=== PATIENT | male | born 1935 | race Caucasian/White ===

== ENCOUNTER 2018-04-02 11:00 | Outpatient (CLI) | payer MEDICARE, OTHER ==
--- NOTE | 2018-04-03 10:33 | CONSULTATION NOTE ---
Palliative Care Consultation - Referral Referring Provider: Dr Tanna Hoyt Time of Visit: 04/02/2018. 11:10 - 13:10 Referral setting: Assisted living (Seen in home setting due to taxing and considerable effort required to leave the home due to immobility secondary to breathlessness from COPD, CHF.) Referral Reason: Declining functionality, edema, advance care planning - Information Sources Records reviewed: Previous records reviewed History/Review of Systems obtained from: Patient, Family, Nursing (Luca CAMPOS RN ) Exam limitations: Clinical condition (Short term memory deficits) - History of Present Illness Brief History of Present Illness: Thank you, Dr. Tanna Hoyt, for asking the palliative care consult service to be involved in the care of your patient. I am asked to provide support regarding a decline in functional status, symptom management, and advanced care management. He is with Home Health for medication and disease management, teaching, and wound care for stage 1 pressure wound on coccyx. FACE TO FACE FOR GROUP I ARIEL / MATTRESS: Due to Stage 2 pressure ulcer on patients trunk as a result of immobility secondary to CHF, COPD and dementia, patient requires a Group 1 support surface to promote wound healing. As a result of peripheral vascular disease, patient also suffers from compromised circulatory status which can decrease skin integrity if not managed. Group 1 support will promote healthy skin integrity. -82 male with advancing dementia and complex medical problems, was living with his daughter who has been his primary caregiver. With the rapid advance of his dementia she could not continue to care for the patient herself, and he is now living at [facility], and has been since 25 February 2018. 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 -In 2014 He fell and fractured R hip, had influenza with suspected pneumonia, a short while later a UTI and sepsis, and another fall later that same year, laying on floor for 8 hours with broken elbow. And also had rhabdomyolysis. - In 2015 he had LE edema and pain in knees severe enough that he could not stand or walk. He also had UTI, and went to inpatient rehab at [facility] -In Oct 2017 he went to ER for severe chest pain, and atrial flutter. -He also had a fall 2017, and that is when 3 healing fractured ribs were found from an earlier fall. He was hospitalized for UTI, but daughter reports he did not actually have a UTI. He was discharged to [facility] for 3 weeks of physical therapy, which really helped him. Now he sits in his apartment and only ambulates with the walker (and standby assistance) within the apartment -Daughter has requested palliative care to help define goals of care. She used to volunteer at Hospice, so she is familiar with palliative care services. -Patient is alert, articulate and interactive, but has confusion and trouble when asked questions, generally looking to his daughter when I ask him questions. -Functionally he is also declining, with increased difficulty transferring, unsteady standing and has unstable, careful gait. He ambulates with the walker only in his room; outside of his room he uses the wheelchair. -His lower extremities are edamatous, with a darkened, mildly tender and erythematic 7x7cm area on L viera, but no heat or deep redness. Both feet are 3+ pitting edema, with edema also up to the knees. He refuses compression stockings , but is agreeable to try tubigrip. He has his feet elevated during this visit but it is unclear if he elevates them when alone in his apartment. -He sleeps in his recliner. He denies pain. Medical/Surgical History - Past Medical History Cardiovascular: reports: Congestive heart failure, Hypertension, Coronary artery disease, Peripheral Vascular Disease, Atrial flutter, Atrial fibrillation Respiratory: reports: Asthma, COPD Neuro: Dementia : reports: Other (CKD III) HEENT: reports: Chronic hearing loss - Past Surgical History General: reports: Other (R upper lung lobectomy, suspected malignancy, but negative for cancer) Ortho: reports: Hip replacement (R hemiarthroplasty 2014) Cardiovascular: reports: AAA (endovascular repair 2013) Social History - Living Situation Living arrangement: Assisted living ([facility] in [place]) Living Situation: Alone, With caregiver(s) Support System: Patient has been 3 times, he is . He lived with his daughter, Inessa, for 4 years until she could no longer provide adequate care and he moved in to [facility] in February 2018. He had 5 children, two are from cancer. One daughter lives in [place] and is not closely involved. One son used to live with the patient x 5 years, but moved to [place] when the patient declined and required more care. At that time the patient moved in with daughter Inessa and her . Family History - Family History Family History Comment/Other: Both parents in their 70s. Father of stroke or diabetic complications. Mother had breast cancer. Two siblings : one in a childhood accident and a brother in his 80s from pneumonia. Medications/Allergies - Medications Home Medications: Ambulatory Orders Medication Instructions Recorded Confirmed Acetaminophen 325 mg PO Q6H PRN 04/03/18 04/03/18 Acetaminophen 650 mg PO TID 04/03/18 04/03/18 Albuterol Sulf [Ventolin Hfa 2 puffs INH BID 04/03/18 04/03/18 Inhaler] Amiodarone [Pacerone] 200 mg PO .QHS 04/03/18 04/03/18 Amlodipine Besylate 10 mg PO DAILY 04/03/18 04/03/18 Bimatoprost 0.01% Ophth Dops 1 drops EACHEYE .QHS 04/03/18 04/03/18 [Lumigan 0.01% Ophth Drops] Budesonide/Formoterol Fumarate 2 puffs INH BID 04/03/18 04/03/18 [Symbicort 80-4.5 Mcg Inhaler] Cetirizine HCl 10 mg PO .QHS 04/03/18 04/03/18 Cholecalciferol (Vitamin D3) 1,000 unit PO DAILY 04/03/18 04/03/18 [Vitamin D3] Diltiazem HCl [Diltiazem 12Hr ER] 120 mg PO DAILY 04/03/18 04/03/18 Diltiazem HCl [Diltiazem ER] 60 mg PO .QHS 04/03/18 04/03/18 Diphenoxylate/Atropine [Lomotil] 2 tab PO QID PRN 04/03/18 04/03/18 Docusate Calcium 240 mg PO DAILY PRN 04/03/18 04/03/18 Ferrous Sulfate 325 mg PO DAILY 04/03/18 04/03/18 Finasteride 5 mg PO .QHS 04/03/18 04/03/18 Hydralazine HCl 40 mg PO BID 04/03/18 04/03/18 Multivitamin [Multiple Vitamins] 1 tab PO DAILY 04/03/18 04/03/18 Nitroglycerin [Nitrostat] 0.4 mg PO Q5MIN PRN MDD 3 TABLETS 04/03/18 04/03/18 Prednisone 5 mg PO DAILY 04/03/18 04/03/18 Tamsulosin HCl [Flomax] 0.4 mg PO DAILY 04/03/18 04/03/18 Tiotropium [place] [Spiriva] 1 cap INH DAILY 04/03/18 04/03/18 Warfarin [Coumadin] 1.25 mg PO MDD M,T,W,F,Sat 04/03/18 Warfarin [Coumadin] 2.5 mg PO MDD Sun and Thur 04/03/18 Review of Systems - Constitutional Constitutional: reports: Weight loss (147 lbs 03/13/18. 138 lbs 03/01/18. 146 lbs 11/11/17. 157 lbs 05/14/18. 153 lbs from January-April 2017.) - Eyes Eyes: reports: Corrective lenses - Ears, Nose & Throat Ears, Nose & Throat: reports: Hearing loss, Postnasal drainage (chronic) - Cardiovascular Cardiovascular: reports: Exertional dyspnea, Decr. exercise tolerance - Respiratory Respiratory: reports: Cough (nervous habit), SOB at rest, SOB with exertion - Genitourinary Genitourinary: denies: Dysuria - Integumentary Integumentary: reports: Lesions (L viera) - Neurological Neurological: reports: General weakness, Memory problems, Abnormal gait Physical Exam - Vital Signs Temperature: 97.0 F Pulse Rate: 66 O2 Saturation: 93 (room air) Blood Pressure: 154/70 - Physical Exam General Appearance: positive: No acute distress, Alert Eyes Bilateral: positive: No lid inflammation, Conjunctivae nml, No scleral icterus ENT: positive: No signs of dehydration Neck: positive: Trachea midline Cardiovascular: positive: Regular rate & rhythm, No murmur, No gallop Respiratory: positive: Chest non-tender, No respiratory distress, Diminished throughout, Diminished in bases, Rales (mild crackles RLL), Other (RUL removed) Abdomen: positive: Non-tender, Soft, Nml bowel sounds Skin: positive: Wound (small, scattered, scabbed lesions on L viera.), Other ( lateral R viera, small patch of localized edema) Extremities: positive: Pedal edema (3+ bilateral), Other (edema lower extremitites up to knees. According to daughter his calves are usually much smaller) Neurologic/Psychiatric: positive: Oriented x3, Mood/affect nml Palliative Care - POLST Patient has POLST: Yes POLST Status: DNR, Selective Treatment Pain: Comment (01/18. Controlled with Tylenol 650mg TID routine.) Tiredness/Fatigue: Moderate (4-6) Drowsiness/Sedation: None Nausea: None Depression: None Anxiety: None Dyspnea: Moderate (4-6) Anorexia: None Constipation: No Feelings of wellbeing/Perceived Quality of Life: Good Performance Status: Unsteady gait, unstable standing. Transfers out of recliner with difficulty; requires stand-by assist. Ambulated with walker only in his apartment. Outside of it, he is pushed in the wheelchair. Cognitive decline is increasing since beginning of the year. -Per the daughter, after his 3 weeks of Physical Therapy at [facility] "he was good." But since living at [facility] he is mostly sitting, only using the walker in the apartment with standby assistance. - Palliative Care Discussion: The patient had stayed at [facility] previously for respite breaks, prior to moving here permanently in February 2018. He is not aware at this point that the plan is that this is his permanent residence. Inessa has chosen this facility because the care is good and he is comfortable here. She is in the process of applying to [facility] for Medicaid. Currently they are privately paying for him to stay at [facility];her private financial deadline to get him signed up for [facility] is May. If [facility] does not approve, she does not at this time have a backup plan. She declined Palliative Care [employer] support at this time. Nelli is aware that assisted living environment may not provide the ideal caregiving coverage her father requires, and the dementia unit at [facility] might serve him better, but she is weighing that against his quality of life and where he would be more comfortable and happy. She feels he would be very unhappy and dissatisfied in a dementia unit, due to his cognitive awareness and he is still fairly articulate. Nelli has an appropriate awareness and insight into the patient's declining health status and medical conditions. However, the patient himself is lacking insight and awareness of his serious medical issues. He does not recognize himself as having any serious disease. He also is currently unaware that his stay at [facility] is slated to be permanent; he has had two previous stays there for respite. POLST was signed in September 2017, DNR and selective treatment, and specifying no emergency dialysis. No changes were made. His PCP, Dr Hoyt, is moving to [place]. He will be transferring to a PCP on [facility], perhaps Dr Zuleta. Impression and Recommendations - Palliative Care Impression: 82 male with advancing dementia and complex medical problems, was living with his daughter who has been his primary caregiver. With the rapid advance of his dementia she could not continue to care for the patient herself, and he is now living at [facility] assisted living since 25 February 2018. He has lower bilateral edema and a stage 1 pressure wound in sacral area. HH Nursing will oversee wound management, palliative care will provide monitoring and support and transition to Hospice when appropriate. Recommendations/Counseling Done: Stage 1 pressure wound, sacral area: Home Health RN to provide wound care. Patient sleeps in recliner. Ordered Group 1/ARIEL Mattress. Patient has hospital bed already (purchased used). Bilateral lower extremity edema: Ordered HH to take Ankle Brachial Index. Ordered Tubigrip; if effective, patient's family can purchase. If ineffective, try 2-layer light compression wraps. Educate patient on compression and elevation. Amlodipine contributes; try not to nusrat it with diuretics. CKD III: Family specifies no emergency dialysis. Avoid nephrotoxic medications ( NSAIDs, etc) Dementia: Steady decline. No behavior issues. No symptoms of depression. h/o R hip fracture: Tylenol 650mg TID routine, and also PRN, NTE 3000mg daily. COPD and chronic SOB: Stable. Continue Spiriva, Symbicort, Ventolin, prednisone Atrial fibrillation: Anticoagulated on warfarin; rate control with diltiazem, amiodarone. Chronic post-nasal drip: Continue cetirizine. BPH: Continue tamsulosin and finasteride. Advanced care planning: POLST signed September 2017, DNR and selective treatment. [facility]PO[facility] dementia unit. She is willing to sacrifice some safety and tighter oversight for quality of life and his enjoyment of his environs. Follow up 1-2 weeks. Time Spent: 120 minutes were spent with more than 50% of the time spent on counseling, education, providing anticipatory guidance and coordination of care.
== END 2018-04-02 11:01 | disposition home or self-care (01) ==
LOC: PC 11:00
PROVIDERS: ATTEND Nurse Practitioner
DX: Z51.5 Encounter for palliative care (principal); L89.151 Pressure ulcer of sacral region, stage 1; I13.0 Hypertensive heart and chronic kidney disease with heart failure and stage 1 through stage 4 chronic kidney disease, or unspecified chronic kidney disease; N18.3 Chronic kidney disease, stage 3 (moderate); I50.9 Heart failure, unspecified; F03.90 Unspecified dementia, unspecified severity, without behavioral disturbance, psychotic disturbance, mood disturbance, and anxiety; J44.9 Chronic obstructive pulmonary disease, unspecified; I48.91 Unspecified atrial fibrillation; R09.82 Postnasal drip; N40.0 Benign prostatic hyperplasia without lower urinary tract symptoms; I73.9 Peripheral vascular disease, unspecified; H91.90 Unspecified hearing loss, unspecified ear; R26.81 Unsteadiness on feet; L98.9 Disorder of the skin and subcutaneous tissue, unspecified; Z79.01 Long term (current) use of anticoagulants; Z95.5 Presence of coronary angioplasty implant and graft; Z90.2 Acquired absence of lung [part of]; Z79.899 Other long term (current) drug therapy; Z87.440 Personal history of urinary (tract) infections; Z91.81 History of falling; Z66 Do not resuscitate; Z79.52 Long term (current) use of systemic steroids; Z79.51 Long term (current) use of inhaled steroids

== ENCOUNTER 2018-04-02 11:02 | Outpatient (CLI) | payer MEDICARE, OTHER ==
[2018-04-02 18:43] LABS: BILIRUBIN,URINE NEGATIVE (NEGATIVE); GLUCOSE, URINE (UA) NEGATIVE (NEGATIVE); KETONES,URINE (UA) NEGATIVE (NEGATIVE); LEUKOCYTE ESTERASE, URINE NEGATIVE (NEGATIVE); NITRITE,URINE NEGATIVE (NEGATIVE); OCCULT BLOOD,URINE NEGATIVE (NEGATIVE); PROTEIN,URINE NEGATIVE (NEGATIVE); UROBILINOGEN,URINE 1 (NORMAL) E.U./dL (NORMAL)
[2018-04-02 18:48] LABS: CLARITY,URINE CLEAR (CLEAR)
== END 2018-04-02 11:03 | disposition home or self-care (01) ==
LOC: LAB.R 11:02
PROVIDERS: ATTEND Nurse Practitioner
DX: N39.0 Urinary tract infection, site not specified (principal)
CPT/HCPCS: 81001; 81003; 87086

== ENCOUNTER 2018-04-24 14:50 | Outpatient (CLI) | payer MEDICARE, OTHER ==
--- NOTE | 2018-04-24 22:11 | CONSULTATION NOTE ---
Palliative Care Follow Up - Referral Referring Provider: Dr Tanna Hoyt Time of Visit: 04/24/2018. [phone] Referral setting: Assisted living (Seen in home setting due to taxing and considerable effort required to leave the home due to debility secondary to breathlessness from COPD and CHF.) Referral Reason: Lower extremity edema - Information Sources Records reviewed: Previous records reviewed History/Review of Systems obtained from: Patient, Family, Nursing Exam limitations: Clinical condition (Short-term memory deficits) - History of Present Illness Update Brief HPI Update: -82 male with advancing dementia and complex medical problems, was living with his daughter who has been his primary caregiver. With the rapid advance of his dementia she could not continue to care for the patient herself, so he has been living at [facility] since 25 February 2018. 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 -He fell 2017, and that is when 3 healing fractured ribs were found from an earlier fall. He was hospitalized for UTI (daughter Inessa believes he did not actually have a UTI), followed by 3 weeks of physical therapy. -His daughter Inessa is concerned that he is sedentary in his apartment and not ambulating enough to keep up the progress he made with PT during his rehabilitation. -He continues to be seen by HH RN for wound care of R buttocks wound which is not healing. RN reports it is clean, not appropriate for culture. -She also reports worsening redness on R viera. I assessed today: no redness, no heat, no tenderness. Bilateral lower extremities are edematous, with fluid palpable subcutaneously on R lateral lower extremity. -Weight gain: 158 lbs 04/13/18. 147 lbs 03/13/18. HH RN will use facility scale from now on for consistency. -Patient has tubigrip stockings on; feet aren't elevated. Daughter is concerned that since he lives alone, he is not elevating legs consistently and also that he is sleeping in his recliner, not in bed. He does not like the bed because he says he hears "children" through the plywood door next to the bed. -Patient has been running a temperature with ANDRES RN, most recently 100.1 but otherwise vital signs are stable. He is not running a temperature according to my thermometer. -Patient is on warfarin and his INR is checked regularly, every two weeks. ANDRES RN is performing the INR check. -Patient is ambulatory inside his apartment, he calls staff to assist him to the toilet. -He goes down to the dining room for all three meals and reports he has people he sits with. His uses his wheelchair outside of his unit. Social History - Living Situation Living arrangement: Assisted living ([facility]) Living Situation: Alone Support System: He lived with daughter, Inessa, for 4 years until his care needs increased to the point she was no longer able to care for him at home, so he has been living at [facility] since February. They are processing the paperwork to get him there under Medicaid. Inessa is closely involved in his care. Her was just laid off his job, so her living situation is currently complex and stressful. Medications/Allergies - Medications Home Medications: Ambulatory Orders Medication Instructions Recorded Confirmed Acetaminophen 325 mg PO Q6H PRN 04/03/18 04/24/18 Acetaminophen 650 mg PO TID 04/03/18 04/24/18 Albuterol Sulf [Ventolin Hfa 2 puffs INH BID 04/03/18 04/24/18 Inhaler] Amiodarone [Pacerone] 200 mg PO .QHS 04/03/18 04/24/18 Amlodipine Besylate 10 mg PO DAILY 04/03/18 04/24/18 Bimatoprost 0.01% Ophth Dops 1 drops EACHEYE .QHS 04/03/18 04/24/18 [Lumigan 0.01% Ophth Drops] Budesonide/Formoterol Fumarate 2 puffs INH BID 04/03/18 04/24/18 [Symbicort 80-4.5 Mcg Inhaler] Cetirizine HCl 10 mg PO .QHS 04/03/18 04/24/18 Cholecalciferol (Vitamin D3) 1,000 unit PO DAILY 04/03/18 04/24/18 [Vitamin D3] Diltiazem HCl [Diltiazem 12Hr ER] 120 mg PO DAILY 04/03/18 04/24/18 Diphenoxylate/Atropine [Lomotil] 2 tab PO QID PRN 04/03/18 04/24/18 Docusate Calcium 240 mg PO DAILY PRN 04/03/18 04/24/18 Ferrous Sulfate 325 mg PO DAILY 04/03/18 04/24/18 Finasteride 5 mg PO .QHS 04/03/18 04/24/18 Hydralazine HCl 40 mg PO BID 04/03/18 04/24/18 Multivitamin [Multiple Vitamins] 1 tab PO DAILY 04/03/18 04/24/18 Nitroglycerin [Nitrostat] 0.4 mg PO Q5MIN PRN MDD 3 TABLETS 04/03/18 04/24/18 Prednisone 5 mg PO DAILY 04/03/18 04/24/18 Tamsulosin HCl [Flomax] 0.4 mg PO DAILY 04/03/18 04/24/18 Tiotropium [place] [Spiriva] 1 cap INH DAILY 04/03/18 04/24/18 Warfarin [Coumadin] 1.25 mg PO MDD M,T,W,F,Sat 04/03/18 Warfarin [Coumadin] 2.5 mg PO MDD Sun and Thur 04/03/18 Furosemide 20 mg PO .EVERY OTHER DAY MDD for 04/24/18 04/24/18 5 doses only - Allergies Allergies/Adverse Reactions: Allergies Allergy/AdvReac Type Severity Reaction Status Date / Time azithromycin Allergy Respiratory Verified 04/04/18 15:16 bee venom protein (honey bee) Allergy Anaphylaxis Verified 04/04/18 15:16 hornet venom Allergy Anaphylaxis Verified 04/04/18 15:16 lisinopril Allergy Respiratory Verified 04/04/18 15:16 losartan Allergy Respiratory Verified 04/04/18 15:16 naproxen [From Naprosyn] Allergy Respiratory Verified 04/04/18 15:16 NSAIDS (Non-Steroidal Allergy Respiratory Verified 04/04/18 15:16 Anti-Inflamma Penicillins Allergy Respiratory Verified 04/04/18 15:16 Sulfa (Sulfonamide Allergy Respiratory Verified 04/04/18 15:16 Antibiotics) aspirin AdvReac Cramps Verified 04/04/18 15:16 hydromorphone AdvReac Hallucinati Verified 04/04/18 15:16 ons Iodinated Contrast- Oral and AdvReac Unknown Verified 04/04/18 15:16 IV Dye omeprazole AdvReac Cramps Verified 04/04/18 15:16 oxycodone AdvReac Hallucinati Verified 04/04/18 15:16 ons wasp Allergy Anaphylaxis Uncoded 04/04/18 15:16 yellow jacket venom Allergy Anaphylaxis Uncoded 04/04/18 15:16 Review of Systems - Constitutional Constitutional: reports: Weight gain. denies: Poor appetite - Ears, Nose & Throat Ears, Nose & Throat: reports: Hearing loss, Dental decay (poor dentition) - Respiratory Respiratory: reports: Cough (nervous habit, per patient and daughter), SOB at rest (occasionally) - Gastrointestinal Gastrointestinal: denies: Constipation, Poor appetite - Genitourinary Genitourinary: denies: Dysuria, Frequency, Incontinence - Musculoskeletal Musculoskeletal: reports: Assistive devices (walker; wheelchair) - Neurological Neurological: reports: Memory problems, Abnormal gait Physical Exam - Vital Signs Temperature: 97.5 F Pulse Rate: 49 O2 Saturation: 99 Blood Pressure: 140/70 - Physical Exam General Appearance: positive: No acute distress, Alert Eyes Bilateral: positive: No lid inflammation, Conjunctivae nml, No scleral icterus ENT: positive: Dry mucous membranes Neck: positive: No JVD, Trachea midline Cardiovascular: positive: Regular rate & rhythm, No murmur, No gallop Respiratory: positive: Chest non-tender, No respiratory distress, Diminished in bases Abdomen: positive: Non-tender, Soft, Abnml bowel sounds (hypoactive) Skin: positive: Other Extremities: positive: Pedal edema (+3 on both feet; edema on lower extremities ; yellow/brown discoloration on R viera, without heat, tenderness or swelling. Fluid palpable subcutaneously on R lateral lower extremity.), Other Neurologic/Psychiatric: positive: Mood/affect nml, Disoriented to time Palliative Care - POLST Patient has POLST: Yes POLST Status: DNR, Selective Treatment Feelings of wellbeing/Perceived Quality of Life: Good - Palliative Care Discussion: Patient's daughter, Inessa is closely involved in his care; they are currently trying to get him signed up for Medicaid. I spoke with Inessa about starting a short course of furosemide to relieve the pedal edema, and the PCP was agreeable to this plan. Inessa's concern is that it will be a temporary fix, and that he is not elevating or using compression stockings. This is something that can't be monitored in the assisted living environment. She monitored it very closely when he lived with her. But she is agreeable to going ahead with the diuretic. She asked that staff at facility monitor for reactions such as hives, rash, etc, since the patient often has reactions to medications. Her other concern is how the patient's INR will be monitored once HH RN is completed (they are doing it currently). We discussed having the [facility] staff do the testing, the issue is getting them the kit. She will need to speak with Medicaid about supplying that. Otherwise, it would be the responsibility of the family to obtain the ketty. But facility can do the INR testing. The patient's PCP will be leaving and Inessa is looking for a local PCP that accepts Medicaid and Medicare. I suggested [facility]. She prefers someone in [place]: so choices are [facility], or Dr Reece. Her was just laid off work, so she admits their lives are stressful currently. Impression and Recommendations - Palliative Care Impression: 82-year-old male with advancing dementia and complex medical problems, recently moved to [facility] assisted living. His edema has not been improving and he could benefit from a short course of diuretics. Home health nursing continues to provide wound care for his buttock pressure wound and also oversees regular INR testing. Palliative care will continue to provide oversight and support with symptom management. Recommendations/Counseling Done: Bilateral lower extremity edema: Start furosemide 20mg, 1 tablet every other day x 5 doses (for 10 days). HH RN to do blood draw for BMP for kidney function tests. Discussed this plan with PCP, Dr Tanna Hoyt, who agreed and suggested [id number] dosing due to his CKD III. She stated his creativine was decent 3 months ago, 1.4. Previously it was 2.3. Atrial fibrillation: Anticoagulated on warfarin; HH RN tests INR regularly. Rate controlled with diltiazem and amiodarone. Buttocks pressure wound: Improved, not healing. Will recommend continued 2x/ week visits from HH RN to monitor and continue to provide wound care. She reports wound is clean, not appropriate for culturing. He sleeps in recliner, thus remains at risk for pressure wounds. Nursing has reported a temperature this week, up to 100.1. All other VS stable. No signs of respiratory infection or UTI. Group I ARIEL/mattress has been requested; [id number] was done at last visit. Advanced care planning: POLST in place: DNR, selective treatment. Family is seeking a new PCP since patient's long-time PCP is leaving; they want to find someone local. Follow up later in week regarding furosemide, temperature. Time Spent: 30 minutes with more than 50% of the time spent on counseling, education, and coordination of care.
== END 2018-04-24 14:51 | disposition home or self-care (01) ==
LOC: PC 14:50
PROVIDERS: ATTEND Nurse Practitioner
DX: Z51.5 Encounter for palliative care (principal); R60.0 Localized edema; J44.9 Chronic obstructive pulmonary disease, unspecified; I50.9 Heart failure, unspecified; F03.90 Unspecified dementia, unspecified severity, without behavioral disturbance, psychotic disturbance, mood disturbance, and anxiety; N18.3 Chronic kidney disease, stage 3 (moderate); Z79.01 Long term (current) use of anticoagulants; Z66 Do not resuscitate

== ENCOUNTER 2018-04-26 11:20 | Outpatient (CLI) | payer MEDICARE, OTHER ==
[2018-04-26 19:13] LABS: CALCIUM 8.2 mg/dL (8.5-10.3); CREATININE 1.8 mg/dL (0.6-1.2)
== END 2018-04-26 11:21 | disposition home or self-care (01) ==
LOC: LAB.R 11:20
PROVIDERS: ATTEND Nurse Practitioner
DX: I50.9 Heart failure, unspecified (principal)
CPT/HCPCS: 80048

== ENCOUNTER 2018-05-14 09:05 | Outpatient (CLI) | payer MEDICARE, OTHER | END 2018-05-14 09:06 | disposition critical access hospital (66) | LOC: EMS 09:05 | PROVIDERS: ATTEND Surgery | DX: R07.9 Chest pain, unspecified (principal) ==

== ENCOUNTER 2018-05-14 09:21 | Emergency (ER) | payer MEDICARE, OTHER ==
--- NOTE | 2018-05-14 09:34 | ED Physician Documentation ---
PD HPI CHEST PAIN - Stated complaint Stated Complaint: CP - Chief complaint Chief Complaint: Cardiac - History obtained from History obtained from: Patient, EMS - History of Present Illness Timing - onset: Last night Timing - onset during: Rest Timing - duration: Hours Timing - details: Gradual onset, Still present, Waxing and waning Pain level max: 8 Pain level now: 7 Quality: Pressure, Tightness, Pain Location: Substernal, Left chest Radiation: No: Jaw, Neck, Back, Abdominal, Left upper extremity, Right upper extremity Improved by: Rest, Nitro Worsened by: Inspiration, Palpation Associated symptoms: Shortness of air, Cough. No: Diaphoresis, Nausea, Vomiting , Feeling faint / dizzy, General Weakness, Palpitations Similar symptoms before: Has not had sx before Recently seen: Not recently seen - Additional information Additional information: 82-year-old male states that he began to have some chest pain last night he was able to get back to sleep and he continued to have pain this morning he eventually mentioned this to someone and they called 911. The patient has short -term memory loss and he does not recall exactly how long he had this pain. He describes the pain is in the left chest and points to his heart. He denies any radiation he denies any diaphoresis or lightheadedness. He did get nitroglycerin with some improvement in his pain but not resolution. He arrives to the emergency department with continued chest pain and no electrocardiographic abnormalities in route. The patient does have a complicated past medical history including COPD congestive heart failure and abdominal aortic aneurysm which has been stented. He is receiving care at [facility] and is in assisted living. He has had palliative care consult done and is working on issues of an ulceration on his buttocks and his congestive failure. Review of Systems Constitutional: denies: Fever Eyes: denies: Decreased vision Ears: denies: Ear pain Nose: denies: Congestion Throat: denies: Sore throat Cardiac: reports: Chest pain / pressure. denies: Palpitations, Pedal edema, Calf pain Respiratory: reports: Dyspnea. denies: Cough GI: denies: Abdominal Pain, Abdominal Swelling, Nausea, Vomiting : denies: Dysuria, Frequency PD PAST MEDICAL HISTORY - Present Medications Home Medications: Ambulatory Orders Medication Instructions Recorded Confirmed Acetaminophen 325 mg PO Q6H PRN 04/03/18 04/24/18 Acetaminophen 650 mg PO TID 04/03/18 04/24/18 Albuterol Sulf [Ventolin Hfa 2 puffs INH BID 04/03/18 04/24/18 Inhaler] Amiodarone [Pacerone] 200 mg PO .QHS 04/03/18 04/24/18 Amlodipine Besylate 10 mg PO DAILY 04/03/18 04/24/18 Bimatoprost 0.01% Ophth Dops 1 drops EACHEYE .QHS 04/03/18 04/24/18 [Lumigan 0.01% Ophth Drops] Budesonide/Formoterol Fumarate 2 puffs INH BID 04/03/18 04/24/18 [Symbicort 80-4.5 Mcg Inhaler] Cetirizine HCl 10 mg PO .QHS 04/03/18 04/24/18 Cholecalciferol (Vitamin D3) 1,000 unit PO DAILY 04/03/18 04/24/18 [Vitamin D3] Diltiazem HCl [Diltiazem 12Hr ER] 120 mg PO DAILY 04/03/18 04/24/18 Diphenoxylate/Atropine [Lomotil] 2 tab PO QID PRN 04/03/18 04/24/18 Docusate Calcium 240 mg PO DAILY PRN 04/03/18 04/24/18 Ferrous Sulfate 325 mg PO DAILY 04/03/18 04/24/18 Finasteride 5 mg PO .QHS 04/03/18 04/24/18 Hydralazine HCl 40 mg PO BID 04/03/18 04/24/18 Multivitamin [Multiple Vitamins] 1 tab PO DAILY 04/03/18 04/24/18 Nitroglycerin [Nitrostat] 0.4 mg PO Q5MIN PRN MDD 3 TABLETS 04/03/18 04/24/18 Prednisone 5 mg PO DAILY 04/03/18 04/24/18 Tamsulosin HCl [Flomax] 0.4 mg PO DAILY 04/03/18 04/24/18 Tiotropium [place] [Spiriva] 1 cap INH DAILY 04/03/18 04/24/18 Warfarin [Coumadin] 1.25 mg PO MDD M,T,W,F,Sat 04/03/18 Warfarin [Coumadin] 2.5 mg PO MDD Sun and Momo 04/03/18 - Allergies Allergies/Adverse Reactions: Allergies Allergy/AdvReac Type Severity Reaction Status Date / Time azithromycin Allergy Respiratory Verified 04/04/18 15:16 bee venom protein (honey bee) Allergy Anaphylaxis Verified 04/04/18 15:16 hornet venom Allergy Anaphylaxis Verified 04/04/18 15:16 lisinopril Allergy Respiratory Verified 04/04/18 15:16 losartan Allergy Respiratory Verified 04/04/18 15:16 naproxen [From Naprosyn] Allergy Respiratory Verified 04/04/18 15:16 NSAIDS (Non-Steroidal Allergy Respiratory Verified 04/04/18 15:16 Anti-Inflamma Penicillins Allergy Respiratory Verified 04/04/18 15:16 Sulfa (Sulfonamide Allergy Respiratory Verified 04/04/18 15:16 Antibiotics) aspirin AdvReac Cramps Verified 04/04/18 15:16 hydromorphone AdvReac Hallucinati Verified 04/04/18 15:16 ons Iodinated Contrast- Oral and AdvReac Unknown Verified 04/04/18 15:16 IV Dye omeprazole AdvReac Cramps Verified 04/04/18 15:16 oxycodone AdvReac Hallucinati Verified 04/04/18 15:16 ons wasp Allergy Anaphylaxis Uncoded 04/04/18 15:16 yellow jacket venom Allergy Anaphylaxis Uncoded 04/04/18 15:16 - POLST Patient has POLST: Yes PD ED PE NORMAL - Vitals Vital signs reviewed: Yes (hypertensive ) - General General: No acute distress, Well developed/nourished - HEENT HEENT: Atraumatic, PERRL, EOMI, Other (dry mucous membranes ) - Neck Neck: Supple, no meningeal sign, No bony TTP - Cardiac Cardiac: Other (irregularly irregular rate and rhythm with 2/6 holosystolic murmer at lsb. ) - Respiratory Respiratory: No respiratory distress, Other (left base rhonchi is mild There is chest wall tenderness to the left chest reproducing the symptoms the patient is having. ) - Abdomen Abdomen: Soft, Non tender - Back Back: No CVA TTP, No spinal TTP - Derm Derm: Normal color, Warm and dry, No rash - Extremities Extremities: No deformity, No edema - Neuro Neuro: No motor deficit, No sensory deficit, Normal speech Eye Opening: Spontaneous Motor: Obeys Commands Verbal: Oriented GCS Score: 15 - Psych Psych: Normal mood, Normal affect Results - Vitals Vitals: Vital Signs - 24 hr 05/14/18 05/14/18 05/14/18 09:24 10:45 11:15 Heart Rate 70 57 L 58 L Respiratory 16 13 13 Rate Blood Pressure 147/69 H 153/67 H 153/67 H O2 Saturation 95 94 93 Oxygen O2 Source Room air - EKG (time done) 0932 Rate: Rate (enter#) (66) Lyndon: LAD Ischemia: Q waves Compare to prior EKG: Old EKG unavailable Computer interpretation: Agree with computer - Labs Labs: Laboratory Tests 05/14/18 05/14/18 05/14/18 09:40 09:40 09:40 WBC 13.5 H RBC 4.21 L Hgb 10.8 L Hct 32.8 L MCV 77.8 L MCH 25.7 L MCHC 33.0 RDW 19.2 H Plt Count 305 MPV 7.2 L Neut # (Auto) 10.9 H Lymph # (Auto) 1.1 L Vance # (Auto) 1.0 Eos # (Auto) 0.4 Baso # (Auto) 0.2 H Absolute Nucleated RBC 0.00 Nucleated RBC % 0.0 PT INR Sodium 137 Potassium 3.5 Chloride 105 Carbon Dioxide 25 Anion Gap 7.0 BUN 27 H Creatinine 1.7 H Estimated GFR (MDRD) 39 L Glucose 93 Calcium 8.2 L Total Bilirubin 0.8 AST 18 ALT 21 Alkaline Phosphatase 70 Troponin I < 0.04 Total Protein 6.3 L Albumin 3.3 Globulin 3.0 Albumin/Globulin Ratio 1.1 Lipase 32 Urine Color Urine Clarity Urine pH Ur Specific [place] Urine Protein Urine Glucose (UA) Urine Ketones Urine Occult Blood Urine Nitrite Urine Bilirubin Urine Urobilinogen Ur Leukocyte Esterase Ur Microscopic Review Urine Culture Comments 05/14/18 05/14/18 09:40 10:35 WBC RBC Hgb Hct MCV MCH MCHC RDW Plt Count MPV Neut # (Auto) Lymph # (Auto) Vance # (Auto) Eos # (Auto) Baso # (Auto) Absolute Nucleated RBC Nucleated RBC % PT 19.0 H INR 1.7 H Sodium Potassium Chloride Carbon Dioxide Anion Gap BUN Creatinine Estimated GFR (MDRD) Glucose Calcium Total Bilirubin AST ALT Alkaline Phosphatase Troponin I Total Protein Albumin Globulin Albumin/Globulin Ratio Lipase Urine Color YELLOW Urine Clarity CLEAR Urine pH 6.0 Ur Specific [place] 1.015 Urine Protein NEGATIVE Urine Glucose (UA) NEGATIVE Urine Ketones NEGATIVE Urine Occult Blood NEGATIVE Urine Nitrite NEGATIVE Urine Bilirubin NEGATIVE Urine Urobilinogen 0.2 (NORMAL) Ur Leukocyte Esterase NEGATIVE Ur Microscopic Review NOT INDICATED Urine Culture Comments NOT INDICATED - Rads (name of study) 2 view chest Radiology: Prelim report reviewed (Impression: 1. Negative for acute cardiopulmonary process or cardiomegaly. Mild/moderate anterior compression fracture in the L1, of uncertain age or etiology.), EMP read indepedently, See rad report Procedures - IVC sono (time) 1304 Bedside IVC sono: IVC measures (cm) (1.54), Euvolemia PD MEDICAL DECISION MAKING - ED course Complexity details: reviewed results, re-evaluated patient, considered differential, d/w patient, d/w family ED course: 82-year-old male with a vague history of chest pain arrives to the emergency department does not appear to be in any type of distress. His electrocardiogram is without evidence of ST elevation or significant abnormality. He does have a history of congestive heart failure and on interrogation of the inferior vena cava he appears to be euvolemic and does not appear to be in failure. He does have some mild anterior chest wall tenderness over where the patient's pain complaints are centered. Initially in the emergency department no specific therapy is undertaken and the patient has spontaneous resolution of his symptoms. Despite pain since the early hours the morning the patient has a normal troponin. He does have chest wall tenderness that appears mild. - Sepsis Event Vital Signs: Vital Signs - 24 hr 05/14/18 05/14/18 05/14/18 09:24 10:45 11:15 Heart Rate 70 57 L 58 L Respiratory 16 13 13 Rate Blood Pressure 147/69 H 153/67 H 153/67 H O2 Saturation 95 94 93 Oxygen O2 Source Room air Departure - Departure Disposition: 01 Home, Self Care Clinical Impression: Atypical chest pain Condition: Stable Instructions: ED Chest Pain Atypical Unkn Cause Follow-Up: Tanna Hoyt MD [Primary Care Provider] -
[2018-05-14 09:49] LABS: BASOPHILS # (AUTO) 0.2 10^3/uL (0.0-0.1); BASOPHILS % (AUTO) 1.4 %; EOSINOPHILS # (AUTO) 0.4 10^3/uL (0.0-0.7); EOSINOPHILS % (AUTO) 2.7 %; HGB - HEMOGLOBIN 10.8 g/dL (14.0-18.0); LYMPHOCYTES # (AUTO) 1.1 10^3/uL (1.5-3.5); LYMPHOCYTES % (AUTO) 8.1 %; MEAN CORPUSCULAR HEMOGLOBIN 25.7 pg (27.0-31.0); MEAN CORPUSCULAR VOLUME 77.8 fL (80.0-94.0); MEAN PLATELET VOLUME 7.2 fL (7.4-11.4); MONOCYTES % (AUTO) 7.2 %; NEUTROPHILS # (AUTO) 10.9 10^3/uL (1.5-6.6); NEUTROPHILS % (AUTO) 80.6 %; PLT - PLATELET COUNT 305 10^3/uL (130-450); RED BLOOD COUNT 4.21 10^6/uL (4.70-6.10); RED CELL DISTRIBUTION WIDTH 19.2 % (12.0-15.0); WHITE BLOOD COUNT 13.5 x10^3/uL (4.8-10.8)
[2018-05-14 09:55] LABS: INR 1.7 (0.8-1.2)
[2018-05-14 10:03] LABS: ALBUMIN 3.3 g/dL (3.2-5.5); ALBUMIN/GLOBULIN RATIO 1.1 (1.0-2.2); BILIRUBIN,TOTAL 0.8 mg/dL (0.2-1.0); CALCIUM 8.2 mg/dL (8.5-10.3); CREATININE 1.7 mg/dL (0.6-1.2); TOTAL PROTEIN 6.3 g/dL (6.7-8.2)
[2018-05-14 10:53] LABS: BILIRUBIN,URINE NEGATIVE (NEGATIVE); GLUCOSE, URINE (UA) NEGATIVE (NEGATIVE); KETONES,URINE (UA) NEGATIVE (NEGATIVE); LEUKOCYTE ESTERASE, URINE NEGATIVE (NEGATIVE); NITRITE,URINE NEGATIVE (NEGATIVE); OCCULT BLOOD,URINE NEGATIVE (NEGATIVE); PROTEIN,URINE NEGATIVE (NEGATIVE); UROBILINOGEN,URINE 0.2 (NORMAL) E.U./dL (NORMAL)
[2018-05-14 10:55] LABS: CLARITY,URINE CLEAR (CLEAR)
--- NOTE | 2018-05-14 11:04 | XRAY Report ---
Reason: left sided chest pain Procedure Date: 05/14/2018 Accession Number: [id number] / [id number] Procedure: XR - Chest 2 View X-Ray CPT Code: 32284 FULL RESULT: EXAM: CHEST RADIOGRAPHY EXAM DATE: 05/14/2018 10:17 AM. CLINICAL HISTORY: Left sided chest pain. COMPARISON: None. TECHNIQUE: 2 views. FINDINGS: Lungs/Pleura: Small dense and coarse linear opacities in the lateral left lung base visualized, most likely small atelectasis. Otherwise, no focal opacities evident. No pleural effusion. No pneumothorax. Mediastinum: Heart and mediastinal contours are unremarkable. Other: There is mild/moderate anterior compression fracture in the L1. IMPRESSION: 1. Negative for acute cardiopulmonary process or cardiomegaly. 2. Mild/moderate anterior compression fracture in the L1, of uncertain age or etiology. RADIA
[2018-05-14 13:36] VITALS: BP 163/80
== END 2018-05-14 14:28 | disposition home or self-care (01) ==
LOC: EDUNIT# → ED 09:21
DX: R07.89 Other chest pain (principal); I50.9 Heart failure, unspecified; Z79.01 Long term (current) use of anticoagulants; Z79.52 Long term (current) use of systemic steroids
CPT/HCPCS: 36415; 71046; 80053; 81001; 81003; 83690; 84484; 85025; 85610; 87086; 93005; 99283; 99284

== ENCOUNTER 2018-05-20 22:07 | Outpatient (CLI) | payer MEDICARE, MEDICAID | END 2018-05-20 22:08 | disposition critical access hospital (66) | LOC: EMS 22:07 | PROVIDERS: ATTEND Surgery | DX: M25.551 Pain in right hip (principal); M54.5 Low back pain; W18.39XA Other fall on same level, initial encounter; Y92.099 Unspecified place in other non-institutional residence as the place of occurrence of the external cause | CPT/HCPCS: A0425; A0427 ==

== ENCOUNTER 2018-05-20 22:25 | Emergency (ER) | payer MEDICARE, OTHER ==
--- NOTE | 2018-05-20 22:31 | ED Physician Documentation ---
PD HPI Fall - Stated complaint Stated Complaint: FELL FROM CHAIR - RIGHT HIP PAIN - History obtained from History obtained from: Patient - History of Present Illness Mechanism of injury: Slipped (transferring to wheelchair and slipped, falling to rear/right, with pain right posterior hip. Hurt to get up. 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 No: Head, Neck Quality of pain: Pain Associated symptoms: No: LOC, AMS, Weakness Worsens with: Palpation. No: Movement Contributing factors: Anticoagulated. No: Intoxicated Recently seen: Emergency Dept Review of Systems Constitutional: denies: Fever Nose: denies: Rhinorrhea / runny nose, Congestion Throat: denies: Sore throat Respiratory: denies: Cough GI: denies: Nausea, Vomiting, Diarrhea Neurologic: reports: Generalized weakness. denies: Altered mental status, Headache PD PAST MEDICAL HISTORY - Past Medical History Cardiovascular: Atrial fibrillation Respiratory: COPD Neuro: Dementia Endocrine/Autoimmune: HyPOthyroidism : Benign prostate hypertrophy Musculoskeletal: Osteoarthritis - Past Surgical History Past Surgical History: Yes Ortho: Hip replacement - Present Medications Home Medications: Ambulatory Orders Medication Instructions Recorded Confirmed Acetaminophen 325 mg PO Q6H PRN 04/03/18 04/24/18 Acetaminophen 650 mg PO TID 04/03/18 04/24/18 Albuterol Sulf [Ventolin Hfa 2 puffs INH BID 04/03/18 04/24/18 Inhaler] Amiodarone [Pacerone] 200 mg PO .QHS 04/03/18 04/24/18 Amlodipine Besylate 10 mg PO DAILY 04/03/18 04/24/18 Bimatoprost 0.01% Ophth Dops 1 drops EACHEYE .QHS 04/03/18 04/24/18 [Lumigan 0.01% Ophth Drops] Budesonide/Formoterol Fumarate 2 puffs INH BID 04/03/18 04/24/18 [Symbicort 80-4.5 Mcg Inhaler] Cetirizine HCl 10 mg PO .QHS 04/03/18 04/24/18 Cholecalciferol (Vitamin D3) 1,000 unit PO DAILY 04/03/18 04/24/18 [Vitamin D3] Diltiazem HCl [Diltiazem 12Hr ER] 120 mg PO DAILY 04/03/18 04/24/18 Diphenoxylate/Atropine [Lomotil] 2 tab PO QID PRN 04/03/18 04/24/18 Docusate Calcium 240 mg PO DAILY PRN 04/03/18 04/24/18 Ferrous Sulfate 325 mg PO DAILY 04/03/18 04/24/18 Finasteride 5 mg PO .QHS 04/03/18 04/24/18 Hydralazine HCl 40 mg PO BID 04/03/18 04/24/18 Multivitamin [Multiple Vitamins] 1 tab PO DAILY 04/03/18 04/24/18 Nitroglycerin [Nitrostat] 0.4 mg PO Q5MIN PRN MDD 3 TABLETS 04/03/18 04/24/18 Prednisone 5 mg PO DAILY 04/03/18 04/24/18 Tamsulosin HCl [Flomax] 0.4 mg PO DAILY 04/03/18 04/24/18 Tiotropium [place] [Spiriva] 1 cap INH DAILY 04/03/18 04/24/18 Warfarin [Coumadin] 1.25 mg PO MDD M,T,W,F,Sat 04/03/18 Warfarin [Coumadin] 2.5 mg PO MDD Sun and Thur 04/03/18 - Allergies Allergies/Adverse Reactions: Allergies Allergy/AdvReac Type Severity Reaction Status Date / Time azithromycin Allergy Respiratory Verified 05/20/18 22:33 bee venom protein (honey bee) Allergy Anaphylaxis Verified 05/20/18 22:33 hornet venom Allergy Anaphylaxis Verified 05/20/18 22:33 lisinopril Allergy Respiratory Verified 05/20/18 22:33 losartan Allergy Respiratory Verified 05/20/18 22:33 naproxen [From Naprosyn] Allergy Respiratory Verified 05/20/18 22:33 NSAIDS (Non-Steroidal Allergy Respiratory Verified 05/20/18 22:33 Anti-Inflamma Penicillins Allergy Respiratory Verified 05/20/18 22:33 Sulfa (Sulfonamide Allergy Respiratory Verified 05/20/18 22:33 Antibiotics) aspirin AdvReac Cramps Verified 05/20/18 22:33 hydromorphone AdvReac Hallucinati Verified 05/20/18 22:33 ons Iodinated Contrast- Oral and AdvReac Unknown Verified 05/20/18 22:33 IV Dye omeprazole AdvReac Cramps Verified 05/20/18 22:33 oxycodone AdvReac Hallucinati Verified 05/20/18 22:33 ons wasp Allergy Anaphylaxis Uncoded 05/20/18 22:33 yellow jacket venom Allergy Anaphylaxis Uncoded 05/20/18 22:33 - Living Situation Living Situation: reports: Alone Living Arrangement: reports: Assisted living - Social History Does the pt smoke?: No Smoking Status: Former smoker Does the pt drink ETOH?: Yes Does the pt have substance abuse?: No - Family History Family history: reports: Non contributory - Immunizations Immunizations are current?: Yes - POLST Patient has POLST: Yes PD ED PE NORMAL - Vitals Vital signs reviewed: Yes - General General: Alert and oriented X 3, No acute distress, Well developed/nourished - HEENT HEENT: Atraumatic - Neck Neck: Supple, no meningeal sign, No bony TTP, No adenopathy - Cardiac Cardiac: RRR, No murmur - Respiratory Respiratory: Clear bilaterally - Abdomen Abdomen: Soft, Non tender - Back Back: No spinal TTP - Derm Derm: Normal color, Warm and dry - Extremities Extremities: Other (right hip without deformity nor pain on passive ROM. Posterior pelvis in SI area and ramus with tednerness. No noted hematoma. ) - Neuro Neuro: Alert and oriented X 3, No motor deficit, Normal speech, Other ( symmetric moderate weakness of both legs, baseline per patient and is in wheelchair usually. ) Results - Vitals Vitals: Vital Signs - 24 hr 05/20/18 05/20/18 05/21/18 22:29 23:57 00:41 Temperature 36.9 C 36.9 C Heart Rate 77 88 80 Respiratory 17 18 18 Rate Blood Pressure 173/131 H 144/86 H 157/77 H O2 Saturation 90 L 95 90 L Oxygen O2 Source Room air Oxygen Flow Rate 2 - Labs Labs: Laboratory Tests 05/20/18 05/20/18 05/20/18 22:45 22:45 22:45 WBC 16.2 H RBC 4.48 L Hgb 11.4 L Hct 34.7 L MCV 77.4 L MCH 25.4 L MCHC 32.8 RDW 19.6 H Plt Count 316 MPV 7.4 Neut # (Auto) 13.7 H Lymph # (Auto) 1.1 L Elliott # (Auto) 1.0 Eos # (Auto) 0.3 Baso # (Auto) 0.1 Absolute Nucleated RBC 0.00 Nucleated RBC % 0.0 PT 26.3 H INR 2.4 H Sodium 139 Potassium 3.9 Chloride 106 Carbon Dioxide 26 Anion Gap 7.0 BUN 35 H Creatinine 1.7 H Estimated GFR (MDRD) 39 L Glucose 99 Calcium 8.3 L Total Bilirubin 0.5 AST 17 ALT 25 Alkaline Phosphatase 81 Total Protein 6.7 Albumin 3.5 Globulin 3.2 Albumin/Globulin Ratio 1.1 Lipase 50 - Rads (name of study) head CT Radiology: Prelim report reviewed (no ICH; age related changes. ) pelvic CT Radiology: Prelim report reviewed (hip prosthesis, with some artifact. Pelvis without fractures. ) PD MEDICAL DECISION MAKING - ED course Complexity details: reviewed results, considered differential, d/w patient - Sepsis Event Vital Signs: Vital Signs - 24 hr 05/20/18 05/20/18 05/21/18 22:29 23:57 00:41 Temperature 36.9 C 36.9 C Heart Rate 77 88 80 Respiratory 17 18 18 Rate Blood Pressure 173/131 H 144/86 H 157/77 H O2 Saturation 90 L 95 90 L Oxygen O2 Source Room air Oxygen Flow Rate 2 Departure - Departure Disposition: 01 Home, Self Care Clinical Impression: Anticoagulant long-term use Accidental fall from wheelchair Qualifiers: Encounter type: initial encounter Qualified Code(s): W05.0XXA - Fall from non- moving wheelchair, initial encounter Contusion, hip Qualifiers: Encounter type: initial encounter Laterality: right Qualified Code(s): S70.01XA - Contusion of right hip, initial encounter Condition: Stable Record reviewed to determine appropriate education?: Yes Instructions: ED Contusion Hip Comments: Continue usual medications. Add Tylenol if needed for pain. No signs of fractures on your scan. You will be sore in the area from bruising from the fall. Discharge Date/Time: 05/21/18 01:15
[2018-05-20 22:49] LABS: BASOPHILS # (AUTO) 0.1 10^3/uL (0.0-0.1); BASOPHILS % (AUTO) 0.8 %; EOSINOPHILS # (AUTO) 0.3 10^3/uL (0.0-0.7); EOSINOPHILS % (AUTO) 2.1 %; HGB - HEMOGLOBIN 11.4 g/dL (14.0-18.0); LYMPHOCYTES # (AUTO) 1.1 10^3/uL (1.5-3.5); MEAN CORPUSCULAR HEMOGLOBIN 25.4 pg (27.0-31.0); MEAN CORPUSCULAR HGB CONC 32.8 g/dL (32.0-36.0); MEAN CORPUSCULAR VOLUME 77.4 fL (80.0-94.0); MEAN PLATELET VOLUME 7.4 fL (7.4-11.4); NEUTROPHILS # (AUTO) 13.7 10^3/uL (1.5-6.6); NEUTROPHILS % (AUTO) 84.1 %; PLT - PLATELET COUNT 316 10^3/uL (130-450); RED BLOOD COUNT 4.48 10^6/uL (4.70-6.10); RED CELL DISTRIBUTION WIDTH 19.6 % (12.0-15.0); WHITE BLOOD COUNT 16.2 x10^3/uL (4.8-10.8)
[2018-05-20 22:55] LABS: INR 2.4 (0.8-1.2); PT - PROTHROMBIN TIME 26.3 secs (9.9-12.6)
[2018-05-20 23:02] LABS: ALBUMIN 3.5 g/dL (3.2-5.5); ALBUMIN/GLOBULIN RATIO 1.1 (1.0-2.2); BILIRUBIN,TOTAL 0.5 mg/dL (0.2-1.0); CALCIUM 8.3 mg/dL (8.5-10.3); CREATININE 1.7 mg/dL (0.6-1.2); TOTAL PROTEIN 6.7 g/dL (6.7-8.2)
--- NOTE | 2018-05-20 23:23 | CT Report ---
Reason: fall, on Coumadin Procedure Date: 05/20/2018 Accession Number: [id number] / [id number] Procedure: CT - Head W/O CPT Code: FULL RESULT: EXAM: CT HEAD EXAM DATE: 05/20/2018. CLINICAL HISTORY: Fall, on Coumadin. COMPARISON: None. TECHNIQUE: Multiaxial CT images were obtained from the foramen magnum to the vertex. Reformats: Sagittal and coronal. IV contrast: None. In accordance with CT protocol optimization, one or more of the following dose reduction techniques were utilized for this exam: automated exposure control, adjustment of mA and/or KV based on patient size, or use of iterative reconstructive technique. FINDINGS: Parenchyma: No intraparenchymal hemorrhage. No evidence of mass, midline shift, or CT findings of acute infarction. Mcgrath-white differentiation is distinct. Diffuse chronic microangiopathic white matter changes are evident. Extraaxial Spaces: Normal for age. No subdural or epidural collections identified. Ventricles: The ventricles and cortical sulci are enlarged, consistent with age-related tissue loss. Sinuses and orbits: Imaged paranasal sinuses, orbits, and mastoids show no significant abnormality. Bones: No evidence of fracture or calvarial defect. Other: None. IMPRESSION: Generalized age-related cortical atrophic changes without evidence of acute intracranial abnormality. RADIA
[2018-05-21] MEDS ORDERED: ACETAMINOPHEN 325 MG TABLET PO STA (00:03)
--- NOTE | 2018-05-21 00:22 | CT Report ---
Reason: fall, with pain posterior pelvis and hip, right Procedure Date: 05/20/2018 Accession Number: [id number] / [id number] Procedure: CT - Pelvis W/O CPT Code: FULL RESULT: EXAM: CT BONY PELVIS WITHOUT CONTRAST EXAM DATE: 05/20/2018 11:49 PM. CLINICAL HISTORY: Fall, with pain posterior pelvis and hip, right. COMPARISON: None. TECHNIQUE: Thin-section axial images were acquired of the pelvis without contrast. Post-processing: Coronal and sagittal reformats. Other: None. In accordance with CT protocol optimization, one or more of the following dose reduction techniques were utilized for this exam: automated exposure control, adjustment of mA and/or KV based on patient size, or use of iterative reconstructive technique. FINDINGS: Bones: There is generalized osteopenia. No fracture or destructive bone lesion seen. Sacroiliac Joints: Mild bilateral degenerative changes. No sacroiliac joint widening or erosive changes. Symphysis Pubis: Mild degenerative changes. Right Hip: Status post right hip arthroplasty. The visualized components of the prosthesis appear firmly anchored. Normal alignment. Left Hip: Moderate joint space narrowing with marginal osteophytic spurring. Musculature: Normal. No fatty atrophy. Pelvic Cavity: There is a large volume of stool throughout the visualized colon. Diverticulosis without diverticulitis. Atherosclerotic aortic disease present. A 5.6 cm infrarenal abdominal aortic aneurysm is partially visualized noting stent graft repair. Other: No lymphadenopathy. No free air or free fluid. The other visualized soft tissues are unremarkable. IMPRESSION: 1. No evidence of pelvis including hip fracture. 2. Moderate left hip osteoarthritis. 3. Diverticulosis. RADIA
[2018-05-21] MEDS ORDERED: KETOROLAC 15 MG/ML VIAL IVP STA (00:25)
[2018-05-21 00:42] VITALS: BP 157/77
== END 2018-05-21 01:15 | disposition home or self-care (01) ==
LOC: ED 22:25
DX: Z79.01 Long term (current) use of anticoagulants (principal); S70.01XA Contusion of right hip, initial encounter; W18.39XA Other fall on same level, initial encounter; Y93.89 Activity, other specified; Y92.199 Unspecified place in other specified residential institution as the place of occurrence of the external cause; I48.91 Unspecified atrial fibrillation; J44.9 Chronic obstructive pulmonary disease, unspecified; F03.90 Unspecified dementia, unspecified severity, without behavioral disturbance, psychotic disturbance, mood disturbance, and anxiety; Z87.891 Personal history of nicotine dependence
CPT/HCPCS: 36415; 70450; 72192; 80053; 83690; 85025; 85610; 96374; 99283; 99284; A9270

== ENCOUNTER 2018-05-21 01:18 | Outpatient (CLI) | payer MEDICARE, MEDICAID | END 2018-05-21 01:19 | disposition home or self-care (01) | LOC: EMS 01:18 | PROVIDERS: ATTEND Surgery | DX: M25.551 Pain in right hip (principal) | CPT/HCPCS: A0425; A0428 ==

== ENCOUNTER 2018-05-22 13:35 | Outpatient (CLI) | payer MEDICARE, MEDICAID ==
--- NOTE | 2018-05-22 17:33 | CONSULTATION NOTE ---
Palliative Care Follow Up - Referral Referring Provider: Dr Tanna Ferraro Time of Visit: 05/22/2018. 13:35 - 14:05 Referral setting: Assisted living (Seen in home setting due to taxing and considerable effort to leave the home secondary to dementia and mobility limitat ions and syncopal episode.) Referral Reason: Syncopal episode - Information Sources Records reviewed: RN notes reviewed, Previous records reviewed History/Review of Systems obtained from: Patient, Family, Nursing Exam limitations: Clinical condition (short term memory deficits) - History of Present Illness Update Brief HPI Update: -82 male with advancing dementia and complex medical problems living at [facility] since 25 February 2018, being followed by Home Health RN and Palliative Care. 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 -Chronic lower extremity edema improved since Coban lite leg wraps placed weekly. -Patient was sent to the ER on 05/20 after a fall, imaging was negative and he was discharged back to facility. -This morning, 05/22/18, Home Health Nursing reported he was doing poorly, with altered consciousness and mild one-sided weakness, although his smile symmetric. Facility called 911 but EMS technicians refused to transfer him. -A few hours later facility nursing noted uncontrolled R shoulder pain and a syncopal episode (trembling, loss of consciousness for a short period, with head dropping suddenly onto his chest and unresponsiveness during a conversation with the occupational health nursing director. She was concerned it could be a seizure event or a TIA. -EMS was called again and patient was transferred to ED. -After the syncopal episode, but prior to the arrival of EMS, palliative care arrived, patient's vital signs were normal, he was alert with baseline cognitive function, but complained of uncontrolled pain, and appeared ill and weak. -Patient's daughter was in agreement for transfer to ED due to syncopal event. Social History - Living Situation Living arrangement: Assisted living ([facility]) Living Situation: With caregiver(s) Support System: Patient lived with his daughter/DPOA, Inessa, for 4years until his care needs i ncreased to the point that she was no longer able to care for him at home. He has been living at [facility] since February 2018, and Inessa is still closely involved in his care. Medications/Allergies - Medications Home Medications: Ambulatory Orders Medication Instructions Recorded Confirmed Acetaminophen 325 mg PO Q6H PRN 04/03/18 04/24/18 Acetaminophen 650 mg PO TID 04/03/18 04/24/18 Albuterol Sulf [Ventolin Hfa 2 puffs INH BID 04/03/18 04/24/18 Inhaler] Amiodarone [Pacerone] 200 mg PO .QHS 04/03/18 04/24/18 Amlodipine Besylate 10 mg PO DAILY 04/03/18 04/24/18 Bimatoprost 0.01% Ophth Dops 1 drops EACHEYE .QHS 04/03/18 04/24/18 [Lumigan 0.01% Ophth Drops] Budesonide/Formoterol Fumarate 2 puffs INH BID 04/03/18 04/24/18 [Symbicort 80-4.5 Mcg Inhaler] Cetirizine HCl 10 mg PO .QHS 04/03/18 04/24/18 Cholecalciferol (Vitamin D3) 1,000 unit PO DAILY 04/03/18 04/24/18 [Vitamin D3] Diltiazem HCl [Diltiazem 12Hr ER] 120 mg PO DAILY 04/03/18 04/24/18 Diphenoxylate/Atropine [Lomotil] 2 tab PO QID PRN 04/03/18 04/24/18 Docusate Calcium 240 mg PO DAILY PRN 04/03/18 04/24/18 Ferrous Sulfate 325 mg PO DAILY 04/03/18 04/24/18 Finasteride 5 mg PO .QHS 04/03/18 04/24/18 Hydralazine HCl 40 mg PO BID 04/03/18 04/24/18 Multivitamin [Multiple Vitamins] 1 tab PO DAILY 04/03/18 04/24/18 Nitroglycerin [Nitrostat] 0.4 mg PO Q5MIN PRN MDD 3 TABLETS 04/03/18 04/24/18 Prednisone 5 mg PO DAILY 04/03/18 04/24/18 Tamsulosin HCl [Flomax] 0.4 mg PO DAILY 04/03/18 04/24/18 Tiotropium [place] [Spiriva] 1 cap INH DAILY 04/03/18 04/24/18 Warfarin [Coumadin] 1.25 mg PO MDD M,T,W,F,Sat 04/03/18 Warfarin [Coumadin] 2.5 mg PO MDD Sun and Thur 04/03/18 - Allergies Allergies/Adverse Reactions: Allergies Allergy/AdvReac Type Severity Reaction Status Date / Time azithromycin Allergy Respiratory Verified 05/22/18 14:47 bee venom protein (honey bee) Allergy Anaphylaxis Verified 05/22/18 14:47 hornet venom Allergy Anaphylaxis Verified 05/22/18 14:47 lisinopril Allergy Respiratory Verified 05/22/18 14:47 losartan Allergy Respiratory Verified 05/22/18 14:47 naproxen [From Naprosyn] Allergy Respiratory Verified 05/22/18 14:47 NSAIDS (Non-Steroidal Allergy Respiratory Verified 05/22/18 14:47 Anti-Inflamma Penicillins Allergy Respiratory Verified 05/22/18 14:47 Sulfa (Sulfonamide Allergy Respiratory Verified 05/22/18 14:47 Antibiotics) aspirin AdvReac Cramps Verified 05/22/18 14:47 hydromorphone AdvReac Hallucinati Verified 05/22/18 14:47 ons Iodinated Contrast- Oral and AdvReac Unknown Verified 05/22/18 14:47 IV Dye omeprazole AdvReac Cramps Verified 05/22/18 14:47 oxycodone AdvReac Hallucinati Verified 05/22/18 14:47 ons wasp Allergy Anaphylaxis Uncoded 05/22/18 14:47 yellow jacket venom Allergy Anaphylaxis Uncoded 05/22/18 14:47 Review of Systems - Constitutional Constitutional: reports: Fatigue, Weakness - Ears, Nose & Throat Ears, Nose & Throat: reports: Hearing loss, Dental decay (poor dentition) - Cardiovascular Cardiovascular: reports: Decr. exercise tolerance - Respiratory Respiratory: reports: Cough (chronic, nervous habit), SOB at rest (episodic) - Musculoskeletal Musculoskeletal: reports: Joint pain (R shoulder pain "10 of 10") - Integumentary Integumentary: reports: Other (hemosiderin staining, back of hands) - Neurological Neurological: reports: General weakness, Memory problems, Other (syncopal episode, trembling reported by facility nursing staff earlier today) Physical Exam - Vital Signs Temperature: 96.7 F Pulse Rate: 83 O2 Saturation: 91 (room air) Blood Pressure: 147/68 (wrist cuff) - Physical Exam General Appearance: positive: No acute distress, Lethargic (mildly lethargi) Eyes Bilateral: positive: No lid inflammation, Conjunctivae nml ENT: positive: Dry mucous membranes Neck: positive: Trachea midline Cardiovascular: positive: Regular rate & rhythm, No murmur Respiratory: positive: Diminished throughout. negative: Wheezes, Rales (no crackles) Skin: positive: Bruising (discoloration bilateral backs of hands) Neurologic/Psychiatric: positive: Disoriented to time, Weakness. negative: Facial droop Palliative Care - POLST Patient has POLST: Yes POLST Status: DNR, Selective Treatment Pain: Pain worsening, Location (R shoulder), Severity (10) Dyspnea: None - Palliative Care Discussion: Patient's daughter was concerned that ER not do any imaging with contrast due to patient's poor kidney function. I called the ER physician and spoke with him while the patient was en route to ER. I also followed up in person with the other ER doctor after the patient had been admitted to ER, because the daughter called me, concerned that facility paperwork sent with the patient did not specify a syncopal episode or loss of consciousness. Impression and Recommendations - Palliative Care Impression: 82-year-old male with advancing dementia and complex medical problems. He fell on 04/19/18 and was sent to ER, discharged back home with negative imaging. Today Nursing reports some alteration of consciousness or syncopal episode, possibly TIA or seizure, and had patient sent again to the ER. Palliative care will continue to provide support and oversight, with symptom management. Recommendations/Counseling Done: Fall without injury: On 05/20/18. Sent to ER, CTs were negative, patient discharged home. Syncopal episode: Earlier today, with trembling, short loss of consciousness, and also uncontrolled pain, particularly R shoulder joint. Sent to ER by nursing staff Bilateral lower extremity edema: Improved after 5 doses of furosemide 20mg over 10 days and especially after Coban Lite 2 layer compression system was started, with application 1x/week. Advanced care planning: Daughter/POA authorizes sending patient to ER for further testing, without contrast due to CKD. Follow up next 1-3 days. Time Spent: 30 minutes with more than 50% of the time spent on counseling and coordination of care.
== END 2018-05-22 13:36 | disposition home or self-care (01) ==
LOC: PC 13:35
PROVIDERS: ATTEND Nurse Practitioner
DX: Z51.5 Encounter for palliative care (principal); R55 Syncope and collapse; R60.0 Localized edema; F03.90 Unspecified dementia, unspecified severity, without behavioral disturbance, psychotic disturbance, mood disturbance, and anxiety; N18.3 Chronic kidney disease, stage 3 (moderate); I48.91 Unspecified atrial fibrillation; Z79.01 Long term (current) use of anticoagulants; J44.9 Chronic obstructive pulmonary disease, unspecified; Z79.52 Long term (current) use of systemic steroids; M25.511 Pain in right shoulder; M62.81 Muscle weakness (generalized); Z66 Do not resuscitate

== ENCOUNTER 2018-05-22 14:12 | Outpatient (CLI) | payer MEDICARE, MEDICAID | END 2018-05-22 14:13 | disposition critical access hospital (66) | LOC: EMS 14:12 | PROVIDERS: ATTEND Surgery | DX: R56.9 Unspecified convulsions (principal); M54.5 Low back pain | CPT/HCPCS: A0425; A0427 ==

== ENCOUNTER 2018-05-22 14:33 | Inpatient (IN) | payer MEDICARE, MEDICAID ==
--- NOTE | 2018-05-22 15:16 | ED Physician Documentation ---
PD HPI DYSPNEA - Stated complaint Stated Complaint: ALOC - Chief complaint Chief Complaint: Neuro - History obtained from History obtained from: Patient - History of Present Illness Timing - onset: Today (Report from EMS and [facility] caregivers as well as his palliative care nurse are that the patient had a episode of weakness that seem to be right-sided face and arm for a few minutes this morning. He was also shy having general weakness. Then about an hour prior to presentation here he had a apparent syncopal versus seizure type activity that lasted for a few minutes and then he awoke. He had been complaining of lower abdominal and flank and back pain for the last several days. It had general weakness with falls recently and had fallen 2 days ago with hitting his head and back. He is on Coumadin and had a CT of the head and low back at that time without any obvious bleed or fractures. He reportedly had worsening confusion today as well.) Timing - onset during: Rest, Light activity Timing - details: Gradual onset, Waxing and waning Inciting event(s): Other (has had general weakness and falls recently). No: Out of meds Worsened by: No: Coughing Associated symptoms: Wheezing, Anxiety. No: Fever, Cough Recently seen: Emergency Dept (2 days ago) Review of Systems Constitutional: reports: Myalgias, Fatigue. denies: Fever, Chills Nose: denies: Rhinorrhea / runny nose, Congestion Throat: denies: Sore throat Respiratory: denies: Cough GI: reports: Abdominal Pain, Nausea. 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 denies: Focal weakness, Numbness PD PAST MEDICAL HISTORY - Past Medical History Cardiovascular: Atrial fibrillation Respiratory: COPD Neuro: Dementia Endocrine/Autoimmune: HyPOthyroidism : Benign prostate hypertrophy Musculoskeletal: Osteoarthritis - Past Surgical History Past Surgical History: Yes Ortho: Hip replacement - Present Medications Home Medications: Ambulatory Orders Medication Instructions Recorded Confirmed Acetaminophen 325 mg PO Q6H PRN 04/03/18 04/24/18 Acetaminophen 650 mg PO TID 04/03/18 04/24/18 Albuterol Sulf [Ventolin Hfa 2 puffs INH BID 04/03/18 04/24/18 Inhaler] Amiodarone [Pacerone] 200 mg PO .QHS 04/03/18 04/24/18 Amlodipine Besylate 10 mg PO DAILY 04/03/18 04/24/18 Bimatoprost 0.01% Ophth Dops 1 drops EACHEYE .QHS 04/03/18 04/24/18 [Lumigan 0.01% Ophth Drops] Budesonide/Formoterol Fumarate 2 puffs INH BID 04/03/18 04/24/18 [Symbicort 80-4.5 Mcg Inhaler] Cetirizine HCl 10 mg PO .QHS 04/03/18 04/24/18 Cholecalciferol (Vitamin D3) 1,000 unit PO DAILY 04/03/18 04/24/18 [Vitamin D3] Diltiazem HCl [Diltiazem 12Hr ER] 120 mg PO DAILY 04/03/18 04/24/18 Diphenoxylate/Atropine [Lomotil] 2 tab PO QID PRN 04/03/18 04/24/18 Docusate Calcium 240 mg PO DAILY PRN 04/03/18 04/24/18 Ferrous Sulfate 325 mg PO DAILY 04/03/18 04/24/18 Finasteride 5 mg PO .QHS 04/03/18 04/24/18 Hydralazine HCl 40 mg PO BID 04/03/18 04/24/18 Multivitamin [Multiple Vitamins] 1 tab PO DAILY 04/03/18 04/24/18 Nitroglycerin [Nitrostat] 0.4 mg PO Q5MIN PRN MDD 3 TABLETS 04/03/18 04/24/18 Prednisone 5 mg PO DAILY 04/03/18 04/24/18 Tamsulosin HCl [Flomax] 0.4 mg PO DAILY 04/03/18 04/24/18 Tiotropium Kyle [Spiriva] 1 cap INH DAILY 04/03/18 04/24/18 Warfarin [Coumadin] 1.25 mg PO MDD M,T,W,F,Sat 04/03/18 Warfarin [Coumadin] 2.5 mg PO MDD Sun and Thur 04/03/18 - Allergies Allergies/Adverse Reactions: Allergies Allergy/AdvReac Type Severity Reaction Status Date / Time azithromycin Allergy Respiratory Verified 05/22/18 14:47 bee venom protein (honey bee) Allergy Anaphylaxis Verified 05/22/18 14:47 hornet venom Allergy Anaphylaxis Verified 05/22/18 14:47 lisinopril Allergy Respiratory Verified 05/22/18 14:47 losartan Allergy Respiratory Verified 05/22/18 14:47 naproxen [From Naprosyn] Allergy Respiratory Verified 05/22/18 14:47 NSAIDS (Non-Steroidal Allergy Respiratory Verified 05/22/18 14:47 Anti-Inflamma Penicillins Allergy Respiratory Verified 05/22/18 14:47 Sulfa (Sulfonamide Allergy Respiratory Verified 05/22/18 14:47 Antibiotics) aspirin AdvReac Cramps Verified 05/22/18 14:47 hydromorphone AdvReac Hallucinati Verified 05/22/18 14:47 ons Iodinated Contrast- Oral and AdvReac Unknown Verified 05/22/18 14:47 IV Dye omeprazole AdvReac Cramps Verified 05/22/18 14:47 oxycodone AdvReac Hallucinati Verified 05/22/18 14:47 ons wasp Allergy Anaphylaxis Uncoded 05/22/18 14:47 yellow jacket venom Allergy Anaphylaxis Uncoded 05/22/18 14:47 - Social History Does the pt smoke?: No Smoking Status: Never smoker Does the pt drink ETOH?: Yes Does the pt have substance abuse?: No - Immunizations Immunizations are current?: Yes - POLST Patient has POLST: Yes PD ED PE NORMAL - Vitals Vital signs reviewed: Yes - General General: Alert and oriented X 3 - HEENT HEENT: Pharynx benign. No: Atraumatic (some slight tenderness right posterior.) - Neck Neck: Supple, no meningeal sign, No adenopathy - Cardiac Cardiac: RRR, No murmur - Respiratory Respiratory: Clear bilaterally - Abdomen Abdomen: Normal bowel sounds, Soft, Non distended, No organomegaly - Male Male : Deferred - Rectal Rectal: Deferred - Back Back: No spinal TTP, Other (some tenderness both flank areas. Also tender lower abd. ) - Derm Derm: Normal color, Warm and dry - Extremities Extremities: No deformity, No edema, No calf tenderness / cord, Other (right lateral hip pain with ROM but no deformity. ) - Neuro Neuro: No motor deficit, No sensory deficit, Normal speech. No: Alert and oriented X 3 (rousable to voice. Aware of name and month. ) Eye Opening: To Voice Motor: Obeys Commands Verbal: Confused GCS Score: 13 - Psych Psych: Normal mood Results - Vitals Vitals: Vital Signs - 24 hr 05/22/18 05/22/18 05/22/18 14:44 15:00 16:00 Temperature 36.9 C Heart Rate 83 77 77 Respiratory 20 20 19 Rate Blood Pressure 134/61 H 148/65 H 156/67 H O2 Saturation 94 95 05/22/18 05/22/18 17:30 18:55 Temperature Heart Rate 74 85 Respiratory 19 20 Rate Blood Pressure 160/66 H 160/67 H O2 Saturation 93 92 Oxygen O2 Source Room air - Labs Labs: Laboratory Tests 05/22/18 05/22/18 05/22/18 16:23 16:47 16:47 WBC 19.8 H RBC 4.25 L Hgb 10.8 L Hct 33.0 L MCV 77.6 L MCH 25.4 L MCHC 32.7 RDW 19.1 H Plt Count 279 MPV 7.5 Neut # (Auto) 17.9 H Lymph # (Auto) 0.5 L Coke # (Auto) 1.0 Eos # (Auto) 0.1 Baso # (Auto) 0.2 H Absolute Nucleated RBC 0.01 Nucleated RBC % 0.0 PT 27.5 H INR 2.5 H Sodium Potassium Chloride Carbon Dioxide Anion Gap BUN Creatinine Estimated GFR (MDRD) Glucose Lactic Acid Calcium Magnesium Total Bilirubin AST ALT Alkaline Phosphatase Total Protein Albumin Globulin Albumin/Globulin Ratio Lipase Urine Color DARK YELLOW Urine Clarity CLOUDY Urine pH 8.5 H Ur Specific [place] 1.010 Urine Protein 100 H Urine Glucose (UA) NEGATIVE Urine Ketones NEGATIVE Urine Occult Blood NEGATIVE Urine Nitrite POSITIVE H Urine Bilirubin NEGATIVE Urine Urobilinogen 0.2 (NORMAL) Ur Leukocyte Esterase LARGE H Urine RBC None Seen Urine WBC 0-3 Ur Squamous Epith Cells NONE SEEN Urine Bacteria Many H Ur Microscopic Review INDICATED Urine Culture Comments INDICATED 05/22/18 05/22/18 16:47 16:47 WBC RBC Hgb Hct MCV MCH MCHC RDW Plt Count MPV Neut # (Auto) Lymph # (Auto) Coke # (Auto) Eos # (Auto) Baso # (Auto) Absolute Nucleated RBC Nucleated RBC % PT INR Sodium 137 Potassium 3.9 Chloride 105 Carbon Dioxide 24 Anion Gap 8.0 BUN 42 H Creatinine 1.8 H Estimated GFR (MDRD) 36 L Glucose 141 H Lactic Acid 0.6 Calcium 8.3 L Magnesium 1.9 Total Bilirubin 0.6 AST 20 ALT 30 Alkaline Phosphatase 70 Total Protein 6.4 L Albumin 3.1 L Globulin 3.3 Albumin/Globulin Ratio 0.9 L Lipase 30 Urine Color Urine Clarity Urine pH Ur Specific [place] Urine Protein Urine Glucose (UA) Urine Ketones Urine Occult Blood Urine Nitrite Urine Bilirubin Urine Urobilinogen Ur Leukocyte Esterase Urine RBC Urine WBC Ur Squamous Epith Cells Urine Bacteria Ur Microscopic Review Urine Culture Comments PD MEDICAL DECISION MAKING - ED course Complexity details: reviewed results, re-evaluated patient, considered differential (He has general weakness and some confusion. This is low worsened from the visit 2 days ago. He is on anticoagulants so we will CT his head again to be sure no delayed bleeding. Otherwise we can look for metabolic causes and concern for infection as well. His daughter says he has had previous UTIs with similar symptoms. This will be evaluated. She has a says he typically has an elevated white count chronically.), d/w patient, d/w family (daughter is very helpful and informative on his history. She is POA.) - Sepsis Event Vital Signs: Vital Signs - 24 hr 05/22/18 05/22/18 05/22/18 14:44 15:00 16:00 Temperature 36.9 C Heart Rate 83 77 77 Respiratory 20 20 19 Rate Blood Pressure 134/61 H 148/65 H 156/67 H O2 Saturation 94 95 05/22/18 05/22/18 17:30 18:55 Temperature Heart Rate 74 85 Respiratory 19 20 Rate Blood Pressure 160/66 H 160/67 H O2 Saturation 93 92 Oxygen O2 Source Room air Departure - Departure Disposition: 66 [facility] DC/Xfer Clinical Impression: General weakness, Anticoagulant long-term use, History of recent fall, Confusion Episode of syncope Qualifiers: Syncope type: unspecified Qualified Code(s): R55 - Syncope and collapse UTI (urinary tract infection) Qualifiers: Urinary tract infection type: site unspecified Hematuria presence: without hematuria Qualified Code(s): N39.0 - Urinary tract infection, site not specified Back pain Qualifiers: Back pain location: low back pain Chronicity: chronic Back pain laterality: un specified Sciatica presence: without sciatica Qualified Code(s): M54.5 - Low back pain Condition: Stable
[2018-05-22] MEDS ORDERED: SODIUM CHLORIDE 0.9% 500 ML IV ONE (15:48)
[2018-05-22 16:41] LABS: BILIRUBIN,URINE NEGATIVE (NEGATIVE); GLUCOSE, URINE (UA) NEGATIVE (NEGATIVE); KETONES,URINE (UA) NEGATIVE (NEGATIVE); LEUKOCYTE ESTERASE, URINE LARGE (NEGATIVE); NITRITE,URINE POSITIVE (NEGATIVE); OCCULT BLOOD,URINE NEGATIVE (NEGATIVE); PH,URINE 8.5 PH (5.0-7.5); PROTEIN,URINE 100 mg/dL (NEGATIVE); UROBILINOGEN,URINE 0.2 (NORMAL) E.U./dL (NORMAL)
[2018-05-22 16:55] LABS: BASOPHILS # (AUTO) 0.2 10^3/uL (0.0-0.1); EOSINOPHILS # (AUTO) 0.1 10^3/uL (0.0-0.7); EOSINOPHILS % (AUTO) 0.7 %; HGB - HEMOGLOBIN 10.8 g/dL (14.0-18.0); LYMPHOCYTES # (AUTO) 0.5 10^3/uL (1.5-3.5); LYMPHOCYTES % (AUTO) 2.7 %; MEAN CORPUSCULAR HEMOGLOBIN 25.4 pg (27.0-31.0); MEAN CORPUSCULAR HGB CONC 32.7 g/dL (32.0-36.0); MEAN CORPUSCULAR VOLUME 77.6 fL (80.0-94.0); MEAN PLATELET VOLUME 7.5 fL (7.4-11.4); MONOCYTES % (AUTO) 5.2 %; NEUTROPHILS # (AUTO) 17.9 10^3/uL (1.5-6.6); NEUTROPHILS % (AUTO) 90.4 %; PLT - PLATELET COUNT 279 10^3/uL (130-450); RED BLOOD COUNT 4.25 10^6/uL (4.70-6.10); RED CELL DISTRIBUTION WIDTH 19.1 % (12.0-15.0); WHITE BLOOD COUNT 19.8 x10^3/uL (4.8-10.8)
[2018-05-22 16:56] LABS: CLARITY,URINE CLOUDY (CLEAR)
[2018-05-22 17:07] LABS: ALBUMIN 3.1 g/dL (3.2-5.5); ALBUMIN/GLOBULIN RATIO 0.9 (1.0-2.2); BILIRUBIN,TOTAL 0.6 mg/dL (0.2-1.0); CALCIUM 8.3 mg/dL (8.5-10.3); CREATININE 1.8 mg/dL (0.6-1.2); MAGNESIUM 1.9 mg/dL (1.7-2.8); TOTAL PROTEIN 6.4 g/dL (6.7-8.2)
[2018-05-22 17:18] LABS: INR 2.5 (0.8-1.2); PT - PROTHROMBIN TIME 27.5 secs (9.9-12.6)
[2018-05-22 17:26] LABS: BACTERIA,URINE Many /HPF (None Seen); RBC,URINE None Seen /HPF (0-5); SQUAMOUS EPITHELIAL CELL,UR NONE SEEN (<= Few)
--- NOTE | 2018-05-22 17:26 | CT Report ---
Reason: recent fall 2 days ago; struck head; on coumadin Procedure Date: 05/22/2018 Accession Number: [id number] / [id number] Procedure: CT - Head W/O CPT Code: FULL RESULT: EXAM: CT HEAD EXAM DATE: 05/22/2018 04:57 PM. CLINICAL HISTORY: Recent fall 2 days ago; struck head; on coumadin. COMPARISON: HEAD W/O 05/20/2018. TECHNIQUE: Multiaxial CT images were obtained from the foramen magnum to the vertex. Reformats: Coronal. IV contrast: None. In accordance with CT protocol optimization, one or more of the following dose reduction techniques were utilized for this exam: automated exposure control, adjustment of mA and/or KV based on patient size, or use of iterative reconstructive technique. FINDINGS: Parenchyma: No intraparenchymal hemorrhage. No evidence of mass, midline shift, or CT findings of acute infarction. Mcgrath-white differentiation is distinct. Diffuse chronic microangiopathic white matter changes are evident. Extraaxial Spaces: Normal for age. No subdural or epidural collections identified. Ventricles: The ventricles and cortical sulci are enlarged, consistent with age-related tissue loss. Sinuses and orbits: Mild left and moderate right maxillary sinus mucus retention cysts. Orbits appear unremarkable. Visualized mastoid air cells appear clear. Bones: No evidence of fracture or calvarial defect. IMPRESSION: Generalized age-related cortical atrophic changes without evidence of acute intracranial abnormality. Chronic sinus disease as above. RADIA
--- NOTE | 2018-05-22 17:38 | CT Report ---
Reason: fall couple days ago; pain upper and lower back, Procedure Date: 05/22/2018 Accession Number: [id number] / [id number] Procedure: CT - Abdomen/Pelvis W/O CPT Code: FULL RESULT: EXAM: CT CHEST, ABDOMEN AND PELVIS WITHOUT CONTRAST. EXAM DATE: 05/22/2018 04:59 PM. CLINICAL HISTORY: Fall couple days ago; pain upper/lower back today. COMPARISONS: Abdomen/pelvis without 05/22/2018. TECHNIQUE: Routine helical CT imaging was performed through the chest, abdomen, and pelvis. IV contrast: No. Enteric contrast: No. Reconstructions: Coronal and sagittal. In accordance with CT protocol optimization, one or more of the following dose reduction techniques were utilized for this exam: automated exposure control, adjustment of mA and/or KV based on patient size, or use of iterative reconstructive technique. FINDINGS: Mediastinum: No thoracic aorta aneurysm. Prominent AP window lymph node. Prominent left prevascular lymph nodes. Normal heart size. Coronary artery calcification. Minimal pericardial effusion. Lungs: Right upper lobe lobectomy. Moderate emphysema. Bibasilar scarring. Focal scarring with calcification right lower lobe. No pleural effusion or pneumothorax. Liver: Small low density lesion seen in the right hepatic lobe too small to fully characterize. Gallbladder: Increased density in the gallbladder, could represent sludge. No bowel dilatation. Pancreas: Unremarkable. Spleen: Unremarkable. Adrenals: Unremarkable. Kidneys: Mild bilateral renal atrophy left worse than right. No hydronephrosis. Bowel: Mild sigmoid diverticulosis. No acute bowel findings are seen. No free fluid or free air. Pelvis: Right total hip arthroplasty causes metal artifact which limits the exam. Visualized bladder appears unremarkable. Calcification in the prostate. Endoluminal stent grafts in the suprarenal and infrarenal abdominal aorta extending into the common iliac arteries. Bilateral renal artery stents. [place] infrarenal abdominal aortic aneurysm measures 6.8 cm. No evidence for leak. Bones: No acute bone findings are seen. Mild anterolisthesis of L5 and S1 with chronic right pars defect and bilateral facet arthropathy as well as moderate degenerative disk disease. IMPRESSION: 1. No acute bone findings are seen. 2. Moderate emphysema. 3. Endoluminal stent grafts with [place] abdominal aortic aneurysm measuring 6.8 cm. No evidence for leak. Bilateral renal artery stents. 4. Mild sigmoid diverticulosis. 5. Mild bilateral renal atrophy. 6. Increased density in the gallbladder, could represent sludge. 7. No acute findings are seen. See above. RADIA
--- NOTE | 2018-05-22 17:38 | CT Report ---
Reason: fall couple days ago; pain upper/lower back today Procedure Date: 05/22/2018 Accession Number: [id number] / [id number] Procedure: CT - Chest W/O CPT Code: FULL RESULT: EXAM: CT CHEST, ABDOMEN AND PELVIS WITHOUT CONTRAST. EXAM DATE: 05/22/2018 04:59 PM. CLINICAL HISTORY: Fall couple days ago; pain upper/lower back today. COMPARISONS: Abdomen/pelvis without 05/22/2018. TECHNIQUE: Routine helical CT imaging was performed through the chest, abdomen, and pelvis. IV contrast: No. Enteric contrast: No. Reconstructions: Coronal and sagittal. In accordance with CT protocol optimization, one or more of the following dose reduction techniques were utilized for this exam: automated exposure control, adjustment of mA and/or KV based on patient size, or use of iterative reconstructive technique. FINDINGS: Mediastinum: No thoracic aorta aneurysm. Prominent AP window lymph node. Prominent left prevascular lymph nodes. Normal heart size. Coronary artery calcification. Minimal pericardial effusion. Lungs: Right upper lobe lobectomy. Moderate emphysema. Bibasilar scarring. Focal scarring with calcification right lower lobe. No pleural effusion or pneumothorax. Liver: Small low density lesion seen in the right hepatic lobe too small to fully characterize. Gallbladder: Increased density in the gallbladder, could represent sludge. No bowel dilatation. Pancreas: Unremarkable. Spleen: Unremarkable. Adrenals: Unremarkable. Kidneys: Mild bilateral renal atrophy left worse than right. No hydronephrosis. Bowel: Mild sigmoid diverticulosis. No acute bowel findings are seen. No free fluid or free air. Pelvis: Right total hip arthroplasty causes metal artifact which limits the exam. Visualized bladder appears unremarkable. Calcification in the prostate. Endoluminal stent grafts in the suprarenal and infrarenal abdominal aorta extending into the common iliac arteries. Bilateral renal artery stents. [place] infrarenal abdominal aortic aneurysm measures 6.8 cm. No evidence for leak. Bones: No acute bone findings are seen. Mild anterolisthesis of L5 and S1 with chronic right pars defect and bilateral facet arthropathy as well as moderate degenerative disk disease. IMPRESSION: 1. No acute bone findings are seen. 2. Moderate emphysema. 3. Endoluminal stent grafts with [place] abdominal aortic aneurysm measuring 6.8 cm. No evidence for leak. Bilateral renal artery stents. 4. Mild sigmoid diverticulosis. 5. Mild bilateral renal atrophy. 6. Increased density in the gallbladder, could represent sludge. 7. No acute findings are seen. See above. RADIA
[2018-05-22] MEDS ORDERED: cefTRIAXone 1 GM VIAL IVP STA (18:28)
[2018-05-22] MEDS ORDERED: ACETAMINOPHEN 1,000 MG/100 ML 100 ML IV STA (18:43)
[2018-05-22] MEDS ORDERED: SODIUM CHLORIDE FLUSH 0.9% 10 ML SYRINGE IVP PRN (19:43)
[2018-05-22 21:03] LABS: INR 2.5 (0.8-1.2); PT - PROTHROMBIN TIME 27.2 secs (9.9-12.6)
[2018-05-22] MEDS: SODIUM CHLORIDE 0.9% 1,000 ML IV SCH (21:26)
[2018-05-22] MEDS: IPRATROPIUM/ALBUTEROL 3 ML NEB INH SCH (22:34)
[2018-05-22] MEDS ORDERED: DOCUSATE SODIUM 250 MG CAPSULE PO PRN (23:06)
[2018-05-23] MEDS: IPRATROPIUM/ALBUTEROL 3 ML NEB INH SCH ×4 (00:02→21:42)
[2018-05-23] MEDS: SODIUM CHLORIDE FLUSH 0.9% 10 ML SYRINGE IVP SCH ×3 (00:38→16:57)
--- NOTE | 2018-05-23 01:00 | Ultrasound Report ---
Reason: TIA Procedure Date: 05/22/2018 Accession Number: [id number] / [id number] Procedure: US - Carotid Doppler Complete CPT Code: FULL RESULT: EXAM: BILATERAL CAROTID AND VERTEBRAL ARTERY DUPLEX DOPPLER ULTRASOUND: EXAM DATE: 05/22/2018 10:14 PM CLINICAL HISTORY: TIA. COMPARISON: None. TECHNIQUE: Grayscale imaging, color Doppler, and duplex spectral Doppler were used to evaluate the carotid and vertebral arteries bilaterally. Static images were obtained. Exam quality is limited by patient motion. FINDINGS: There is moderate bilateral calcified plaquing present. Normal antegrade flow is present in bilateral vertebral arteries. VELOCITIES (cm/sec): Right: CCA mid: PSV 72.6 cm/sec. CCA dist: PSV 81.8 cm/sec. ICA prox: PSV 130 cm/sec. ICA mid: PSV 125 cm/sec, EDV 10.8 cm/sec. ICA dist: PSV 95 cm/sec, EDV 7.9 cm/sec. ECA: PSV 163 cm/sec. Vert: PSV 51 cm/sec. ICA/CCA: 1.6 Left CCA mid: PSV 111.9 cm/sec. CCA dist: PSV 89.6 cm/sec. ICA prox: PSV 84.4 cm/sec, EDV 8.8 cm/sec. ICA mid: PSV 72.6 cm/sec, EDV 6.6 cm/sec. ICA dist: PSV 68.9 cm/sec, EDV 8.9 cm/sec. ECA: PSV 160 cm/sec. Vert: PSV 48 cm/sec. ICA/CCA: 0.9 ICA diameter stenosis: Right: <50% by velocity and <70% by NASCET criteria. Left: <50% by velocity and <70% by NASCET criteria. IMPRESSION: 1. Moderate calcified bilateral carotid artery plaquing. 2. In the right carotid artery there are no elevated carotid artery velocities to suggest hemodynamically significant stenosis. 3. In the left carotid artery there are no elevated carotid artery velocities to suggest hemodynamically significant stenosis. 4. Normal antegrade flow is present in bilateral vertebral arteries. General Recommendations: Stenosis =50% ICA - Follow-up ultrasound 6-12 months Stenosis <50% ICA - High Risk Patient with plaque - Follow-up ultrasound 1-2 years Normal Study but High Risk Patient - Follow-up ultrasound 3-5 years Management recommendations and diagnostic criteria are based on current IAC endorsed standards in Carotid Artery Stenosis: Grayscale and Doppler Ultrasound Diagnosis. Validated velocity measurements with angiographic measurements and velocity criteria are extrapolated from diameter data as defined by the Society of Radiologists in Ultrasound Consensus Conference Radiology 2003; 229;340-346. RADIA
[2018-05-23] MEDS: hydrALAZINE 10 MG TABLET PO SCH ×3 (01:14→20:22)
[2018-05-23] MEDS: AMIODARONE 200 MG TABLET PO SCH ×2 (01:14→20:23)
[2018-05-23] MEDS: FINASTERIDE 5 MG TABLET PO SCH ×2 (01:14→20:23)
[2018-05-23] MEDS: CETIRIZINE 10 MG TABLET PO SCH ×2 (01:15→20:23)
[2018-05-23] MEDS: BIMATOPROST 0.01% OPHTH DROPS 2.5 ML EACHEYE SCH ×2 (01:15→20:23)
[2018-05-23] MEDS: ACETAMINOPHEN 1,000 MG/100 ML 100 ML IV PRN ×4 (01:33→22:19)
--- NOTE | 2018-05-23 03:31 | HISTORY & PHYSICAL EXAMINATION ---
Chief Complaint - Chief Complaint Chief Complaint: generalized pain, urinary frequency, slurred speech History of Present Illness - History of Present Illness HPI Comment/Other: Patient is a 82 y/o male with chronic pain and a baseline pain scale of 5/10 who is presenting from [facility] with a range of complains. He had fallen 2 days ago and is in more pain as a result. He is on total assist but forgets to call before getting up and falls. The visiting nurse observed right sided weakness and slurred speech. The patient took a drink of milk, didn't swallow, started talk and it was dripping down the side of his mouth. These observation were concerning so EMT was called. By the time they arrived, his symptoms had resolved. It is reported that the patient declined going to the hospital. He did fine after this and went for lunch. However later in the day he lost consciousness and started shaking all over. The specifics of the event are not clear since they are recounted by his daughter who wasn't there. There was no stool or urinary incontinence and no tongue biting. He has been having increased urinary frequency which is the case when he usually has a UTI. He also gets more combative. EMT was called a second time and he was brought to the ED. At bedside he appears to be laying calmly in bed. However the slightest movement of the bed causes tremendous pain. He is unable to contribute significantly to this history due to being somewhat lethargic and baseline dementia History - Past Medical History Cardiovascular: reports: Atrial fibrillation Respiratory: reports: COPD Neuro: reports: Dementia Endocrine/Autoimmune: reports: HyPOthyroidism : reports: Benign prostate hypertrophy Musculoskeletal: reports: Osteoarthritis MRSA Hx?: No - Past Surgical History Ortho: reports: Hip replacement - POLST Patient has POLST: Yes Meds/Allgy - Home Medications Home Medications: Ambulatory Orders Medication Instructions Recorded Confirmed Acetaminophen 325 mg PO Q6H PRN 04/03/18 04/24/18 Acetaminophen 650 mg PO TID 04/03/18 04/24/18 Albuterol Sulf [Ventolin Hfa 2 puffs INH BID 04/03/18 04/24/18 Inhaler] Amiodarone [Pacerone] 200 mg PO .QHS 04/03/18 04/24/18 Amlodipine Besylate 10 mg PO DAILY 04/03/18 04/24/18 Bimatoprost 0.01% Ophth Dops 1 drops EACHEYE .QHS 04/03/18 04/24/18 [Lumigan 0.01% Ophth Drops] Budesonide/Formoterol Fumarate 2 puffs INH BID 04/03/18 04/24/18 [Symbicort 80-4.5 Mcg Inhaler] Cetirizine HCl 10 mg PO .QHS 04/03/18 04/24/18 Cholecalciferol (Vitamin D3) 1,000 unit PO DAILY 04/03/18 04/24/18 [Vitamin D3] Diltiazem HCl [Diltiazem 12Hr ER] 120 mg PO DAILY 04/03/18 04/24/18 Diphenoxylate/Atropine [Lomotil] 2 tab PO QID PRN 04/03/18 04/24/18 Docusate Calcium 240 mg PO DAILY PRN 04/03/18 04/24/18 Ferrous Sulfate 325 mg PO DAILY 04/03/18 04/24/18 Finasteride 5 mg PO .QHS 04/03/18 04/24/18 Hydralazine HCl 40 mg PO BID 04/03/18 04/24/18 Multivitamin [Multiple Vitamins] 1 tab PO DAILY 04/03/18 04/24/18 Nitroglycerin [Nitrostat] 0.4 mg PO Q5MIN PRN MDD 3 TABLETS 04/03/18 04/24/18 Prednisone 5 mg PO DAILY 04/03/18 04/24/18 Tamsulosin HCl [Flomax] 0.4 mg PO DAILY 04/03/18 04/24/18 Tiotropium [place] [Spiriva] 1 cap INH DAILY 04/03/18 04/24/18 Warfarin [Coumadin] 1.25 mg PO MDD M,T,W,F,Sat 04/03/18 Warfarin [Coumadin] 2.5 mg PO MDD Sun and Thur 04/03/18 - Allergies Allergies/Adverse Reactions: Allergies Allergy/AdvReac Type Severity Reaction Status Date / Time azithromycin Allergy Respiratory Verified 05/22/18 14:47 bee venom protein (honey bee) Allergy Anaphylaxis Verified 05/22/18 14:47 hornet venom Allergy Anaphylaxis Verified 05/22/18 14:47 lisinopril Allergy Respiratory Verified 05/22/18 14:47 losartan Allergy Respiratory Verified 05/22/18 14:47 naproxen [From Naprosyn] Allergy Respiratory Verified 05/22/18 14:47 NSAIDS (Non-Steroidal Allergy Respiratory Verified 05/22/18 14:47 Anti-Inflamma Penicillins Allergy Respiratory Verified 05/22/18 14:47 Sulfa (Sulfonamide Allergy Respiratory Verified 05/22/18 14:47 Antibiotics) aspirin AdvReac Cramps Verified 05/22/18 14:47 hydromorphone AdvReac Hallucinati Verified 05/22/18 14:47 ons Iodinated Contrast- Oral and AdvReac Unknown Verified 05/22/18 14:47 IV Dye omeprazole AdvReac Cramps Verified 05/22/18 14:47 oxycodone AdvReac Hallucinati Verified 05/22/18 14:47 ons wasp Allergy Anaphylaxis Uncoded 05/22/18 14:47 yellow jacket venom Allergy Anaphylaxis Uncoded 05/22/18 14:47 Review of Systems - Other Findings Other Findings: Limited ROS due to patient's lethargy and baseline dementia Exam - Vital Signs Vital Signs: Vital Signs x48h Temp Pulse Pulse Resp BP BP Pulse Ox 05/23/18 01:10 84 152/70 H 05/23/18 00:00 36.5 C 84 19 151/69 H 91 L 05/22/18 22:38 70 18 05/22/18 20:41 36.5 C 74 18 144/80 H 95 - Physical Exam General Appearance: positive: Alert, Moderate distress, Lethargic Eyes Bilateral: positive: Normal inspection, PERRL, EOMI, Conjunctivae nml, No scleral icterus ENT: positive: ENT inspection nml, Pharynx nml, No signs of dehydration, Dry mucous membranes Neck: positive: Nml inspection, Thyroid nml, No JVD, Trachea midline Respiratory: positive: Chest non-tender, No respiratory distress, Breath sounds nml. negative: Wheezes, Rales, Rhonchi Cardiovascular: positive: Regular rate & rhythm, No murmur, No gallop, Irregularly irregular Abdomen: positive: No organomegaly, Nml bowel sounds, No distention, Tenderness Skin: positive: Color nml, Warm, Dry Extremities: positive: Pedal edema, Calf tenderness Neurologic/Psychiatric: positive: CN's nml (2-12), Motor nml, Sensation nml. negative: Disoriented to person, Facial droop Conclusion/Plan - Problem List (1) UTI (urinary tract infection) Conclusion/Plan: Rocephin started in the ED. Will continue Will hold prednisone for now. Patient supposedly takes for pain Qualifiers: Urinary tract infection type: site unspecified Hematuria presence: without hematuria Qualified Code(s): N39.0 - Urinary tract infection, site not specified (2) Episode of syncope Conclusion/Plan: Etiology undetermined 2D echo ordered Qualifiers: Syncope type: unspecified Qualified Code(s): R55 - Syncope and collapse (3) TIA (transient ischemic attack) Conclusion/Plan: CT head neg for any acute intracranial process Carotid US and MRI brain ordered (4) Atrial fibrillation Conclusion/Plan: Rate controlled on diltiazem po On amiodarone and coumadin. INR 2.5 Qualifiers: Atrial fibrillation type: chronic Qualified Code(s): I48.2 - Chronic atrial fibrillation (5) Hypertension Conclusion/Plan: On hydralazine and amlodopine Qualifiers: Hypertension type: essential hypertension Qualified Code(s): I10 - Essential (primary) hypertension (6) COPD (chronic obstructive pulmonary disease) Conclusion/Plan: Duoneb ordered q6hr Patient of symbicort and spiriva at home Will resume once verified Currently on 6L N/C (7) BPH (benign prostatic hyperplasia) Conclusion/Plan: On tamsulosin and finasteride (8) Glaucoma Conclusion/Plan: On lumigan - Lab Results Fish Bones: 05/22/18 16:47 05/22/18 16:47 Core Measures - DVT/VTE - Prophylaxis VTE/DVT Device ordered at admit?: Yes VTE/DVT Prophylaxis med ordered at admit?: No Not Ordered - Medical Reason: Not indicated (Patient already on coumadin) - Stroke - Rehab Assessment Rehab services assessment to be ordered?: No
[2018-05-23 06:11] LABS: BASOPHILS # (AUTO) 0.1 10^3/uL (0.0-0.1); BASOPHILS % (AUTO) 0.7 %; EOSINOPHILS # (AUTO) 0.8 10^3/uL (0.0-0.7); EOSINOPHILS % (AUTO) 4.3 %; HGB - HEMOGLOBIN 11.1 g/dL (14.0-18.0); LYMPHOCYTES % (AUTO) 4.9 %; MEAN CORPUSCULAR HEMOGLOBIN 25.6 pg (27.0-31.0); MEAN CORPUSCULAR HGB CONC 32.6 g/dL (32.0-36.0); MEAN CORPUSCULAR VOLUME 78.5 fL (80.0-94.0); MEAN PLATELET VOLUME 7.5 fL (7.4-11.4); MONOCYTES # (AUTO) 1.4 10^3/uL (0.0-1.0); NEUTROPHILS # (AUTO) 16.1 10^3/uL (1.5-6.6); NEUTROPHILS % (AUTO) 83.1 %; PLT - PLATELET COUNT 291 10^3/uL (130-450); RED BLOOD COUNT 4.33 10^6/uL (4.70-6.10); RED CELL DISTRIBUTION WIDTH 18.3 % (12.0-15.0); WHITE BLOOD COUNT 19.5 x10^3/uL (4.8-10.8)
[2018-05-23 06:14] LABS: INR 2.1 (0.8-1.2); PT - PROTHROMBIN TIME 23.3 secs (9.9-12.6)
[2018-05-23] MEDS ORDERED: IPRATROPIUM 0.2 MG/ML NEB INH SCH (07:00)
[2018-05-23] MEDS ORDERED: NITROGLYCERIN SL 0.4 MG TABLET SL PRN (07:22)
[2018-05-23] MEDS ORDERED: TIOTROPIUM INHALER INH SCH ×2 (09:00)
[2018-05-23] MEDS ORDERED: ALBUTEROL NEB 2.5 MG/3 ML INH SCH (09:00)
[2018-05-23] MEDS: POLYETHYLENE GLYCOL 3350 17 GM PACKET PO SCH (09:22)
[2018-05-23] MEDS: TAMSULOSIN 0.4 MG CAPSULE PO SCH (09:22)
[2018-05-23] MEDS: CHOLECALCIFEROL 1,000 UNIT TABLET PO SCH (09:23)
[2018-05-23] MEDS: diltiaZEM CD 120 MG CAPSULE PO SCH (09:23)
[2018-05-23] MEDS: amLODIPine 5 MG TABLET PO SCH (09:23)
[2018-05-23] MEDS: FERROUS SULFATE 325 MG TABLET PO SCH (09:23)
[2018-05-23] MEDS: MULTIVITAMIN TABLET PO SCH (09:23)
[2018-05-23] MEDS ORDERED: SODIUM CHLORIDE FLUSH 0.9% 10 ML SYRINGE ONE (09:43)
[2018-05-23] MEDS: SODIUM CHLORIDE 0.9% 1,000 ML IV SCH (13:03)
[2018-05-23] MEDS ORDERED: WARFARIN 2.5 MG TABLET PO SCH (14:00)
[2018-05-23] MEDS: cefTRIAXone 1 GM in SODIUM CHLORIDE 0.9% MINIBAG 100 ML IV SCH (16:57)
[2018-05-23] MEDS ORDERED: MIN OIL/DIMETHICON/COCONUT OIL 92 GM TUBE TOP PRN (17:28)
--- NOTE | 2018-05-23 19:33 | PROVIDER PROGRESS NOTE ---
Assessment/Plan - Problem List (1) Episode of syncope Qualifiers: Syncope type: unspecified Qualified Code(s): R55 - Syncope and collapse Assessment/Plan: Likely from volume depletion. Continue gentle hydration. (2) TIA (transient ischemic attack) Assessment/Plan: Echo, carotid Doppler and brain MRI ordered. (3) UTI (urinary tract infection) Qualifiers: Urinary tract infection type: site unspecified Hematuria presence: without hematuria Qualified Code(s): N39.0 - Urinary tract infection, site not specifi ed Assessment/Plan: Abnormal U/A. Continue empiric antibiotics. (4) Dementia Assessment/Plan: Supportive care (5) CKD (chronic kidney disease) Assessment/Plan: Monitor BMP daily. (6) Back pain Qualifiers: Back pain location: low back pain Chronicity: chronic Back pain laterality: unspecified Sciatica presence: without sciatica Qualified Code(s): M54.5 - Low back pain; G89.29 - Other chronic pain Assessment/Plan: Continue to find adequate pain meds for control of pain. (7) Atrial fibrillation Qualifiers: Atrial fibrillation type: chronic Qualified Code(s): I48.2 - Chronic atrial fibrillation Assessment/Plan: HR is controlled. Continue Coumadin and monitor INR daily. (8) COPD (chronic obstructive pulmonary disease) Assessment/Plan: Continue home meds (9) Hypokalemia Assessment/Plan: Replaced and monitor BMP daily. - Current Meds Current Meds: Current Medications Generic Name Dose Route Start Last Admin Trade Name Freq PRN Reason Stop Dose Admin Albuterol/Ipratropium 3 ml 05/22/18 21:00 05/23/18 16:30 Duoneb INH 3 ml Q6HR JOSE Administration Amiodarone HCl 200 mg 05/22/18 23:45 05/23/18 01:14 Pacerone PO 200 mg HS JOSE Administration Amlodipine Besylate 10 mg 05/23/18 09:00 05/23/18 09:23 Norvasc PO 10 mg DAILY JOSE Administration Bimatoprost 0 drops 05/22/18 23:45 05/23/18 01:15 Lumigan 0.01% Ophth Drops EACHEYE 1 drops HS JOSE Administration Cetirizine HCl 10 mg 05/22/18 23:45 05/23/18 01:15 Zyrtec PO 10 mg HS JOSE Administration Cholecalciferol 1,000 unit 05/23/18 09:00 05/23/18 09:23 Vitamin D3 PO 1,000 unit DAILY JOSE Administration Diltiazem HCl 120 mg 05/23/18 09:00 05/23/18 09:23 Cardizem Cd PO 120 mg DAILY JOSE Administration Ferrous Sulfate 325 mg 05/23/18 09:00 05/23/18 09:23 Feosol PO 325 mg DAILY JOSE Administration Finasteride 5 mg 05/22/18 23:45 05/23/18 01:14 Proscar PO 5 mg HS JOSE Administration Hydralazine HCl 40 mg 05/22/18 23:45 05/23/18 09:23 Apresoline PO 40 mg BID JOSE Administration Sodium Chloride 1,000 mls @ 100 mls/hr 05/22/18 20:00 05/23/18 17:28 Normal Saline 0.9% IV 100 mls/hr .Q10H JOSE Infusion Acetaminophen 100 mls @ 400 mls/hr 05/22/18 20:14 05/23/18 16:44 Ofirmev IV Infused Q6HR PRN Infusion PAIN Ceftriaxone Sodium 1 gm/ 100 mls @ 200 mls/hr 05/23/18 17:00 05/23/18 17:27 Sodium Chloride IV 05/28/18 17:29 Infused Q24H JOSE Infusion Multivitamins 1 tab 05/23/18 09:00 05/23/18 09:23 Theragran PO 1 tab DAILY JOSE Administration Polyethylene Glycol 17 gm 05/23/18 09:00 05/23/18 09:22 Miralax PO 17 gm DAILY JOSE Administration Sodium Chloride 10 ml 05/23/18 01:00 05/23/18 16:57 Normal Saline Flush 0.9% IVP 10 ml 0100,0900,1700 JOSE Administration Tamsulosin HCl 0.4 mg 05/23/18 09:00 05/23/18 09:22 Flomax PO 0.4 mg DAILY JOSE Administration Warfarin Sodium 1.25 mg 05/23/18 14:00 05/23/18 13:49 Coumadin PO 1.25 mg MOWE@1400 JOSE Administration - Lab Result Fish Bone Diagrams: 05/26/18 06:12 05/26/18 06:12 - Additional Planning My Orders: My Active Orders 05/23/18 07:22 Nitroglycerin [Nitrostat] 0.4 mg SL Q5MIN PRN 05/23/18 14:00 Warfarin [Coumadin] 1.25 mg PO MOWE@1400 05/23/18 17:53 Postural [Vital Signs - Orthostatic] [RC] QSHIFT 05/23/18 Dinner Regular Diet [DIET] 05/24/18 05:00 PT WITH INR [COAG] DAILYLAB 05/24/18 14:00 Warfarin [Coumadin] 2.5 mg PO SUTUTHFRSA@1400 05/25/18 05:00 PT WITH INR [COAG] DAILYLAB 05/26/18 05:00 PT WITH INR [COAG] DAILYLAB 05/27/18 05:00 PT WITH INR [COAG] DAILYLAB Subjective - Subjective Patient Reports: No Complaints Nursing Reports: Other (Pt did not remember fainting, has dementia.) Objective Vital Signs: Vital Signs - 24 hr 05/22/18 05/22/18 05/23/18 20:41 22:38 00:00 Temperature 36.5 C 36.5 C Heart Rate 70 Heart Rate [ 74 84 Brachial] Heart Rate [ Sitting (After 1 Minute)] Heart Rate [ Standing (After 1 Minute)] Heart Rate [ Supine] Respiratory 18 18 19 Rate Blood Pressure 144/80 H [Left Brachial artery] Blood Pressure 151/69 H [Right Brachial artery] Blood Pressure [Sitting (After 1 Minute)] Blood Pressure [Standing ( After 1 Minute) ] Blood Pressure [Supine] O2 Saturation 95 91 L 05/23/18 05/23/18 05/23/18 01:10 04:06 05:10 Temperature 37.1 C Heart Rate Heart Rate [ 84 70 Brachial] Heart Rate [ Sitting (After 1 Minute)] Heart Rate [ Standing (After 1 Minute)] Heart Rate [ Supine] Respiratory 17 Rate Blood Pressure 125/53 L [Left Brachial artery] Blood Pressure 152/70 H [Right Brachial artery] Blood Pressure [Sitting (After 1 Minute)] Blood Pressure [Standing ( After 1 Minute) ] Blood Pressure [Supine] O2 Saturation 98 97 05/23/18 05/23/18 05/23/18 07:59 10:00 12:39 Temperature 37.1 C 36.6 C Heart Rate 69 Heart Rate [ 71 77 Brachial] Heart Rate [ Sitting (After 1 Minute)] Heart Rate [ Standing (After 1 Minute)] Heart Rate [ Supine] Respiratory 16 18 16 Rate Blood Pressure 130/79 [Left Brachial artery] Blood Pressure 151/56 H [Right Brachial artery] Blood Pressure [Sitting (After 1 Minute)] Blood Pressure [Standing ( After 1 Minute) ] Blood Pressure [Supine] O2 Saturation 100 95 05/23/18 05/23/18 05/23/18 15:48 16:30 18:00 Temperature 37 C Heart Rate 69 Heart Rate [ 80 Brachial] Heart Rate [ 89 Sitting (After 1 Minute)] Heart Rate [ 91 Standing (After 1 Minute)] Heart Rate [ 79 Supine] Respiratory 18 16 Rate Blood Pressure 163/65 H [Left Brachial artery] Blood Pressure [Right Brachial artery] Blood Pressure 166/78 H [Sitting (After 1 Minute)] Blood Pressure 185/145 H [Standing ( After 1 Minute) ] Blood Pressure 156/62 H [Supine] O2 Saturation 96 05/23/18 19:30 Temperature 36.9 C Heart Rate Heart Rate [ 75 Brachial] Heart Rate [ Sitting (After 1 Minute)] Heart Rate [ Standing (After 1 Minute)] Heart Rate [ Supine] Respiratory 20 Rate Blood Pressure [Left Brachial artery] Blood Pressure 161/64 H [Right Brachial artery] Blood Pressure [Sitting (After 1 Minute)] Blood Pressure [Standing ( After 1 Minute) ] Blood Pressure [Supine] O2 Saturation 94 Oxygen O2 Source Nasal cannula I&O (Last 24 Hrs): Intake and Output Totals x24h 05/21/18 05/22/18 05/23/18 23:59 23:59 23:59 Intake Total 600 2430.000 Output Total 1145 1600 Balance -545 830.000 General: Other (Awake, communicative.) HEENT: Mucous membr. moist/pink, Other (Temporal wasting.) Neck: Supple, No JVD Neuro: Other (Oriented to self, moving all extremities) Cardiovascular: No murmurs Respiratory: Other (Increased AP diameter. Distant breath sounds but clear anteriorly) Abdomen: Soft, No tenderness Extremities: No edema, Other (Multiple large old ecchymoses.) - Results Results: Laboratory Results WBC 19.5 x10^3/uL (4.8-10.8) H 05/23/18 05:55 RBC 4.33 10^6/uL (4.70-6.10) L 05/23/18 05:55 Hgb 11.1 g/dL (14.0-18.0) L 05/23/18 05:55 Hct 34.0 % (42.0-52.0) L 05/23/18 05:55 MCV 78.5 fL (80.0-94.0) L 05/23/18 05:55 MCH 25.6 pg (27.0-31.0) L 05/23/18 05:55 MCHC 32.6 g/dL (32.0-36.0) 05/23/18 05:55 RDW 18.3 % (12.0-15.0) H 05/23/18 05:55 Plt Count 291 10^3/uL (130-450) 05/23/18 05:55 MPV 7.5 fL (7.4-11.4) 05/23/18 05:55 Neut # (Auto) 16.1 10^3/uL (1.5-6.6) H 05/23/18 05:55 Lymph # (Auto) 1.0 10^3/uL (1.5-3.5) L 05/23/18 05:55 [place] # (Auto) 1.4 10^3/uL (0.0-1.0) H 05/23/18 05:55 Eos # (Auto) 0.8 10^3/uL (0.0-0.7) H 05/23/18 05:55 Baso # (Auto) 0.1 10^3/uL (0.0-0.1) 05/23/18 05:55 Absolute Nucleated RBC 0.00 x10^3/uL 05/23/18 05:55 Nucleated RBC % 0.0 /100WBC 05/23/18 05:55 PT 23.3 secs (9.9-12.6) H 05/23/18 05:55 INR 2.1 (0.8-1.2) H 05/23/18 05:55 APTT 30.7 secs (24.9-33.3) 05/22/18 20:45 Sodium 137 mmol/L (135-145) 05/22/18 16:47 Potassium 3.9 mmol/L (3.5-5.0) 05/22/18 16:47 Chloride 105 mmol/L (101-111) 05/22/18 16:47 Carbon Dioxide 24 mmol/L (21-32) 05/22/18 16:47 Anion Gap 8.0 (6-13) 05/22/18 16:47 BUN 42 mg/dL (6-20) H 05/22/18 16:47 Creatinine 1.8 mg/dL (0.6-1.2) H 05/22/18 16:47 Estimated GFR (MDRD) 36 (>89) L 05/22/18 16:47 Glucose 141 mg/dL (70-100) H 05/22/18 16:47 Lactic Acid 0.7 mmol/L (0.5-2.2) 05/22/18 20:45 Calcium 8.3 mg/dL (8.5-10.3) L 05/22/18 16:47 Magnesium 1.9 mg/dL (1.7-2.8) 05/22/18 16:47 Total Bilirubin 0.6 mg/dL (0.2-1.0) 05/22/18 16:47 AST 20 IU/L (10-42) 05/22/18 16:47 ALT 30 IU/L (10-60) 05/22/18 16:47 Alkaline Phosphatase 70 IU/L (42-121) 05/22/18 16:47 Total Protein 6.4 g/dL (6.7-8.2) L 05/22/18 16:47 Albumin 3.1 g/dL (3.2-5.5) L 05/22/18 16:47 Globulin 3.3 g/dL (2.1-4.2) 05/22/18 16:47 Albumin/Globulin Ratio 0.9 (1.0-2.2) L 05/22/18 16:47 Lipase 30 U/L (22-51) 05/22/18 16:47 Urine Color DARK YELLOW 05/22/18 16:23 Urine Clarity CLOUDY (CLEAR) 05/22/18 16:23 Urine pH 8.5 PH (5.0-7.5) H 05/22/18 16:23 Ur Specific [place] 1.010 (1.002-1.030) 05/22/18 16:23 Urine Protein 100 mg/dL (NEGATIVE) H 05/22/18 16:23 Urine Glucose (UA) NEGATIVE mg/dL (NEGATIVE) 05/22/18 16:23 Urine Ketones NEGATIVE mg/dL (NEGATIVE) 05/22/18 16:23 Urine Occult Blood NEGATIVE (NEGATIVE) 05/22/18 16:23 Urine Nitrite POSITIVE (NEGATIVE) H 05/22/18 16:23 Urine Bilirubin NEGATIVE (NEGATIVE) 05/22/18 16:23 Urine Urobilinogen 0.2 (NORMAL) E.U./dL (NORMAL) 05/22/18 16:23 Ur Leukocyte Esterase LARGE (NEGATIVE) H 05/22/18 16:23 Urine RBC None Seen /HPF (0-5) 05/22/18 16:23 Urine WBC 0-3 /HPF (0-3) 05/22/18 16:23 Ur Squamous Epith Cells NONE SEEN (<= Few) 05/22/18 16:23 Urine Bacteria Many /HPF (None Seen) H 05/22/18 16:23 Ur Microscopic Review INDICATED 05/22/18 16:23 Urine Culture Comments INDICATED 05/22/18 16:23
[2018-05-23] MEDS ORDERED: HALOPERIDOL 5 MG/ML VIAL IVP SCH ×2 (21:23→22:07)
[2018-05-23] MEDS ORDERED: HALOPERIDOL 5 MG/ML VIAL ONE ×2 (21:28→22:18)
[2018-05-24] MEDS: SODIUM CHLORIDE 0.9% 1,000 ML IV SCH ×4 (00:05→20:31)
[2018-05-24] MEDS: IPRATROPIUM/ALBUTEROL 3 ML NEB INH SCH ×4 (00:36→22:14)
[2018-05-24] MEDS: SODIUM CHLORIDE FLUSH 0.9% 10 ML SYRINGE IVP SCH ×3 (02:05→16:32)
[2018-05-24] MEDS: ACETAMINOPHEN 1,000 MG/100 ML 100 ML IV PRN ×3 (04:08→20:33)
[2018-05-24 06:19] LABS: CREATININE 1.4 mg/dL (0.6-1.2)
[2018-05-24] MEDS ORDERED: BUDESONIDE/FORMOTEROL 160/4.5 MCG INHALER INH SCH (07:00)
[2018-05-24 07:18] LABS: PT - PROTHROMBIN TIME 22.2 secs (9.9-12.6)
[2018-05-24] MEDS: POLYETHYLENE GLYCOL 3350 17 GM PACKET PO SCH (08:39)
[2018-05-24] MEDS: diltiaZEM CD 120 MG CAPSULE PO SCH (08:39)
[2018-05-24] MEDS: CHOLECALCIFEROL 1,000 UNIT TABLET PO SCH (08:39)
[2018-05-24] MEDS: hydrALAZINE 10 MG TABLET PO SCH ×2 (08:39→20:32)
[2018-05-24] MEDS: FERROUS SULFATE 325 MG TABLET PO SCH (08:39)
[2018-05-24] MEDS: MULTIVITAMIN TABLET PO SCH (08:39)
[2018-05-24] MEDS: TAMSULOSIN 0.4 MG CAPSULE PO SCH (08:39)
[2018-05-24] MEDS: amLODIPine 5 MG TABLET PO SCH (08:39)
[2018-05-24] MEDS: LIDOCAINE PATCH 5% TOP PRN (09:53)
[2018-05-24] MEDS: WARFARIN 2.5 MG TABLET PO SCH (14:48)
[2018-05-24] MEDS: cefTRIAXone 1 GM in SODIUM CHLORIDE 0.9% MINIBAG 100 ML IV SCH (16:32)
[2018-05-24] MEDS: CYCLOBENZAPRINE 10 MG TABLET PO PRN (16:36)
--- NOTE | 2018-05-24 19:02 | PROVIDER PROGRESS NOTE ---
Assessment/Plan - Problem List (1) Episode of syncope Qualifiers: Syncope type: unspecified Qualified Code(s): R55 - Syncope and collapse Assessment/Plan: Probably from orthostasis given presentation of UTI. Pt cannot stand up, therefore postural vital signs cannot be done adequately. (2) TIA (transient ischemic attack) Assessment/Plan: No repeat sx. Atherosclerosis found on W/U. No MRI done yet, as machine is down, but daughter also spoke to me that the patient would not tolerate MRI machine sounds. (3) UTI (urinary tract infection) Qualifiers: Urinary tract infection type: site unspecified Hematuria presence: without hematuria Qualified Code(s): N39.0 - Urinary tract infection, site not specified Assessment/Plan: Continue iv antibiotics for 14-21 days. (4) Dementia Assessment/Plan: Stable. Watch for Sundowning. (5) CKD (chronic kidney disease) Assessment/Plan: Stable BMP. Follow daily labs. (6) Back pain Qualifiers: Back pain location: low back pain Chronicity: chronic Back pain laterality: unspecified Sciatica presence: without sciatica Qualified Code(s): M54.5 - Low back pain; G89.29 - Other chronic pain Assessment/Plan: The daughter discussed his prior management and recommended Flexeril 5 mng which worked in the past. Also, the plan is to return to [facility] with better pain control. (7) Atrial fibrillation Qualifiers: Atrial fibrillation type: chronic Qualified Code(s): I48.2 - Chronic atrial fibrillation Assessment/Plan: Rate controlled. Pt on Coumadin. Monitor daily INR while here. (8) COPD (chronic obstructive pulmonary disease) Assessment/Plan: No current exacerbation. (9) Hypokalemia Assessment/Plan: Replace. Monitor daily BMP. - Current Meds Current Meds: Current Medications Generic Name Dose Route Start Last Admin Trade Name Freq PRN Reason Stop Dose Admin Albuterol/Ipratropium 3 ml 05/22/18 21:00 05/24/18 14:58 Duoneb INH 3 ml Q6HR JOSE Administration Amiodarone HCl 200 mg 05/22/18 23:45 05/23/18 20:23 Pacerone PO 200 mg HS JOSE Administration Amlodipine Besylate 10 mg 05/23/18 09:00 05/24/18 08:39 Norvasc PO 10 mg DAILY JOSE Administration Bimatoprost 0 drops 05/22/18 23:45 05/23/18 20:23 Lumigan 0.01% Ophth Drops EACHEYE 1 drops HS JOSE Administration Cetirizine HCl 10 mg 05/22/18 23:45 05/23/18 20:23 Zyrtec PO 10 mg HS JOSE Administration Cholecalciferol 1,000 unit 05/23/18 09:00 05/24/18 08:39 Vitamin D3 PO 1,000 unit DAILY JOSE Administration Cyclobenzaprine HCl 5 mg 05/24/18 15:33 05/24/18 16:36 Flexeril PO 5 mg TID PRN Administration Spasms Diltiazem HCl 120 mg 05/23/18 09:00 05/24/18 08:39 Cardizem Cd PO 120 mg DAILY JOSE Administration Ferrous Sulfate 325 mg 05/23/18 09:00 05/24/18 08:39 Feosol PO 325 mg DAILY JOSE Administration Finasteride 5 mg 05/22/18 23:45 05/23/18 20:23 Proscar PO 5 mg HS JOSE Administration Hydralazine HCl 40 mg 05/22/18 23:45 05/24/18 08:39 Apresoline PO 40 mg BID JOSE Administration Sodium Chloride 1,000 mls @ 100 mls/hr 05/22/18 20:00 05/24/18 17:02 Normal Saline 0.9% IV 100 mls/hr .Q10H JOSE Infusion Acetaminophen 100 mls @ 400 mls/hr 05/22/18 20:14 05/24/18 11:09 Ofirmev IV Infused Q6HR PRN Infusion PAIN Ceftriaxone Sodium 1 gm/ 100 mls @ 200 mls/hr 05/23/18 17:00 05/24/18 17:02 Sodium Chloride IV 05/28/18 17:29 Infused Q24H JOSE Infusion Lidocaine 1 patch 05/24/18 08:26 05/24/18 09:53 Lidoderm Patch TOP 1 patch DAILY PRN Administration PAIN Multivitamins 1 tab 05/23/18 09:00 05/24/18 08:39 Theragran PO 1 tab DAILY JOSE Administration Polyethylene Glycol 17 gm 05/23/18 09:00 05/24/18 08:39 Miralax PO 17 gm DAILY JOSE Administration Sodium Chloride 10 ml 05/23/18 01:00 05/24/18 16:32 Normal Saline Flush 0.9% IVP Not Given 0100,0900,1700 [facility] Tamsulosin HCl 0.4 mg 05/23/18 09:00 05/24/18 08:39 Flomax PO 0.4 mg DAILY JOSE Administration Warfarin Sodium 1.25 mg 05/23/18 14:00 05/23/18 13:49 Coumadin PO 1.25 mg MOWE@1400 JOSE Administration Warfarin Sodium 2.5 mg 05/24/18 14:00 05/24/18 14:48 Coumadin PO 2.5 mg SUTUTHFRSA@1400 [facility] Administration - Lab Result Fish Bone Diagrams: 05/23/18 05:55 05/24/18 05:30 - Additional Planning My Orders: My Active Orders 05/24/18 Swallow Evaluation [Clinical Swallow Eval w/Modified ST] [ST] Routine Evaluate and Treat OT [OT] Routine Evaluate and Treat PT [PT] Routine 05/24/18 08:26 Lidocaine Patch 5% [Lidoderm Patch] 1 patch TOP DAILY PRN 05/24/18 13:33 Albuterol 2.5 mg INH RTQ4H PRN 05/24/18 13:34 Nebulizer/MDI Tx. [RC] QID 05/24/18 14:00 Warfarin [Coumadin] 2.5 mg PO SUTUTHFRSA@1400 05/24/18 15:33 Cyclobenzaprine [Flexeril] 5 mg PO TID PRN 05/25/18 05:00 PT WITH INR [COAG] DAILYLAB 05/26/18 05:00 PT WITH INR [COAG] DAILYLAB 05/27/18 05:00 PT WITH INR [COAG] DAILYLAB Subjective - Subjective Patient Reports: Other (Patient cannot remember how he feels or if he can stand) Objective Vital Signs: Vital Signs - 24 hr 05/23/18 05/23/18 05/23/18 19:30 21:44 23:36 Temperature 36.9 C 37.2 C Heart Rate 81 Heart Rate [ 75 98 Brachial] Heart Rate [ Sitting (After 1 Minute)] Heart Rate [ Supine] Respiratory 20 22 22 Rate Blood Pressure [Left Brachial artery] Blood Pressure 161/64 H 176/70 H [Right Brachial artery] Blood Pressure [Sitting (After 1 Minute)] Blood Pressure [Supine] O2 Saturation 94 93 05/24/18 05/24/18 05/24/18 00:37 03:25 08:10 Temperature 37.2 C Heart Rate 70 Heart Rate [ 89 87 Brachial] Heart Rate [ Sitting (After 1 Minute)] Heart Rate [ Supine] Respiratory 18 18 Rate Blood Pressure 168/55 H [Left Brachial artery] Blood Pressure 176/64 H [Right Brachial artery] Blood Pressure [Sitting (After 1 Minute)] Blood Pressure [Supine] O2 Saturation 92 97 05/24/18 05/24/18 05/24/18 08:21 14:35 14:59 Temperature 37.2 C Heart Rate 86 86 84 Heart Rate [ Brachial] Heart Rate [ Sitting (After 1 Minute)] Heart Rate [ Supine] Respiratory 20 20 22 Rate Blood Pressure [Left Brachial artery] Blood Pressure [Right Brachial artery] Blood Pressure [Sitting (After 1 Minute)] Blood Pressure [Supine] O2 Saturation 96 05/24/18 05/24/18 15:36 18:00 Temperature 36.9 C Heart Rate Heart Rate [ 91 Brachial] Heart Rate [ 100 Sitting (After 1 Minute)] Heart Rate [ 95 Supine] Respiratory 20 Rate Blood Pressure 152/86 H [Left Brachial artery] Blood Pressure [Right Brachial artery] Blood Pressure 159/61 H [Sitting (After 1 Minute)] Blood Pressure 152/57 H [Supine] O2 Saturation 96 Oxygen O2 Source Nasal cannula I&O (Last 24 Hrs): Intake and Output Totals x24h 05/22/18 05/23/18 05/24/18 23:59 23:59 23:59 Intake Total 600 3021.667 3016.667 Output Total 1145 1800 1575 Balance -545 0646.853 6561.667 General: Alert, Other (When asked if he can stand, he answered " I can't remember".) HEENT: Mucous membr. moist/pink Neck: Supple Neuro: Non Focal, Other (Confused) Cardiovascular: No murmurs Respiratory: No respiratory distress, Other (Increased AP diameter) Abdomen: Soft Extremities: Other (No leg edema. Multiple large arm ecchymoses, appear old and chronic.) - Results Results: Laboratory Results WBC 19.5 x10^3/uL (4.8-10.8) H 05/23/18 05:55 RBC 4.33 10^6/uL (4.70-6.10) L 05/23/18 05:55 Hgb 11.1 g/dL (14.0-18.0) L 05/23/18 05:55 Hct 34.0 % (42.0-52.0) L 05/23/18 05:55 MCV 78.5 fL (80.0-94.0) L 05/23/18 05:55 MCH 25.6 pg (27.0-31.0) L 05/23/18 05:55 MCHC 32.6 g/dL (32.0-36.0) 05/23/18 05:55 RDW 18.3 % (12.0-15.0) H 05/23/18 05:55 Plt Count 291 10^3/uL (130-450) 05/23/18 05:55 MPV 7.5 fL (7.4-11.4) 05/23/18 05:55 Neut # (Auto) 16.1 10^3/uL (1.5-6.6) H 05/23/18 05:55 Lymph # (Auto) 1.0 10^3/uL (1.5-3.5) L 05/23/18 05:55 [place] # (Auto) 1.4 10^3/uL (0.0-1.0) H 05/23/18 05:55 Eos # (Auto) 0.8 10^3/uL (0.0-0.7) H 05/23/18 05:55 Baso # (Auto) 0.1 10^3/uL (0.0-0.1) 05/23/18 05:55 Absolute Nucleated RBC 0.00 x10^3/uL 05/23/18 05:55 Nucleated RBC % 0.0 /100WBC 05/23/18 05:55 PT 22.2 secs (9.9-12.6) H 05/24/18 06:30 INR 2.0 (0.8-1.2) H 05/24/18 06:30 APTT 30.7 secs (24.9-33.3) 05/22/18 20:45 Sodium 136 mmol/L (135-145) 05/24/18 05:30 Potassium 3.4 mmol/L (3.5-5.0) L 05/24/18 05:30 Chloride 104 mmol/L (101-111) 05/24/18 05:30 Carbon Dioxide 24 mmol/L (21-32) 05/24/18 05:30 Anion Gap 8.0 (6-13) 05/24/18 05:30 BUN 21 mg/dL (6-20) H 05/24/18 05:30 Creatinine 1.4 mg/dL (0.6-1.2) H 05/24/18 05:30 Estimated GFR (MDRD) 48 (>89) L 05/24/18 05:30 Glucose 113 mg/dL (70-100) H 05/24/18 05:30 Lactic Acid 0.7 mmol/L (0.5-2.2) 05/22/18 20:45 Calcium 8.0 mg/dL (8.5-10.3) L 05/24/18 05:30 Magnesium 1.9 mg/dL (1.7-2.8) 05/22/18 16:47 Total Bilirubin 0.6 mg/dL (0.2-1.0) 05/22/18 16:47 AST 20 IU/L (10-42) 05/22/18 16:47 ALT 30 IU/L (10-60) 05/22/18 16:47 Alkaline Phosphatase 70 IU/L (42-121) 05/22/18 16:47 Total Protein 6.4 g/dL (6.7-8.2) L 05/22/18 16:47 Albumin 3.1 g/dL (3.2-5.5) L 05/22/18 16:47 Globulin 3.3 g/dL (2.1-4.2) 05/22/18 16:47 Albumin/Globulin Ratio 0.9 (1.0-2.2) L 05/22/18 16:47 Lipase 30 U/L (22-51) 05/22/18 16:47 Urine Color DARK YELLOW 05/22/18 16:23 Urine Clarity CLOUDY (CLEAR) 05/22/18 16:23 Urine pH 8.5 PH (5.0-7.5) H 05/22/18 16:23 Ur Specific [place] 1.010 (1.002-1.030) 05/22/18 16:23 Urine Protein 100 mg/dL (NEGATIVE) H 05/22/18 16:23 Urine Glucose (UA) NEGATIVE mg/dL (NEGATIVE) 05/22/18 16:23 Urine Ketones NEGATIVE mg/dL (NEGATIVE) 05/22/18 16:23 Urine Occult Blood NEGATIVE (NEGATIVE) 05/22/18 16:23 Urine Nitrite POSITIVE (NEGATIVE) H 05/22/18 16:23 Urine Bilirubin NEGATIVE (NEGATIVE) 05/22/18 16:23 Urine Urobilinogen 0.2 (NORMAL) E.U./dL (NORMAL) 05/22/18 16:23 Ur Leukocyte Esterase LARGE (NEGATIVE) H 05/22/18 16:23 Urine RBC None Seen /HPF (0-5) 05/22/18 16:23 Urine WBC 0-3 /HPF (0-3) 05/22/18 16:23 Ur Squamous Epith Cells NONE SEEN (<= Few) 05/22/18 16:23 Urine Bacteria Many /HPF (None Seen) H 05/22/18 16:23 Ur Microscopic Review INDICATED 05/22/18 16:23 Urine Culture Comments INDICATED 05/22/18 16:23
[2018-05-24] MEDS: CETIRIZINE 10 MG TABLET PO SCH (20:31)
[2018-05-24] MEDS: AMIODARONE 200 MG TABLET PO SCH (20:31)
[2018-05-24] MEDS: FINASTERIDE 5 MG TABLET PO SCH ×2 (20:31→20:32)
[2018-05-24] MEDS: BIMATOPROST 0.01% OPHTH DROPS 2.5 ML EACHEYE SCH (20:32)
[2018-05-24] MEDS ORDERED: HALOPERIDOL 5 MG/ML VIAL IVP ONE (20:34)
[2018-05-24] MEDS: BUDESONIDE 0.5 MG/2 ML NEB INH SCH (22:15)
[2018-05-24] MEDS: FORMOTEROL FUMARATE NEB 20 MCG/2 ML INH SCH (22:15)
[2018-05-24] MEDS ORDERED: MAGNESIUM HYDROXIDE 2,400 MG/30 ML UDC PO ONE (23:45)
[2018-05-25] MEDS: SODIUM CHLORIDE FLUSH 0.9% 10 ML SYRINGE IVP SCH ×4 (01:29→17:32)
[2018-05-25] MEDS: ACETAMINOPHEN 1,000 MG/100 ML 100 ML IV PRN ×2 (02:57→19:16)
[2018-05-25] MEDS: IPRATROPIUM/ALBUTEROL 3 ML NEB INH SCH ×5 (05:12→19:32)
[2018-05-25] MEDS: FORMOTEROL FUMARATE NEB 20 MCG/2 ML INH SCH ×2 (05:59→19:32)
[2018-05-25] MEDS: BUDESONIDE 0.5 MG/2 ML NEB INH SCH ×2 (05:59→19:32)
[2018-05-25 06:29] LABS: INR 2.4 (0.8-1.2); PT - PROTHROMBIN TIME 26.5 secs (9.9-12.6)
[2018-05-25] MEDS: FERROUS SULFATE 325 MG TABLET PO SCH (09:08)
[2018-05-25] MEDS: POLYETHYLENE GLYCOL 3350 17 GM PACKET PO SCH (09:08)
[2018-05-25] MEDS: diltiaZEM CD 120 MG CAPSULE PO SCH (09:08)
[2018-05-25] MEDS: MULTIVITAMIN TABLET PO SCH (09:08)
[2018-05-25] MEDS: hydrALAZINE 10 MG TABLET PO SCH ×2 (09:08→20:47)
[2018-05-25] MEDS: TAMSULOSIN 0.4 MG CAPSULE PO SCH (09:08)
[2018-05-25] MEDS: amLODIPine 5 MG TABLET PO SCH (09:08)
[2018-05-25] MEDS: CHOLECALCIFEROL 1,000 UNIT TABLET PO SCH (09:08)
[2018-05-25] MEDS: CYCLOBENZAPRINE 10 MG TABLET PO PRN (14:04)
[2018-05-25] MEDS: WARFARIN 2.5 MG TABLET PO SCH (14:31)
[2018-05-25] MEDS: SODIUM CHLORIDE 0.9% 1,000 ML IV SCH (16:04)
--- NOTE | 2018-05-25 16:49 | PROVIDER PROGRESS NOTE ---
Assessment/Plan - Problem List (1) Cellulitis of left arm Assessment/Plan: This may be the reason for negligible improvement in WBC since admission. Restart iv. Needs Vanco iv, dosing per pharmacy. (2) TIA (transient ischemic attack) Assessment/Plan: Vascular atherosclerosis, seen on Carotid Dopper Echo showed no clot MRI of brain not done, patient would not tolerate the sound per his daughter dicussion with me. Will continue ASA and statins (3) UTI (urinary tract infection) Qualifiers: Urinary tract infection type: site unspecified Hematuria presence: without hematuria Qualified Code(s): N39.0 - Urinary tract infection, site not specified Assessment/Plan: WBC not declining much. Urine grew Proeus mirabilis, sensitive to. Conttinue iv antibiotic fotr a 14-21 day course, for prostate penetration. (4) Episode of syncope Qualifiers: Syncope type: unspecified Qualified Code(s): R55 - Syncope and collapse Assessment/Plan: Possibly from volume depletion secondary to infection. Continue to treat UTI. Monitor I's and O's regarding adequate hydration. (5) Dementia Assessment/Plan: He appears unchanged to my interactions. I discussed this with daughter. (6) CKD (chronic kidney disease) Assessment/Plan: Stable creat. Monitor BMP daily. (7) Back pain Qualifiers: Back pain location: low back pain Chronicity: chronic Back pain laterality: unspecified Sciatica presence: without sciatica Qualified Code(s): M54.5 - Low back pain; G89.29 - Other chronic pain Assessment/Plan: Flexeril and topical Lidocaine patch have helped the pain. Continue pain meds. (8) Atrial fibrillation Qualifiers: Atrial fibrillation type: chronic Qualified Code(s): I48.2 - Chronic atrial fibrillation Assessment/Plan: HR controlled on current meds. (9) COPD (chronic obstructive pulmonary disease) Assessment/Plan: Continue his chronic pulmonary meds and management. (10) Hypokalemia Assessment/Plan: Replace K. Monitor daily BMP. - Current Meds Current Meds: Current Medications Generic Name Dose Route Start Last Admin Trade Name Freq PRN Reason Stop Dose Admin Albuterol/Ipratropium 3 ml 05/25/18 15:00 05/25/18 15:30 Duoneb INH 3 ml RTQID JOSE Administration Amiodarone HCl 200 mg 05/22/18 23:45 05/24/18 20:31 Pacerone PO 200 mg HS JOSE Administration Amlodipine Besylate 10 mg 05/23/18 09:00 05/25/18 09:08 Norvasc PO 10 mg DAILY JOSE Administration Bimatoprost 0 drops 05/22/18 23:45 05/24/18 20:32 Lumigan 0.01% Ophth Drops EACHEYE 1 drops HS JOSE Administration Budesonide 0.5 mg 05/24/18 19:00 05/25/18 05:59 Pulmicort INH 0.5 mg RTBID JOSE Administration Cetirizine HCl 10 mg 05/22/18 23:45 05/24/18 20:31 Zyrtec PO 10 mg HS JOSE Administration Cholecalciferol 1,000 unit 05/23/18 09:00 05/25/18 09:08 Vitamin D3 PO 1,000 unit DAILY JOSE Administration Cyclobenzaprine HCl 5 mg 05/24/18 15:33 05/25/18 14:04 Flexeril PO 5 mg TID PRN Administration Spasms Diltiazem HCl 120 mg 05/23/18 09:00 05/25/18 09:08 Cardizem Cd PO 120 mg DAILY JOSE Administration Docusate Sodium 250 mg 05/22/18 23:06 05/25/18 09:08 Colace 250mg Capsule PO 250 mg DAILY PRN Administration Constipation Ferrous Sulfate 325 mg 05/23/18 09:00 05/25/18 09:08 Feosol PO 325 mg DAILY JOSE Administration Finasteride 5 mg 05/22/18 23:45 05/24/18 20:32 Proscar PO 5 mg HS JOSE Administration Formoterol Fumarate 20 mcg 05/24/18 19:00 05/25/18 05:59 Perforomist INH 20 mcg RTBID JOSE Administration Hydralazine HCl 40 mg 05/22/18 23:45 05/25/18 09:08 Apresoline PO 40 mg BID JOSE Administration Sodium Chloride 1,000 mls @ 100 mls/hr 05/22/18 20:00 05/25/18 16:04 Normal Saline 0.9% IV Not Given .Q10H JOSE Acetaminophen 100 mls @ 400 mls/hr 05/22/18 20:14 05/25/18 03:15 Ofirmev IV Infused Q6HR PRN Infusion PAIN Ceftriaxone Sodium 1 gm/ 100 mls @ 200 mls/hr 05/23/18 17:00 05/24/18 17:02 Sodium Chloride IV 05/28/18 17:29 Infused Q24H JOSE Infusion Lidocaine 1 patch 05/24/18 08:26 05/24/18 09:53 Lidoderm Patch TOP 1 patch DAILY PRN Administration PAIN Multivitamins 1 tab 05/23/18 09:00 05/25/18 09:08 Theragran PO 1 tab DAILY JOSE Administration Polyethylene Glycol 17 gm 05/23/18 09:00 05/25/18 09:08 Miralax PO 17 gm DAILY JOSE Administration Sodium Chloride 10 ml 05/23/18 01:00 05/25/18 09:15 Normal Saline Flush 0.9% IVP Not Given 0100,0900,1700 [facility] Tamsulosin HCl 0.4 mg 05/23/18 09:00 05/25/18 09:08 Flomax PO 0.4 mg DAILY JOSE Administration Warfarin Sodium 1.25 mg 05/23/18 14:00 05/23/18 13:49 Coumadin PO 1.25 mg MOWE@1400 [facility] Administration Warfarin Sodium 2.5 mg 05/24/18 14:00 05/25/18 14:31 Coumadin PO 2.5 mg SUTUTHFRSA@1400 [facility] Administration - Lab Result Fish Bone Diagrams: 05/23/18 05:55 05/24/18 05:30 - Additional Planning My Orders: My Active Orders 05/25/18 15:00 Ipratropium/Albuterol [Duoneb] 3 ml INH RTQID 05/26/18 05:00 PT WITH INR [COAG] DAILYLAB 05/27/18 05:00 PT WITH INR [COAG] DAILYLAB Subjective - Subjective Patient Reports: Other (Less pain per patient's response to me) Nursing Reports: Other (L arm is more swollen with possible blistering) Objective Vital Signs: Vital Signs - 24 hr 05/24/18 05/24/18 05/25/18 18:00 22:15 00:00 Temperature 37.0 C Heart Rate 90 Heart Rate [ 98 Brachial] Heart Rate [ 100 Sitting (After 1 Minute)] Heart Rate [ 95 Supine] Respiratory 18 22 Rate Blood Pressure 166/65 H [Right Brachial artery] Blood Pressure 159/61 H [Sitting (After 1 Minute)] Blood Pressure 152/57 H [Supine] O2 Saturation 96 05/25/18 05/25/18 05/25/18 06:02 07:34 11:12 Temperature 37.1 C Heart Rate 77 95 Heart Rate [ 85 Brachial] Heart Rate [ Sitting (After 1 Minute)] Heart Rate [ Supine] Respiratory 18 18 20 Rate Blood Pressure 162/66 H [Right Brachial artery] Blood Pressure [Sitting (After 1 Minute)] Blood Pressure [Supine] O2 Saturation 93 05/25/18 05/25/18 15:42 16:13 Temperature 37.0 C Heart Rate 84 Heart Rate [ 95 Brachial] Heart Rate [ Sitting (After 1 Minute)] Heart Rate [ Supine] Respiratory 20 24 Rate Blood Pressure 156/62 H [Right Brachial artery] Blood Pressure [Sitting (After 1 Minute)] Blood Pressure [Supine] O2 Saturation 93 Oxygen O2 Source Nasal cannula I&O (Last 24 Hrs): Intake and Output Totals x24h 05/23/18 05/24/18 05/25/18 23:59 23:59 23:59 Intake Total 3021.667 3710.001 1051.667 Output Total 1800 1775 1220 Balance 5185.220 8749.001 -168.333 General: Other (Somnolent, answers when spoken to) HEENT: Mucous membr. moist/pink Neck: Supple Neuro: Non Focal, Other (Occaisional memory lapses (per his answers)) Cardiovascular: No murmurs Respiratory: No respiratory distress Abdomen: Soft Extremities: Other (L arm ecchymotic but also has warmth and redness from wrist to mid upper arm, 1 small 1 cm2 blister of inner forearm) - Results Results: Laboratory Results WBC 19.5 x10^3/uL (4.8-10.8) H 05/23/18 05:55 RBC 4.33 10^6/uL (4.70-6.10) L 05/23/18 05:55 Hgb 11.1 g/dL (14.0-18.0) L 05/23/18 05:55 Hct 34.0 % (42.0-52.0) L 05/23/18 05:55 MCV 78.5 fL (80.0-94.0) L 05/23/18 05:55 MCH 25.6 pg (27.0-31.0) L 05/23/18 05:55 MCHC 32.6 g/dL (32.0-36.0) 05/23/18 05:55 RDW 18.3 % (12.0-15.0) H 05/23/18 05:55 Plt Count 291 10^3/uL (130-450) 05/23/18 05:55 MPV 7.5 fL (7.4-11.4) 05/23/18 05:55 Neut # (Auto) 16.1 10^3/uL (1.5-6.6) H 05/23/18 05:55 Lymph # (Auto) 1.0 10^3/uL (1.5-3.5) L 05/23/18 05:55 [place] # (Auto) 1.4 10^3/uL (0.0-1.0) H 05/23/18 05:55 Eos # (Auto) 0.8 10^3/uL (0.0-0.7) H 05/23/18 05:55 Baso # (Auto) 0.1 10^3/uL (0.0-0.1) 05/23/18 05:55 Absolute Nucleated RBC 0.00 x10^3/uL 05/23/18 05:55 Nucleated RBC % 0.0 /100WBC 05/23/18 05:55 PT 26.5 secs (9.9-12.6) H 05/25/18 05:50 INR 2.4 (0.8-1.2) H 05/25/18 05:50 APTT 30.7 secs (24.9-33.3) 05/22/18 20:45 Sodium 136 mmol/L (135-145) 05/24/18 05:30 Potassium 3.4 mmol/L (3.5-5.0) L 05/24/18 05:30 Chloride 104 mmol/L (101-111) 05/24/18 05:30 Carbon Dioxide 24 mmol/L (21-32) 05/24/18 05:30 Anion Gap 8.0 (6-13) 05/24/18 05:30 BUN 21 mg/dL (6-20) H 05/24/18 05:30 Creatinine 1.4 mg/dL (0.6-1.2) H 05/24/18 05:30 Estimated GFR (MDRD) 48 (>89) L 05/24/18 05:30 Glucose 113 mg/dL (70-100) H 05/24/18 05:30 Lactic Acid 0.7 mmol/L (0.5-2.2) 05/22/18 20:45 Calcium 8.0 mg/dL (8.5-10.3) L 05/24/18 05:30 Magnesium 1.9 mg/dL (1.7-2.8) 05/22/18 16:47 Total Bilirubin 0.6 mg/dL (0.2-1.0) 05/22/18 16:47 AST 20 IU/L (10-42) 05/22/18 16:47 ALT 30 IU/L (10-60) 05/22/18 16:47 Alkaline Phosphatase 70 IU/L (42-121) 05/22/18 16:47 Total Protein 6.4 g/dL (6.7-8.2) L 05/22/18 16:47 Albumin 3.1 g/dL (3.2-5.5) L 05/22/18 16:47 Globulin 3.3 g/dL (2.1-4.2) 05/22/18 16:47 Albumin/Globulin Ratio 0.9 (1.0-2.2) L 05/22/18 16:47 Lipase 30 U/L (22-51) 05/22/18 16:47 Urine Color DARK YELLOW 05/22/18 16:23 Urine Clarity CLOUDY (CLEAR) 05/22/18 16:23 Urine pH 8.5 PH (5.0-7.5) H 05/22/18 16:23 Ur Specific [place] 1.010 (1.002-1.030) 05/22/18 16:23 Urine Protein 100 mg/dL (NEGATIVE) H 05/22/18 16:23 Urine Glucose (UA) NEGATIVE mg/dL (NEGATIVE) 05/22/18 16:23 Urine Ketones NEGATIVE mg/dL (NEGATIVE) 05/22/18 16:23 Urine Occult Blood NEGATIVE (NEGATIVE) 05/22/18 16:23 Urine Nitrite POSITIVE (NEGATIVE) H 05/22/18 16:23 Urine Bilirubin NEGATIVE (NEGATIVE) 09/11/18 16:23 Urine Urobilinogen 0.2 (NORMAL) E.U./dL (NORMAL) 05/22/18 16:23 Ur Leukocyte Esterase LARGE (NEGATIVE) H 05/22/18 16:23 Urine RBC None Seen /HPF (0-5) 05/22/18 16:23 Urine WBC 0-3 /HPF (0-3) 05/22/18 16:23 Ur Squamous Epith Cells NONE SEEN (<= Few) 05/22/18 16:23 Urine Bacteria Many /HPF (None Seen) H 05/22/18 16:23 Ur Microscopic Review INDICATED 05/22/18 16:23 Urine Culture Comments INDICATED 05/22/18 16:23
[2018-05-25] MEDS: NS W/20 MEQ KCL 1,000 ML IV SCH (17:31)
[2018-05-25] MEDS: cefTRIAXone 1 GM in SODIUM CHLORIDE 0.9% MINIBAG 100 ML IV SCH (17:31)
[2018-05-25] MEDS ORDERED: VANCOMYCIN PER PHARMACY 100 GM in SODIUM CHLORIDE 0.9% 250 ML IV SCH (18:00)
[2018-05-25] MEDS: predniSONE 5 MG TABLET PO SCH (19:22)
[2018-05-25] MEDS: VANCOMYCIN INJ 1 GM in SODIUM CHLORIDE 0.9% 250 ML IV SCH (19:28)
[2018-05-25] MEDS: CETIRIZINE 10 MG TABLET PO SCH (20:47)
[2018-05-25] MEDS: AMIODARONE 200 MG TABLET PO SCH (20:48)
[2018-05-25] MEDS: BIMATOPROST 0.01% OPHTH DROPS 2.5 ML EACHEYE SCH (20:50)
[2018-05-25] MEDS: ALBUTEROL NEB 2.5 MG/3 ML INH PRN (22:00)
[2018-05-26] MEDS: CYCLOBENZAPRINE 10 MG TABLET PO PRN ×2 (00:29→08:24)
[2018-05-26] MEDS: SODIUM CHLORIDE FLUSH 0.9% 10 ML SYRINGE IVP SCH ×4 (02:02→23:24)
[2018-05-26] MEDS: ACETAMINOPHEN 1,000 MG/100 ML 100 ML IV PRN ×2 (02:34→19:56)
[2018-05-26 06:37] LABS: BASOPHILS # (AUTO) 0.1 10^3/uL (0.0-0.1); BASOPHILS % (AUTO) 0.8 %; EOSINOPHILS # (AUTO) 0.2 10^3/uL (0.0-0.7); EOSINOPHILS % (AUTO) 1.6 %; HGB - HEMOGLOBIN 9.8 g/dL (14.0-18.0); LYMPHOCYTES # (AUTO) 0.6 10^3/uL (1.5-3.5); LYMPHOCYTES % (AUTO) 4.3 %; MEAN CORPUSCULAR HEMOGLOBIN 25.7 pg (27.0-31.0); MEAN CORPUSCULAR HGB CONC 32.7 g/dL (32.0-36.0); MEAN CORPUSCULAR VOLUME 78.6 fL (80.0-94.0); MEAN PLATELET VOLUME 7.9 fL (7.4-11.4); MONOCYTES # (AUTO) 1.1 10^3/uL (0.0-1.0); MONOCYTES % (AUTO) 7.3 %; NEUTROPHILS # (AUTO) 12.6 10^3/uL (1.5-6.6); PLT - PLATELET COUNT 293 10^3/uL (130-450); RED BLOOD COUNT 3.83 10^6/uL (4.70-6.10); RED CELL DISTRIBUTION WIDTH 18.3 % (12.0-15.0); WHITE BLOOD COUNT 14.7 x10^3/uL (4.8-10.8)
[2018-05-26 06:53] LABS: CREATININE 1.4 mg/dL (0.6-1.2)
[2018-05-26 06:57] LABS: PT - PROTHROMBIN TIME 32.1 secs (9.9-12.6)
[2018-05-26] MEDS: IPRATROPIUM/ALBUTEROL 3 ML NEB INH SCH ×4 (07:50→19:22)
[2018-05-26] MEDS: FORMOTEROL FUMARATE NEB 20 MCG/2 ML INH SCH ×2 (07:50→19:22)
[2018-05-26] MEDS: BUDESONIDE 0.5 MG/2 ML NEB INH SCH ×2 (07:50→19:22)
[2018-05-26] MEDS: POLYETHYLENE GLYCOL 3350 17 GM PACKET PO SCH (08:24)
[2018-05-26] MEDS: FERROUS SULFATE 325 MG TABLET PO SCH (08:24)
[2018-05-26] MEDS: TAMSULOSIN 0.4 MG CAPSULE PO SCH (08:25)
[2018-05-26] MEDS: MULTIVITAMIN TABLET PO SCH (08:25)
[2018-05-26] MEDS: diltiaZEM CD 120 MG CAPSULE PO SCH (08:25)
[2018-05-26] MEDS: hydrALAZINE 10 MG TABLET PO SCH ×2 (08:25→21:20)
[2018-05-26] MEDS: predniSONE 5 MG TABLET PO SCH ×2 (08:25→09:23)
[2018-05-26] MEDS: amLODIPine 5 MG TABLET PO SCH (08:25)
[2018-05-26] MEDS: CHOLECALCIFEROL 1,000 UNIT TABLET PO SCH (08:25)
[2018-05-26] MEDS ORDERED: DOCUSATE SODIUM 250 MG CAPSULE PO SCH (09:00)
[2018-05-26] MEDS ORDERED: SENNA 8.6 MG TABLET PO SCH (09:00)
[2018-05-26] MEDS: LIDOCAINE PATCH 5% TOP PRN (09:02)
[2018-05-26] MEDS: NS W/20 MEQ KCL 1,000 ML IV SCH ×2 (13:51→23:45)
--- NOTE | 2018-05-26 16:18 | PROVIDER PROGRESS NOTE ---
Assessment/Plan - Problem List (1) TIA (transient ischemic attack) Assessment/Plan: Atherosclerosis seen. No further testing planned. Vontinue Coumadin. (2) UTI (urinary tract infection) Qualifiers: Urinary tract infection type: site unspecified Hematuria presence: without hematuria Qualified Code(s): N39.0 - Urinary tract infection, site not specified Assessment/Plan: Pt on day 6 of antibiotics. Will transition to po antibiotics tomorrow, and plan a 14-21 day course. (3) Dementia Assessment/Plan: He is intermittently aware and answers appropriately, this is what the daughter described to me, when we spoke the past 2 days. (4) CKD (chronic kidney disease) Assessment/Plan: Stable. Monitor BMP daily. (5) Back pain Qualifiers: Back pain location: low back pain Chronicity: chronic Back pain laterality: unspecified Sciatica presence: without sciatica Qualified Code(s): M54.5 - Low back pain; G89.29 - Other chronic pain Assessment/Plan: There was no pain when he stood and transferred today. Continue present meds. (6) Atrial fibrillation Qualifiers: Atrial fibrillation type: chronic Qualified Code(s): I48.2 - Chronic atrial fibrillation Assessment/Plan: HR is controlled. INR is high, probably from antibiotics. Willl hold todays Coumadin. Monitor INR daily while he is here. (7) COPD (chronic obstructive pulmonary disease) Assessment/Plan: Continue COPD meds, which are keeping him stable. (8) Cellulitis of left arm Assessment/Plan: iv VAnco was started yesterday and the site looks better today. Will plan a course of antibiotcs . - Current Meds Current Meds: Current Medications Generic Name Dose Route Start Last Admin Trade Name Freq PRN Reason Stop Dose Admin Albuterol 2.5 mg 05/24/18 13:33 05/25/18 22:00 INH 2.5 mg RTQ4H PRN Administration Wheezing Albuterol/Ipratropium 3 ml 05/25/18 15:00 05/26/18 14:00 Duoneb INH 3 ml RTQID JOSE Administration Amiodarone HCl 200 mg 05/22/18 23:45 05/25/18 20:48 Pacerone PO 200 mg HS JOSE Administration Amlodipine Besylate 10 mg 05/25/18 17:36 05/26/18 08:25 Norvasc PO 10 mg DAILY JOSE Administration Bimatoprost 0 drops 05/22/18 23:45 05/25/18 20:50 Lumigan 0.01% Ophth Drops EACHEYE 1 drops HS JOSE Administration Budesonide 0.5 mg 05/24/18 19:00 05/26/18 07:50 Pulmicort INH 0.5 mg RTBID JOSE Administration Cetirizine HCl 10 mg 05/22/18 23:45 05/25/18 20:47 Zyrtec PO 10 mg HS JOSE Administration Cholecalciferol 1,000 unit 05/23/18 09:00 05/26/18 08:25 Vitamin D3 PO 1,000 unit DAILY JOSE Administration Cyclobenzaprine HCl 5 mg 05/24/18 15:33 05/26/18 08:24 Flexeril PO 5 mg TID PRN Administration Spasms Diltiazem HCl 120 mg 05/23/18 09:00 05/26/18 08:25 Cardizem Cd PO 120 mg DAILY JOSE Administration Docusate Sodium 250 mg 05/22/18 23:06 05/25/18 09:08 Colace 250mg Capsule PO 250 mg DAILY PRN Administration Constipation Ferrous Sulfate 325 mg 05/23/18 09:00 05/26/18 08:24 Feosol PO 325 mg DAILY JOSE Administration Finasteride 5 mg 05/22/18 23:45 05/24/18 20:32 Proscar PO 5 mg HS JOSE Administration Formoterol Fumarate 20 mcg 05/24/18 19:00 05/26/18 07:50 Perforomist INH 20 mcg RTBID JOSE Administration Hydralazine HCl 40 mg 05/22/18 23:45 05/26/18 08:25 Apresoline PO 40 mg BID JOSE Administration Acetaminophen 100 mls @ 400 mls/hr 05/22/18 20:14 05/26/18 02:50 Ofirmev IV Infused Q6HR PRN Infusion PAIN Ceftriaxone Sodium 1 gm/ 100 mls @ 200 mls/hr 05/23/18 17:00 05/25/18 18:35 Sodium Chloride IV 05/28/18 17:29 Infused Q24H JOSE Infusion Potassium Chloride/Sodium Chloride 1,000 mls @ 60 mls/hr 05/25/18 18:00 05/26/18 13:51 Normal Saline 0.9% W/20 Meq Kcl IV 60 mls/hr .[id number] JOSE Administration Vancomycin HCl 1 gm/ Sodium 250 mls @ 167 mls/hr 05/25/18 18:00 05/25/18 21:59 Chloride IV Infused Q24H JOSE Infusion Lidocaine 1 patch 05/24/18 08:26 05/26/18 09:02 Lidoderm Patch TOP 1 patch DAILY PRN Administration PAIN Multivitamins 1 tab 05/23/18 09:00 05/26/18 08:25 Theragran PO 1 tab DAILY JOSE Administration Polyethylene Glycol 17 gm 05/23/18 09:00 05/26/18 08:24 Miralax PO 17 gm DAILY JOSE Administration Prednisone 5 mg 05/26/18 09:00 05/26/18 09:23 Deltasone PO 5 mg DAILY JOSE Administration Sodium Chloride 10 ml 05/23/18 01:00 05/26/18 08:29 Normal Saline Flush 0.9% IVP Not Given 0100,0900,1700 JOSE Tamsulosin HCl 0.4 mg 05/23/18 09:00 05/26/18 08:25 Flomax PO 0.4 mg DAILY JOSE Administration Warfarin Sodium 1.25 mg 05/23/18 14:00 05/23/18 13:49 Coumadin PO 1.25 mg MOWE@1400 JOSE Administration - Lab Result Fish Bone Diagrams: 05/26/18 06:12 05/26/18 06:12 - Additional Planning My Orders: My Active Orders 05/25/18 17:36 amLODIPine [Norvasc] 10 mg PO DAILY 05/25/18 18:00 Ns W/20 Meq KCl [Normal Saline 0.9% W/20 Meq KCl] 1,000 ml IV 60 mls/hr 05/26/18 08:39 Miscellaenous Nursing Order [RC] QSHIFT 05/26/18 09:00 predniSONE [Deltasone] 5 mg PO DAILY 05/26/18 Breakfast DIET [Soft Mechanical Diet] [DIET] 05/27/18 05:00 BMP - BASIC METABOLIC PANEL [CHEM] DAILYLAB CBC - COMP BLD CT W/AUTO DIFF [HEME] DAILYLAB PT WITH INR [COAG] DAILYLAB 05/28/18 05:00 BMP - BASIC METABOLIC PANEL [CHEM] DAILYLAB CBC - COMP BLD CT W/AUTO DIFF [HEME] DAILYLAB 05/28/18 17:30 VANCOMYCIN TROUGH [CHEM] Timed 05/29/18 05:00 BMP - BASIC METABOLIC PANEL [CHEM] DAILYLAB CBC - COMP BLD CT W/AUTO DIFF [HEME] DAILYLAB Subjective - Subjective Patient Reports: Feeling Better Nursing Reports: Other (Patient was able to be helped stand with 1 person assist ans he shuffled to chair at bedside, using his walker.) Objective Vital Signs: Vital Signs - 24 hr 05/25/18 05/25/18 05/25/18 19:32 22:04 23:31 Temperature 37.2 C Heart Rate 86 89 Heart Rate [ Activity] Heart Rate [ 88 Brachial] Heart Rate [ Sitting (After 1 Minute)] Heart Rate [ Supine] Respiratory 18 18 16 Rate Respiratory Rate [With Activity] Blood Pressure [Activity] Blood Pressure 136/58 H [Left Brachial artery] Blood Pressure [Right Brachial artery] Blood Pressure [Sitting (After 1 Minute)] Blood Pressure [Supine] O2 Saturation 97 O2 Saturation [ With Activity] 05/26/18 05/26/18 05/26/18 04:43 06:17 07:50 Temperature 36.8 C Heart Rate 81 Heart Rate [ Activity] Heart Rate [ Brachial] Heart Rate [ 88 Sitting (After 1 Minute)] Heart Rate [ 85 Supine] Respiratory 20 Rate Respiratory Rate [With Activity] Blood Pressure [Activity] Blood Pressure [Left Brachial artery] Blood Pressure [Right Brachial artery] Blood Pressure 159/60 H [Sitting (After 1 Minute)] Blood Pressure 148/77 H [Supine] O2 Saturation O2 Saturation [ With Activity] 05/26/18 05/26/18 05/26/18 08:00 12:23 14:00 Temperature 36.9 C Heart Rate 80 Heart Rate [ 89 Activity] Heart Rate [ 76 Brachial] Heart Rate [ Sitting (After 1 Minute)] Heart Rate [ Supine] Respiratory 16 20 Rate Respiratory 18 Rate [With Activity] Blood Pressure 166/66 H [Activity] Blood Pressure [Left Brachial artery] Blood Pressure 150/69 H [Right Brachial artery] Blood Pressure [Sitting (After 1 Minute)] Blood Pressure [Supine] O2 Saturation 97 O2 Saturation [ 92 With Activity] Oxygen O2 Source [With Activity] Nasal cannula O2 Source Nasal cannula I&O (Last 24 Hrs): Intake and Output Totals x24h 05/24/18 05/25/18 05/26/18 23:59 23:59 23:59 Intake Total 3710.001 2905.438 8550.666 Output Total 1775 1420 500 Balance 1935.001 096.136 1888.666 General: Alert, Other Neuro: Other (Confused.) Cardiovascular: No murmurs Respiratory: No respiratory distress, Breath sounds nml Abdomen: Soft Extremities: Other (L arm less red and less swollen, still has a small blister. No leg edema) - Results Results: Laboratory Results WBC 14.7 x10^3/uL (4.8-10.8) H 05/26/18 06:12 RBC 3.83 10^6/uL (4.70-6.10) L 05/26/18 06:12 Hgb 9.8 g/dL (14.0-18.0) L 05/26/18 06:12 Hct 30.1 % (42.0-52.0) L 05/26/18 06:12 MCV 78.6 fL (80.0-94.0) L 05/26/18 06:12 MCH 25.7 pg (27.0-31.0) L 05/26/18 06:12 MCHC 32.7 g/dL (32.0-36.0) 05/26/18 06:12 RDW 18.3 % (12.0-15.0) H 05/26/18 06:12 Plt Count 293 10^3/uL (130-450) 05/26/18 06:12 MPV 7.9 fL (7.4-11.4) 05/26/18 06:12 Neut # (Auto) 12.6 10^3/uL (1.5-6.6) H 05/26/18 06:12 Lymph # (Auto) 0.6 10^3/uL (1.5-3.5) L 05/26/18 06:12 [place] # (Auto) 1.1 10^3/uL (0.0-1.0) H 05/26/18 06:12 Eos # (Auto) 0.2 10^3/uL (0.0-0.7) 05/26/18 06:12 Baso # (Auto) 0.1 10^3/uL (0.0-0.1) 05/26/18 06:12 Absolute Nucleated RBC 0.01 x10^3/uL 05/26/18 06:12 Nucleated RBC % 0.1 /100WBC 05/26/18 06:12 PT 32.1 secs (9.9-12.6) H 05/26/18 06:12 INR 3.0 (0.8-1.2) H 05/26/18 06:12 APTT 30.7 secs (24.9-33.3) 05/22/18 20:45 Sodium 136 mmol/L (135-145) 05/26/18 06:12 Potassium 4.3 mmol/L (3.5-5.0) 05/26/18 06:12 Chloride 105 mmol/L (101-111) 05/26/18 06:12 Carbon Dioxide 22 mmol/L (21-32) 05/26/18 06:12 Anion Gap 9.0 (6-13) 05/26/18 06:12 BUN 20 mg/dL (6-20) 05/26/18 06:12 Creatinine 1.4 mg/dL (0.6-1.2) H 05/26/18 06:12 Estimated GFR (MDRD) 48 (>89) L 05/26/18 06:12 Glucose 102 mg/dL (70-100) H 05/26/18 06:12 Lactic Acid 0.7 mmol/L (0.5-2.2) 05/22/18 20:45 Calcium 8.0 mg/dL (8.5-10.3) L 05/26/18 06:12 Magnesium 1.9 mg/dL (1.7-2.8) 05/22/18 16:47 Total Bilirubin 0.6 mg/dL (0.2-1.0) 05/22/18 16:47 AST 20 IU/L (10-42) 05/22/18 16:47 ALT 30 IU/L (10-60) 05/22/18 16:47 Alkaline Phosphatase 70 IU/L (42-121) 05/22/18 16:47 Total Protein 6.4 g/dL (6.7-8.2) L 05/22/18 16:47 Albumin 3.1 g/dL (3.2-5.5) L 05/22/18 16:47 Globulin 3.3 g/dL (2.1-4.2) 05/22/18 16:47 Albumin/Globulin Ratio 0.9 (1.0-2.2) L 05/22/18 16:47 Lipase 30 U/L (22-51) 05/22/18 16:47 Urine Color DARK YELLOW 05/22/18 16:23 Urine Clarity CLOUDY (CLEAR) 05/22/18 16:23 Urine pH 8.5 PH (5.0-7.5) H 05/22/18 16:23 Ur Specific [place] 1.010 (1.002-1.030) 05/22/18 16:23 Urine Protein 100 mg/dL (NEGATIVE) H 05/22/18 16:23 Urine Glucose (UA) NEGATIVE mg/dL (NEGATIVE) 05/22/18 16:23 Urine Ketones NEGATIVE mg/dL (NEGATIVE) 05/22/18 16:23 Urine Occult Blood NEGATIVE (NEGATIVE) 05/22/18 16:23 Urine Nitrite POSITIVE (NEGATIVE) H 05/22/18 16:23 Urine Bilirubin NEGATIVE (NEGATIVE) 05/22/18 16:23 Urine Urobilinogen 0.2 (NORMAL) E.U./dL (NORMAL) 05/22/18 16:23 Ur Leukocyte Esterase LARGE (NEGATIVE) H 05/22/18 16:23 Urine RBC None Seen /HPF (0-5) 05/22/18 16:23 Urine WBC 0-3 /HPF (0-3) 05/22/18 16:23 Ur Squamous Epith Cells NONE SEEN (<= Few) 05/22/18 16:23 Urine Bacteria Many /HPF (None Seen) H 05/22/18 16:23 Ur Microscopic Review INDICATED 05/22/18 16:23 Urine Culture Comments INDICATED 05/22/18 16:23 ABX Reporting Has patient been on IV antibiotics over the past 48 hours?: Yes
[2018-05-26] MEDS: cefTRIAXone 1 GM in SODIUM CHLORIDE 0.9% MINIBAG 100 ML IV SCH (18:17)
[2018-05-26] MEDS: VANCOMYCIN INJ 1 GM in SODIUM CHLORIDE 0.9% 250 ML IV SCH (18:58)
[2018-05-26] MEDS: AMIODARONE 200 MG TABLET PO SCH (21:21)
[2018-05-26] MEDS: CETIRIZINE 10 MG TABLET PO SCH (21:21)
[2018-05-26] MEDS: FINASTERIDE 5 MG TABLET PO SCH (21:21)
[2018-05-26] MEDS: BIMATOPROST 0.01% OPHTH DROPS 2.5 ML EACHEYE SCH (21:21)
[2018-05-27] MEDS: ALBUTEROL NEB 2.5 MG/3 ML INH PRN ×2 (01:39→04:56)
[2018-05-27] MEDS: CYCLOBENZAPRINE 10 MG TABLET PO PRN (02:12)
[2018-05-27 07:05] LABS: BASOPHILS # (AUTO) 0.2 10^3/uL (0.0-0.1); BASOPHILS % (AUTO) 1.2 %; EOSINOPHILS # (AUTO) 0.7 10^3/uL (0.0-0.7); EOSINOPHILS % (AUTO) 3.9 %; HGB - HEMOGLOBIN 9.7 g/dL (14.0-18.0); LYMPHOCYTES # (AUTO) 0.8 10^3/uL (1.5-3.5); LYMPHOCYTES % (AUTO) 4.3 %; MEAN CORPUSCULAR HEMOGLOBIN 25.3 pg (27.0-31.0); MEAN CORPUSCULAR HGB CONC 31.9 g/dL (32.0-36.0); MEAN CORPUSCULAR VOLUME 79.3 fL (80.0-94.0); MEAN PLATELET VOLUME 7.8 fL (7.4-11.4); MONOCYTES # (AUTO) 1.3 10^3/uL (0.0-1.0); MONOCYTES % (AUTO) 7.1 %; NEUTROPHILS # (AUTO) 15.3 10^3/uL (1.5-6.6); NEUTROPHILS % (AUTO) 83.5 %; PLT - PLATELET COUNT 340 10^3/uL (130-450); RED BLOOD COUNT 3.85 10^6/uL (4.70-6.10); RED CELL DISTRIBUTION WIDTH 18.3 % (12.0-15.0); WHITE BLOOD COUNT 18.3 x10^3/uL (4.8-10.8)
[2018-05-27 07:09] LABS: INR 3.5 (0.8-1.2)
[2018-05-27 07:17] LABS: CREATININE 1.3 mg/dL (0.6-1.2)
[2018-05-27] MEDS: FORMOTEROL FUMARATE NEB 20 MCG/2 ML INH SCH ×2 (07:30→19:54)
[2018-05-27] MEDS: BUDESONIDE 0.5 MG/2 ML NEB INH SCH ×2 (07:30→19:54)
[2018-05-27] MEDS: IPRATROPIUM/ALBUTEROL 3 ML NEB INH SCH ×4 (07:30→19:54)
[2018-05-27] MEDS: POLYETHYLENE GLYCOL 3350 17 GM PACKET PO SCH (08:22)
[2018-05-27] MEDS: amLODIPine 5 MG TABLET PO SCH (08:29)
[2018-05-27] MEDS: hydrALAZINE 10 MG TABLET PO SCH ×2 (08:29→21:17)
[2018-05-27] MEDS: FERROUS SULFATE 325 MG TABLET PO SCH (08:30)
[2018-05-27] MEDS: diltiaZEM CD 120 MG CAPSULE PO SCH (08:30)
[2018-05-27] MEDS: CHOLECALCIFEROL 1,000 UNIT TABLET PO SCH (08:33)
[2018-05-27] MEDS: TAMSULOSIN 0.4 MG CAPSULE PO SCH (08:40)
[2018-05-27] MEDS: predniSONE 5 MG TABLET PO SCH (08:40)
[2018-05-27] MEDS: MULTIVITAMIN TABLET PO SCH (08:41)
[2018-05-27] MEDS: SODIUM CHLORIDE FLUSH 0.9% 10 ML SYRINGE IVP SCH ×2 (09:50→16:51)
--- NOTE | 2018-05-27 14:13 | PROVIDER PROGRESS NOTE ---
Assessment/Plan - Problem List (1) UTI (urinary tract infection) Qualifiers: Urinary tract infection type: site unspecified Hematuria presence: without hematuria Qualified Code(s): N39.0 - Urinary tract infection, site not specified Assessment/Plan: Will change iv Ceftriaxone to oral cephalexin today, before [facility], to assess for any problems. He will need another 7-12 days of antibiotics. Will continue Florastor during this time as genny, after [facility]. Hopefully [facility] tomorrow. (2) Dementia Assessment/Plan: He is back to his baseline, as described to me by his daughter. He is not in pain and cooperates. Social work is reaching out to [facility] to accept him back, hopefully tomorrow, with Home Health help to resume. (3) CKD (chronic kidney disease) Assessment/Plan: Stable. iv fluids stopped today. (4) Back pain Qualifiers: Back pain location: low back pain Chronicity: chronic Back pain laterality: unspecified Sciatica presence: without sciatica Qualified Code(s): M54.5 - Low back pain; G89.29 - Other chronic pain Assessment/Plan: No c/o pain on Prednisone 5 mg daily, Flexeril 5 mg doses and topical Lidocaine patch daily. Continue these at [facility]. (5) Atrial fibrillation Qualifiers: Atrial fibrillation type: chronic Qualified Code(s): I48.2 - Chronic atrial fibrillation Assessment/Plan: HR is controllled. INR was excessive at 3 today, likely from being on Vanco, so no Coumadin given. This will be restarted at [facility]. (6) COPD (chronic obstructive pulmonary disease) Assessment/Plan: Stable. Continue home meds. (7) Cellulitis of left arm Assessment/Plan: Vancomycin iv will be changed to Cephalexin po today, so as to use one antibiotic for UTI and cellulitis. (8) TIA (transient ischemic attack) Assessment/Plan: No recurrence of sx. - Current Meds Current Meds: Current Medications Generic Name Dose Route Start Last Admin Trade Name Freq PRN Reason Stop Dose Admin Albuterol 2.5 mg 05/24/18 13:33 05/27/18 04:56 INH 2.5 mg RTQ4H PRN Administration Wheezing Albuterol/Ipratropium 3 ml 05/25/18 15:00 05/27/18 11:30 Duoneb INH 3 ml RTQID JOSE Administration Amiodarone HCl 200 mg 05/22/18 23:45 05/26/18 21:21 Pacerone PO 200 mg HS JOSE Administration Amlodipine Besylate 10 mg 05/25/18 17:36 05/27/18 08:29 Norvasc PO 10 mg DAILY JOSE Administration Bimatoprost 0 drops 05/22/18 23:45 05/26/18 21:21 Lumigan 0.01% Ophth Drops EACHEYE 1 drops HS JOSE Administration Budesonide 0.5 mg 05/24/18 19:00 05/27/18 07:30 Pulmicort INH 0.5 mg RTBID JOSE Administration Cetirizine HCl 10 mg 05/22/18 23:45 05/26/18 21:21 Zyrtec PO 10 mg HS JOSE Administration Cholecalciferol 1,000 unit 05/23/18 09:00 05/27/18 08:33 Vitamin D3 PO 1,000 unit DAILY JOSE Administration Cyclobenzaprine HCl 5 mg 05/24/18 15:33 05/27/18 02:12 Flexeril PO 5 mg TID PRN Administration Spasms Diltiazem HCl 120 mg 05/23/18 09:00 05/27/18 08:30 Cardizem Cd PO 120 mg DAILY JOSE Administration Docusate Sodium 250 mg 05/22/18 23:06 05/25/18 09:08 Colace 250mg Capsule PO 250 mg DAILY PRN Administration Constipation Ferrous Sulfate 325 mg 05/23/18 09:00 05/27/18 08:30 Feosol PO 325 mg DAILY JOSE Administration Finasteride 5 mg 05/22/18 23:45 05/26/18 21:21 Proscar PO 5 mg HS [facility] Administration Formoterol Fumarate 20 mcg 05/24/18 19:00 05/27/18 07:30 Perforomist INH 20 mcg RTBID JOSE Administration Hydralazine HCl 40 mg 05/22/18 23:45 05/27/18 08:29 Apresoline PO 40 mg BID JOSE Administration Acetaminophen 100 mls @ 400 mls/hr 05/22/18 20:14 05/26/18 20:24 Ofirmev IV Infused Q6HR PRN Infusion PAIN Lidocaine 1 patch 05/24/18 08:26 05/26/18 09:02 Lidoderm Patch TOP 1 patch DAILY PRN Administration PAIN Multivitamins 1 tab 05/23/18 09:00 05/27/18 08:41 Theragran PO 1 tab DAILY JOSE Administration Polyethylene Glycol 17 gm 05/23/18 09:00 05/27/18 08:22 Miralax PO Not Given DAILY JOSE Prednisone 5 mg 05/26/18 09:00 05/27/18 08:40 Deltasone PO 5 mg DAILY JOSE Administration Sodium Chloride 10 ml 05/23/18 01:00 05/27/18 09:50 Normal Saline Flush 0.9% IVP Not Given 0100,0900,1700 JOSE Tamsulosin HCl 0.4 mg 05/23/18 09:00 05/27/18 08:40 Flomax PO 0.4 mg DAILY JOSE Administration - Lab Result Fish Bone Diagrams: 05/27/18 06:37 05/27/18 06:37 - Additional Planning My Orders: My Active Orders 05/27/18 21:00 cephALEXin [Keflex] 500 mg PO BID 05/28/18 05:00 BMP - BASIC METABOLIC PANEL [CHEM] DAILYLAB CBC - COMP BLD CT W/AUTO DIFF [HEME] DAILYLAB PT WITH INR [COAG] DAILYLAB 05/29/18 05:00 BMP - BASIC METABOLIC PANEL [CHEM] DAILYLAB CBC - COMP BLD CT W/AUTO DIFF [HEME] DAILYLAB PT WITH INR [COAG] DAILYLAB 05/30/18 05:00 PT WITH INR [COAG] DAILYLAB Subjective - Subjective Patient Reports: No Complaints Nursing Reports: Other (More alert and cooperated with PT) Objective Vital Signs: Vital Signs - 24 hr 05/26/18 05/26/18 05/26/18 16:22 16:41 19:22 Temperature 37.2 C Heart Rate 81 Heart Rate [ 86 Brachial] Respiratory 24 22 18 Rate Blood Pressure 150/61 H [Left Brachial artery] Blood Pressure [Right Brachial artery] O2 Saturation 95 97 05/26/18 05/27/18 05/27/18 23:40 01:39 04:57 Temperature 36.9 C Heart Rate 80 93 Heart Rate [ 90 Brachial] Respiratory 18 20 20 Rate Blood Pressure 150/55 H [Left Brachial artery] Blood Pressure [Right Brachial artery] O2 Saturation 93 05/27/18 05/27/18 05/27/18 07:30 08:00 08:44 Temperature 36.5 C Heart Rate 89 Heart Rate [ 100 92 Brachial] Respiratory 22 18 Rate Blood Pressure 163/70 H [Left Brachial artery] Blood Pressure 187/70 H [Right Brachial artery] O2 Saturation 92 94 05/27/18 11:30 Temperature Heart Rate 88 Heart Rate [ Brachial] Respiratory 20 Rate Blood Pressure [Left Brachial artery] Blood Pressure [Right Brachial artery] O2 Saturation Oxygen O2 Source [With Activity] Nasal cannula O2 Source Room air I&O (Last 24 Hrs): Intake and Output Totals x24h 05/25/18 05/26/18 05/27/18 23:59 23:59 23:59 Intake Total 7412.756 4391.666 996 Output Total 1420 500 550 Balance 907.651 0924.666 446 General: Alert, Other (Disoriented and confused) HEENT: Mucous membr. moist/pink Neck: Supple, No JVD Neuro: Non Focal Cardiovascular: Other (2/6 systolic murmur) Respiratory: No respiratory distress Abdomen: Soft Extremities: Other (trace pedal edema) - Results Results: Laboratory Results WBC 18.3 x10^3/uL (4.8-10.8) H 05/27/18 06:37 RBC 3.85 10^6/uL (4.70-6.10) L 05/27/18 06:37 Hgb 9.7 g/dL (14.0-18.0) L 05/27/18 06:37 Hct 30.5 % (42.0-52.0) L 05/27/18 06:37 MCV 79.3 fL (80.0-94.0) L 05/27/18 06:37 MCH 25.3 pg (27.0-31.0) L 05/27/18 06:37 MCHC 31.9 g/dL (32.0-36.0) L 05/27/18 06:37 RDW 18.3 % (12.0-15.0) H 05/27/18 06:37 Plt Count 340 10^3/uL (130-450) 05/27/18 06:37 MPV 7.8 fL (7.4-11.4) 05/27/18 06:37 Neut # (Auto) 15.3 10^3/uL (1.5-6.6) H 05/27/18 06:37 Lymph # (Auto) 0.8 10^3/uL (1.5-3.5) L 05/27/18 06:37 Power # (Auto) 1.3 10^3/uL (0.0-1.0) H 05/27/18 06:37 Eos # (Auto) 0.7 10^3/uL (0.0-0.7) 05/27/18 06:37 Baso # (Auto) 0.2 10^3/uL (0.0-0.1) H 05/27/18 06:37 Absolute Nucleated RBC 0.01 x10^3/uL 05/27/18 06:37 Nucleated RBC % 0.0 /100WBC 05/27/18 06:37 PT 38.0 secs (9.9-12.6) H 05/27/18 06:37 INR 3.5 (0.8-1.2) H 05/27/18 06:37 APTT 30.7 secs (24.9-33.3) 05/22/18 20:45 Sodium 137 mmol/L (135-145) 05/27/18 06:37 Potassium 3.9 mmol/L (3.5-5.0) 05/27/18 06:37 Chloride 105 mmol/L (101-111) 05/27/18 06:37 Carbon Dioxide 23 mmol/L (21-32) 05/27/18 06:37 Anion Gap 9.0 (6-13) 05/27/18 06:37 BUN 17 mg/dL (6-20) 05/27/18 06:37 Creatinine 1.3 mg/dL (0.6-1.2) H 05/27/18 06:37 Estimated GFR (MDRD) 53 (>89) L 05/27/18 06:37 Glucose 110 mg/dL (70-100) H 05/27/18 06:37 Lactic Acid 0.7 mmol/L (0.5-2.2) 05/22/18 20:45 Calcium 8.0 mg/dL (8.5-10.3) L 05/27/18 06:37 Magnesium 1.9 mg/dL (1.7-2.8) 05/22/18 16:47 Total Bilirubin 0.6 mg/dL (0.2-1.0) 05/22/18 16:47 AST 20 IU/L (10-42) 05/22/18 16:47 ALT 30 IU/L (10-60) 05/22/18 16:47 Alkaline Phosphatase 70 IU/L (42-121) 05/22/18 16:47 Total Protein 6.4 g/dL (6.7-8.2) L 05/22/18 16:47 Albumin 3.1 g/dL (3.2-5.5) L 05/22/18 16:47 Globulin 3.3 g/dL (2.1-4.2) 05/22/18 16:47 Albumin/Globulin Ratio 0.9 (1.0-2.2) L 05/22/18 16:47 Lipase 30 U/L (22-51) 05/22/18 16:47 Urine Color DARK YELLOW 05/22/18 16:23 Urine Clarity CLOUDY (CLEAR) 05/22/18 16:23 Urine pH 8.5 PH (5.0-7.5) H 05/22/18 16:23 Ur Specific [place] 1.010 (1.002-1.030) 05/22/18 16:23 Urine Protein 100 mg/dL (NEGATIVE) H 05/22/18 16:23 Urine Glucose (UA) NEGATIVE mg/dL (NEGATIVE) 05/22/18 16:23 Urine Ketones NEGATIVE mg/dL (NEGATIVE) 05/22/18 16:23 Urine Occult Blood NEGATIVE (NEGATIVE) 05/22/18 16:23 Urine Nitrite POSITIVE (NEGATIVE) H 05/22/18 16:23 Urine Bilirubin NEGATIVE (NEGATIVE) 05/22/18 16:23 Urine Urobilinogen 0.2 (NORMAL) E.U./dL (NORMAL) 05/22/18 16:23 Ur Leukocyte Esterase LARGE (NEGATIVE) H 05/22/18 16:23 Urine RBC None Seen /HPF (0-5) 05/22/18 16:23 Urine WBC 0-3 /HPF (0-3) 05/22/18 16:23 Ur Squamous Epith Cells NONE SEEN (<= Few) 05/22/18 16:23 Urine Bacteria Many /HPF (None Seen) H 05/22/18 16:23 Ur Microscopic Review INDICATED 05/22/18 16:23 Urine Culture Comments INDICATED 05/22/18 16:23
[2018-05-27] MEDS: cephALEXin 250 MG CAPSULE PO SCH (21:17)
[2018-05-27] MEDS: CETIRIZINE 10 MG TABLET PO SCH (21:18)
[2018-05-27] MEDS: FINASTERIDE 5 MG TABLET PO SCH (21:18)
[2018-05-27] MEDS: BIMATOPROST 0.01% OPHTH DROPS 2.5 ML EACHEYE SCH (21:18)
[2018-05-27] MEDS: AMIODARONE 200 MG TABLET PO SCH (21:18)
[2018-05-28] MEDS: CYCLOBENZAPRINE 10 MG TABLET PO PRN ×3 (00:15→23:56)
[2018-05-28 06:09] LABS: CALCIUM 7.9 mg/dL (8.5-10.3); CREATININE 1.4 mg/dL (0.6-1.2); INR 2.9 (0.8-1.2); PT - PROTHROMBIN TIME 31.5 secs (9.9-12.6)
[2018-05-28 06:26] LABS: BASOPHILS # (AUTO) 0.2 10^3/uL (0.0-0.1); BASOPHILS % (AUTO) 1.4 %; EOSINOPHILS # (AUTO) 0.9 10^3/uL (0.0-0.7); EOSINOPHILS % (AUTO) 6.2 %; HGB - HEMOGLOBIN 9.1 g/dL (14.0-18.0); LYMPHOCYTES # (AUTO) 1.1 10^3/uL (1.5-3.5); LYMPHOCYTES % (AUTO) 7.6 %; MEAN CORPUSCULAR HEMOGLOBIN 25.3 pg (27.0-31.0); MEAN CORPUSCULAR HGB CONC 32.3 g/dL (32.0-36.0); MEAN CORPUSCULAR VOLUME 78.5 fL (80.0-94.0); MEAN PLATELET VOLUME 7.6 fL (7.4-11.4); MONOCYTES # (AUTO) 1.1 10^3/uL (0.0-1.0); MONOCYTES % (AUTO) 7.6 %; NEUTROPHILS # (AUTO) 11.1 10^3/uL (1.5-6.6); NEUTROPHILS % (AUTO) 77.2 %; PLT - PLATELET COUNT 353 10^3/uL (130-450); RED BLOOD COUNT 3.59 10^6/uL (4.70-6.10); RED CELL DISTRIBUTION WIDTH 18.1 % (12.0-15.0); WHITE BLOOD COUNT 14.4 x10^3/uL (4.8-10.8)
[2018-05-28] MEDS: SODIUM CHLORIDE FLUSH 0.9% 10 ML SYRINGE IVP SCH ×3 (07:05→21:18)
[2018-05-28] MEDS: diltiaZEM CD 120 MG CAPSULE PO SCH (08:39)
[2018-05-28] MEDS: FERROUS SULFATE 325 MG TABLET PO SCH (08:39)
[2018-05-28] MEDS: MULTIVITAMIN TABLET PO SCH (08:39)
[2018-05-28] MEDS: cephALEXin 250 MG CAPSULE PO SCH ×2 (08:39→21:16)
[2018-05-28] MEDS: hydrALAZINE 10 MG TABLET PO SCH ×2 (08:39→21:15)
[2018-05-28] MEDS: CHOLECALCIFEROL 1,000 UNIT TABLET PO SCH (08:40)
[2018-05-28] MEDS: predniSONE 5 MG TABLET PO SCH (08:40)
[2018-05-28] MEDS: TAMSULOSIN 0.4 MG CAPSULE PO SCH (08:40)
[2018-05-28] MEDS: POLYETHYLENE GLYCOL 3350 17 GM PACKET PO SCH (08:40)
[2018-05-28] MEDS: LIDOCAINE PATCH 5% TOP PRN (10:18)
[2018-05-28] MEDS: ACETAMINOPHEN 1,000 MG/100 ML 100 ML IV PRN (10:18)
[2018-05-28] MEDS: FORMOTEROL FUMARATE NEB 20 MCG/2 ML INH SCH ×2 (10:25→17:31)
[2018-05-28] MEDS: BUDESONIDE 0.5 MG/2 ML NEB INH SCH ×2 (10:25→17:31)
[2018-05-28] MEDS: IPRATROPIUM/ALBUTEROL 3 ML NEB INH SCH (10:57)
[2018-05-28] MEDS: amLODIPine 5 MG TABLET PO SCH (13:02)
[2018-05-28] MEDS ORDERED: IPRATROPIUM/ALBUTEROL 3 ML NEB INH PRN (14:16)
--- NOTE | 2018-05-28 17:03 | PROVIDER PROGRESS NOTE ---
Assessment/Plan - Problem List (1) UTI (urinary tract infection) Qualifiers: Urinary tract infection type: site unspecified Hematuria presence: without hematuria Qualified Code(s): N39.0 - Urinary tract infection, site not specified Assessment/Plan: Pt transitioned to po Keflex. Continue for about 7-10 days more (2) Cellulitis of left arm Assessment/Plan: Pt on Keflex. Arm looks better. (3) Dementia Assessment/Plan: Daughter in the room today. We spoke. He is back to his baseline. He intermittently is able to cooperate with Physical Therapist. There may be a need for SNF for further PT and strengthening, and daughter was wondering about having him go to [place]. I will have our Manager Of Organizational Development speak to daughter. He is medically ready for [facility] later today of tomorrow. (4) CKD (chronic kidney disease) Assessment/Plan: Stable. (5) Back pain Qualifiers: Back pain location: low back pain Chronicity: chronic Back pain laterality: unspecified Sciatica presence: without sciatica Qualified Code(s): M54.5 - Low back pain; G89.29 - Other chronic pain Assessment/Plan: Back pain responds to Lidocaine patch. Other body aches respond to Prednisone and Flexeril. Daughter also told me that he may state he has pain but is remembering the last episode of pain, and may not be having current discomfort. This is part of his dementia. (6) Atrial fibrillation Qualifiers: Atrial fibrillation type: chronic Qualified Code(s): I48.2 - Chronic atrial fibrillation Assessment/Plan: Stable HR. INR is 2.9 today. Will resume Coumadin when INR < 2.5. (7) COPD (chronic obstructive pulmonary disease) Assessment/Plan: Stable. (8) TIA (transient ischemic attack) Assessment/Plan: Daughter noticed speech a bit different earlier today, then "got better". I reviewed the results of the tests he had for TIAs, earlier this admission and will continue present management. - Current Meds Current Meds: Current Medications Generic Name Dose Route Start Last Admin Trade Name Freq PRN Reason Stop Dose Admin Albuterol 2.5 mg 05/24/18 13:33 05/27/18 04:56 INH 2.5 mg RTQ4H PRN Administration Wheezing Amiodarone HCl 200 mg 05/22/18 23:45 05/27/18 21:18 Pacerone PO 200 mg HS [facility] Administration Amlodipine Besylate 10 mg 05/25/18 17:36 05/28/18 13:02 Norvasc PO Not Given DAILY [facility] Bimatoprost 0 drops 05/22/18 23:45 05/27/18 21:18 Lumigan 0.01% Ophth Drops EACHEYE 1 drops HS [facility] Administration Budesonide 0.5 mg 05/24/18 19:00 05/28/18 10:25 Pulmicort INH 0.5 mg RTBID JOSE Administration Cephalexin 500 mg 05/27/18 21:00 05/28/18 08:39 Keflex PO 500 mg BID [facility] Administration Cetirizine HCl 10 mg 05/22/18 23:45 05/27/18 21:18 Zyrtec PO 10 mg HS [facility] Administration Cholecalciferol 1,000 unit 05/23/18 09:00 05/28/18 08:40 Vitamin D3 PO 1,000 unit DAILY [facility] Administration Cyclobenzaprine HCl 5 mg 05/24/18 15:33 05/28/18 09:01 Flexeril PO 5 mg TID PRN Administration Spasms Diltiazem HCl 120 mg 05/23/18 09:00 05/28/18 08:39 Cardizem Cd PO 120 mg DAILY [facility] Administration Docusate Sodium 250 mg 05/22/18 23:06 05/25/18 09:08 Colace 250mg Capsule PO 250 mg DAILY PRN Administration Constipation Ferrous Sulfate 325 mg 05/23/18 09:00 05/28/18 08:39 Feosol PO 325 mg DAILY [facility] Administration Finasteride 5 mg 05/22/18 23:45 05/27/18 21:18 Proscar PO 5 mg HS [facility] Administration Formoterol Fumarate 20 mcg 05/24/18 19:00 05/28/18 10:25 Perforomist INH 20 mcg RTBID [facility] Administration Hydralazine HCl 40 mg 05/22/18 23:45 05/28/18 08:39 Apresoline PO 40 mg BID [facility] Administration Acetaminophen 100 mls @ 400 mls/hr 05/22/18 20:14 05/28/18 15:07 Ofirmev IV Infused Q6HR PRN Infusion PAIN Lidocaine 1 patch 05/24/18 08:26 09/17/18 10:18 Lidoderm Patch TOP 1 patch DAILY PRN Administration PAIN Multivitamins 1 tab 05/23/18 09:00 05/28/18 08:39 Theragran PO 1 tab DAILY JOSE Administration Polyethylene Glycol 17 gm 05/23/18 09:00 05/28/18 08:40 Miralax PO 17 gm DAILY JOSE Administration Prednisone 5 mg 05/26/18 09:00 05/28/18 08:40 Deltasone PO 5 mg DAILY JOSE Administration Sodium Chloride 10 ml 05/23/18 01:00 05/28/18 08:40 Normal Saline Flush 0.9% IVP 10 ml 0100,0900,1700 JOSE Administration Tamsulosin HCl 0.4 mg 05/23/18 09:00 05/28/18 08:40 Flomax PO 0.4 mg DAILY JOSE Administration - Lab Result Fish Bone Diagrams: 05/28/18 06:05 05/28/18 05:30 - Additional Planning My Orders: My Active Orders 05/27/18 21:00 cephALEXin [Keflex] 500 mg PO BID 05/28/18 14:10 Pain Consult [MAC] .ONCE 05/28/18 14:16 Ipratropium/Albuterol [Duoneb] 3 ml INH RTQID PRN 05/29/18 05:00 BMP - BASIC METABOLIC PANEL [CHEM] DAILYLAB CBC - COMP BLD CT W/AUTO DIFF [HEME] DAILYLAB PT WITH INR [COAG] DAILYLAB 05/30/18 05:00 PT WITH INR [COAG] DAILYLAB Subjective - Subjective Nursing Reports: Other (Pt had up and down pain this am, til got all meds.) Objective Vital Signs: Vital Signs - 24 hr 05/27/18 05/27/18 05/28/18 19:54 23:40 08:00 Temperature 36.7 C 36.4 C L Heart Rate 70 Heart Rate [ 74 71 Brachial] Respiratory 16 18 18 Rate Blood Pressure 112/90 H [Left Brachial artery] Blood Pressure 154/64 H [Right Brachial artery] O2 Saturation 96 100 05/28/18 05/28/18 10:25 11:03 Temperature 36.4 C L Heart Rate 76 71 Heart Rate [ Brachial] Respiratory 18 18 Rate Blood Pressure [Left Brachial artery] Blood Pressure [Right Brachial artery] O2 Saturation 100 Oxygen O2 Source [With Activity] Nasal cannula O2 Source Nasal cannula I&O (Last 24 Hrs): Intake and Output Totals x24h 05/26/18 05/27/18 05/28/18 23:59 23:59 23:59 Intake Total 3460.666 1800 150 Output Total 500 1090 790 Balance 2960.666 710 -640 General: Alert, Other (Confused) HEENT: Mucous membr. moist/pink Neck: Supple Neuro: Other (Confused but told a joke, daughter heard it) Cardiovascular: Other (Distant heart sounds) Respiratory: No respiratory distress Extremities: No edema - Results Results: Laboratory Results WBC 14.4 x10^3/uL (4.8-10.8) H 05/28/18 06:05 RBC 3.59 10^6/uL (4.70-6.10) L 05/28/18 06:05 Hgb 9.1 g/dL (14.0-18.0) L 05/28/18 06:05 Hct 28.2 % (42.0-52.0) L 05/28/18 06:05 MCV 78.5 fL (80.0-94.0) L 05/28/18 06:05 MCH 25.3 pg (27.0-31.0) L 05/28/18 06:05 MCHC 32.3 g/dL (32.0-36.0) 05/28/18 06:05 RDW 18.1 % (12.0-15.0) H 05/28/18 06:05 Plt Count 353 10^3/uL (130-450) 05/28/18 06:05 MPV 7.6 fL (7.4-11.4) 05/28/18 06:05 Neut # (Auto) 11.1 10^3/uL (1.5-6.6) H 05/28/18 06:05 Lymph # (Auto) 1.1 10^3/uL (1.5-3.5) L 05/28/18 06:05 [place] # (Auto) 1.1 10^3/uL (0.0-1.0) H 05/28/18 06:05 Eos # (Auto) 0.9 10^3/uL (0.0-0.7) H 05/28/18 06:05 Baso # (Auto) 0.2 10^3/uL (0.0-0.1) H 05/28/18 06:05 Absolute Nucleated RBC 0.01 x10^3/uL 05/28/18 06:05 Nucleated RBC % 0.1 /100WBC 05/28/18 06:05 PT 31.5 secs (9.9-12.6) H 05/28/18 05:30 INR 2.9 (0.8-1.2) H 05/28/18 05:30 APTT 30.7 secs (24.9-33.3) 05/22/18 20:45 Sodium 138 mmol/L (135-145) 05/28/18 05:30 Potassium 3.7 mmol/L (3.5-5.0) 05/28/18 05:30 Chloride 105 mmol/L (101-111) 05/28/18 05:30 Carbon Dioxide 25 mmol/L (21-32) 05/28/18 05:30 Anion Gap 8.0 (6-13) 05/28/18 05:30 BUN 17 mg/dL (6-20) 05/28/18 05:30 Creatinine 1.4 mg/dL (0.6-1.2) H 05/28/18 05:30 Estimated GFR (MDRD) 48 (>89) L 05/28/18 05:30 Glucose 93 mg/dL (70-100) 05/28/18 05:30 Lactic Acid 0.7 mmol/L (0.5-2.2) 05/22/18 20:45 Calcium 7.9 mg/dL (8.5-10.3) L 05/28/18 05:30 Magnesium 1.9 mg/dL (1.7-2.8) 05/22/18 16:47 Total Bilirubin 0.6 mg/dL (0.2-1.0) 05/22/18 16:47 AST 20 IU/L (10-42) 05/22/18 16:47 ALT 30 IU/L (10-60) 05/22/18 16:47 Alkaline Phosphatase 70 IU/L (42-121) 05/22/18 16:47 Total Protein 6.4 g/dL (6.7-8.2) L 05/22/18 16:47 Albumin 3.1 g/dL (3.2-5.5) L 05/22/18 16:47 Globulin 3.3 g/dL (2.1-4.2) 05/22/18 16:47 Albumin/Globulin Ratio 0.9 (1.0-2.2) L 05/22/18 16:47 Lipase 30 U/L (22-51) 05/22/18 16:47 Urine Color DARK YELLOW 05/22/18 16:23 Urine Clarity CLOUDY (CLEAR) 05/22/18 16:23 Urine pH 8.5 PH (5.0-7.5) H 05/22/18 16:23 Ur Specific [place] 1.010 (1.002-1.030) 05/22/18 16:23 Urine Protein 100 mg/dL (NEGATIVE) H 05/22/18 16:23 Urine Glucose (UA) NEGATIVE mg/dL (NEGATIVE) 05/22/18 16:23 Urine Ketones NEGATIVE mg/dL (NEGATIVE) 05/22/18 16:23 Urine Occult Blood NEGATIVE (NEGATIVE) 05/22/18 16:23 Urine Nitrite POSITIVE (NEGATIVE) H 05/22/18 16:23 Urine Bilirubin NEGATIVE (NEGATIVE) 05/22/18 16:23 Urine Urobilinogen 0.2 (NORMAL) E.U./dL (NORMAL) 05/22/18 16:23 Ur Leukocyte Esterase LARGE (NEGATIVE) H 05/22/18 16:23 Urine RBC None Seen /HPF (0-5) 05/22/18 16:23 Urine WBC 0-3 /HPF (0-3) 05/22/18 16:23 Ur Squamous Epith Cells NONE SEEN (<= Few) 05/22/18 16:23 Urine Bacteria Many /HPF (None Seen) H 05/22/18 16:23 Ur Microscopic Review INDICATED 05/22/18 16:23 Urine Culture Comments INDICATED 05/22/18 16:23
[2018-05-28] MEDS: AMIODARONE 200 MG TABLET PO SCH (21:16)
[2018-05-28] MEDS: FINASTERIDE 5 MG TABLET PO SCH (21:16)
[2018-05-28] MEDS: CETIRIZINE 10 MG TABLET PO SCH (21:16)
[2018-05-28] MEDS: BIMATOPROST 0.01% OPHTH DROPS 2.5 ML EACHEYE SCH (21:17)
[2018-05-29] MEDS: SODIUM CHLORIDE FLUSH 0.9% 10 ML SYRINGE IVP SCH ×3 (00:01→19:01)
[2018-05-29 06:04] LABS: BASOPHILS # (AUTO) 0.1 10^3/uL (0.0-0.1); BASOPHILS % (AUTO) 0.6 %; EOSINOPHILS # (AUTO) 0.7 10^3/uL (0.0-0.7); EOSINOPHILS % (AUTO) 4.6 %; HGB - HEMOGLOBIN 10.1 g/dL (14.0-18.0); LYMPHOCYTES # (AUTO) 1.3 10^3/uL (1.5-3.5); LYMPHOCYTES % (AUTO) 8.3 %; MEAN CORPUSCULAR HEMOGLOBIN 25.5 pg (27.0-31.0); MEAN CORPUSCULAR HGB CONC 32.4 g/dL (32.0-36.0); MEAN CORPUSCULAR VOLUME 78.6 fL (80.0-94.0); MEAN PLATELET VOLUME 7.6 fL (7.4-11.4); MONOCYTES # (AUTO) 1.1 10^3/uL (0.0-1.0); MONOCYTES % (AUTO) 7.5 %; PLT - PLATELET COUNT 405 10^3/uL (130-450); RED BLOOD COUNT 3.96 10^6/uL (4.70-6.10); RED CELL DISTRIBUTION WIDTH 17.4 % (12.0-15.0); WHITE BLOOD COUNT 15.2 x10^3/uL (4.8-10.8)
[2018-05-29 06:09] LABS: INR 2.8 (0.8-1.2); PT - PROTHROMBIN TIME 30.3 secs (9.9-12.6)
[2018-05-29 06:16] LABS: CALCIUM 8.3 mg/dL (8.5-10.3); CREATININE 1.4 mg/dL (0.6-1.2)
[2018-05-29] MEDS: BUDESONIDE 0.5 MG/2 ML NEB INH SCH ×2 (07:35→19:48)
[2018-05-29] MEDS: FORMOTEROL FUMARATE NEB 20 MCG/2 ML INH SCH ×2 (07:35→19:48)
[2018-05-29] MEDS: CHOLECALCIFEROL 1,000 UNIT TABLET PO SCH (09:10)
[2018-05-29] MEDS: predniSONE 5 MG TABLET PO SCH (09:10)
[2018-05-29] MEDS: TAMSULOSIN 0.4 MG CAPSULE PO SCH (09:10)
[2018-05-29] MEDS: FERROUS SULFATE 325 MG TABLET PO SCH (09:10)
[2018-05-29] MEDS: hydrALAZINE 10 MG TABLET PO SCH ×2 (09:11→22:38)
[2018-05-29] MEDS: LIDOCAINE PATCH 5% TOP PRN (09:11)
[2018-05-29] MEDS: cephALEXin 250 MG CAPSULE PO SCH ×2 (09:11→22:38)
[2018-05-29] MEDS: diltiaZEM CD 120 MG CAPSULE PO SCH (09:11)
[2018-05-29] MEDS: ACETAMINOPHEN 1,000 MG/100 ML 100 ML IV PRN (09:11)
[2018-05-29] MEDS: MULTIVITAMIN TABLET PO SCH (09:11)
[2018-05-29] MEDS: amLODIPine 5 MG TABLET PO SCH (09:11)
[2018-05-29] MEDS: POLYETHYLENE GLYCOL 3350 17 GM PACKET PO SCH (09:12)
[2018-05-29] MEDS ORDERED: CYCLOBENZAPRINE 10 MG TABLET PO PRN (10:32)
--- NOTE | 2018-05-29 16:04 | PROVIDER PROGRESS NOTE ---
Assessment/Plan - Problem List (1) UTI (urinary tract infection) Qualifiers: Urinary tract infection type: site unspecified Hematuria presence: without hematuria Qualified Code(s): N39.0 - Urinary tract infection, site not specified Assessment/Plan: Pt on po antibiotics and will plan a total 14 day course. Clinically ready for DCh from a medical standpoint. (2) Cellulitis of left arm Assessment/Plan: Pt on po antibiotics and will plan a total 7 day course. Clinically ready for DCh from a medical standpoint. (3) Dementia Assessment/Plan: He is at his baseline: complains of pain then 5 min later denies pain and does not appear to be in pain. He intermittently cooperates with PT. PT recommends a SNF, and so does Claudia CASTELLANOS (Lisa), who I spoke to in person when she came to assess the patient today. (4) CKD (chronic kidney disease) Assessment/Plan: Stable (5) Back pain Qualifiers: Back pain location: low back pain Chronicity: chronic Back pain laterality: unspecified Sciatica presence: without sciatica Qualified Code(s): M54.5 - Low back pain; G89.29 - Other chronic pain Assessment/Plan: Pain control was achieved with Prednisone (for inflammatory arthritis), Lidocaine patch daily and Flexeril 5 mg doses. The daughter asked the nurse to stop the Flexeril last night as it may be adding to his confusion. It was stopped at midnite. I will re-order it at a dose of 2.5 mg tid. (6) Atrial fibrillation Qualifiers: Atrial fibrillation type: chronic Qualified Code(s): I48.2 - Chronic atrial fibrillation Assessment/Plan: HR stable. INR is > 2.5 today. Will resume daily Coumadin when INR is < 2.5. (7) COPD (chronic obstructive pulmonary disease) Assessment/Plan: Stable on home meds (8) TIA (transient ischemic attack) Assessment/Plan: No further sx. - Current Meds Current Meds: Current Medications Generic Name Dose Route Start Last Admin Trade Name Freq PRN Reason Stop Dose Admin Albuterol 2.5 mg 05/24/18 13:33 05/27/18 04:56 INH 2.5 mg RTQ4H PRN Administration Wheezing Amiodarone HCl 200 mg 05/22/18 23:45 05/28/18 21:16 Pacerone PO 200 mg HS JOSE Administration Amlodipine Besylate 10 mg 05/25/18 17:36 05/29/18 09:11 Norvasc PO 10 mg DAILY JOSE Administration Bimatoprost 0 drops 05/22/18 23:45 05/28/18 21:17 Lumigan 0.01% Ophth Drops EACHEYE 1 drops HS JOSE Administration Budesonide 0.5 mg 05/24/18 19:00 05/29/18 07:35 Pulmicort INH 0.5 mg RTBID JOSE Administration Cephalexin 500 mg 05/27/18 21:00 05/29/18 09:11 Keflex PO 500 mg BID JOSE Administration Cetirizine HCl 10 mg 05/22/18 23:45 05/28/18 21:16 Zyrtec PO 10 mg HS JOSE Administration Cholecalciferol 1,000 unit 05/23/18 09:00 05/29/18 09:10 Vitamin D3 PO 1,000 unit DAILY JOSE Administration Cyclobenzaprine HCl 2.5 mg 05/29/18 10:32 05/29/18 10:44 Flexeril PO 2.5 mg TID PRN Administration Spasms Diltiazem HCl 120 mg 05/23/18 09:00 05/29/18 09:11 Cardizem Cd PO 120 mg DAILY JOSE Administration Docusate Sodium 250 mg 05/22/18 23:06 05/25/18 09:08 Colace 250mg Capsule PO 250 mg DAILY PRN Administration Constipation Ferrous Sulfate 325 mg 05/23/18 09:00 05/29/18 09:10 Feosol PO 325 mg DAILY JOSE Administration Finasteride 5 mg 05/22/18 23:45 05/28/18 21:16 Proscar PO 5 mg HS JOES Administration Formoterol Fumarate 20 mcg 05/24/18 19:00 05/29/18 07:35 Perforomist INH 20 mcg RTBID JOSE Administration Hydralazine HCl 40 mg 05/22/18 23:45 05/29/18 09:11 Apresoline PO 40 mg BID JOSE Administration Acetaminophen 100 mls @ 400 mls/hr 05/22/18 20:14 05/29/18 11:08 Ofirmev IV Infused Q6HR PRN Infusion PAIN Lidocaine 1 patch 05/24/18 08:26 05/29/18 09:11 Lidoderm Patch TOP 1 patch DAILY PRN Administration PAIN Multivitamins 1 tab 05/23/18 09:00 05/29/18 09:11 Theragran PO 1 tab DAILY JOSE Administration Polyethylene Glycol 17 gm 05/23/18 09:00 05/29/18 09:12 Miralax PO Not Given DAILY JOSE Prednisone 5 mg 05/26/18 09:00 05/29/18 09:10 Deltasone PO 5 mg DAILY JOSE Administration Sodium Chloride 10 ml 05/23/18 01:00 05/29/18 13:04 Normal Saline Flush 0.9% IVP Not Given 0100,0900,1700 JOSE Tamsulosin HCl 0.4 mg 05/23/18 09:00 05/29/18 09:10 Flomax PO 0.4 mg DAILY JOSE Administration - Lab Result Fish Bone Diagrams: 05/29/18 05:32 05/29/18 05:32 - Additional Planning My Orders: My Active Orders 05/29/18 10:32 Cyclobenzaprine [Flexeril] 2.5 mg PO TID PRN 05/30/18 05:00 PT WITH INR [COAG] DAILYLAB Subjective - Subjective Patient Reports: Resting Comfortably Objective Vital Signs: Vital Signs - 24 hr 05/28/18 05/28/18 05/29/18 17:31 23:37 07:36 Temperature 37.0 C Heart Rate 62 68 Heart Rate [ 84 Brachial] Respiratory 18 17 16 Rate Blood Pressure 158/62 H [Left Brachial artery] Blood Pressure [Right Brachial artery] O2 Saturation 97 05/29/18 05/29/18 08:00 15:52 Temperature 36.5 C 36.9 C Heart Rate Heart Rate [ 76 75 Brachial] Respiratory 16 20 Rate Blood Pressure 114/60 [Left Brachial artery] Blood Pressure 155/62 H [Right Brachial artery] O2 Saturation 94 98 Oxygen O2 Source [With Activity] Nasal cannula O2 Source Nasal cannula I&O (Last 24 Hrs): Intake and Output Totals x24h 05/27/18 05/28/18 05/29/18 23:59 23:59 23:59 Intake Total 1800 500 570 Output Total 1090 1140 1475 Balance 081 -921 -463 General: Alert Neck: Supple Neuro: Disoriented Cardiovascular: Other (Distant heart sounds) Respiratory: No respiratory distress, Breath sounds nml Abdomen: Soft Extremities: Other (No leg edema, L arm no longer warm or swollen.) - Results Results: Laboratory Results WBC 15.2 x10^3/uL (4.8-10.8) H 05/29/18 05:32 RBC 3.96 10^6/uL (4.70-6.10) L 05/29/18 05:32 Hgb 10.1 g/dL (14.0-18.0) L 05/29/18 05:32 Hct 31.2 % (42.0-52.0) L 05/29/18 05:32 MCV 78.6 fL (80.0-94.0) L 05/29/18 05:32 MCH 25.5 pg (27.0-31.0) L 05/29/18 05:32 MCHC 32.4 g/dL (32.0-36.0) 05/29/18 05:32 RDW 17.4 % (12.0-15.0) H 05/29/18 05:32 Plt Count 405 10^3/uL (130-450) 05/29/18 05:32 MPV 7.6 fL (7.4-11.4) 05/29/18 05:32 Neut # (Auto) 12.0 10^3/uL (1.5-6.6) H 05/29/18 05:32 Lymph # (Auto) 1.3 10^3/uL (1.5-3.5) L 05/29/18 05:32 [place] # (Auto) 1.1 10^3/uL (0.0-1.0) H 05/29/18 05:32 Eos # (Auto) 0.7 10^3/uL (0.0-0.7) 05/29/18 05:32 Baso # (Auto) 0.1 10^3/uL (0.0-0.1) 05/29/18 05:32 Absolute Nucleated RBC 0.00 x10^3/uL 05/29/18 05:32 Nucleated RBC % 0.0 /100WBC 05/29/18 05:32 PT 30.3 secs (9.9-12.6) H 05/29/18 05:32 INR 2.8 (0.8-1.2) H 05/29/18 05:32 APTT 30.7 secs (24.9-33.3) 05/22/18 20:45 Sodium 138 mmol/L (135-145) 05/29/18 05:32 Potassium 3.7 mmol/L (3.5-5.0) 05/29/18 05:32 Chloride 103 mmol/L (101-111) 05/29/18 05:32 Carbon Dioxide 29 mmol/L (21-32) 05/29/18 05:32 Anion Gap 6.0 (6-13) 05/29/18 05:32 BUN 22 mg/dL (6-20) H 05/29/18 05:32 Creatinine 1.4 mg/dL (0.6-1.2) H 05/29/18 05:32 Estimated GFR (MDRD) 48 (>89) L 05/29/18 05:32 Glucose 85 mg/dL (70-100) 05/29/18 05:32 Lactic Acid 0.7 mmol/L (0.5-2.2) 05/22/18 20:45 Calcium 8.3 mg/dL (8.5-10.3) L 05/29/18 05:32 Magnesium 1.9 mg/dL (1.7-2.8) 05/22/18 16:47 Total Bilirubin 0.6 mg/dL (0.2-1.0) 05/22/18 16:47 AST 20 IU/L (10-42) 05/22/18 16:47 ALT 30 IU/L (10-60) 05/22/18 16:47 Alkaline Phosphatase 70 IU/L (42-121) 05/22/18 16:47 Total Protein 6.4 g/dL (6.7-8.2) L 05/22/18 16:47 Albumin 3.1 g/dL (3.2-5.5) L 05/22/18 16:47 Globulin 3.3 g/dL (2.1-4.2) 05/22/18 16:47 Albumin/Globulin Ratio 0.9 (1.0-2.2) L 05/22/18 16:47 Lipase 30 U/L (22-51) 05/22/18 16:47 Urine Color DARK YELLOW 05/22/18 16:23 Urine Clarity CLOUDY (CLEAR) 05/22/18 16:23 Urine pH 8.5 PH (5.0-7.5) H 05/22/18 16:23 Ur Specific [place] 1.010 (1.002-1.030) 05/22/18 16:23 Urine Protein 100 mg/dL (NEGATIVE) H 05/22/18 16:23 Urine Glucose (UA) NEGATIVE mg/dL (NEGATIVE) 05/22/18 16:23 Urine Ketones NEGATIVE mg/dL (NEGATIVE) 05/22/18 16:23 Urine Occult Blood NEGATIVE (NEGATIVE) 05/22/18 16:23 Urine Nitrite POSITIVE (NEGATIVE) H 05/22/18 16:23 Urine Bilirubin NEGATIVE (NEGATIVE) 05/22/18 16:23 Urine Urobilinogen 0.2 (NORMAL) E.U./dL (NORMAL) 05/22/18 16:23 Ur Leukocyte Esterase LARGE (NEGATIVE) H 05/22/18 16:23 Urine RBC None Seen /HPF (0-5) 05/22/18 16:23 Urine WBC 0-3 /HPF (0-3) 05/22/18 16:23 Ur Squamous Epith Cells NONE SEEN (<= Few) 05/22/18 16:23 Urine Bacteria Many /HPF (None Seen) H 05/22/18 16:23 Ur Microscopic Review INDICATED 05/22/18 16:23 Urine Culture Comments INDICATED 05/22/18 16:23 ABX Reporting Has patient been on IV antibiotics over the past 48 hours?: Yes
[2018-05-29] MEDS ORDERED: LIDOCAINE 2% URO-JET 5 ML SYRINGE UR ONE (21:24)
[2018-05-29] MEDS: BIMATOPROST 0.01% OPHTH DROPS 2.5 ML EACHEYE SCH (22:37)
[2018-05-29] MEDS: AMIODARONE 200 MG TABLET PO SCH (22:39)
[2018-05-29] MEDS: FINASTERIDE 5 MG TABLET PO SCH (22:39)
[2018-05-29] MEDS: CETIRIZINE 10 MG TABLET PO SCH (22:39)
[2018-05-30] MEDS: SODIUM CHLORIDE FLUSH 0.9% 10 ML SYRINGE IVP SCH ×2 (01:47→08:30)
[2018-05-30] MEDS: ACETAMINOPHEN 1,000 MG/100 ML 100 ML IV PRN (05:18)
[2018-05-30 05:43] LABS: INR 1.6 (0.8-1.2); PT - PROTHROMBIN TIME 17.9 secs (9.9-12.6)
[2018-05-30] MEDS: FORMOTEROL FUMARATE NEB 20 MCG/2 ML INH SCH (07:36)
[2018-05-30] MEDS: BUDESONIDE 0.5 MG/2 ML NEB INH SCH (07:36)
[2018-05-30] MEDS: LIDOCAINE PATCH 5% TOP PRN (08:30)
[2018-05-30] MEDS: amLODIPine 5 MG TABLET PO SCH (08:31)
[2018-05-30] MEDS: diltiaZEM CD 120 MG CAPSULE PO SCH (08:31)
[2018-05-30] MEDS: FERROUS SULFATE 325 MG TABLET PO SCH (08:31)
[2018-05-30] MEDS: MULTIVITAMIN TABLET PO SCH (08:31)
[2018-05-30] MEDS: cephALEXin 250 MG CAPSULE PO SCH (08:31)
[2018-05-30] MEDS: POLYETHYLENE GLYCOL 3350 17 GM PACKET PO SCH (08:31)
[2018-05-30] MEDS: predniSONE 5 MG TABLET PO SCH (08:31)
[2018-05-30] MEDS: hydrALAZINE 10 MG TABLET PO SCH (08:31)
[2018-05-30] MEDS: TAMSULOSIN 0.4 MG CAPSULE PO SCH (08:31)
[2018-05-30] MEDS: CHOLECALCIFEROL 1,000 UNIT TABLET PO SCH (08:31)
--- NOTE | 2018-05-30 11:42 | Discharge Plan ---
"Discharge Plan [facility] SN[facility] / [facility] - Discharge Plan And Transition Orders Disposition: 03 SNF DC/Xfer Condition: Stable Allergies and Adverse Reactions: Allergies Allergy/AdvReac Type Severity Reaction Status Date / Time azithromycin Allergy Respiratory Verified 05/22/18 14:47 bee venom protein (honey bee) Allergy Anaphylaxis Verified 05/22/18 14:47 hornet venom Allergy Anaphylaxis Verified 05/22/18 14:47 lisinopril Allergy Respiratory Verified 05/22/18 14:47 losartan Allergy Respiratory Verified 05/22/18 14:47 naproxen [From Naprosyn] Allergy Respiratory Verified 05/22/18 14:47 NSAIDS (Non-Steroidal Allergy Respiratory Verified 05/22/18 14:47 Anti-Inflamma Penicillins Allergy Respiratory Verified 05/22/18 14:47 Sulfa (Sulfonamide Allergy Respiratory Verified 05/22/18 14:47 Antibiotics) aspirin AdvReac Cramps Verified 05/22/18 14:47 hydromorphone AdvReac Hallucinati Verified 05/22/18 14:47 ons Iodinated Contrast- Oral and AdvReac Unknown Verified 05/22/18 14:47 IV Dye omeprazole AdvReac Cramps Verified 05/22/18 14:47 oxycodone AdvReac Hallucinati Verified 05/22/18 14:47 ons wasp Allergy Anaphylaxis Uncoded 05/22/18 14:47 yellow jacket venom Allergy Anaphylaxis Uncoded 05/22/18 14:47 - SNF / [facility] Transition Orders Admit to (Facility): [facility] Under the care of (Name): Dr. Sedrick Thorpe Discharge Diagnosis: 1) TIA 2) Syncope 3) UTI 4) Cellulitis of left arm 5) Chronic pain 6) Chronic Afib, on Coumadin 7) Dementia 8) HTN 9) COPD 10) BPH 11) CKD 12) Glaucoma 13) Code Status: DNR Medicare Certification Statement: I certify that [facility] correction care is medically necessary on a continuing basis for any of the conditions for which she/he is receiving care during hospitalization. Notify PCP of admission and forward orders to primary provider for signature. Weight on admission and: Weekly Call PCP immediately if weight increases by: 5 kg (if rises >5 kg over 1 week) Other Notification Orders: Call PCP immediately if patient develops dyspnea, chest pain/tightness or edema. House Bowel Program: Yes Additional Bowel Program Orders: If no BM after 2 days, nurse may give M.O.M. 30ml PO PRN and/or ducolax Supp 1 AL and/or SAMUEL 250mg P.O., and/or senna 1-2 tabs PO. On day 3 nurse may give repeat above order until residents constipation is resolved. Annual Influenza Vaccine (between May 12 and December 09): Yes Two-step PPD per [facility] [phone] or approved exception documents: Yes Treatments & Other Orders: Daily PT and OT. INR blood test every Mon, Wed, Fri and keep INR 1.9 - 2.5 Medication Orders: PLEASE REFER TO THE DISCHARGE MEDICATION LIST. Insulin Orders?: No - Medications New Prescriptions: Albuterol 2.5 mg INH Q4H PRN #2 neb PRN Reason: Wheezing cephALEXin [Keflex] 500 mg PO BID #14 capsule Cyclobenzaprine [Flexeril] 2.5 - 5 mg PO TID PRN #45 tablet PRN Reason: Pain diltiaZEM CD [Cardizem Cd] 120 mg PO DAILY #30 capsule Lidocaine Patch 5% [Lidoderm Patch] 1 patch TOP DAILY #30 patch - Diet Type: Geriatric Texture: Mech soft Liquids: Thin Supplements: 4 oz high protein supplement with meals May have monthly special meal: Yes - Therapies | Activity Therapy: Evaluation | Treat if indicated: PT, OT Rehabilitation Potential: Maximize functional status Activity: Activity as Tolerated Assistance Devices: Walker"
[2018-05-30] MEDS ORDERED: WARFARIN 2.5 MG TABLET PO ONE (12:51)
[2018-05-30 15:48] VITALS: BP 140/54
--- NOTE | 2018-06-06 07:26 | DISCHARGE SUMMARY ---
Physician: Shania Up MD DATE OF ADMISSION: 05/22/2018 DATE OF DISCHARGE: 05/31/2018 HISTORY OF PRESENT ILLNESS: This is an 82-year-old, white male with a history of COPD, dementia, chronic pain, especially low back pain, chronic atrial fibrillation on Coumadin, hypothyroidism, BPH, lives at an assisted living facility. He is being followed as an outpatient by Palliative Care for outpatient management. He was noted to have slurred speech and drooling of some milk that he was drinking, which then resolved, and then also, later in the day, he had possible syncope. That event was poorly described, as it was not witnessed by the daughter who gave his history. The boiler coverer brought him to the emergency room. He was minimally communicative, and with any slightest movement of the bed, he described being in tremendous pain. The patient was admitted for evaluation of TIA and syncope and was found to have a UTI from emergency room workup. HOSPITAL COURSE AND DISCHARGE DIAGNOSES 1. Transient ischemic attack (TIA). The patient underwent an Echo, which showed LVEF of 60%-65%, grade 2 diastolic dysfunction, no regional wall motion abnormalities, no intracardiac clot or intracardiac shunt. Of note was that his PA pressure was measured at 60 mmHg (probably secondary to COPD). He had carotid Dopplers done that showed moderate atherosclerosis. There was no need for intervention. His head CT showed no acute stroke, generalized age-related cortical atrophy was seen and chronic sinus disease. Continued medical management for atherosclerosis was planned. 2. Syncope. This was not well described, unclear if it was witnessed. The patient was probably mildly dehydrated, given his UTI. When we attempted to check orthostatic vital signs, he would not cooperate, stating that he was in too much pain because of motion of his body or his bed. After clinical improvement after several days, he was able to stand without descriptions of dizziness. 3. Urinary tract infection (UT). The patient's presenting urinalysis showed a pH of 8.5, high protein, positive nitrites, large leukocyte esterase, and many bacteria. He was put on IV antibiotics with third-generation cephalosporin. Toward the end of the admission, this was transitioned to oral Keflex, to complete a course for several more days. The urine culture did grow Proteus mirabilis, which was sensitive to first-generation cephalosporin. Blood cultures had no growth. 4. Cellulitis. In the middle of his hospital course, he was being evaluated by the nurse from assisted living who noticed that his left arm was red, warm, and swollen. This was brought to the attention of our staff, and he was felt to have cellulitis of the left arm at a prior IV site. His antibiotics were broadened to cover skin organisms. Vancomycin was used. At discharge, this also required several more days of oral antibiotic. Keflex was also used for this. 5. Chronic pain. The daughter gave a detailed history that many pain medications have been used in the past and that he was allergic to many things, but had relief from Flexeril, prednisone for arthritis treatment, and also we started a lidocaine patch here, which he was discharged with. Of note is that the patient's dementia creates a situation where he will state that he is in pain, but he is probably talking about pain that he has experienced earlier in the day; this is by description from his daughter. 6. Chronic atrial fibrillation, on Coumadin. The patient had good heart rate control while here on his home regimen. His Coumadin needed to be held while he was on antibiotics. The INR was followed daily. At discharge, his Coumadin was resumed at its prior doses with plan for Monday, Monday, Monday INR checks at the long term facility. 7. Dementia. The patient has significant memory problems and confusion in the early hospital course. Later, he was intermittently more lucid and even able to tell jokes. The daughter stated that this was his baseline. 8. Hypertension. The patient remained on his lisinopril and had good blood pressure control while here. 9. Chronic obstructive pulmonary disease (COPD). The patient was continued on his nebulizers. There was no COPD exacerbation while here. 10. Benign prostatic hypertrophy (BPH). The patient was kept on his home medications for this. 11. Chronic kidney disease (CKD). The patient has grade 3 CKD, and his creatinine level was 1.8 on admission. This improved with hydration, and he fluctuated between 1.4 and 1.3. 12. Glaucoma. He was continued on eyedrops while here. ALLERGIES 1. ZITHROMAX 2. HONEY BEES. 3. HORNET VENOM. 4. LISINOPRIL. 5. LOSARTAN. 6. NAPROSYN. 7. OTHER NON-STEROIDALS. 8. PENICILLIN. 9. SULFA ANTIBIOTICS. 10. ASPIRIN. 11. HYDROMORPHONE. 12. CONTRAST DYE. 13. OMEPRAZOLE. 14. OXYCODONE. 15. WASPS. 16. YELLOW JACKETS. MEDICATIONS At the time of transfer to long term facility: 1. Sublingual nitroglycerin p.r.n. 3. Tylenol p.r.n. 4. Ventolin inhaler b.i.d. 5. Amiodarone 200 mg daily. 6. Amlodipine 10 mg daily. 7. Symbicort p.r.n. 8. Keflex 500 mg b.i.d. for 7 more days. 9. Vitamin D3 at 1000 units daily. 10. Diltiazem 120 mg daily. 11. Lomotil p.r.n. 12. Colace 250 mg p.r.n. 13. Iron 325 mg daily. 14. Finasteride 5 mg every evening. 15. Hydralazine 40 mg b.i.d. 16. Multivitamin daily. 17. Prednisone 5 mg daily. 18. Flomax 0.4 mg daily. 19. Spiriva 1 capsule daily of 18 mcg. 20. Coumadin usual doses are 1.25 mg every day as awake, except 2.5 mg on and Saturdays. 21. Albuterol inhaler p.r.n. 22. Flexeril 5 mg topically t.i.d. p.r.n. 23. Lidocaine patch 5% topically daily schedule. LABORATORY AND IMAGING: Reviewed and summarized above. PHYSICAL EXAMINATION AT DISCHARGE VITAL SIGNS: Blood pressure 140/50, heart rate 73, in atrial fibrillation, respiratory rate 18, room air saturation 94%. HEENT: Showed poor dentition. Moist oral mucosa. NECK: With positive JVD. No carotid bruits. CHEST: Had poor air movement. Increased AP diameter, but no wheezes or rales. HEART: Sounds distant. PMI vertically displaced. No gallop. No RV heave. ABDOMEN: Soft. Scaphoid. Nontender. Normal bowel sounds. EXTREMITIES: No edema. Multiple ecchymoses over large areas of his upper extremities. The left arm, where he had the cellulitis, was no longer warm and red, appeared normal. NEUROLOGIC: Dementia. FOLLOWUP: This will be determined after his stay at SNF for PT and rehab. The plan will be to send him to either Memory Care or other placement after SNF. CODE STATUS: DNR. Time required to complete this entire discharge, prescription orders, and dictation: 60 minutes. cc: Tanna Hoyt MD TD: 06/05/2018 18:36 MTDD
== END 2018-05-30 16:12 | DRG 690 ==
LOC: ED 14:33 → MS2 19:43
PROVIDERS: ADMIT Internal Medicine; ATTEND Internal Medicine
DX: R53.1 Weakness (principal); N39.0 Urinary tract infection, site not specified; R41.0 Disorientation, unspecified; G45.9 Transient cerebral ischemic attack, unspecified; M54.5 Low back pain; T80.29XA Infection following other infusion, transfusion and therapeutic injection, initial encounter; R51 Headache; L03.114 Cellulitis of left upper limb; E87.6 Hypokalemia; M25.551 Pain in right hip; I48.91 Unspecified atrial fibrillation; J44.9 Chronic obstructive pulmonary disease, unspecified; F03.90 Unspecified dementia, unspecified severity, without behavioral disturbance, psychotic disturbance, mood disturbance, and anxiety; G89.29 Other chronic pain; M47.9 Spondylosis, unspecified; I48.2 Chronic atrial fibrillation; I12.9 Hypertensive chronic kidney disease with stage 1 through stage 4 chronic kidney disease, or unspecified chronic kidney disease; N18.3 Chronic kidney disease, stage 3 (moderate); E86.0 Dehydration; B96.4 Proteus (mirabilis) (morganii) as the cause of diseases classified elsewhere; E03.9 Hypothyroidism, unspecified; N40.0 Benign prostatic hyperplasia without lower urinary tract symptoms; R58 Hemorrhage, not elsewhere classified; R55 Syncope and collapse; H40.9 Unspecified glaucoma; Z51.5 Encounter for palliative care; Z66 Do not resuscitate; Z79.01 Long term (current) use of anticoagulants; Z79.899 Other long term (current) drug therapy; Z88.6 Allergy status to analgesic agent; Z88.5 Allergy status to narcotic agent; Z88.0 Allergy status to penicillin; Z88.2 Allergy status to sulfonamides; Z88.8 Allergy status to other drugs, medicaments and biological substances; Z91.81 History of falling; Z96.649 Presence of unspecified artificial hip joint; Z79.51 Long term (current) use of inhaled steroids
CPT/HCPCS: 36415; 70450; 71250; 74176; 80048; 80053; 81001; 81003; 83605; 83690; 83735; 85025; 85610; 85730; 87040; 87077; 87086; 87181; 93005; 93306; 93880; 94640; 96361; 96365; 96375; 99284; 99285

== ENCOUNTER 2018-05-31 14:30 | Outpatient (CLI) | payer MEDICARE, MEDICAID ==
--- NOTE | 2018-05-31 16:57 | CONSULTATION NOTE ---
Palliative Care Follow Up - Referral Referring Provider: Dr Tanna Celis Time of Visit: 05/31/2018. 14:30 - 14:55 Referral setting: Intermediate Facility ([facility]) - Information Sources Records reviewed: RN notes reviewed, Previous records reviewed History/Review of Systems obtained from: Patient, Family, Nursing, Other (PT and OT) Exam limitations: Clinical condition (Dementia, somnolence, confusion) - History of Present Illness Update Brief HPI Update: -82 male with advancing dementia and complex medical problems living at [facility] since 25 February 2018, being followed by Home Health RN and Palliative Care. 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 -Patient hospitalized from 05/22/18 - 05/30/18 for UTI, cellulitis of L arm and uncontrollable pain. -His daughter's wish was to D/C him back to [facility], but the facility determined they cannot provide the level of care required due to his weakened state, so he has been DC'd to [facility] for rehabilitation. -He was DC'd on Keflex 500 BID x 7 days. -Other new prescriptions are Albuterol nebulizer, cyclobenzaprine/Flexeril 2.5- 5mg PO TID PRN, Lidocaine Patch 5% daily, and Diltiazem 120mg daily. -Diet is now mechanical soft -Coban lite leg wraps have been removed. He has no LE edema, has discoloration and stiffened skin on bilateral anterior LEs from PVD, and significant muscle wasting of LEs. -Patient today is sleeping and difficult to rouse, remaining somnolent or back to sleep through the assessment. -Patient unable to speaking clearly, has weak voice, difficulty remaining awake, is without outward signs of pain. -Occupational Therapy reports his session went alright this morning, he was able to participate. -Physical Therapy said this afternoon's session didn't go well due to confusion of the patient, and indicates there is limited potential for improvement. Social History - Living Situation Living arrangement: residential (Just transferred from hospital to [facility] for rehabilitation. Goal is to return to [facility]) Living Situation: With caregiver(s) Support System: Daughter Inessa is closely involved with patient's care. She lives off [address]. Previously the patient lived for 4 years with his daughter until his care needs increased to the point she was no longer able to care for him at home. Medications/Allergies - Medications Home Medications: Ambulatory Orders Medication Instructions Recorded Confirmed Acetaminophen 325 mg PO Q6H PRN 04/03/18 06/01/18 Acetaminophen 650 mg PO TID 04/03/18 06/01/18 Albuterol Sulf [Ventolin Hfa 2 puffs INH BID 04/03/18 06/01/18 Inhaler] Amlodipine Besylate 10 mg PO DAILY 04/03/18 06/01/18 Bimatoprost 0.01% Ophth Dops 1 drops EACHEYE QPM 04/03/18 06/01/18 [Lumigan 0.01% Ophth Drops] Budesonide/Formoterol Fumarate 2 puffs INH BID 04/03/18 06/01/18 [Symbicort 80-4.5 Mcg Inhaler] Cholecalciferol (Vitamin D3) 1,000 unit PO DAILY 04/03/18 06/01/18 [Vitamin D3] Diphenoxylate/Atropine [Lomotil] 2 tab PO QID PRN 04/03/18 06/01/18 Ferrous Sulfate 325 mg PO DAILY 04/03/18 06/01/18 Finasteride 5 mg PO QPM 04/03/18 06/01/18 Hydralazine HCl 40 mg PO BID 04/03/18 05/23/18 Multivitamin [Multiple Vitamins] 1 tab PO DAILY 04/03/18 06/01/18 Nitroglycerin [Nitrostat] 0.4 mg PO Q5MIN PRN MDD 3 TABLETS 04/03/18 06/01/18 Prednisone 5 mg PO DAILY 04/03/18 06/01/18 Tamsulosin HCl [Flomax] 0.4 mg PO DAILY 04/03/18 06/01/18 Tiotropium [place] [Spiriva] 1 cap INH DAILY 04/03/18 06/01/18 Warfarin [Coumadin] 1.25 mg PO SUMOTUWEFR@1700 04/03/18 05/23/18 Warfarin [Coumadin] 2.5 mg PO THSA@1700 04/03/18 06/01/18 diltiaZEM [Cardizem] 120 mg PO DAILY 05/23/18 06/01/18 Albuterol 2.5 mg INH Q4H PRN #2 neb 05/30/18 06/01/18 Cyclobenzaprine [Flexeril] 2.5 - 5 mg PO TID PRN #45 tablet 05/30/18 06/01/18 Lidocaine Patch 5% [Lidoderm Patch] 1 patch TOP DAILY #30 patch 05/30/18 06/01/18 Amiodarone [Pacerone] 06/01/18 Cyclobenzaprine HCl 2.5 - 5 mg PO TID PRN 06/01/18 06/01/18 Docusate Sodium 250Mg Capsule 250 mg PO DAILY PRN 06/01/18 06/01/18 [Colace 250Mg Capsule] cephALEXin [Keflex] 500 mg PO BID MDD for 7 days 06/01/18 06/01/18 - Allergies Allergies/Adverse Reactions: Allergies Allergy/AdvReac Type Severity Reaction Status Date / Time azithromycin Allergy Respiratory Verified 05/22/18 14:47 bee venom protein (honey bee) Allergy Anaphylaxis Verified 05/22/18 14:47 hornet venom Allergy Anaphylaxis Verified 05/22/18 14:47 lisinopril Allergy Respiratory Verified 05/22/18 14:47 losartan Allergy Respiratory Verified 05/22/18 14:47 naproxen [From Naprosyn] Allergy Respiratory Verified 05/22/18 14:47 NSAIDS (Non-Steroidal Allergy Respiratory Verified 05/22/18 14:47 Anti-Inflamma Penicillins Allergy Respiratory Verified 05/22/18 14:47 Sulfa (Sulfonamide Allergy Respiratory Verified 05/22/18 14:47 Antibiotics) aspirin AdvReac Cramps Verified 05/22/18 14:47 hydromorphone AdvReac Hallucinati Verified 05/22/18 14:47 ons Iodinated Contrast- Oral and AdvReac Unknown Verified 05/22/18 14:47 IV Dye omeprazole AdvReac Cramps Verified 05/22/18 14:47 oxycodone AdvReac Hallucinati Verified 05/22/18 14:47 ons wasp Allergy Anaphylaxis Uncoded 05/22/18 14:47 yellow jacket venom Allergy Anaphylaxis Uncoded 05/22/18 14:47 Review of Systems - Constitutional Constitutional: reports: Fatigue, Weight loss (135 lbs 05/31/18. 147 lbs 03/13/18. 138 lbs 03/01/18. 146 lbs 11/11/17. 157 lbs 05/14/18. 153 lbs from January-April 2017.) - Ears, Nose & Throat Ears, Nose & Throat: reports: Hearing loss, Dental decay (poor dentition) - Respiratory Respiratory: reports: Cough (chronic, nervous), SOB at rest (episodic) - Neurological Neurological: reports: Memory problems, Abnormal gait - Psychiatric Psychiatric: reports: Other (confusion) - Hematologic/Lymphatic Hematologic/Lymphatic: reports: Other (hemosiderin staining back of hands) - Other Findings Other Findings: limited ROS Physical Exam - Vital Signs Temperature: 97.2 F Pulse Rate: 70 O2 Saturation: 98 (room air) Blood Pressure: 141/69 (wrist cuff) - Physical Exam General Appearance: positive: No acute distress, Other (somnolent; difficult to wake up) Eyes Bilateral: positive: No lid inflammation, Conjunctivae nml, No scleral icterus ENT: positive: No signs of dehydration Neck: positive: Trachea midline Cardiovascular: positive: Regular rate & rhythm, No murmur Respiratory: positive: Chest non-tender, No respiratory distress, Diminished throughout. negative: Wheezes, Rales Extremities: positive: No pedal edema, Other (significant muscle wasting of LEs) Neurologic/Psychiatric: positive: Disoriented to place, Disoriented to time, Other (Somnolent) Palliative Care - POLST Patient has POLST: Yes POLST Status: DNR, Selective Treatment - Palliative Care Discussion: Patient's daughter, Inessa Evans [phone], wishes for her father to rehabilitate and become strong enough to return to [facility], with long-term goal of transferring him to the [facility] dementia unit when indicated. [facility]'s nurse assessed him in the hospital and declined to accept him back at discharge, and so he was transferred to [facility] for rehabilitation. The daughter's plan has been to avoid putting him in Long-Term Care, and that is her biggest worry. The patient is not in a position to speak for himself on this and on his goals, and does not have decision making capacity. His usual response in the past has been inability to answer the question and to say "Ask Inessa." Inessa's concern is that therapy will not work with him in the manner needed to actually get him to work with them, she feels he needs "tough love" approach, or at least a therapist not taking his complaints of pain as a reason to not continue to therapy. Her experience with him is that he doesn't make the effort. I did encrourage her to discuss with therapists, and continue to advocate for her father. I spoke with Mary Carmen, who is now handling social media intern, about a care conference. My concern is whether the patient has the cognitive and physical capacity to rehabilitate. In speaking with Cristian, the physical therapist who has worked with him one, he states the biggest concern is the patient's confusion, and that the potential is limited. Impression and Recommendations - Palliative Care Impression: 82-year-old male with advancing dementia and complex medical problems. He was hospitalized from 05/22 - 05/30/18 for UTI and cellulitis, and was discharged to [facility] for rehabilitation. Family's goals are that he rehabilitate sufficiently so that he can return to [facility]. Palliative care will continue to provide support and oversight. Recommendations/Counseling Done: UTI and cellulitis: UTI had a 14-day antibiotic course and cellulitis a 7-day course. Discharged on Keflex 500mg BID x 7 days. Still with a level of confusion that has affected his ability to participate fully in PT. Chronic pain: Flexeril 2.5 - 5mg PO TID as needed; lidocaine 5% patch daily, prednisone 5mg for arthritis pain, and Tylenol 325-650 Q6h prn. patient has a very long list of pains meds he is allergic or has reactions to. Family reports that flexeril is one that has helped him in the past. Atrial fibrillation: Currently on Coumadin 2.5mg ,Mon, hospital discharge plan is to return to daily dosing when INR is less than 2.5. Bilateral lower extremity edema: Improved, minimal edema today, skin on anterior lower extremities is resolving, is dry and thickened from PVD. Coban Lite 2 layer compression system is not currently being used. Recommend restarting if edema increases. COPD: Stable on the current meds: Albuterol nebulizer, Spiriva, Symbicort, Ventolin. Advanced care planning: POLST is DNR and selective. Family's goals are to rehabilitate him sufficiently so he can return to [facility], but patient is weak and has worsening dementia, likely limited potential for improvement through therapy. SNF is arranging a care conference. Follow up next week. Time Spent: 25 minutes were spent with more than 50% of the time spent on counseling, education, anticipatory guidance, and coordination of care.
== END 2018-05-31 14:31 | disposition home or self-care (01) ==
LOC: PC 14:30
PROVIDERS: ATTEND Nurse Practitioner
DX: Z51.5 Encounter for palliative care (principal); G89.29 Other chronic pain; I48.91 Unspecified atrial fibrillation; Z79.01 Long term (current) use of anticoagulants; J44.9 Chronic obstructive pulmonary disease, unspecified; F03.90 Unspecified dementia, unspecified severity, without behavioral disturbance, psychotic disturbance, mood disturbance, and anxiety; N18.3 Chronic kidney disease, stage 3 (moderate); Z66 Do not resuscitate
CPT/HCPCS: 99309

== ENCOUNTER 2018-06-08 11:20 | Outpatient (CLI) | payer MEDICARE, MEDICAID ==
[2018-06-08 14:04] LABS: BASOPHILS # (AUTO) 0.1 10^3/uL (0.0-0.1); BASOPHILS % (AUTO) 0.5 %; EOSINOPHILS # (AUTO) 0.3 10^3/uL (0.0-0.7); EOSINOPHILS % (AUTO) 1.3 %; HGB - HEMOGLOBIN 11.5 g/dL (14.0-18.0); LYMPHOCYTES % (AUTO) 5.3 %; MEAN CORPUSCULAR HEMOGLOBIN 25.3 pg (27.0-31.0); MEAN PLATELET VOLUME 7.7 fL (7.4-11.4); MONOCYTES % (AUTO) 5.3 %; NEUTROPHILS # (AUTO) 17.1 10^3/uL (1.5-6.6); NEUTROPHILS % (AUTO) 87.6 %; PLT - PLATELET COUNT 606 10^3/uL (130-450); RED BLOOD COUNT 4.54 10^6/uL (4.70-6.10); RED CELL DISTRIBUTION WIDTH 17.8 % (12.0-15.0); WHITE BLOOD COUNT 19.6 x10^3/uL (4.8-10.8)
[2018-06-08 14:23] LABS: CALCIUM 8.7 mg/dL (8.5-10.3); CREATININE 1.8 mg/dL (0.6-1.2)
== END 2018-06-08 11:21 | disposition home or self-care (01) ==
LOC: LAB.R 11:20
DX: R45.1 Restlessness and agitation (principal); F05 Delirium due to known physiological condition; D64.9 Anemia, unspecified
CPT/HCPCS: 80048; 85025

== ENCOUNTER 2018-06-19 11:55 | Outpatient (CLI) | payer MEDICARE, MEDICAID ==
[2018-06-19 17:25] LABS: CALCIUM 8.2 mg/dL (8.5-10.3); CREATININE 1.6 mg/dL (0.6-1.2)
[2018-06-19 17:54] LABS: BASOPHILS # (AUTO) 0.1 10^3/uL (0.0-0.1); BASOPHILS % (AUTO) 0.8 %; EOSINOPHILS # (AUTO) 0.4 10^3/uL (0.0-0.7); EOSINOPHILS % (AUTO) 2.5 %; HGB - HEMOGLOBIN 10.7 g/dL (14.0-18.0); LYMPHOCYTES % (AUTO) 6.7 %; MEAN CORPUSCULAR HEMOGLOBIN 25.1 pg (27.0-31.0); MEAN CORPUSCULAR HGB CONC 32.1 g/dL (32.0-36.0); MEAN CORPUSCULAR VOLUME 78.3 fL (80.0-94.0); MEAN PLATELET VOLUME 7.9 fL (7.4-11.4); MONOCYTES % (AUTO) 6.6 %; NEUTROPHILS # (AUTO) 12.9 10^3/uL (1.5-6.6); NEUTROPHILS % (AUTO) 83.4 %; PLT - PLATELET COUNT 360 10^3/uL (130-450); RED BLOOD COUNT 4.24 10^6/uL (4.70-6.10); RED CELL DISTRIBUTION WIDTH 17.9 % (12.0-15.0); WHITE BLOOD COUNT 15.5 x10^3/uL (4.8-10.8)
== END 2018-06-19 11:56 | disposition home or self-care (01) ==
LOC: LAB.R 11:55
PROVIDERS: ATTEND Family Medicine
DX: I10 Essential (primary) hypertension (principal); D64.9 Anemia, unspecified
CPT/HCPCS: 80048; 85025

== ENCOUNTER 2018-06-27 08:00 | Outpatient (CLI) | payer MEDICARE, MEDICAID ==
[2018-06-27 20:20] LABS: BILIRUBIN,URINE NEGATIVE (NEGATIVE); GLUCOSE, URINE (UA) NEGATIVE (NEGATIVE); KETONES,URINE (UA) NEGATIVE (NEGATIVE); LEUKOCYTE ESTERASE, URINE MODERATE (NEGATIVE); NITRITE,URINE POSITIVE (NEGATIVE); OCCULT BLOOD,URINE NEGATIVE (NEGATIVE); PH,URINE 5.5 PH (5.0-7.5); PROTEIN,URINE TRACE mg/dL (NEGATIVE); UROBILINOGEN,URINE 0.2 (NORMAL) E.U./dL (NORMAL)
[2018-06-27 20:22] LABS: CLARITY,URINE CLOUDY (CLEAR)
[2018-06-27 20:39] LABS: BACTERIA,URINE Many /HPF (None Seen); RBC,URINE None Seen /HPF (0-5); SQUAMOUS EPITHELIAL CELL,UR FEW Squamous (<= Few); WBC CLUMPS,URINE PRESENT
== END 2018-06-27 08:01 | disposition home or self-care (01) ==
LOC: LAB.R 08:00
DX: N39.0 Urinary tract infection, site not specified (principal)
CPT/HCPCS: 81001; 81003; 87077; 87086; 87181

== ENCOUNTER 2018-06-29 13:40 | Outpatient (CLI) | payer MEDICARE, OTHER, MEDICAID ==
--- NOTE | 2018-06-29 15:50 | CONSULTATION NOTE ---
Palliative Care Follow Up - Referral Referring Provider: Dr Tanna Hoyt Time of Visit: 06/29/2018. 13:40 - 14:50 Referral setting: Custodial Facility ([facility]) Referral Reason: UTI / Adv Care Planning - Information Sources Records reviewed: RN notes reviewed, Previous records reviewed History/Review of Systems obtained from: Patient, Family, Nursing, Other (Therapy) Exam limitations: Clinical condition (dementia, short term memory deficits) - History of Present Illness Update Brief HPI Update: -82 male with advancing dementia and complex medical problems living at [facility] since 25 February 2018, being followed by Home Health RN and Palliative Care. 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 -Patient hospitalized from 05/22/18 - 05/30/18 for UTI, cellulitis of L arm and uncontrollable pain, DC'd to [facility] SNF for rehabilitation. -Yesterday he was DC'd back to [facility], however, once there, it appeared his condition was poor and [facility] staff determined that he was too weak and i nappropriate for the level of care they can provide, so he was sent back to [facility]. -He had a urinalysis right before leaving, and they had just sent in a culture. -His daughter suspects it's a UTI although his vital signs are stable, no fever, no dysuria. -She reports being very familiar with his health patterns after living and caring for him for 4 years. -His signs of a UTI are increased urge, increased confusion, and increased pain that starts in the lower back regions. -He is complaining today of low back/pain in L buttock area. -He is lying in bed and appears lethargic and slow, but is able to answer my questions and even joke. -counseling director reports polyuria, but his post-void residuals were negative while at [facility]. -He was positive for Gr nev rods, and a culture is currently pending. -WBCs were 15,000 but had been 19,000. -Dr Thorpe is monitoring. Social History - Living Situation Living arrangement: residential (Currently he is at [facility]. Daughter hopes he can return to [facility].) Living Situation: With caregiver(s) Support System: Daughter Inessa is closely involved with patient's care, and she [place] [address]. The patient lived with her for 4 years until the caregiving burden became too great. Medications/Allergies - Medications Home Medications: Ambulatory Orders Medication Instructions Recorded Confirmed Acetaminophen 325 mg PO Q6H PRN 04/03/18 06/29/18 Acetaminophen 650 mg PO TID 04/03/18 06/29/18 Albuterol Sulf [Ventolin Hfa 2 puffs INH BID 04/03/18 06/29/18 Inhaler] Amlodipine Besylate 10 mg PO DAILY 04/03/18 06/29/18 Budesonide/Formoterol Fumarate 2 puffs INH BID 04/03/18 06/29/18 [Symbicort 80-4.5 Mcg Inhaler] Cholecalciferol (Vitamin D3) 1,000 unit PO DAILY 04/03/18 06/29/18 [Vitamin D3] Diphenoxylate/Atropine [Lomotil] 2 tab PO QID PRN 04/03/18 06/29/18 Finasteride 5 mg PO QPM 04/03/18 06/29/18 Hydralazine HCl 40 mg PO BID 04/03/18 06/29/18 Multivitamin [Multiple Vitamins] 1 tab PO DAILY 04/03/18 06/29/18 Nitroglycerin [Nitrostat] 0.4 mg PO Q5MIN PRN MDD 3 TABLETS 04/03/18 06/29/18 Prednisone 5 mg PO DAILY 04/03/18 06/29/18 Tamsulosin HCl [Flomax] 0.4 mg PO DAILY 04/03/18 06/29/18 Tiotropium [place] [Spiriva] 1 cap INH DAILY 04/03/18 06/29/18 Warfarin [Coumadin] 1.25 mg PO DAILY 04/03/18 06/29/18 diltiaZEM [Cardizem] 120 mg PO DAILY 05/23/18 06/29/18 Albuterol 2.5 mg INH Q4H PRN #2 neb 05/30/18 06/29/18 Lidocaine Patch 5% [Lidoderm Patch] 1 patch TOP DAILY #30 patch 05/30/18 06/29/18 Amiodarone [Pacerone] 06/01/18 Ferrous Gluconate 240 mg PO DAILY 06/29/18 06/29/18 Medpass 120 ml PO BID 06/29/18 06/29/18 Melatonin 6 mg PO QPM 06/29/18 06/29/18 Potassium Chloride [K-Dur] 20 meq PO DAILY 06/29/18 06/29/18 - Allergies Allergies/Adverse Reactions: Allergies Allergy/AdvReac Type Severity Reaction Status Date / Time azithromycin Allergy Respiratory Verified 05/22/18 14:47 bee venom protein (honey bee) Allergy Anaphylaxis Verified 05/22/18 14:47 hornet venom Allergy Anaphylaxis Verified 05/22/18 14:47 lisinopril Allergy Respiratory Verified 05/22/18 14:47 losartan Allergy Respiratory Verified 05/22/18 14:47 naproxen [From Naprosyn] Allergy Respiratory Verified 05/22/18 14:47 NSAIDS (Non-Steroidal Allergy Respiratory Verified 05/22/18 14:47 Anti-Inflamma Penicillins Allergy Respiratory Verified 05/22/18 14:47 Sulfa (Sulfonamide Allergy Respiratory Verified 05/22/18 14:47 Antibiotics) aspirin AdvReac Cramps Verified 05/22/18 14:47 hydromorphone AdvReac Hallucinati Verified 05/22/18 14:47 ons Iodinated Contrast- Oral and AdvReac Unknown Verified 05/22/18 14:47 IV Dye omeprazole AdvReac Cramps Verified 05/22/18 14:47 oxycodone AdvReac Hallucinati Verified 05/22/18 14:47 ons wasp Allergy Anaphylaxis Uncoded 05/22/18 14:47 yellow jacket venom Allergy Anaphylaxis Uncoded 05/22/18 14:47 Review of Systems - Constitutional Constitutional: reports: Fatigue, Weight loss (130.4 lbs 06/25. 135 lbs 05/31.) - Ears, Nose & Throat Ears, Nose & Throat: reports: Hearing loss, Dental decay (poor dentition) - Cardiovascular Cardiovascular: denies: Chest pain - Respiratory Respiratory: denies: SOB at rest - Gastrointestinal Gastrointestinal: reports: Constipation (intermittent), Poor appetite - Genitourinary Genitourinary: reports: Frequency. denies: Dysuria - Musculoskeletal Musculoskeletal: reports: Other (pain in L buttocks/lumbar) - Neurological Neurological: reports: General weakness, Memory problems - Psychiatric Psychiatric: reports: Other (Demanding) - Other Findings Other Findings: Limited ROS Physical Exam - Vital Signs Temperature: 97.3 F Pulse Rate: 70 O2 Saturation: 95 Blood Pressure: 106/60 - Physical Exam General Appearance: positive: No acute distress Eyes Bilateral: positive: No lid inflammation, Conjunctivae nml ENT: positive: Dry mucous membranes Neck: positive: Trachea midline Cardiovascular: positive: Regular rate & rhythm, No murmur Respiratory: positive: No respiratory distress, Breath sounds nml, Diminished in bases. negative: Wheezes, Rales Abdomen: positive: Non-tender, Soft Skin: positive: Bruising Extremities: positive: No pedal edema Neurologic/Psychiatric: positive: Disoriented to time, Flat affect Palliative Care - POLST POLST Status: DNR, Selective Treatment Pain: Location (L buttocks / low back) Depression: None Dyspnea: None Anorexia: Moderate (4-6) Constipation: Intermittent constipation - Palliative Care Discussion: Patient's daughter would like to get him into [facility]'s dementia unit, but they have no availability and she recognizes av vacancy is not likely to open up soon. She is not sure she wants to keep him long-term at [facility] (assuming they will accept him into LTC). She believes he has a UTI and the culture is still pending. She wants to take care of that issue first. Also, she is upset at what she perceives as a break in communication by [facility] surrounding the discharge of her father. She planned to pick him up at the facility, and take him back to [facility] to minimize his confusion and distress with the upheaval and help him settle in. The facility transported him instead. We discussed different residential options. I gave her my strong recommendation that he needs a higher level of care than [facility] can provide. She is open to considering AF and we discussed this. She lives [place] [address] and may look into AF close to where she lives in [place]. Her priority is to minimize the upheaval for the patient, and so she feels it's likely she will have him remain at [facility] until she has found a facility or AFH. Daughter did say that she [facility] the [facility] she's interacted with, and she has had experience with other HH and PC services. Impression and Recommendations - Palliative Care Impression: 82-year-old male with advancing dementia and complex medical problems. He has been at [facility] for senior living and rehab after hospitalization 05/22 - 05/30/18 for UTI and cellulitis. He was DC'd back to the [facility] yesterday, however, their staff determined he actually wasn't in a condition that they could provide appropriate care, and so he was sent back to [facility]. He may have a UTI; culture is currently pending. Daughter is unsure residential solution she will choose, and so will likely keep him at [facility] until she can do the research. Her first choice is [facility]'s dementia unit, but there is no current vacancy. Palliative care will continue to provide support and oversight. Recommendations/Counseling Done: UTI: Patient has recurrent UTIs and exhibits his particular signs of infection: increased urgency, confusion, and pain. Culture is pending and Dr Thorpe is monitoring. Chronic pain: Flexeril has been DC'd. Still using lidocaine 5% patch daily, prednisone 5mg, and Tylenol as needed. Patient has a very long list of pains meds he is allergic or has reactions to. Atrial fibrillation: Coumadin 1.25 daily. Bilateral lower extremity edema: Improved. COPD: Stable on the current meds: Albuterol nebulizer, Spiriva, Symbicort, Ventolin. Advanced care planning: POLST is DNR and selective. He was returned to [facility] immediately after being discharged home to his [facility] due to requiring level of care the [facility] cannot provide. Daughter wants the presumed UTI cleared prior to making any decisions on where to move him, but is likely to keep him at [facility] for the foreseeable future. Her first choice is the dementia unit at [facility] but there are no openings. Monthly follow up visits. Time Spent: 70 minutes were spent with more than 50% of the time spent on counseling, education, anticipatory guidance, and coordination of care.
== END 2018-06-29 13:41 | disposition home or self-care (01) ==
LOC: PC 13:40
PROVIDERS: ATTEND Nurse Practitioner
DX: Z51.5 Encounter for palliative care (principal); R39.15 Urgency of urination; R35.0 Frequency of micturition; R41.0 Disorientation, unspecified; M54.5 Low back pain; F03.90 Unspecified dementia, unspecified severity, without behavioral disturbance, psychotic disturbance, mood disturbance, and anxiety; I13.0 Hypertensive heart and chronic kidney disease with heart failure and stage 1 through stage 4 chronic kidney disease, or unspecified chronic kidney disease; I50.9 Heart failure, unspecified; N18.3 Chronic kidney disease, stage 3 (moderate); Z66 Do not resuscitate; Z87.440 Personal history of urinary (tract) infections; G89.29 Other chronic pain; Z79.899 Other long term (current) drug therapy; Z79.52 Long term (current) use of systemic steroids; I48.91 Unspecified atrial fibrillation; Z79.01 Long term (current) use of anticoagulants; R60.0 Localized edema; J44.9 Chronic obstructive pulmonary disease, unspecified; Z79.51 Long term (current) use of inhaled steroids; Z88.1 Allergy status to other antibiotic agents; Z88.0 Allergy status to penicillin; Z88.2 Allergy status to sulfonamides
CPT/HCPCS: 99310

== ENCOUNTER 2018-06-30 03:36 | Outpatient (CLI) | payer MEDICARE, OTHER, MEDICAID | END 2018-06-30 23:59 | disposition home or self-care (01) | LOC: EMS 03:36 | PROVIDERS: ATTEND Surgery | DX: R07.9 Chest pain, unspecified (principal); R10.9 Unspecified abdominal pain | CPT/HCPCS: A0425; A0429 ==

== ENCOUNTER 2018-06-30 03:59 | Emergency (ER) | payer MEDICARE, OTHER, MEDICAID ==
[2018-06-30 04:59] LABS: BASOPHILS # (AUTO) 0.1 10^3/uL (0.0-0.1); EOSINOPHILS # (AUTO) 0.3 10^3/uL (0.0-0.7); EOSINOPHILS % (AUTO) 2.3 %; HGB - HEMOGLOBIN 10.3 g/dL (14.0-18.0); LYMPHOCYTES # (AUTO) 1.1 10^3/uL (1.5-3.5); LYMPHOCYTES % (AUTO) 8.2 %; MEAN CORPUSCULAR HEMOGLOBIN 25.1 pg (27.0-31.0); MEAN CORPUSCULAR HGB CONC 32.6 g/dL (32.0-36.0); MEAN CORPUSCULAR VOLUME 77.2 fL (80.0-94.0); MEAN PLATELET VOLUME 7.2 fL (7.4-11.4); MONOCYTES # (AUTO) 0.8 10^3/uL (0.0-1.0); MONOCYTES % (AUTO) 5.6 %; NEUTROPHILS # (AUTO) 11.2 10^3/uL (1.5-6.6); NEUTROPHILS % (AUTO) 82.9 %; PLT - PLATELET COUNT 298 10^3/uL (130-450); RED CELL DISTRIBUTION WIDTH 17.5 % (12.0-15.0); WHITE BLOOD COUNT 13.5 x10^3/uL (4.8-10.8)
[2018-06-30 05:05] LABS: INR 2.1 (0.8-1.2); PT - PROTHROMBIN TIME 23.5 secs (9.9-12.6)
[2018-06-30 05:12] LABS: ALBUMIN/GLOBULIN RATIO 0.9 (1.0-2.2); BILIRUBIN,TOTAL 0.5 mg/dL (0.2-1.0); CALCIUM 8.3 mg/dL (8.5-10.3); CREATININE 1.2 mg/dL (0.6-1.2); TOTAL PROTEIN 6.5 g/dL (6.7-8.2)
--- NOTE | 2018-06-30 05:32 | XRAY Report ---
Reason: CP Procedure Date: 06/30/2018 Accession Number: [id number] / [id number] Procedure: XR - Chest 2 View X-Ray CPT Code: 66496 FULL RESULT: EXAM: CHEST RADIOGRAPHY EXAM DATE: 06/30/2018 05:23 AM. CLINICAL HISTORY: Chest pain. COMPARISON: CHEST 2 VIEW 05/14/2018 9:57 AM. TECHNIQUE: 2 views. FINDINGS: Lungs/Pleura: Possible emphysema. No alveolar consolidation or pleural effusion seen. No pneumothorax. Postoperative changes. Mediastinum: Heart size normal to upper normal. Aortic atherosclerosis. Other: Osteopenia. IMPRESSION: 1. Postoperative changes and possible emphysema. 2. Heart size normal to upper normal. RADIA
[2018-06-30 05:43] LABS: BILIRUBIN,URINE NEGATIVE (NEGATIVE); GLUCOSE, URINE (UA) NEGATIVE (NEGATIVE); KETONES,URINE (UA) NEGATIVE (NEGATIVE); LEUKOCYTE ESTERASE, URINE TRACE (NEGATIVE); NITRITE,URINE POSITIVE (NEGATIVE); OCCULT BLOOD,URINE NEGATIVE (NEGATIVE); PROTEIN,URINE NEGATIVE (NEGATIVE); UROBILINOGEN,URINE 0.2 (NORMAL) E.U./dL (NORMAL)
[2018-06-30 05:44] LABS: CLARITY,URINE CLEAR (CLEAR)
[2018-06-30] MEDS ORDERED: cefTRIAXone 2 GM in SODIUM CHLORIDE 0.9% MINIBAG 100 ML IV STA (05:45)
[2018-06-30 05:48] LABS: BACTERIA,URINE Many /HPF (None Seen); EPITHELIAL CELLS,UR None Seen /HPF (<= Few); RBC,URINE None Seen /HPF (0-5)
[2018-06-30 05:49] LABS: SQUAMOUS EPITHELIAL CELL,UR NONE SEEN (<= Few)
--- NOTE | 2018-06-30 05:54 | ED Physician Documentation ---
History of Present Illness - Stated complaint Stated Complaint: CP, UTI, LEFT FLANK PAIN - Chief complaint Chief Complaint: Abd Pain - Additonal information Additional information: 82-year-old male who was sent in from a [facility] facility for evaluation of a possible urine infection. No reports of fevers. The patient has no specific complaints. The history is limited secondary to the patient's dementia. Unclear as to when the patient's symptoms started. The patient has a history of chronic chest pain and currently denies any active chest pain. Review of Systems Unable to obtain: Dementia Constitutional: denies: Fever Cardiac: denies: Chest pain / pressure : reports: Dysuria PD PAST MEDICAL HISTORY - Past Medical History Cardiovascular: Atrial fibrillation Respiratory: COPD Neuro: Dementia Endocrine/Autoimmune: HyPOthyroidism : Benign prostate hypertrophy Musculoskeletal: Osteoarthritis, Chronic back pain - Past Surgical History Past Surgical History: Yes Ortho: Hip replacement - Present Medications Home Medications: Ambulatory Orders Medication Instructions Recorded Confirmed Acetaminophen 325 mg PO Q6H PRN 04/03/18 06/29/18 Acetaminophen 650 mg PO TID 04/03/18 06/29/18 Albuterol Sulf [Ventolin Hfa 2 puffs INH BID 04/03/18 06/29/18 Inhaler] Amlodipine Besylate 10 mg PO DAILY 04/03/18 06/29/18 Budesonide/Formoterol Fumarate 2 puffs INH BID 04/03/18 06/29/18 [Symbicort 80-4.5 Mcg Inhaler] Cholecalciferol (Vitamin D3) 1,000 unit PO DAILY 04/03/18 06/29/18 [Vitamin D3] Diphenoxylate/Atropine [Lomotil] 2 tab PO QID PRN 04/03/18 06/29/18 Finasteride 5 mg PO QPM 04/03/18 06/29/18 Hydralazine HCl 40 mg PO BID 04/03/18 06/29/18 Multivitamin [Multiple Vitamins] 1 tab PO DAILY 04/03/18 06/29/18 Nitroglycerin [Nitrostat] 0.4 mg PO Q5MIN PRN MDD 3 TABLETS 04/03/18 06/29/18 Prednisone 5 mg PO DAILY 04/03/18 06/29/18 Tamsulosin HCl [Flomax] 0.4 mg PO DAILY 04/03/18 06/29/18 Tiotropium [place] [Spiriva] 1 cap INH DAILY 04/03/18 06/29/18 Warfarin [Coumadin] 1.25 mg PO DAILY 04/03/18 06/29/18 diltiaZEM [Cardizem] 120 mg PO DAILY 05/23/18 06/29/18 Albuterol 2.5 mg INH Q4H PRN #2 neb 05/30/18 06/29/18 Lidocaine Patch 5% [Lidoderm Patch] 1 patch TOP DAILY #30 patch 05/30/18 06/29/18 Amiodarone [Pacerone] 06/01/18 Ferrous Gluconate 240 mg PO DAILY 06/29/18 06/29/18 Medpass 120 ml PO BID 06/29/18 06/29/18 Melatonin 6 mg PO QPM 06/29/18 06/29/18 Potassium Chloride [K-Dur] 20 meq PO DAILY 06/29/18 06/29/18 Cephalexin [Keflex] 500 mg PO BID #20 capsule 06/30/18 - Allergies Allergies/Adverse Reactions: Allergies Allergy/AdvReac Type Severity Reaction Status Date / Time azithromycin Allergy Respiratory Verified 05/22/18 14:47 bee venom protein (honey bee) Allergy Anaphylaxis Verified 05/22/18 14:47 hornet venom Allergy Anaphylaxis Verified 05/22/18 14:47 lisinopril Allergy Respiratory Verified 05/22/18 14:47 losartan Allergy Respiratory Verified 05/22/18 14:47 naproxen [From Naprosyn] Allergy Respiratory Verified 05/22/18 14:47 NSAIDS (Non-Steroidal Allergy Respiratory Verified 05/22/18 14:47 Anti-Inflamma Penicillins Allergy Respiratory Verified 05/22/18 14:47 Sulfa (Sulfonamide Allergy Respiratory Verified 05/22/18 14:47 Antibiotics) aspirin AdvReac Cramps Verified 05/22/18 14:47 hydromorphone AdvReac Hallucinati Verified 05/22/18 14:47 ons Iodinated Contrast- Oral and AdvReac Unknown Verified 05/22/18 14:47 IV Dye omeprazole AdvReac Cramps Verified 05/22/18 14:47 oxycodone AdvReac Hallucinati Verified 05/22/18 14:47 ons wasp Allergy Anaphylaxis Uncoded 05/22/18 14:47 yellow jacket venom Allergy Anaphylaxis Uncoded 05/22/18 14:47 - Social History Does the pt smoke?: No Smoking Status: Never smoker Does the pt drink ETOH?: Yes Does the pt have substance abuse?: No - Immunizations Immunizations are current?: Yes - POLST Patient has POLST: Yes PD ED PE NORMAL - General General: Other (Alert but dementia at baseline, NAD) - HEENT HEENT: Atraumatic, PERRL, EOMI - Cardiac Cardiac: Strong equal pulses, Other (Irregular rate controlled rhythm) - Respiratory Respiratory: No respiratory distress - Abdomen Abdomen: Soft, Non tender - Derm Derm: Normal color - Extremities Extremities: No deformity - Neuro Neuro: Other (Alert no moving all four extermities ) - Psych Psych: Normal mood Results - Vitals Vitals: Vital Signs - 24 hr 06/30/18 06/30/18 04:01 05:57 Temperature 36.4 C L Heart Rate 63 60 Respiratory 16 16 Rate Blood Pressure 145/99 H 138/75 H O2 Saturation 98 98 Oxygen O2 Source [With Activity] Nasal cannula O2 Source Room air - Labs Labs: Laboratory Tests 06/30/18 06/30/18 06/30/18 04:50 04:50 04:50 WBC 13.5 H RBC 4.10 L Hgb 10.3 L Hct 31.6 L MCV 77.2 L MCH 25.1 L MCHC 32.6 RDW 17.5 H Plt Count 298 MPV 7.2 L Neut # (Auto) 11.2 H Lymph # (Auto) 1.1 L [place] # (Auto) 0.8 Eos # (Auto) 0.3 Baso # (Auto) 0.1 Absolute Nucleated RBC 0.00 Nucleated RBC % 0.0 PT 23.5 H INR 2.1 H APTT 30.0 Sodium 141 Potassium 3.9 Chloride 107 Carbon Dioxide 27 Anion Gap 7.0 BUN 23 H Creatinine 1.2 Estimated GFR (MDRD) 58 L Glucose 103 H Lactic Acid Calcium 8.3 L Total Bilirubin 0.5 AST 19 ALT 32 Alkaline Phosphatase 149 H Total Creatine Kinase 24 Troponin I Total Protein 6.5 L Albumin 3.0 L Globulin 3.5 Albumin/Globulin Ratio 0.9 L Lipase 37 Urine Color Urine Clarity Urine pH Ur Specific [place] Urine Protein Urine Glucose (UA) Urine Ketones Urine Occult Blood Urine Nitrite Urine Bilirubin Urine Urobilinogen Ur Leukocyte Esterase Urine RBC Urine WBC Ur Epithelial Cells Ur Squamous Epith Cells Urine Bacteria Ur Microscopic Review Urine Culture Comments 06/30/18 06/30/18 06/30/18 04:50 05:15 05:30 WBC RBC Hgb Hct MCV MCH MCHC RDW Plt Count MPV Neut # (Auto) Lymph # (Auto) [place] # (Auto) Eos # (Auto) Baso # (Auto) Absolute Nucleated RBC Nucleated RBC % PT INR APTT Sodium Potassium Chloride Carbon Dioxide Anion Gap BUN Creatinine Estimated GFR (MDRD) Glucose Lactic Acid 1.0 Calcium Total Bilirubin AST ALT Alkaline Phosphatase Total Creatine Kinase Troponin I < 0.04 Total Protein Albumin Globulin Albumin/Globulin Ratio Lipase Urine Color YELLOW Urine Clarity CLEAR Urine pH 6.0 Ur Specific [place] 1.020 Urine Protein NEGATIVE Urine Glucose (UA) NEGATIVE Urine Ketones NEGATIVE Urine Occult Blood NEGATIVE Urine Nitrite POSITIVE H Urine Bilirubin NEGATIVE Urine Urobilinogen 0.2 (NORMAL) Ur Leukocyte Esterase TRACE H Urine RBC None Seen Urine WBC >25 H Ur Epithelial Cells None Seen Ur Squamous Epith Cells NONE SEEN Urine Bacteria Many H Ur Microscopic Review INDICATED Urine Culture Comments INDICATED - Rads (name of study) CXR Radiology: Final report received (1. Postoperative changes and possible emphysema. 2. Heart size normal to upper normal.) PD MEDICAL DECISION MAKING - ED course ED course: The patient's workup reveals an acute urinary tract infection. Presently on physical exam and based on lab work there is no evidence of sepsis. The patient is at a [facility] facility and appears appropriate for discharge and outpatient management with oral antibiotics. The patient was given 1 dose of IV antibiotics in the emergency department. I recommended that the patient have his INR rechecked on Monday since he is on Coumadin and Keflex may interfere with the Coumadin. I discussed warning signs and recommended returning to the emergency department for any worsening or any concerns. Departure - Departure Disposition: Home, Self Care Clinical Impression: Acute UTI UTI (urinary tract infection) Qualifiers: Urinary tract infection type: acute cystitis Hematuria presence: without hematuria Qualified Code(s): N30.00 - Acute cystitis without hematuria Condition: Good Instructions: ED UTI Cystitis Male Follow-Up: Tanna Hoyt MD [Primary Care Provider] - Within 3 Days Prescriptions: Cephalexin [Keflex] 500 mg PO BID #20 capsule Comments: Please have your INR re-checked on Monday since antibiotics may elevate your INR Please return to the emergency department for worsening symptoms or any concerns
[2018-06-30 08:07] VITALS: BP 154/64
== END 2018-06-30 09:15 | disposition home or self-care (01) ==
LOC: EDUNIT# → ED 03:59
DX: N30.00 Acute cystitis without hematuria (principal); F03.90 Unspecified dementia, unspecified severity, without behavioral disturbance, psychotic disturbance, mood disturbance, and anxiety; I48.91 Unspecified atrial fibrillation; E03.9 Hypothyroidism, unspecified; Z79.01 Long term (current) use of anticoagulants; Z96.649 Presence of unspecified artificial hip joint
CPT/HCPCS: 36415; 71046; 80053; 81001; 81003; 82550; 83605; 83690; 84484; 85025; 85610; 85730; 87040; 87077; 87086; 87181; 93005; 96365; 99283

== ENCOUNTER 2018-07-01 19:27 | Outpatient (CLI) | payer MEDICARE, OTHER, MEDICAID | END 2018-07-01 19:28 | disposition critical access hospital (66) | LOC: EMS 19:27 | PROVIDERS: ATTEND Surgery | DX: R10.9 Unspecified abdominal pain (principal) | CPT/HCPCS: A0425; A0429 ==

== ENCOUNTER 2018-07-01 19:31 | Inpatient (IN) | payer MEDICARE, OTHER, MEDICAID ==
[2018-07-01] MEDS ORDERED: VANCOMYCIN INJ 2 GM in SODIUM CHLORIDE 0.9% 500 ML IV STA (19:34)
[2018-07-01] MEDS ORDERED: cefTRIAXone 2 GM in SODIUM CHLORIDE 0.9% MINIBAG 100 ML IV STA (19:34)
--- NOTE | 2018-07-01 19:35 | ED Physician Documentation ---
History of Present Illness - Stated complaint Stated Complaint: + BLOOD CULTURE - Chief complaint Chief Complaint: General - History obtained from History obtained from: Patient - History of Present Illness Timing: Yesterday (Seen early yesterday morning for UTI which is growing gram negatives, but noted to have a positive blood culture for MRSA and called back for further evaluation and treatment. He says he feels cold but otherwise has no specific complaints. He is demented though so history is somewhat limited.) Review of Systems Unable to obtain: Dementia Constitutional: reports: [place] PD PAST MEDICAL HISTORY - Past Medical History Cardiovascular: Atrial fibrillation Respiratory: COPD Neuro: Dementia Endocrine/Autoimmune: HyPOthyroidism : Benign prostate hypertrophy Musculoskeletal: Osteoarthritis, Chronic back pain - Past Surgical History Past Surgical History: Yes Ortho: Hip replacement - Present Medications Home Medications: Ambulatory Orders Medication Instructions Recorded Confirmed RX: Acetaminophen 325 mg PO Q6H PRN 04/03/18 06/29/18 RX: Acetaminophen 650 mg PO TID 04/03/18 06/29/18 RX: Albuterol Sulf [Ventolin Hfa 2 puffs INH BID 04/03/18 06/29/18 Inhaler] RX: Amlodipine Besylate 10 mg PO DAILY 04/03/18 06/29/18 RX: Budesonide/Formoterol Fumarate 2 puffs INH BID 04/03/18 06/29/18 [Symbicort 80-4.5 Mcg Inhaler] RX: Cholecalciferol (Vitamin D3) 1,000 unit PO DAILY 04/03/18 06/29/18 [Vitamin D3] RX: Diphenoxylate/Atropine 2 tab PO QID PRN 04/03/18 06/29/18 [Lomotil] RX: Finasteride 5 mg PO QPM 04/03/18 06/29/18 RX: Hydralazine HCl 40 mg PO BID 04/03/18 06/29/18 RX: Multivitamin [Multiple 1 tab PO DAILY 04/03/18 06/29/18 Vitamins] RX: Nitroglycerin [Nitrostat] 0.4 mg PO Q5MIN PRN MDD 3 TABLETS 04/03/18 06/29/18 RX: Prednisone 5 mg PO DAILY 04/03/18 06/29/18 RX: Tamsulosin HCl [Flomax] 0.4 mg PO DAILY 04/03/18 06/29/18 RX: Tiotropium [place] [Spiriva] 1 cap INH DAILY 04/03/18 06/29/18 RX: Warfarin [Coumadin] 1.25 mg PO DAILY 04/03/18 06/29/18 RX: diltiaZEM [Cardizem] 120 mg PO DAILY 05/23/18 06/29/18 RX: Albuterol 2.5 mg INH Q4H PRN #2 neb 05/30/18 06/29/18 RX: Lidocaine Patch 5% [Lidoderm 1 patch TOP DAILY #30 patch 05/30/18 06/29/18 Patch] RX: Amiodarone [Pacerone] 06/01/18 Medpass 120 ml PO BID 06/29/18 06/29/18 RX: Ferrous Gluconate 240 mg PO DAILY 06/29/18 06/29/18 RX: Melatonin 6 mg PO QPM 06/29/18 06/29/18 RX: Potassium Chloride [K-Dur] 20 meq PO DAILY 06/29/18 06/29/18 Cephalexin [Keflex] 500 mg PO BID #20 capsule 06/30/18 - Allergies Allergies/Adverse Reactions: Allergies Allergy/AdvReac Type Severity Reaction Status Date / Time azithromycin Allergy Respiratory Verified 05/22/18 14:47 bee venom protein (honey bee) Allergy Anaphylaxis Verified 05/22/18 14:47 hornet venom Allergy Anaphylaxis Verified 05/22/18 14:47 lisinopril Allergy Respiratory Verified 05/22/18 14:47 losartan Allergy Respiratory Verified 05/22/18 14:47 naproxen [From Naprosyn] Allergy Respiratory Verified 05/22/18 14:47 NSAIDS (Non-Steroidal Allergy Respiratory Verified 05/22/18 14:47 Anti-Inflamma Penicillins Allergy Respiratory Verified 05/22/18 14:47 Sulfa (Sulfonamide Allergy Respiratory Verified 05/22/18 14:47 Antibiotics) aspirin AdvReac Cramps Verified 05/22/18 14:47 hydromorphone AdvReac Hallucinati Verified 05/22/18 14:47 ons Iodinated Contrast- Oral and AdvReac Unknown Verified 05/22/18 14:47 IV Dye omeprazole AdvReac Cramps Verified 05/22/18 14:47 oxycodone AdvReac Hallucinati Verified 05/22/18 14:47 ons wasp Allergy Anaphylaxis Uncoded 05/22/18 14:47 yellow jacket venom Allergy Anaphylaxis Uncoded 05/22/18 14:47 - Social History Does the pt smoke?: No Smoking Status: Never smoker Does the pt drink ETOH?: Yes Does the pt have substance abuse?: No - Family History Family history: reports: Non contributory - Immunizations Immunizations are current?: Yes - POLST Patient has POLST: Yes PD ED PE NORMAL - Vitals Vital signs reviewed: Yes - General General: No acute distress, Well developed/nourished - HEENT HEENT: PERRL, EOMI - Neck Neck: Supple, no meningeal sign, No bony TTP - Cardiac Cardiac: RRR, No murmur - Respiratory Respiratory: No respiratory distress, Clear bilaterally - Abdomen Abdomen: Normal bowel sounds, Soft, Non tender - Back Back: No CVA TTP, No spinal TTP - Derm Derm: Normal color, Warm and dry - Extremities Extremities: No edema, No calf tenderness / cord - Neuro Neuro: credentialing specialist 2-12 intact Eye Opening: Spontaneous Motor: Obeys Commands Verbal: Confused GCS Score: 14 - Psych Psych: Normal mood, Normal affect Results - Vitals Vitals: Vital Signs - 24 hr 07/01/18 19:31 Temperature 36.9 C Heart Rate 73 Respiratory 18 Rate Blood Pressure 149/65 H O2 Saturation 97 Oxygen O2 Source [With Activity] Nasal cannula O2 Source Room air - Labs Labs: Laboratory Tests 07/01/18 07/01/18 07/01/18 19:45 19:45 19:45 WBC 13.1 H RBC 4.19 L Hgb 10.5 L Hct 32.1 L MCV 76.5 L MCH 24.9 L MCHC 32.6 RDW 17.9 H Plt Count 336 MPV 7.4 Neut # (Auto) 11.8 H Lymph # (Auto) 0.6 L [place] # (Auto) 0.6 Eos # (Auto) 0.1 Baso # (Auto) 0.1 Absolute Nucleated RBC 0.00 Nucleated RBC % 0.0 PT INR Sodium 135 Potassium 4.3 Chloride 104 Carbon Dioxide 25 Anion Gap 6.0 BUN 23 H Creatinine 1.5 H Estimated GFR (MDRD) 45 L Glucose 135 H Lactic Acid 1.4 Calcium 8.4 L Total Bilirubin 0.4 AST 21 ALT 30 Alkaline Phosphatase 142 H Total Protein 6.8 Albumin 3.1 L Globulin 3.7 Albumin/Globulin Ratio 0.8 L Lipase 39 07/01/18 19:45 WBC RBC Hgb Hct MCV MCH MCHC RDW Plt Count MPV Neut # (Auto) Lymph # (Auto) [place] # (Auto) Eos # (Auto) Baso # (Auto) Absolute Nucleated RBC Nucleated RBC % PT 29.4 H INR 2.6 H Sodium Potassium Chloride Carbon Dioxide Anion Gap BUN Creatinine Estimated GFR (MDRD) Glucose Lactic Acid Calcium Total Bilirubin AST ALT Alkaline Phosphatase Total Protein Albumin Globulin Albumin/Globulin Ratio Lipase PD MEDICAL DECISION MAKING - ED course ED course: This is an 82-year-old gentleman who was brought back for reevaluation due to positive blood culture for MRSA, 1 out of 2. This may well be a contaminant given that his urinalysis and urine culture are growing gram-negative bacilli, that said the better part of valor is to repeat blood cultures and place him on vancomycin until these cultures are negative to confirm that it is a contaminant. However shortly after his repeat labs were drawn I took a call from the lab and they said that putting in the positive MRSA verigene notation from yesterday morning was an error and they will amended the report. The only positive culture from yesterday's blood cultures is staph epidermidis. As such there is a very high likelihood that this is a contaminant, not a true positive. Still though given this gentleman with advanced age, dementia, group home resident, and on chronic prednisone is at high risk for sepsis and there is a chance that this does not represent a contaminant and as such the plan is not changed. I updated the daughter by phone who is understanding. And I spoke with Dr Goldberg for admit at 8:05pm. Departure - Departure Disposition: 66 [facility] DC/Xfer Clinical Impression: Gram-positive cocci bacteremia, UTI (urinary tract infection) Condition: Serious Discharge Date/Time: 07/01/18 21:15
[2018-07-01 19:57] LABS: BASOPHILS # (AUTO) 0.1 10^3/uL (0.0-0.1); BASOPHILS % (AUTO) 0.5 %; EOSINOPHILS # (AUTO) 0.1 10^3/uL (0.0-0.7); EOSINOPHILS % (AUTO) 0.5 %; HGB - HEMOGLOBIN 10.5 g/dL (14.0-18.0); LYMPHOCYTES # (AUTO) 0.6 10^3/uL (1.5-3.5); LYMPHOCYTES % (AUTO) 4.5 %; MEAN CORPUSCULAR HEMOGLOBIN 24.9 pg (27.0-31.0); MEAN CORPUSCULAR HGB CONC 32.6 g/dL (32.0-36.0); MEAN CORPUSCULAR VOLUME 76.5 fL (80.0-94.0); MEAN PLATELET VOLUME 7.4 fL (7.4-11.4); MONOCYTES # (AUTO) 0.6 10^3/uL (0.0-1.0); MONOCYTES % (AUTO) 4.8 %; NEUTROPHILS # (AUTO) 11.8 10^3/uL (1.5-6.6); NEUTROPHILS % (AUTO) 89.7 %; PLT - PLATELET COUNT 336 10^3/uL (130-450); RED BLOOD COUNT 4.19 10^6/uL (4.70-6.10); RED CELL DISTRIBUTION WIDTH 17.9 % (12.0-15.0); WHITE BLOOD COUNT 13.1 x10^3/uL (4.8-10.8)
[2018-07-01 20:09] LABS: ALBUMIN 3.1 g/dL (3.2-5.5); ALBUMIN/GLOBULIN RATIO 0.8 (1.0-2.2); BILIRUBIN,TOTAL 0.4 mg/dL (0.2-1.0); CALCIUM 8.4 mg/dL (8.5-10.3); CREATININE 1.5 mg/dL (0.6-1.2); TOTAL PROTEIN 6.8 g/dL (6.7-8.2)
[2018-07-01] MEDS ORDERED: PROCHLORPERAZINE 10 MG/2 ML VIAL IVP PRN (20:13)
[2018-07-01] MEDS ORDERED: SODIUM CHLORIDE FLUSH 0.9% 10 ML SYRINGE IVP PRN (20:13)
[2018-07-01] MEDS ORDERED: ACETAMINOPHEN 325 MG TABLET PO PRN (20:13)
[2018-07-01] MEDS ORDERED: ZOLPIDEM 5 MG TABLET PO PRN (20:13)
[2018-07-01] MEDS ORDERED: IPRATROPIUM/ALBUTEROL 3 ML NEB INH PRN (20:13)
[2018-07-01] MEDS ORDERED: ONDANSETRON 4 MG/2 ML VIAL IVP PRN (20:13)
[2018-07-01] MEDS ORDERED: PROMETHAZINE 25 MG/1 ML VIAL IM PRN (20:13)
[2018-07-01] MEDS ORDERED: oxyCODONE 5 MG TABLET PO PRN (20:13)
--- NOTE | 2018-07-01 20:21 | HISTORY & PHYSICAL EXAMINATION ---
Chief Complaint - Chief Complaint Chief Complaint: Left flank pain History of Present Illness - Admitted From Admitted From:: Emergency Department - History Obtained From Records Reviewed: Yes History obtained from: Patient and medical records Exam Limitations: Patient has dementia and is poor historian - History of Present Illness HPI Comment/Other: Patient is an 82-year-old gentleman with a past medical history significant for dementia, diastolic heart failure, CKD stage III, hypertension, atrial fibrillation on long-term anticoagulation, COPD, coronary artery disease, polymyalgia rheumatica on chronic prednisone, peripheral vascular disease and history of AAA repair who presents to the emergency department with a chief complaint of left flank pain. The patient presented to the emergency department on 06/30/2018 with this left flank pain and at that time was diagnosed with a urinary tract infection with a positive UA and sent back to [facility] where he is currently receiving subacute rehab. During that emergency room visit blood cultures were drawn. The patient's blood cultures returned today w ith 1 out of 2 bottles growing gram-positive cocci in clusters concerning for MRSA. The patient was called back to the emergency department due to positive blood cultures. On presentation to the emergency department today the patient continues to complain of left flank pain and increased urinary frequency. He denies any fevers but does state he is feeling cold. He also admits to lower abdominal pain. The patient denies any nausea or vomiting. The patient denies any dysuria. The patient denies any diarrhea. The patient appears to have some memory impairment and is a fairly poor historian. Patient denies any headaches, blurred vision, runny nose, sore throat, nasal congestion, difficulty swallowing, chest pain, shortness of air, orthopnea, PND, increased lower extremity swelling, joint swelling, back pain, neck stiffness, recent unintentional weight loss, changes in his appetite, polyuria, polydipsia, skin rash, skin changes, dizziness or any focal neurologic deficits. On presentation to the emergency department today the patient is afebrile and slightly hypertensive but otherwise his vital signs are all within normal limits. The patient does not appear to be in any acute distress. The patient does have an elevated white blood cell count of 13.1 on his CBC. The patient has a chronically low hemoglobin of 10.5. The patient's INR is therapeutic at 2.6. The patient's creatinine is mildly elevated from baseline at 1.5. The patient's lactic acid was normal. The patient's urine culture appears to be growing gram-negative rods from yesterday. Blood cultures were repeated in the emergency department. The patient was admitted to the [facility] for IV antibiotics and repeat blood cultures. History - Past Medical History Cardiovascular: reports: Congestive heart failure (Diastolic), Hypertension, Coronary artery disease, Peripheral Vascular Disease, Atrial fibrillation Respiratory: reports: COPD Neuro: reports: Dementia : reports: Benign prostate hypertrophy, Renal insuffiency (CKD stage III) HEENT: reports: Chronic vision loss Musculoskeletal: reports: Osteoarthritis, Chronic back pain, Other (Polymyalgia rheumatica ) MRSA Hx?: No - Past Surgical History General: reports: Other (Right upper lung lobectomy, suspected malignancy but pathology was negative for cancer) Ortho: reports: Hip replacement (R hemiarthroplasty 2014) Cardiovascular: reports: AAA (Endovascular repair 2013) - Family & Social History Family History: Mother: , Cancer (Breast Ca), Father: , CVA/TIA, Diabetes, Type 2, Brother: Living arrangement: Assisted living Living Situation: With caregiver(s) Social History Notes: The patient was born in [place] and worked for [email or web address]. He has long since retired. He is part [place] decent. The patient has been 3 times, he is now . He lives with his daughter, Inessa for about 4 years until she could no longer provide adequate care and he moved in to [facility] in February 2018. He had 5 children, 2 are from cancer. One daughter lives in [place] and is not closely involved. One son used to live with the patient for 5 years but then moved to [place] when the patient declined and required more care. At that time the patient moved in with his daughter Inessa and her . The patient was recently hospitalized and has been at [facility] for the last month getting physical therapy and rehab. The patient is a former smoker but no longer smokes. He does not drink alcohol and he does not use any illicit drugs. - POLST Patient has POLST: Yes POLST Status: DNR Meds/Allgy - Home Medications Home Medications: Ambulatory Orders Medication Instructions Recorded Confirmed Acetaminophen 325 mg PO Q6H PRN 04/03/18 06/29/18 Acetaminophen 650 mg PO TID 04/03/18 06/29/18 Albuterol Sulf [Ventolin Hfa 2 puffs INH BID 04/03/18 06/29/18 Inhaler] Amlodipine Besylate 10 mg PO DAILY 04/03/18 06/29/18 Budesonide/Formoterol Fumarate 2 puffs INH BID 04/03/18 06/29/18 [Symbicort 80-4.5 Mcg Inhaler] Cholecalciferol (Vitamin D3) 1,000 unit PO DAILY 04/03/18 06/29/18 [Vitamin D3] Diphenoxylate/Atropine [Lomotil] 2 tab PO QID PRN 04/03/18 06/29/18 Finasteride 5 mg PO QPM 04/03/18 06/29/18 Hydralazine HCl 40 mg PO BID 04/03/18 06/29/18 Multivitamin [Multiple Vitamins] 1 tab PO DAILY 04/03/18 06/29/18 Nitroglycerin [Nitrostat] 0.4 mg PO Q5MIN PRN MDD 3 TABLETS 04/03/18 06/29/18 Prednisone 5 mg PO DAILY 04/03/18 06/29/18 Tamsulosin HCl [Flomax] 0.4 mg PO DAILY 04/03/18 06/29/18 Tiotropium Gentry [Spiriva] 1 cap INH DAILY 04/03/18 06/29/18 Warfarin [Coumadin] 1.25 mg PO DAILY 04/03/18 06/29/18 diltiaZEM [Cardizem] 120 mg PO DAILY 05/23/18 06/29/18 Albuterol 2.5 mg INH Q4H PRN #2 neb 05/30/18 06/29/18 Lidocaine Patch 5% [Lidoderm Patch] 1 patch TOP DAILY #30 patch 05/30/18 06/29/18 Amiodarone [Pacerone] 06/01/18 Ferrous Gluconate 240 mg PO DAILY 06/29/18 06/29/18 Medpass 120 ml PO BID 06/29/18 06/29/18 Melatonin 6 mg PO QPM 06/29/18 06/29/18 Potassium Chloride [K-Dur] 20 meq PO DAILY 06/29/18 06/29/18 Cephalexin [Keflex] 500 mg PO BID #20 capsule 06/30/18 - Allergies Allergies/Adverse Reactions: Allergies Allergy/AdvReac Type Severity Reaction Status Date / Time azithromycin Allergy Respiratory Verified 05/22/18 14:47 bee venom protein (honey bee) Allergy Anaphylaxis Verified 05/22/18 14:47 hornet venom Allergy Anaphylaxis Verified 05/22/18 14:47 lisinopril Allergy Respiratory Verified 05/22/18 14:47 losartan Allergy Respiratory Verified 05/22/18 14:47 naproxen [From Naprosyn] Allergy Respiratory Verified 05/22/18 14:47 NSAIDS (Non-Steroidal Allergy Respiratory Verified 05/22/18 14:47 Anti-Inflamma Penicillins Allergy Respiratory Verified 05/22/18 14:47 Sulfa (Sulfonamide Allergy Respiratory Verified 05/22/18 14:47 Antibiotics) aspirin AdvReac Cramps Verified 05/22/18 14:47 hydromorphone AdvReac Hallucinati Verified 05/22/18 14:47 ons Iodinated Contrast- Oral and AdvReac Unknown Verified 05/22/18 14:47 IV Dye omeprazole AdvReac Cramps Verified 05/22/18 14:47 oxycodone AdvReac Hallucinati Verified 05/22/18 14:47 ons wasp Allergy Anaphylaxis Uncoded 05/22/18 14:47 yellow jacket venom Allergy Anaphylaxis Uncoded 05/22/18 14:47 Review of Systems - Other Findings Other Findings: A comprehensive review of systems was performed the pertinent positives and negatives are stated above in the HPI and the remainder of the review of systems is negative. Prior Level of Functionality: Patient lives at [facility] and is dependent on staff for his activities of daily living. Exam - Vital Signs Reviewed Vital Signs: Yes Vital Signs: Vital Signs x48h Temp Pulse Resp BP Pulse Ox 07/01/18 19:31 36.9 C 73 18 149/65 H 97 - Physical Exam General Appearance: positive: No acute distress, Alert Eyes Bilateral: positive: Normal inspection, PERRL, EOMI. negative: No lid inflammation, Conjunctivae nml, No scleral icterus ENT: positive: ENT inspection nml, Pharynx nml, Dry mucous membranes. negative: Purulent nasal drainage, Pharyngeal erythema, Oral lesions Neck: positive: Nml inspection, Thyroid nml, No JVD, Trachea midline. negative: Lymphadenopathy (R), Lymphadenopathy (L), Stiff neck, Carotid bruit, Tracheal deviation Respiratory: positive: Chest non-tender, No respiratory distress, Breath sounds nml. negative: Wheezes, Rales, Rhonchi Cardiovascular: positive: Regular rate & rhythm, No murmur, No gallop Peripheral Pulses: positive: 2+ Abdomen: positive: No organomegaly, Nml bowel sounds, No distention, Tenderness (Lower abdominal tenderness with some guarding but no rebound.), Guarding. negative: Rebound, Hepatomegaly Back: positive: Nml inspection, CVA tenderness (L). negative: CVA tenderness (R) Skin: positive: Color nml, No rash, Warm, Dry. negative: Cyanosis, Diaphoresis, Pallor Extremities: positive: Non-tender, Full ROM, Nml appearance, No pedal edema Neurologic/Psychiatric: positive: CN's nml (2-12), Motor nml, Sensation nml, Mood/affect nml, Disoriented to time, Other (Does not know name of president and dose not have a very good preception of time.) Conclusion/Plan - Problem List (1) Gram-positive cocci bacteremia Conclusion/Plan: The patient presented to the emergency department yesterday with left flank pain and was found to have a positive urine analysis. The patient is on chronic prednisone which makes him slightly immunosuppressed and therefore blood cultures were drawn. The patient's blood cultures have come back positive for gram-positive cocci in clusters in 1 out of 2 bottles. This is concerning for possible MRSA bacteremia. The patient's urine culture however is growing gram- negative rods. These 2 do not correlate well. It is possible that this could be a skin contaminant in the culture. However given the fact that the patient is immune O suppressed and elderly it is felt best to admit the patient to the [facility] for IV antibiotics and follow-up blood cultures. Plan: IV vancomycin Repeat blood cultures Monitor initial blood cultures for speciation and susceptibilities IV fluids If blood cultures are not a contaminant patient will need 14 days of treatment with antibiotics (2) Pyelonephritis Conclusion/Plan: Patient presented to the emergency department with left flank pain and had CVA tenderness on examination. The patient's urinalysis was grossly positive with greater than 25 WBCs and bacteria. The patient's urine culture is growing gram-negative rods. The patient's blood culture was positive for gram-positive cocci in clusters which is unlikely to be urinary source. The patient continues to have left flank pain, lower abdominal pain and increased urinary frequency. The patient also has a leukocytosis of 13.1 but negative lactic acid. Plan: IV ceftriaxone IV fluids Follow-up urine and blood cultures Given that patient has pyelonephritis we will treat for 14 days with antibiotics. (3) Polymyalgia rheumatica Conclusion/Plan: Patient is a history of polymyalgia rheumatica and is on chronic prednisone with 5 mg daily. We will continue the patient on his home dose of prednisone. This does make the patient immunosuppressed and we will need to closely monitor him for possible sepsis. Currently the patient's symptoms are controlled. (4) Atrial fibrillation Conclusion/Plan: Patient has a history of atrial fibrillation and is on anticoagulation with Coumadin. The patient is on diltiazem and amiodarone for rate control. Plan: Patient will be continued on amiodarone and diltiazem as well as Coumadin Patient's rate appears to be controlled and INR is therapeutic. Qualifiers: Atrial fibrillation type: chronic Qualified Code(s): I48.2 - Chronic atrial fibrillation (5) COPD (chronic obstructive pulmonary disease) Conclusion/Plan: Patient has a history of COPD and is on rescue inhalers as well as Symbicort at home. The patient's currently well controlled with no wheezing or shortness of breath. Patient is not on home O2. Plan: Continue duo nebs as needed Place patient on budesonide twice daily and formoterol twice daily while hospit alized Qualifiers: COPD type: unspecified COPD Qualified Code(s): J44.9 - Chronic obstructive pulmonary disease, unspecified (6) Hypertension Conclusion/Plan: Patient has a history of hypertension for which he takes amlodipine, diltiazem and hydralazine. The patient's blood pressure on presentation is slightly elevated. The patient will be continued on his home antihypertensive medication and we will monitor the patient's blood pressure and titrate medications as needed. Qualifiers: Hypertension type: essential hypertension Qualified Code(s): I10 - Essential (primary) hypertension (7) BPH (benign prostatic hyperplasia) Conclusion/Plan: Patient does have a history of BPH and is on finasteride and Flomax at home. The patient will be continued on finasteride and Flomax while he is hospitaliz ed. Qualifiers: Lower urinary tract symptom presence: symptoms present Lower urinary tract symptom detail: unspecified Qualified Code(s): N40.1 - Benign prostatic hyperplasia with lower urinary tract symptoms (8) Iron deficiency anemia Conclusion/Plan: The patient has a history of iron deficiency anemia. The patient's hemoglobin on presentation is stable at 10.5. The patient is on iron supplements at home. Patient will be continued on iron supplements while he is hospitalized. Qualifiers: Iron deficiency anemia type: unspecified iron deficiency Qualified Code(s): D50.9 - Iron deficiency anemia, unspecified - Lab Results Lab results reviewed: Yes Fish Bones: 07/01/18 19:45 07/01/18 19:45 Other Lab Results: Laboratory Results WBC 13.1 x10^3/uL (4.8-10.8) H 07/01/18 19:45 RBC 4.19 10^6/uL (4.70-6.10) L 07/01/18 19:45 Hgb 10.5 g/dL (14.0-18.0) L 07/01/18 19:45 Hct 32.1 % (42.0-52.0) L 07/01/18 19:45 MCV 76.5 fL (80.0-94.0) L 07/01/18 19:45 MCH 24.9 pg (27.0-31.0) L 07/01/18 19:45 MCHC 32.6 g/dL (32.0-36.0) 07/01/18 19:45 RDW 17.9 % (12.0-15.0) H 07/01/18 19:45 Plt Count 336 10^3/uL (130-450) 07/01/18 19:45 MPV 7.4 fL (7.4-11.4) 07/01/18 19:45 Neut # (Auto) 11.8 10^3/uL (1.5-6.6) H 07/01/18 19:45 Lymph # (Auto) 0.6 10^3/uL (1.5-3.5) L 07/01/18 19:45 [place]cl[place] # (Auto) 0.6 10^3/uL (0.0-1.0) 07/01/18 19:45 Eos # (Auto) 0.1 10^3/uL (0.0-0.7) 07/01/18 19:45 Baso # (Auto) 0.1 10^3/uL (0.0-0.1) 07/01/18 19:45 Absolute Nucleated RBC 0.00 x10^3/uL 07/01/18 19:45 Nucleated RBC % 0.0 /100WBC 07/01/18 19:45 Sodium 135 mmol/L (135-145) 07/01/18 19:45 Potassium 4.3 mmol/L (3.5-5.0) 07/01/18 19:45 Chloride 104 mmol/L (101-111) 07/01/18 19:45 Carbon Dioxide 25 mmol/L (21-32) 07/01/18 19:45 Anion Gap 6.0 (6-13) 07/01/18 19:45 BUN 23 mg/dL (6-20) H 07/01/18 19:45 Creatinine 1.5 mg/dL (0.6-1.2) H 07/01/18 19:45 Estimated GFR (MDRD) 45 (>89) L 07/01/18 19:45 Glucose 135 mg/dL (70-100) H 07/01/18 19:45 Lactic Acid 1.4 mmol/L (0.5-2.2) 07/01/18 19:45 Calcium 8.4 mg/dL (8.5-10.3) L 07/01/18 19:45 Total Bilirubin 0.4 mg/dL (0.2-1.0) 07/01/18 19:45 AST 21 IU/L (10-42) 07/01/18 19:45 ALT 30 IU/L (10-60) 07/01/18 19:45 Alkaline Phosphatase 142 IU/L (42-121) H 07/01/18 19:45 Total Protein 6.8 g/dL (6.7-8.2) 07/01/18 19:45 Albumin 3.1 g/dL (3.2-5.5) L 07/01/18 19:45 Globulin 3.7 g/dL (2.1-4.2) 07/01/18 19:45 Albumin/Globulin Ratio 0.8 (1.0-2.2) L 07/01/18 19:45 Lipase 39 U/L (22-51) 07/01/18 19:45 Core Measures - Anticipated LOS I expect patient to be DC'd or transferred within 96 hours.: Yes - DVT/VTE - Prophylaxis VTE/DVT Device ordered at admit?: Yes
[2018-07-01 20:29] LABS: INR 2.6 (0.8-1.2); PT - PROTHROMBIN TIME 29.4 secs (9.9-12.6)
[2018-07-01] MEDS ORDERED: VANCOMYCIN PER PHARMACY 0 GM in SODIUM CHLORIDE 0.9% 250 ML IV SCH (21:00)
[2018-07-01] MEDS: oxyCODONE 5 MG TABLET PO PRN (21:59)
[2018-07-01] MEDS: FAMOTIDINE 20 MG TABLET PO SCH (22:00)
[2018-07-01] MEDS: hydrALAZINE 10 MG TABLET PO SCH (22:00)
[2018-07-01] MEDS: FINASTERIDE 5 MG TABLET PO SCH (22:00)
[2018-07-01] MEDS: SODIUM CHLORIDE 0.9% 1,000 ML IV SCH (22:00)
[2018-07-02] MEDS: SODIUM CHLORIDE FLUSH 0.9% 10 ML SYRINGE IVP SCH ×4 (04:46→23:37)
[2018-07-02 06:04] LABS: INR 2.5 (0.8-1.2); PT - PROTHROMBIN TIME 27.5 secs (9.9-12.6)
[2018-07-02 06:07] LABS: BASOPHILS # (AUTO) 0.1 10^3/uL (0.0-0.1); EOSINOPHILS # (AUTO) 0.3 10^3/uL (0.0-0.7); EOSINOPHILS % (AUTO) 2.7 %; HGB - HEMOGLOBIN 10.7 g/dL (14.0-18.0); LYMPHOCYTES % (AUTO) 8.3 %; MEAN CORPUSCULAR HEMOGLOBIN 24.9 pg (27.0-31.0); MEAN CORPUSCULAR HGB CONC 31.8 g/dL (32.0-36.0); MEAN PLATELET VOLUME 7.5 fL (7.4-11.4); MONOCYTES # (AUTO) 0.8 10^3/uL (0.0-1.0); MONOCYTES % (AUTO) 6.1 %; NEUTROPHILS # (AUTO) 10.2 10^3/uL (1.5-6.6); NEUTROPHILS % (AUTO) 81.9 %; PLT - PLATELET COUNT 319 10^3/uL (130-450); RED BLOOD COUNT 4.31 10^6/uL (4.70-6.10); RED CELL DISTRIBUTION WIDTH 17.9 % (12.0-15.0); WHITE BLOOD COUNT 12.5 x10^3/uL (4.8-10.8)
[2018-07-02 06:09] LABS: ALBUMIN 3.1 g/dL (3.2-5.5); BILIRUBIN,TOTAL 0.4 mg/dL (0.2-1.0); CALCIUM 8.2 mg/dL (8.5-10.3); CREATININE 1.2 mg/dL (0.6-1.2); TOTAL PROTEIN 6.3 g/dL (6.7-8.2)
[2018-07-02] MEDS: BUDESONIDE 0.5 MG/2 ML NEB INH SCH ×2 (07:55→18:44)
[2018-07-02] MEDS: FORMOTEROL FUMARATE NEB 20 MCG/2 ML INH SCH ×2 (07:55→18:45)
[2018-07-02] MEDS: SODIUM CHLORIDE 0.9% 1,000 ML IV SCH ×3 (08:25→18:57)
[2018-07-02] MEDS: FERROUS GLUCONATE 324 MG TABLET PO SCH (08:27)
[2018-07-02] MEDS: FAMOTIDINE 20 MG TABLET PO SCH ×2 (08:27→21:56)
[2018-07-02] MEDS: hydrALAZINE 10 MG TABLET PO SCH ×2 (08:27→21:56)
[2018-07-02] MEDS: AMIODARONE 200 MG TABLET PO SCH (08:27)
[2018-07-02] MEDS: amLODIPine 5 MG TABLET PO SCH (08:27)
[2018-07-02] MEDS: POTASSIUM CHLORIDE 20 MEQ TABLET PO SCH (08:27)
[2018-07-02] MEDS: TAMSULOSIN 0.4 MG CAPSULE PO SCH (08:27)
[2018-07-02] MEDS: diltiaZEM CD 120 MG CAPSULE PO SCH (08:27)
[2018-07-02] MEDS: predniSONE 5 MG TABLET PO SCH (08:27)
[2018-07-02] MEDS: CHOLECALCIFEROL 1,000 UNIT TABLET PO SCH (08:27)
[2018-07-02] MEDS: MULTIVITAMIN TABLET PO SCH (08:27)
[2018-07-02] MEDS: SACCHAROMYCES BOULARDII 250 MG CAPSULE PO SCH ×2 (08:31→16:31)
[2018-07-02] MEDS: LIDOCAINE PATCH 5% TOP SCH (08:31)
[2018-07-02] MEDS: POLYETHYLENE GLYCOL 3350 17 GM PACKET PO SCH (08:32)
[2018-07-02] MEDS ORDERED: ALBUTEROL NEB 2.5 MG/3 ML INH PRN (10:56)
[2018-07-02] MEDS: oxyCODONE 5 MG TABLET PO PRN ×3 (12:14→21:56)
[2018-07-02] MEDS: WARFARIN 2.5 MG TABLET PO SCH (13:50)
--- NOTE | 2018-07-02 18:00 | PROVIDER PROGRESS NOTE ---
Assessment/Plan - Problem List (1) Pyelonephritis Assessment/Plan: Gram neg in urine cu;ture. Continue iv Ceftriaxone until ID bacteria. (2) Gram-positive cocci bacteremia Assessment/Plan: This may be a contaminant since it appears to be Staph epidermitis. Await final identification. Continue empiric iv Vanco until then. (3) Dementia Assessment/Plan: Stable with cueing. Continue supportive care. (4) Atrial fibrillation Qualifiers: Atrial fibrillation type: chronic Qualified Code(s): I48.2 - Chronic atrial fibrillation Assessment/Plan: He had no EKG and is not on telemetry. HR is controlled on Amiodarone and Cardizem. INR is therapeutic, on Coumadin. Monitor INR daily while here. (5) COPD (chronic obstructive pulmonary disease) Qualifiers: COPD type: unspecified COPD Qualified Code(s): J44.9 - Chronic obstructive pulmonary disease, unspecified Assessment/Plan: No current exacerbation. Continue inhalers, prednisone. (6) Polymyalgia rheumatica Assessment/Plan: Stable symptoms on Prednisone, the dose was not changed. (7) Hypertension Qualifiers: Hypertension type: essential hypertension Qualified Code(s): I10 - Essential (primary) hypertension Assessment/Plan: Stable VS on Cardizem, Amlodipine, Hydralazine. - Current Meds Current Meds: Current Medications Generic Name Dose Route Start Last Admin Trade Name Freq PRN Reason Stop Dose Admin Albuterol 2.5 mg 07/02/18 10:56 07/02/18 14:38 INH 2.5 mg .RTQ4H PRN Administration Wheezing Amiodarone HCl 200 mg 07/02/18 09:00 07/02/18 08:27 Pacerone PO 200 mg DAILY JOSE Administration Amlodipine Besylate 10 mg 07/02/18 09:00 07/02/18 08:27 Norvasc PO 10 mg DAILY JOSE Administration Budesonide 0.5 mg 07/02/18 07:00 07/02/18 07:55 Pulmicort INH 0.5 mg RTBID JOSE Administration Cholecalciferol 1,000 unit 07/02/18 09:00 07/02/18 08:27 Vitamin D3 PO 1,000 unit DAILY JOSE Administration Diltiazem HCl 120 mg 07/02/18 09:00 07/02/18 08:27 Cardizem Cd PO 120 mg DAILY JOSE Administration Famotidine 20 mg 07/01/18 21:00 07/02/18 08:27 Pepcid PO 20 mg BID JOSE Administration Ferrous Gluconate 324 mg 07/02/18 08:00 07/02/18 08:27 Fergon PO 324 mg DAILYWM JOSE Administration Finasteride 5 mg 07/01/18 21:00 07/01/18 22:00 Proscar PO 5 mg QPM JOSE Administration Formoterol Fumarate 20 mcg 07/02/18 07:00 07/02/18 07:55 Perforomist INH 20 mcg RTBID JOSE Administration Hydralazine HCl 40 mg 07/01/18 21:00 07/02/18 08:27 Apresoline PO 40 mg BID JOSE Administration Sodium Chloride 1,000 mls @ 100 mls/hr 07/01/18 21:00 07/02/18 17:55 Normal Saline 0.9% IV 100 mls/hr .Q10H JOSE Administration Lidocaine 1 patch 07/02/18 09:00 07/02/18 08:31 Lidoderm Patch TOP 1 patch DAILY JOSE Administration Multivitamins 1 tab 07/02/18 09:00 07/02/18 08:27 Theragran PO 1 tab DAILY JOSE Administration Oxycodone HCl 5 mg 07/01/18 20:13 07/02/18 17:55 Roxicodone PO 5 mg Q4HR PRN Administration Pain 5 to 7 Polyethylene Glycol 17 gm 07/02/18 09:00 07/02/18 08:32 Miralax PO Not Given DAILY JOSE Potassium Chloride 20 meq 07/02/18 09:00 07/02/18 08:27 K-Dur PO 20 meq DAILY JOSE Administration Prednisone 5 mg 07/02/18 09:00 07/02/18 08:27 Deltasone PO 5 mg DAILY JOSE Administration Saccharomyces Boulardii 250 mg 07/02/18 08:00 07/02/18 16:31 Florastor PO 250 mg BIDWM JOSE Administration Sodium Chloride 10 ml 07/02/18 01:00 07/02/18 15:41 Normal Saline Flush 0.9% IVP Not Given 0100,0900,1700 JOSE Tamsulosin HCl 0.4 mg 07/02/18 09:00 07/02/18 08:27 Flomax PO 0.4 mg DAILY JOSE Administration Warfarin Sodium 1.25 mg 07/02/18 14:00 07/02/18 13:50 Coumadin PO 1.25 mg QDWARFARIN JOSE Administration - Lab Result Fish Bone Diagrams: 07/02/18 05:20 07/02/18 05:20 - Additional Planning My Orders: My Active Orders 07/02/18 10:56 Albuterol 2.5 mg INH .RTQ4H PRN 07/02/18 19:00 Ipratropium/Albuterol [Duoneb] 3 ml INH .RTBID Subjective - Subjective Patient Reports: No Complaints Nursing Reports: Other (Able to get up and take a shower with assistance.) Objective Vital Signs: Vital Signs - 24 hr 07/01/18 07/01/18 07/01/18 19:31 21:10 21:30 Temperature 36.9 C 36.5 C Heart Rate 73 68 Heart Rate [ 71 Brachial] Respiratory 18 20 18 Rate Blood Pressure 149/65 H 127/97 H Blood Pressure 138/89 H [Right Brachial artery] O2 Saturation 97 94 96 07/02/18 07/02/18 07/02/18 00:00 07:55 08:00 Temperature 36.6 C 36.6 C Heart Rate 74 Heart Rate [ 69 66 Brachial] Respiratory 16 16 16 Rate Blood Pressure Blood Pressure 151/66 H 155/62 H [Right Brachial artery] O2 Saturation 97 96 07/02/18 07/02/18 07/02/18 09:39 14:38 16:00 Temperature 36.6 C 36.3 C L Heart Rate 66 78 Heart Rate [ 75 Brachial] Respiratory 16 14 18 Rate Blood Pressure Blood Pressure 144/74 H [Right Brachial artery] O2 Saturation 96 96 Oxygen O2 Source [With Activity] Nasal cannula O2 Source Room air I&O (Last 24 Hrs): Intake and Output Totals x24h 06/30/18 07/01/18 07/02/18 23:59 23:59 23:59 Intake Total 600 2640 Output Total 150 1650 Balance 450 990 General: No acute distress HEENT: Mucous membr. moist/pink Neck: Supple Neuro: Non Focal Cardiovascular: Regular rate Respiratory: No respiratory distress Abdomen: Soft Extremities: No edema - Results Results: Laboratory Results WBC 12.5 x10^3/uL (4.8-10.8) H 07/02/18 05:20 RBC 4.31 10^6/uL (4.70-6.10) L 07/02/18 05:20 Hgb 10.7 g/dL (14.0-18.0) L 07/02/18 05:20 Hct 33.7 % (42.0-52.0) L 07/02/18 05:20 MCV 78.0 fL (80.0-94.0) L 07/02/18 05:20 MCH 24.9 pg (27.0-31.0) L 07/02/18 05:20 MCHC 31.8 g/dL (32.0-36.0) L 07/02/18 05:20 RDW 17.9 % (12.0-15.0) H 07/02/18 05:20 Plt Count 319 10^3/uL (130-450) 07/02/18 05:20 MPV 7.5 fL (7.4-11.4) 07/02/18 05:20 Neut # (Auto) 10.2 10^3/uL (1.5-6.6) H 07/02/18 05:20 Lymph # (Auto) 1.0 10^3/uL (1.5-3.5) L 07/02/18 05:20 [place] # (Auto) 0.8 10^3/uL (0.0-1.0) 07/02/18 05:20 Eos # (Auto) 0.3 10^3/uL (0.0-0.7) 07/02/18 05:20 Baso # (Auto) 0.1 10^3/uL (0.0-0.1) 07/02/18 05:20 Absolute Nucleated RBC 0.00 x10^3/uL 07/02/18 05:20 Nucleated RBC % 0.0 /100WBC 07/02/18 05:20 PT 27.5 secs (9.9-12.6) H 07/02/18 05:20 INR 2.5 (0.8-1.2) H 07/02/18 05:20 Sodium 138 mmol/L (135-145) 07/02/18 05:20 Potassium 3.5 mmol/L (3.5-5.0) 07/02/18 05:20 Chloride 106 mmol/L (101-111) 07/02/18 05:20 Carbon Dioxide 25 mmol/L (21-32) 07/02/18 05:20 Anion Gap 7.0 (6-13) 07/02/18 05:20 BUN 18 mg/dL (6-20) 07/02/18 05:20 Creatinine 1.2 mg/dL (0.6-1.2) 07/02/18 05:20 Estimated GFR (MDRD) 58 (>89) L 07/02/18 05:20 Glucose 82 mg/dL (70-100) 07/02/18 05:20 Lactic Acid 0.5 mmol/L (0.5-2.2) 07/02/18 05:20 Calcium 8.2 mg/dL (8.5-10.3) L 07/02/18 05:20 Total Bilirubin 0.4 mg/dL (0.2-1.0) 07/02/18 05:20 AST 17 IU/L (10-42) 07/02/18 05:20 ALT 26 IU/L (10-60) 07/02/18 05:20 Alkaline Phosphatase 125 IU/L (42-121) H 07/02/18 05:20 Total Protein 6.3 g/dL (6.7-8.2) L 07/02/18 05:20 Albumin 3.1 g/dL (3.2-5.5) L 07/02/18 05:20 Globulin 3.2 g/dL (2.1-4.2) 07/02/18 05:20 Albumin/Globulin Ratio 1.0 (1.0-2.2) 07/02/18 05:20 Lipase 39 U/L (22-51) 07/01/18 19:45
[2018-07-02] MEDS: IPRATROPIUM/ALBUTEROL 3 ML NEB INH SCH (18:39)
[2018-07-02] MEDS ORDERED: cefTRIAXone 1 GM in SODIUM CHLORIDE 0.9% MINIBAG 100 ML IV SCH (20:00)
[2018-07-02] MEDS ORDERED: VANCOMYCIN INJ 1 GM in SODIUM CHLORIDE 0.9% 250 ML IV SCH (20:00)
[2018-07-02] MEDS: FINASTERIDE 5 MG TABLET PO SCH (21:56)
[2018-07-03 06:33] LABS: BASOPHILS # (AUTO) 0.1 10^3/uL (0.0-0.1); BASOPHILS % (AUTO) 0.8 %; EOSINOPHILS # (AUTO) 0.5 10^3/uL (0.0-0.7); EOSINOPHILS % (AUTO) 3.6 %; HGB - HEMOGLOBIN 9.7 g/dL (14.0-18.0); LYMPHOCYTES # (AUTO) 0.9 10^3/uL (1.5-3.5); LYMPHOCYTES % (AUTO) 6.1 %; MEAN CORPUSCULAR HEMOGLOBIN 25.2 pg (27.0-31.0); MEAN CORPUSCULAR HGB CONC 32.4 g/dL (32.0-36.0); MEAN CORPUSCULAR VOLUME 77.7 fL (80.0-94.0); MEAN PLATELET VOLUME 7.2 fL (7.4-11.4); MONOCYTES # (AUTO) 0.9 10^3/uL (0.0-1.0); MONOCYTES % (AUTO) 6.2 %; NEUTROPHILS # (AUTO) 12.2 10^3/uL (1.5-6.6); NEUTROPHILS % (AUTO) 83.3 %; PLT - PLATELET COUNT 294 10^3/uL (130-450); RED BLOOD COUNT 3.85 10^6/uL (4.70-6.10); RED CELL DISTRIBUTION WIDTH 17.7 % (12.0-15.0); WHITE BLOOD COUNT 14.6 x10^3/uL (4.8-10.8)
[2018-07-03 06:37] LABS: INR 2.7 (0.8-1.2); PT - PROTHROMBIN TIME 29.8 secs (9.9-12.6)
[2018-07-03 06:49] LABS: ALBUMIN 2.7 g/dL (3.2-5.5); ALBUMIN/GLOBULIN RATIO 0.9 (1.0-2.2); BILIRUBIN,TOTAL 0.6 mg/dL (0.2-1.0); CREATININE 1.2 mg/dL (0.6-1.2); TOTAL PROTEIN 5.8 g/dL (6.7-8.2)
[2018-07-03] MEDS: BUDESONIDE 0.5 MG/2 ML NEB INH SCH ×2 (07:42→19:41)
[2018-07-03] MEDS: FORMOTEROL FUMARATE NEB 20 MCG/2 ML INH SCH ×2 (07:42→19:41)
[2018-07-03] MEDS: IPRATROPIUM/ALBUTEROL 3 ML NEB INH SCH ×2 (07:42→19:41)
[2018-07-03] MEDS: FERROUS GLUCONATE 324 MG TABLET PO SCH (09:02)
[2018-07-03] MEDS: SACCHAROMYCES BOULARDII 250 MG CAPSULE PO SCH ×2 (09:02→17:24)
[2018-07-03] MEDS: amLODIPine 5 MG TABLET PO SCH (09:02)
[2018-07-03] MEDS: CHOLECALCIFEROL 1,000 UNIT TABLET PO SCH (09:03)
[2018-07-03] MEDS: AMIODARONE 200 MG TABLET PO SCH (09:03)
[2018-07-03] MEDS: LIDOCAINE PATCH 5% TOP SCH (09:03)
[2018-07-03] MEDS: MULTIVITAMIN TABLET PO SCH (09:03)
[2018-07-03] MEDS: hydrALAZINE 10 MG TABLET PO SCH ×2 (09:08→20:35)
[2018-07-03] MEDS: TAMSULOSIN 0.4 MG CAPSULE PO SCH (09:09)
[2018-07-03] MEDS: FAMOTIDINE 20 MG TABLET PO SCH ×2 (09:09→20:35)
[2018-07-03] MEDS: predniSONE 5 MG TABLET PO SCH (09:09)
[2018-07-03] MEDS: POTASSIUM CHLORIDE 20 MEQ TABLET PO SCH (09:10)
[2018-07-03] MEDS: diltiaZEM CD 120 MG CAPSULE PO SCH (09:10)
[2018-07-03] MEDS: POLYETHYLENE GLYCOL 3350 17 GM PACKET PO SCH (09:11)
[2018-07-03] MEDS: DOXYCYCLINE 100 MG TABLET PO SCH ×2 (14:08→20:35)
[2018-07-03] MEDS: WARFARIN 2.5 MG TABLET PO SCH (14:08)
[2018-07-03] MEDS: SODIUM CHLORIDE FLUSH 0.9% 10 ML SYRINGE IVP SCH ×3 (14:08→23:14)
[2018-07-03 14:19] LABS: % IRON SATURATION 9 % (20-50); IRON 19 ug/dL (45-182); TOTAL IRON BINDING CAPACITY 207 ug/dL (250-450); TRANSFERRIN 148 mg/dL (180-329)
--- NOTE | 2018-07-03 17:49 | PROVIDER PROGRESS NOTE ---
Subjective - Subjective Pt reports feeling: Improved Subjective: No acute events. Denies fevers, pleasantly demented. No /GI symptoms. Current Medications - Current Medications Current Medications: Active Medications Acetaminophen (Tylenol) 650 mg PO Q4HR PRN PRN Reason: Pain 1 to 4 Albuterol () 2.5 mg INH .RTQ4H PRN PRN Reason: Wheezing Last Admin: 07/02/18 14:38 Dose: 2.5 mg Albuterol/Ipratropium (Duoneb) 3 ml INH .RTBID [facility] Last Admin: 07/03/18 07:42 Dose: 3 ml Amiodarone HCl (Pacerone) 200 mg PO DAILY [facility] Last Admin: 07/03/18 09:03 Dose: 200 mg Amlodipine Besylate (Norvasc) 10 mg PO DAILY [facility] Last Admin: 07/03/18 09:02 Dose: 10 mg Budesonide (Pulmicort) 0.5 mg INH RTBID [facility] Last Admin: 07/03/18 07:42 Dose: 0.5 mg Cholecalciferol (Vitamin D3) 1,000 unit PO DAILY [facility] Last Admin: 07/03/18 09:03 Dose: 1,000 unit Diltiazem HCl (Cardizem Cd) 120 mg PO DAILY [facility] Last Admin: 07/03/18 09:10 Dose: 120 mg Doxycycline Hyclate (Vibramycin) 100 mg PO BID [facility] Last Admin: 07/03/18 14:08 Dose: 100 mg Famotidine (Pepcid) 20 mg PO BID [facility] Last Admin: 07/03/18 09:09 Dose: 20 mg Ferrous Gluconate (Fergon) 324 mg PO DAILYWM [facility] Last Admin: 07/03/18 09:02 Dose: 324 mg Finasteride (Proscar) 5 mg PO QPM [facility] Last Admin: 07/02/18 21:56 Dose: 5 mg Formoterol Fumarate (Perforomist) 20 mcg INH RTBID [facility] Last Admin: 07/03/18 07:42 Dose: 20 mcg Hydralazine HCl (Apresoline) 40 mg PO BID [facility] Last Admin: 07/03/18 09:08 Dose: 40 mg Sodium Chloride (Normal Saline 0.9%) 1,000 mls @ 40 mls/hr IV .Q25H [facility] Last Admin: 07/02/18 18:57 Dose: 40 mls/hr Iron Sucrose 100 mg/ Sodium (Chloride) 105 mls @ 210 mls/hr IV DAILY [facility] Stop: 07/06/18 09:00 Lidocaine (Lidoderm Patch) 1 patch TOP DAILY [facility] Last Admin: 07/03/18 09:03 Dose: 1 patch Multivitamins (Theragran) 1 tab PO DAILY [facility] Last Admin: 07/03/18 09:03 Dose: 1 tab Ondansetron HCl (Zofran Inj) 4 mg IVP Q6HR PRN PRN Reason: Nausea / Vomiting Oxycodone HCl (Roxicodone) 5 mg PO Q4HR PRN PRN Reason: Pain 5 to 7 Last Admin: 07/02/18 21:56 Dose: 5 mg Oxycodone HCl (Roxicodone) 10 mg PO Q4HR PRN PRN Reason: Pain 8 to 10 Polyethylene Glycol (Miralax) 17 gm PO DAILY [facility] Last Admin: 07/03/18 09:11 Dose: Not Given Potassium Chloride (K-Dur) 20 meq PO DAILY [facility] Last Admin: 07/03/18 09:10 Dose: 20 meq Prednisone (Deltasone) 5 mg PO DAILY [facility] Last Admin: 07/03/18 09:09 Dose: 5 mg Prochlorperazine Edisylate (Compazine Inj) 10 mg IVP Q6HR PRN PRN Reason: Nausea / Vomiting Promethazine HCl (Phenergan Inj) 25 mg IM Q6HR PRN PRN Reason: Nausea / Vomiting Saccharomyces Boulardii (Florastor) 250 mg PO BIDWM [facility] Last Admin: 07/03/18 17:24 Dose: 250 mg Sodium Chloride (Normal Saline Flush 0.9%) 10 ml IVP PRN PRN PRN Reason: NEEDED PER PROVIDER ORDERS Sodium Chloride (Normal Saline Flush 0.9%) 10 ml IVP 0100,0900,1700 [facility] Last Admin: 07/03/18 17:24 Dose: Not Given Tamsulosin HCl (Flomax) 0.4 mg PO DAILY [facility] Last Admin: 07/03/18 09:09 Dose: 0.4 mg Warfarin Sodium (Coumadin) 1.25 mg PO QDWARFARIN [facility] Last Admin: 07/03/18 14:08 Dose: 1.25 mg Zolpidem Tartrate (Ambien) 5 mg PO QPM PRN PRN Reason: Insomnia Acetaminophen 325 mg PO Q6H PRN 04/03/18 Acetaminophen 650 mg PO TID 04/03/18 Albuterol Sulf [Ventolin Hfa Inhaler] 2 puffs INH BID 04/03/18 Amlodipine Besylate 10 mg PO DAILY 04/03/18 Budesonide/Formoterol Fumarate [Symbicort 80-4.5 Mcg Inhaler] 2 puffs INH BID 04/03/18 Cholecalciferol (Vitamin D3) [Vitamin D3] 1,000 unit PO DAILY 04/03/18 Diphenoxylate/Atropine [Lomotil] 2 tab PO QID PRN 04/03/18 Finasteride 5 mg PO QPM 04/03/18 Hydralazine HCl 40 mg PO BID 04/03/18 Multivitamin [Multiple Vitamins] 1 tab PO DAILY 04/03/18 Nitroglycerin [Nitrostat] 0.4 mg PO Q5MIN PRN MDD 3 TABLETS 04/03/18 Prednisone 5 mg PO DAILYWM 04/03/18 Tamsulosin HCl [Flomax] 0.4 mg PO DAILY 04/03/18 Tiotropium [place] [Spiriva] 1 cap INH DAILY 04/03/18 Warfarin [Coumadin] 1.25 mg PO DAILY 04/03/18 Amiodarone [Pacerone] 200 mg PO DAILY 06/01/18 Ferrous Gluconate 240 mg PO DAILY 06/29/18 Medpass 120 ml PO BID 06/29/18 Melatonin 6 mg PO QPM 06/29/18 Potassium Chloride [K-Dur] 20 meq PO DAILYWM 06/29/18 Bimatoprost 0.01% Ophth Dops [Lumigan 0.01% Ophth Drops] 1 drops EACHEYE QPM 07/03/18 dilTIAZem HCl [Diltiazem 24Hr Cd] 120 mg PO DAILY 07/03/18 Objective - Vital Signs/Intake & Output Vital Signs: Vital Signs x48h Temp Pulse Resp BP Pulse Ox 07/03/18 16:00 36.9 C 73 18 135/59 H 95 Intake & Output: Intake & Output 06/30/18 07/01/18 07/02/18 07/03/18 23:59 23:59 23:59 23:59 Intake Total 600 3110 420 Output Total 150 1650 1625 Balance 450 1460 -1205 - Objective General Appearance: positive: No acute distress, Other (demented) ENT: positive: Pharynx nml Neck: positive: Nml inspection, Thyroid nml, No JVD, Trachea midline. negative: Thyromegaly Respiratory: positive: Chest non-tender, No respiratory distress, Breath sounds nml Cardiovascular: positive: Regular rate & rhythm, No murmur, No gallop. negative: Irregularly irregular, Tachycardia Peripheral Pulses: 2+ Dorsalis pedis (R), 2+ Dorsalis pedis (L) Abdomen: positive: Non-tender, No organomegaly, Nml bowel sounds, No distention. negative: Tenderness, Guarding, Splenomegaly Skin: positive: Color nml, No rash, Warm Extremities: positive: Non-tender, Full ROM, Nml appearance. negative: No pedal edema Neurologic/Psychiatric: positive: CN's nml (2-12), Other (demented) - Lab Results Fish Bones: 07/03/18 06:20 07/03/18 06:20 Other Labs: Lab Results x24hrs 07/03/18 07/03/18 07/03/18 Range/Units 06:20 06:20 06:20 WBC (4.8-10.8) x10^3/uL RBC (4.70-6.10) 10^6/uL Hgb (14.0-18.0) g/dL Hct (42.0-52.0) % MCV (80.0-94.0) fL MCH (27.0-31.0) pg MCHC (32.0-36.0) g/dL RDW (12.0-15.0) % Plt Count (130-450) 10^3/uL MPV (7.4-11.4) fL Neut # (Auto) (1.5-6.6) 10^3/uL Lymph # (Auto) (1.5-3.5) 10^3/uL Burke # (Auto) (0.0-1.0) 10^3/uL Eos # (Auto) (0.0-0.7) 10^3/uL Baso # (Auto) (0.0-0.1) 10^3/uL Absolute Nucleated RBC x10^3/uL Nucleated RBC % /100WBC PT 29.8 H (9.9-12.6) secs INR 2.7 H (0.8-1.2) Sodium 137 (135-145) mmol/L Potassium 3.6 (3.5-5.0) mmol/L Chloride 107 (101-111) mmol/L Carbon Dioxide 23 (21-32) mmol/L Anion Gap 7.0 (6-13) BUN 16 (6-20) mg/dL Creatinine 1.2 (0.6-1.2) mg/dL Estimated GFR (MDRD) 58 L (>89) Glucose 89 (70-100) mg/dL Calcium 8.0 L (8.5-10.3) mg/dL Iron 19 L (45-182) ug/dL TIBC 207 L (250-450) ug/dL % Saturation 9 L (20-50) % Transferrin 148 L (180-329) mg/dL Total Bilirubin 0.6 (0.2-1.0) mg/dL AST 16 (10-42) IU/L ALT 26 (10-60) IU/L Alkaline Phosphatase 113 (42-121) IU/L Total Protein 5.8 L (6.7-8.2) g/dL Albumin 2.7 L (3.2-5.5) g/dL Globulin 3.1 (2.1-4.2) g/dL Albumin/Globulin Ratio 0.9 L (1.0-2.2) 07/03/18 Range/Units 06:20 WBC 14.6 H (4.8-10.8) x10^3/uL RBC 3.85 L (4.70-6.10) 10^6/uL Hgb 9.7 L (14.0-18.0) g/dL Hct 29.9 L (42.0-52.0) % MCV 77.7 L (80.0-94.0) fL MCH 25.2 L (27.0-31.0) pg MCHC 32.4 (32.0-36.0) g/dL RDW 17.7 H (12.0-15.0) % Plt Count 294 (130-450) 10^3/uL MPV 7.2 L (7.4-11.4) fL Neut # (Auto) 12.2 H (1.5-6.6) 10^3/uL Lymph # (Auto) 0.9 L (1.5-3.5) 10^3/uL Burke # (Auto) 0.9 (0.0-1.0) 10^3/uL Eos # (Auto) 0.5 (0.0-0.7) 10^3/uL Baso # (Auto) 0.1 (0.0-0.1) 10^3/uL Absolute Nucleated RBC 0.01 x10^3/uL Nucleated RBC % 0.0 /100WBC PT (9.9-12.6) secs INR (0.8-1.2) Sodium (135-145) mmol/L Potassium (3.5-5.0) mmol/L Chloride (101-111) mmol/L Carbon Dioxide (21-32) mmol/L Anion Gap (6-13) BUN (6-20) mg/dL Creatinine (0.6-1.2) mg/dL Estimated GFR (MDRD) (>89) Glucose (70-100) mg/dL Calcium (8.5-10.3) mg/dL Iron (45-182) ug/dL TIBC (250-450) ug/dL % Saturation (20-50) % Transferrin (180-329) mg/dL Total Bilirubin (0.2-1.0) mg/dL AST (10-42) IU/L ALT (10-60) IU/L Alkaline Phosphatase (42-121) IU/L Total Protein (6.7-8.2) g/dL Albumin (3.2-5.5) g/dL Globulin (2.1-4.2) g/dL Albumin/Globulin Ratio (1.0-2.2) - Diagnostic Imaging Diagnostic Imaging Results: positive: Final report reviewed ABX Reporting Has patient been on IV antibiotics over the past 48 hours?: Yes Assessment/Plan - Problem List (1) Staphylococcus epidermidis bacteremia Impression: MDR staph epi, sensitivity to tetracycline. Will place on 250 mg PO QID x 7 days. Likely 1/2 bottles being a contaminant. (2) Advance care planning Impression: Patient with multiple CV comorbidities would be better served with palliative and likely hospice due to his advanced dementia and CV comorbities with a high charlson comorbidity index. Plan of care, QOL, trajectory of disease to be discussed with POA and AUTOMOBILE BODY REPAIRER was conveyed on possibility of hospice. (3) Dementia Impression: namenda and aricept to start if possible. May need to be transitioned to hospice if POA agrees. Qualifiers: Dementia type: Alzheimer's disease Alzheimer's disease onset: unspecified onset (4) Iron deficiency anemia Impression: will start IV iron and transition to PO if tolerates Qualifiers: Iron deficiency anemia type: unspecified iron deficiency Qualified Code(s): D50.9 - Iron deficiency anemia, unspecified (5) UTI (urinary tract infection) Impression: IV Rocephin discontinues due to Urine cx neg. Day#2 on IV abx. Will transition over to tetracycline 250 mg po qid x 7d. Qualifiers: Urinary tract infection type: site unspecified Hematuria presence: without hematuria Qualified Code(s): N39.0 - Urinary tract infection, site not specified (6) Atrial fibrillation Impression: Rate controlled, cont with med mgmt. Continue with AC with coumadin with a curent INR of 2.7, therapeutic, no s/s bleeding. Qualifiers: Atrial fibrillation type: chronic Qualified Code(s): I48.2 - Chronic atrial fibrillation
[2018-07-03] MEDS: SODIUM CHLORIDE 0.9% 1,000 ML IV SCH (20:34)
[2018-07-03] MEDS: FINASTERIDE 5 MG TABLET PO SCH (20:35)
[2018-07-03] MEDS: oxyCODONE 5 MG TABLET PO PRN (20:39)
[2018-07-04 06:22] LABS: BASOPHILS % (AUTO) 0.4 %; EOSINOPHILS # (AUTO) 0.4 10^3/uL (0.0-0.7); EOSINOPHILS % (AUTO) 3.4 %; HGB - HEMOGLOBIN 10.8 g/dL (14.0-18.0); LYMPHOCYTES % (AUTO) 7.9 %; MEAN CORPUSCULAR HEMOGLOBIN 24.8 pg (27.0-31.0); MEAN CORPUSCULAR HGB CONC 32.2 g/dL (32.0-36.0); MEAN CORPUSCULAR VOLUME 77.2 fL (80.0-94.0); MEAN PLATELET VOLUME 7.6 fL (7.4-11.4); MONOCYTES # (AUTO) 0.7 10^3/uL (0.0-1.0); MONOCYTES % (AUTO) 5.7 %; NEUTROPHILS # (AUTO) 10.7 10^3/uL (1.5-6.6); NEUTROPHILS % (AUTO) 82.6 %; PLT - PLATELET COUNT 306 10^3/uL (130-450); RED BLOOD COUNT 4.34 10^6/uL (4.70-6.10); RED CELL DISTRIBUTION WIDTH 17.8 % (12.0-15.0); WHITE BLOOD COUNT 12.9 x10^3/uL (4.8-10.8)
[2018-07-04 06:31] LABS: INR 2.5 (0.8-1.2); PT - PROTHROMBIN TIME 28.5 secs (9.9-12.6)
[2018-07-04 06:41] LABS: ALBUMIN/GLOBULIN RATIO 0.9 (1.0-2.2); BILIRUBIN,TOTAL 0.7 mg/dL (0.2-1.0); CALCIUM 8.4 mg/dL (8.5-10.3); CREATININE 1.4 mg/dL (0.6-1.2); TOTAL PROTEIN 6.4 g/dL (6.7-8.2)
[2018-07-04] MEDS ORDERED: SODIUM CHLORIDE 0.9% 1,000 ML IV SCH (07:30)
[2018-07-04 07:52] VITALS: BP 141/53
[2018-07-04] MEDS: BUDESONIDE 0.5 MG/2 ML NEB INH SCH (08:03)
[2018-07-04] MEDS: FORMOTEROL FUMARATE NEB 20 MCG/2 ML INH SCH (08:03)
[2018-07-04] MEDS: IPRATROPIUM/ALBUTEROL 3 ML NEB INH SCH (08:03)
[2018-07-04] MEDS ORDERED: IRON SUCROSE 100 MG in SODIUM CHLORIDE 0.9% 100ML 100 ML IV SCH (09:00)
[2018-07-04] MEDS: SACCHAROMYCES BOULARDII 250 MG CAPSULE PO SCH (09:13)
[2018-07-04] MEDS: AMIODARONE 200 MG TABLET PO SCH (09:14)
[2018-07-04] MEDS: amLODIPine 5 MG TABLET PO SCH (09:15)
[2018-07-04] MEDS: diltiaZEM CD 120 MG CAPSULE PO SCH (09:17)
[2018-07-04] MEDS: CHOLECALCIFEROL 1,000 UNIT TABLET PO SCH (09:17)
[2018-07-04] MEDS: DOXYCYCLINE 100 MG TABLET PO SCH (09:19)
[2018-07-04] MEDS: hydrALAZINE 10 MG TABLET PO SCH (09:20)
[2018-07-04] MEDS: POTASSIUM CHLORIDE 20 MEQ TABLET PO SCH (09:24)
[2018-07-04] MEDS: TAMSULOSIN 0.4 MG CAPSULE PO SCH ×2 (09:25→09:26)
[2018-07-04] MEDS: FAMOTIDINE 20 MG TABLET PO SCH (09:27)
[2018-07-04] MEDS: MULTIVITAMIN TABLET PO SCH (09:28)
[2018-07-04] MEDS: LIDOCAINE PATCH 5% TOP SCH (09:45)
[2018-07-04] MEDS: POLYETHYLENE GLYCOL 3350 17 GM PACKET PO SCH (09:45)
--- NOTE | 2018-07-04 10:46 | DISCHARGE SUMMARY ---
"Discharge Summary Admit Date: 07/01/18 Discharge Date: 07/04/18 Discharging Provider: Dr Tierney Primary Care Provider: Dr. Hoyt Code Status: Do Not Attempt Resuscitation Condition at Discharge: Good Discharge Disposition: SNF DC/Xfer Discharge Facility Name: [facility] - DIAGNOSES Admission Diagnoses: Pyelo/UTI, Bacteremia, GERSON/CKD-3, Protein and calorie def malnutrition (POA), Alzheimers dementia, chronic Afib AC with coumadin, protein and calorie def manutrition (POA) Discharge Diagnoses with Status of Each Condition: (1) Staphylococcus epidermidis bacteremia Impression: resolved MDR staph epi, sensitivity to tetracycline. Will place on 250 mg PO QID x 7 day s. Likely 1/2 bottles being a contaminant. (2) Advance care planning Impression: Patient with multiple CV comorbidities would be better served with palliative and likely hospice due to his advanced dementia and CV comorbities with a high charlson comorbidity index. Plan of care, QOL, trajectory of disease to be discussed with POA and MOTORSPORTS TECHNICIAN was conveyed on possibility of hospice. (3) Dementia Impression: stable namenda and aricept to start if possible as outpatient. May need to be transitioned to hospice if POA agrees. Qualifiers: Dementia type: Alzheimer's disease Alzheimer's disease onset: unspecified onset (4) Iron deficiency anemia Impression: stable will start IV iron and transition to PO if tolerates Qualifiers: Iron deficiency anemia type: unspecified iron deficiency Qualified Code(s): D50.9 - Iron deficiency anemia, unspecified (5) Pyelonephritis/UTI (urinary tract infection) Impression: resolving Leukocytosis still present. Would advise on Hipprex 1 g po bid for urine acidification. Previosuly on IV Rocephin discontinued, due to Urine cx +for enterobacter aerogenes. Will transition over to doxy 100 mg po bid x 6d. Qualifiers: Urinary tract infection type: site unspecified Hematuria presence: without hematuria Qualified Code(s): N39.0 - Urinary tract infection, site not specified (6) Atrial fibrillation Impression: stable Rate controlled, cont with med mgmt. Continue with AC with coumadin with a curent INR of 2.5, therapeutic, no s/s bleeding. Qualifiers: Atrial fibrillation type: chronic Qualified Code(s): I48.2 - Chronic atrial fibrillation 7. GERSON/CKD-3. Resolved back to baseline. Avoid nephrotoxic agents. Check weekly labs at [facility]--carriage. 8. Protein and calorie def malnutrition (POA), nutritional intake <50% and recommended intake of 2 or more weeks; weight loss 10% usual body weight in past month. Will provide protein supplementation. Nutrition consult done and following. - HPI History of Present Illness: Patient is an 82-year-old gentleman with a past medical history significant for dementia, diastolic heart failure, CKD stage III, hypertension, atrial fibrillation on long-term anticoagulation, COPD, coronary artery disease, polymyalgia rheumatica on chronic prednisone, peripheral vascular disease and history of AAA repair who presents to the emergency department with a chief complaint of left flank pain. The patient presented to the emergency department on 06/30/2018 with this left flank pain and at that time was diagnosed with a urinary tract infection with a positive UA and sent back to [facility] where he is currently receiving subacute rehab. During that emergency room visit blood cultures were drawn. The patient's blood cultures returned today with 1 out of 2 bottles growing gram-positive cocci in clusters concerning for MRSA. The patient was called back to the emergency department due to positive blood cultures. On presentation to the emergency department today the patient continues to complain of left flank pain and increased urinary frequency. He denies any fevers but does state he is feeling cold. He also admits to lower abdominal pain. The patient denies any nausea or vomiting. The patient denies any dysuria. The patient denies any diarrhea. The patient appears to have some memory impairment and is a fairly poor historian. Patient denies any headaches, blurred vision, runny nose, sore throat, nasal congestion, difficulty swallowing, chest pain, shortness of air, orthopnea, PND, increased lower extremity swelling, joint swelling, back pain, neck stiffness, recent unintentional weight loss, changes in his appetite, polyuria, polydipsia, skin rash, skin changes, dizziness or any focal neurologic deficits. On presentation to the emergency department today the patient is afebrile and slightly hypertensive but otherwise his vital signs are all within normal limits. The patient does not appear to be in any acute distress. The patient does have an elevated white blood cell count of 13.1 on his CBC. The patient has a chronically low hemoglobin of 10.5. The patient's INR is therapeutic at 2.6. The patient's creatinine is mildly elevated from baseline at 1.5. The patient's lactic acid was normal. The patient's urine culture appears to be growing gram-negative rods from yesterday. Blood cultures were repeated in the emergency department. The patient was admitted to the [facility] for IV antibiotics and repeat blood cultures. - CONSULTS | PROCEDURES Consultations: none Procedures: none - HOSPITAL COURSE Hospital Course: Patient was managed medically, resumed on all home meds, IVF's given for GERSON?CKD-3 which was corrected, and given IV abx with rocephin and de-escalated to doxy 100 mg po bid to cont for 6 days. Blood culture grew MDR stap epi, UCx +for UTI--->enterobacter aerogenes. Patient was stable and at baseline for his CKD-3, therapeutic INR with coumadin for chronic rate controlled afib. Will be discharged back to [facility]. Will add hipprex 1 g po bid for urine acidification as MOTORSPORTS TECHNICIAN had conveyed hx UTI's. - ALLERGIES Allergies/Adverse Reactions: Allergies Allergy/AdvReac Type Severity Reaction Status Date / Time azithromycin Allergy Respiratory Verified 05/22/18 14:47 bee venom protein (honey bee) Allergy Anaphylaxis Verified 05/22/18 14:47 hornet venom Allergy Anaphylaxis Verified 05/22/18 14:47 lisinopril Allergy Respiratory Verified 05/22/18 14:47 losartan Allergy Respiratory Verified 05/22/18 14:47 naproxen [From Naprosyn] Allergy Respiratory Verified 05/22/18 14:47 NSAIDS (Non-Steroidal Allergy Respiratory Verified 05/22/18 14:47 Anti-Inflamma Penicillins Allergy Respiratory Verified 05/22/18 14:47 Sulfa (Sulfonamide Allergy Respiratory Verified 05/22/18 14:47 Antibiotics) aspirin AdvReac Cramps Verified 05/22/18 14:47 hydromorphone AdvReac Hallucinati Verified 05/22/18 14:47 ons Iodinated Contrast- Oral and AdvReac Unknown Verified 05/22/18 14:47 IV Dye omeprazole AdvReac Cramps Verified 05/22/18 14:47 oxycodone AdvReac Hallucinati Verified 05/22/18 14:47 ons wasp Allergy Anaphylaxis Uncoded 05/22/18 14:47 yellow jacket venom Allergy Anaphylaxis Uncoded 05/22/18 14:47 - MEDICATIONS Home Medications: Ambulatory Orders Medication Instructions Recorded Confirmed Amlodipine Besylate 10 mg PO DAILY 04/03/18 07/03/18 Cholecalciferol (Vitamin D3) 1,000 unit PO DAILY 04/03/18 07/03/18 [Vitamin D3] Finasteride 5 mg PO QPM 04/03/18 07/03/18 Hydralazine HCl 40 mg PO BID 04/03/18 07/03/18 Multivitamin [Multiple Vitamins] 1 tab PO DAILY 04/03/18 07/03/18 Nitroglycerin [Nitrostat] 0.4 mg PO Q5MIN PRN MDD 3 TABLETS 04/03/18 07/03/18 Prednisone 5 mg PO DAILYWM 04/03/18 07/03/18 Tamsulosin HCl [Flomax] 0.4 mg PO DAILY 04/03/18 07/03/18 Warfarin [Coumadin] 1.25 mg PO DAILY 04/03/18 07/03/18 Lidocaine Patch 5% [Lidoderm Patch] 1 patch TOP DAILY #30 patch 05/30/18 07/03/18 Amiodarone [Pacerone] 200 mg PO DAILY 06/01/18 07/03/18 Melatonin 6 mg PO QPM 06/29/18 07/03/18 Potassium Chloride [K-Dur] 20 meq PO DAILYWM 06/29/18 07/03/18 Bimatoprost 0.01% Ophth Dops 1 drops EACHEYE QPM 07/03/18 07/03/18 [Lumigan 0.01% Ophth Drops] Acetaminophen [Tylenol] 650 mg PO Q4HR PRN tablet 07/04/18 Albuterol 2.5 mg INH .RTQ4H PRN neb 07/04/18 Budesonide [Pulmicort] 0.5 mg INH RTBID neb 07/04/18 Doxycycline Hyclate 100 mg PO BID 6 Days #12 tablet 07/04/18 Famotidine [Pepcid] 20 mg PO BID tablet 07/04/18 Ferrous Gluconate 240 mg PO TID #90 07/04/18 07/03/18 Formoterol Fumarate [Perforomist] 20 mcg INH RTBID neb 07/04/18 Ipratropium/Albuterol [Duoneb] 3 ml INH .RTBID neb 07/04/18 Methenamine Hippurate [Hiprex] 1 gm PO BID #60 tablet 07/04/18 Polyethylene Glycol 3350 [Miralax] 17 gm PO DAILY packet 07/04/18 Zolpidem [Ambien] 5 mg PO QPM PRN tablet 07/04/18 diltiaZEM CD [Cardizem Cd] 120 mg PO DAILY capsule 07/04/18 - PHYSICAL EXAM AT DISCHARGE General Appearance: positive: No acute distress, Other (baseline dementia ) Eyes Bilateral: positive: Normal inspection ENT: positive: ENT inspection nml Respiratory: positive: Chest non-tender, No respiratory distress, Breath sounds nml. negative: Wheezes, Rales, Rhonchi Cardiovascular: positive: No murmur, Irregularly irregular Abdomen: positive: Non-tender, No organomegaly, Nml bowel sounds, No distention Skin: positive: Color nml, No rash Extremities: positive: No pedal edema Neurologic/Psychiatric: positive: Oriented x3, Weakness - LABS Result Diagrams: 07/04/18 05:30 07/04/18 05:03 - DIAGNOSTIC IMAGING Diagnostic Imaging Results: Final report reviewed - FOLLOW UP Follow Up: PCP to see in 1-2 weeks to discuss advance care planning and possibility of hospice. - TIME SPENT Time Spent in Discharge (Minutes): 35"
--- NOTE | 2018-07-04 10:49 | Discharge Plan ---
"Discharge Plan for SNF / ELISABETH - Discharge Plan And Transition Orders Disposition: 03 SNF DC/Xfer Condition: Good Allergies and Adverse Reactions: Allergies Allergy/AdvReac Type Severity Reaction Status Date / Time azithromycin Allergy Respiratory Verified 05/22/18 14:47 bee venom protein (honey bee) Allergy Anaphylaxis Verified 05/22/18 14:47 hornet venom Allergy Anaphylaxis Verified 05/22/18 14:47 lisinopril Allergy Respiratory Verified 05/22/18 14:47 losartan Allergy Respiratory Verified 05/22/18 14:47 naproxen [From Naprosyn] Allergy Respiratory Verified 05/22/18 14:47 NSAIDS (Non-Steroidal Allergy Respiratory Verified 05/22/18 14:47 Anti-Inflamma Penicillins Allergy Respiratory Verified 05/22/18 14:47 Sulfa (Sulfonamide Allergy Respiratory Verified 05/22/18 14:47 Antibiotics) aspirin AdvReac Cramps Verified 05/22/18 14:47 hydromorphone AdvReac Hallucinati Verified 05/22/18 14:47 ons Iodinated Contrast- Oral and AdvReac Unknown Verified 05/22/18 14:47 IV Dye omeprazole AdvReac Cramps Verified 05/22/18 14:47 oxycodone AdvReac Hallucinati Verified 05/22/18 14:47 ons wasp Allergy Anaphylaxis Uncoded 05/22/18 14:47 yellow jacket venom Allergy Anaphylaxis Uncoded 05/22/18 14:47 - SNF / SENIOR CARE Transition Orders Admit to (Facility): [facility] Under the care of (Name): Dr. Thorpe Discharge Diagnosis: Pyelonephritis/UTI, Bacteremia with staph epidermidis, CKD stage 3, chronic afib on long-term AC, severe protein and calorie def malnutrition (POA). Medicare Certification Statement: I certify that Post Hospital fci care is medically necessary on a continuing basis for any of the conditions for which she/he is receiving care during hospitalization. Notify PCP of admission and forward orders to primary provider for signature. Weight on admission and: Daily, Weekly Other Notification Orders: Call PCP immediately if patient develops dyspnea, chest pain/tightness or edema. House Bowel Program: Yes Additional Bowel Program Orders: If no BM after 2 days, nurse may give M.O.M. 30ml PO PRN and/or ducolax Supp 1 [place] and/or SAMUEL 250mg P.O., and/or senna 1-2 tabs PO. On day 3 nurse may give repeat above order until residents constipation is resolved. Annual Influenza Vaccine (between May 12 and December 09): Yes Two-step PPD per [facility] [phone] or approved exception documents: No Lab Tests or X-ray Orders: cbc and BMP q weekly Medication Orders: PLEASE REFER TO THE DISCHARGE MEDICATION LIST. Insulin Orders?: No - Medications New Prescriptions: Doxycycline Hyclate 100 mg PO BID 6 Days #12 tablet Methenamine Hippurate [Hiprex] 1 gm PO BID #60 tablet - Diet Type: No added salt Texture: Regular - Therapies | Activity Therapy: Evaluation | Treat if indicated: PT, OT Rehabilitation Potential: Maximize functional status, Return to independent living, Maintain present ADL Functional Activity: Activity as Tolerated Assistance Devices: Walker Follow Up: Follow up with PCP in 1-2 weeks."
[2018-07-04] MEDS: SODIUM CHLORIDE FLUSH 0.9% 10 ML SYRINGE IVP SCH (11:09)
[2018-07-04] MEDS: predniSONE 5 MG TABLET PO SCH (11:11)
[2018-07-04] MEDS: WARFARIN 2.5 MG TABLET PO SCH (13:53)
[2018-07-04] MEDS ORDERED: BIMATOPROST 0.01% OPHTH DROPS 2.5 ML EACHEYE SCH (21:00)
== END 2018-07-04 14:15 | DRG 871 ==
LOC: EDUNIT# → ED 19:31 → MS2 20:13
PROVIDERS: ADMIT Internal Medicine; ATTEND Family Medicine
DX: R78.81 Bacteremia (principal); E43 Unspecified severe protein-calorie malnutrition; N17.9 Acute kidney failure, unspecified; I48.91 Unspecified atrial fibrillation; E46 Unspecified protein-calorie malnutrition; N10 Acute pyelonephritis; N40.0 Benign prostatic hyperplasia without lower urinary tract symptoms; I12.9 Hypertensive chronic kidney disease with stage 1 through stage 4 chronic kidney disease, or unspecified chronic kidney disease; N18.3 Chronic kidney disease, stage 3 (moderate); G30.9 Alzheimer's disease, unspecified; F02.80 Dementia in other diseases classified elsewhere, unspecified severity, without behavioral disturbance, psychotic disturbance, mood disturbance, and anxiety; D50.9 Iron deficiency anemia, unspecified; I48.2 Chronic atrial fibrillation; B95.7 Other staphylococcus as the cause of diseases classified elsewhere; B96.89 Other specified bacterial agents as the cause of diseases classified elsewhere; J44.9 Chronic obstructive pulmonary disease, unspecified; E03.9 Hypothyroidism, unspecified; I25.10 Atherosclerotic heart disease of native coronary artery without angina pectoris; M35.3 Polymyalgia rheumatica; I73.9 Peripheral vascular disease, unspecified; M19.90 Unspecified osteoarthritis, unspecified site; G89.29 Other chronic pain; M54.9 Dorsalgia, unspecified; Z66 Do not resuscitate; Z79.51 Long term (current) use of inhaled steroids; Z79.52 Long term (current) use of systemic steroids; Z79.01 Long term (current) use of anticoagulants; Z79.899 Other long term (current) drug therapy; Z96.649 Presence of unspecified artificial hip joint; Z86.79 Personal history of other diseases of the circulatory system
CPT/HCPCS: 36415; 80053; 82274; 83540; 83605; 83690; 84466; 84550; 85025; 85610; 87040; 94640; 96365; 96368; 99283; 99284

== ENCOUNTER 2018-07-10 11:30 | Outpatient (CLI) | payer MEDICARE, OTHER, MEDICAID ==
[2018-07-10 16:15] LABS: CALCIUM 8.5 mg/dL (8.5-10.3); CREATININE 1.5 mg/dL (0.6-1.2)
[2018-07-10 16:16] LABS: BASOPHILS # (AUTO) 0.1 10^3/uL (0.0-0.1); BASOPHILS % (AUTO) 0.8 %; EOSINOPHILS # (AUTO) 0.2 10^3/uL (0.0-0.7); EOSINOPHILS % (AUTO) 1.2 %; HGB - HEMOGLOBIN 10.3 g/dL (14.0-18.0); LYMPHOCYTES # (AUTO) 0.6 10^3/uL (1.5-3.5); LYMPHOCYTES % (AUTO) 3.9 %; MEAN CORPUSCULAR HEMOGLOBIN 25.1 pg (27.0-31.0); MEAN CORPUSCULAR HGB CONC 32.4 g/dL (32.0-36.0); MEAN CORPUSCULAR VOLUME 77.7 fL (80.0-94.0); MEAN PLATELET VOLUME 8.1 fL (7.4-11.4); MONOCYTES # (AUTO) 0.7 10^3/uL (0.0-1.0); MONOCYTES % (AUTO) 5.2 %; NEUTROPHILS # (AUTO) 12.6 10^3/uL (1.5-6.6); NEUTROPHILS % (AUTO) 88.9 %; PLT - PLATELET COUNT 348 10^3/uL (130-450); RED BLOOD COUNT 4.09 10^6/uL (4.70-6.10); RED CELL DISTRIBUTION WIDTH 17.5 % (12.0-15.0); WHITE BLOOD COUNT 14.1 x10^3/uL (4.8-10.8)
== END 2018-07-10 11:31 | disposition home or self-care (01) ==
LOC: LAB.R 11:30
DX: I10 Essential (primary) hypertension (principal); D64.9 Anemia, unspecified
CPT/HCPCS: 80048; 85025

== ENCOUNTER 2018-07-12 13:45 | Outpatient (CLI) | payer MEDICARE, OTHER, MEDICAID ==
--- NOTE | 2018-07-12 19:00 | CONSULTATION NOTE ---
Palliative Care Follow Up - Referral Referring Provider: Dr Tanna Hoyt Time of Visit: 07/12/2018. Referral setting: [facility] ([facility]) Referral Reason: Recent hospitalization for UTI - Information Sources Records reviewed: RN notes reviewed, Previous records reviewed History/Review of Systems obtained from: Patient, Nursing Exam limitations: Clinical condition (Dementia, short term memory deficits) - History of Present Illness Update Brief HPI Update: -82 male with advancing dementia and complex medical problems living at [facility] assisted living since 25 February 2018, being followed by Home Health RN and Palliative Care. 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 -Patient hospitalized from 05/22/18 - 05/30/18 for UTI, cellulitis of L arm and uncontrollable pain, DC'd to [facility] SNF for rehabilitation. -On 06/28 he was discharged back to his SNF, [facility], but once there, his condition was deemed too poor to remain, so he was transferred back to [facility]. -His condition worsened and he was sent to ER and was hospitalized from 07/01/18 - 07/04/18 for UTI and what was mistakenly diagnosed as bacteremia, likely 1/2 bottles being a contaminant. -MDR staph epi, sensitivity to tetracycline, was placed on 250mg QID x 7 days. For the UTI was on IV Rocephin which was DC'd due to urine culture positive for enterobacter aerogenes. Was DC'd on doxycycline 100 mg PO BID x 6 days. -Other diagnoses during this hospitalization were protein calorie deficiency malnutrition and GERSON/CKDIII, which resolved back to baseline. -He has no longer on Physical Therapy, PT reports he was uncooperative with PT since being released fro hospital. -Patient was cooperative and pleasant during today's exam. -He became fixated on wanting to speak with his PCP, Dr Hoyt, and asked a IMMIGRATION CASE WORKER to help him, and asked me too. I assured him I would speak to his daughter about this. Social History - Living Situation Living arrangement: intermediate ([facility], daughter intends to transfer him to an [facility], or a dementia unit) Living Situation: With caregiver(s) Support System: Daughter Inessa is his DPOA and is closely involved in his care. She is [place] searching [place] She lives in [place]. Medications/Allergies - Medications Home Medications: Ambulatory Orders Medication Instructions Recorded Confirmed Amlodipine Besylate 10 mg PO DAILY 04/03/18 07/12/18 Cholecalciferol (Vitamin D3) 1,000 unit PO DAILY 04/03/18 07/12/18 [Vitamin D3] Finasteride 5 mg PO QPM 04/03/18 07/12/18 Hydralazine HCl 40 mg PO BID 04/03/18 07/12/18 Multivitamin [Multiple Vitamins] 1 tab PO DAILY 04/03/18 07/12/18 Nitroglycerin [Nitrostat] 0.4 mg PO Q5MIN PRN MDD 3 TABLETS 04/03/18 07/12/18 Prednisone 5 mg PO DAILYWM 04/03/18 07/12/18 Tamsulosin HCl [Flomax] 0.4 mg PO DAILY 04/03/18 07/12/18 Warfarin [Coumadin] 1.25 mg PO DAILY 04/03/18 07/12/18 Lidocaine Patch 5% [Lidoderm Patch] 1 patch TOP DAILY #30 patch 05/30/18 07/12/18 Amiodarone [Pacerone] 200 mg PO DAILY 06/01/18 07/12/18 Melatonin 6 mg PO QPM 06/29/18 07/12/18 Potassium Chloride [K-Dur] 20 meq PO DAILYWM 06/29/18 07/12/18 Bimatoprost 0.01% Ophth Dops 1 drops EACHEYE QPM 07/03/18 07/12/18 [Lumigan 0.01% Ophth Drops] Acetaminophen [Tylenol] 650 mg PO Q4HR PRN tablet 07/04/18 07/12/18 Albuterol 2.5 mg INH .RTQ4H PRN neb 07/04/18 07/12/18 Budesonide [Pulmicort] 0.5 mg INH RTBID neb 07/04/18 07/12/18 Famotidine [Pepcid] 20 mg PO BID tablet 07/04/18 07/12/18 Ferrous Gluconate 240 mg PO TID #90 07/04/18 07/12/18 Formoterol Fumarate [Perforomist] 20 mcg INH RTBID neb 07/04/18 07/12/18 Ipratropium/Albuterol [Duoneb] 3 ml INH .RTBID neb 07/04/18 07/12/18 Methenamine Hippurate [Hiprex] 1 gm PO BID #60 tablet MDD For 30 07/04/18 07/12/18 days from 07/05/18 Polyethylene Glycol 3350 [Miralax] 17 gm PO DAILY packet 07/04/18 07/12/18 Zolpidem [Ambien] 5 mg PO QPM PRN tablet 07/04/18 07/12/18 diltiaZEM CD [Cardizem Cd] 120 mg PO DAILY capsule 07/04/18 07/12/18 House Bowel Program 1 ea PO PRN PRN 07/12/18 - Allergies Allergies/Adverse Reactions: Allergies Allergy/AdvReac Type Severity Reaction Status Date / Time azithromycin Allergy Respiratory Verified 05/22/18 14:47 bee venom protein (honey bee) Allergy Anaphylaxis Verified 05/22/18 14:47 hornet venom Allergy Anaphylaxis Verified 05/22/18 14:47 lisinopril Allergy Respiratory Verified 05/22/18 14:47 losartan Allergy Respiratory Verified 05/22/18 14:47 naproxen [From Naprosyn] Allergy Respiratory Verified 05/22/18 14:47 NSAIDS (Non-Steroidal Allergy Respiratory Verified 05/22/18 14:47 Anti-Inflamma Penicillins Allergy Respiratory Verified 05/22/18 14:47 Sulfa (Sulfonamide Allergy Respiratory Verified 05/22/18 14:47 Antibiotics) aspirin AdvReac Cramps Verified 05/22/18 14:47 hydromorphone AdvReac Hallucinati Verified 05/22/18 14:47 ons Iodinated Contrast- Oral and AdvReac Unknown Verified 05/22/18 14:47 IV Dye omeprazole AdvReac Cramps Verified 05/22/18 14:47 oxycodone AdvReac Hallucinati Verified 05/22/18 14:47 ons wasp Allergy Anaphylaxis Uncoded 05/22/18 14:47 yellow jacket venom Allergy Anaphylaxis Uncoded 05/22/18 14:47 Review of Systems - Constitutional Constitutional: reports: Weakness, Poor appetite, Weight loss (127.2 lbs 07/06/18. 135 lbs 05/31/18. 147 lbs 03/13/18. 138 lb 03/01/18. 146 lbs 11/11/17. 153 lbs from January-April 2017.) - Ears, Nose & Throat Ears, Nose & Throat: reports: Hearing loss - Cardiovascular Cardiovascular: reports: Exertional dyspnea, Decr. exercise tolerance - Respiratory Respiratory: reports: Cough (chronic, dry), SOB at rest, SOB with exertion - Gastrointestinal Gastrointestinal: reports: Constipation - Genitourinary Genitourinary: reports: Frequency. denies: Incontinence - Musculoskeletal Musculoskeletal: reports: Back pain, Assistive devices (wheelchair), Transfer issues (worsening, now requires 1-person extensive assist, prior it was limited assist) - Integumentary Integumentary: reports: Other (complains that skin on lower extremities is abnormally thick) - Neurological Neurological: reports: General weakness, Memory problems - Psychiatric Psychiatric: reports: Behavior disturbances (can be salazar and demanding to staff) - Hematologic/Lymphatic Hematologic/Lymphatic: reports: Recurrent infections (UTIs) Physical Exam - Vital Signs Temperature: 96.3 F Pulse Rate: 74 O2 Saturation: 95 (room air) Blood Pressure: 145/71 (wrist cuff) - Physical Exam General Appearance: positive: No acute distress, Alert, Other (cachectic, frail, unshaven, muscle wasting of LEs) Eyes Bilateral: positive: No lid inflammation, Conjunctivae nml, No scleral icterus ENT: positive: Dry mucous membranes Neck: positive: No JVD, Trachea midline Cardiovascular: positive: Regular rate & rhythm, No murmur Respiratory: positive: Chest non-tender, No respiratory distress, Diminished throughout. negative: Rales Skin: positive: Pallor, Other (LE wounds and edema are improved, skin is improved but remains thickened from vascular disease) Neurologic/Psychiatric: positive: Disoriented to place, Disoriented to time, Flat affect Palliative Care - POLST Patient has POLST: Yes POLST Status: DNR, Selective Treatment Pain: No pain Tiredness/Fatigue: Mild (1-3) Drowsiness/Sedation: None Nausea: None Anxiety: Mild (1-3) Dyspnea: None Anorexia: Moderate (4-6) Performance Status: Increased level of help with transfers required: now a 1-person extended assist; previously was 1-person limited assist. Significant wasting of lower extremities. No edema; skin texture of lower extremities has improved. Still continent Able to reposition himself in bed to a limited degree. Uncooperative with PT, was DC'd - Palliative Care Discussion: Palliative care had visited patient during hospitalization and had several conversations with daughter/DPDIONISIO Wylie regarding goals of care. She was not prepared to make any decisions related to transitioning to Hospice. -Her main concern is to find a permanent living situation for the patient. [facility] will no longer accept the patient back due to his increased care needs. 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 -Her first choice is an adult family home (AFH) somewhere near where she lives in [place], -After he was back at [facility] after the 07/01 hospitalization, Inessa found a suitable SNF who would accept him on Medicaid, but then lost that spot when another candidate was able to pay privately. -[facility] has been working to get the patient on the appropriate Medicaid program for either an AFH or long-term care (LTC) at [facility], at least temporarily until the daughter can find permanent placement. -[facility] is talking to Meli Herman, [facility], and also to Barbara Carroll, who had the patient on her caseload through [facility] while he was at [facility]. Barbara qualified him as an assisted living Medicaid patient. Impression and Recommendations - Palliative Care Impression: 82-year-old male with advancing dementia and complex medical problems. He was hospitalized last week for UTI, discharged back to [facility] because his former Assisted Living Facility, [facility], will no longer accept him back due to his worsening condition. He is currently at [facility] on a temporary basis while his daughter actively searches for an [place] nearer to where she [place]; unfortunately one potential AFH just fell through. [facility] is working to transition him to [id number] while he remains at [facility]. Recommendations/Counseling Done: Protein calorie malnutrition: Significant weight loss: 127.2 lbs 07/06/18. 135 lbs 05/31/18. 147 lbs 03/13/18. 138 lbs 03/01/18. 146 lbs 11/11/17. 153 lbs from January- April 2017. Follow up with daughter about supplement (eg, Ensure) UTI: Resolved after IV and PO antibiotics at hospital, and completion of antibiotic regimen (doxycycline 100mg BID) he was discharged on. Continue methenamine hippurate 1g BID for 30 days. Chronic pain: No complaints, controlled with lidocaine 5% patch daily, prednisone 5mg, and Tylenol as needed. Bilateral lower extremity edema: Improved, skin looks much better, not wearing compression. Home Health RN has DC'd. COPD: Asymptomatic: continue Albuterol/ipratropium and albuterol and formoterol nebulizers, and budesonide. Advanced care planning: POLST is DNR and selective. Patient is back at [facility] on a temporary basis while the daughter searches for an AFH or dementia unit nearer her. She lives in [place]. Patient meets medical criteria for Hospice, but daughter has previously stated her priority is finding a permanent residential situation for the patient. Palliative care will continue to provide support and oversight, with eventual transition to Hospice when appropriate. Left voicemail for daughter. Follow up about weight loss and adding Ensure, goals of care Time Spent: 30 minutes were spent with more than 50% of the time spent on counseling, education, and coordination of care.
== END 2018-07-12 13:46 | disposition home or self-care (01) ==
LOC: PC 13:45
PROVIDERS: ATTEND Nurse Practitioner
DX: Z51.5 Encounter for palliative care (principal); E46 Unspecified protein-calorie malnutrition; Z87.440 Personal history of urinary (tract) infections; G89.29 Other chronic pain; R60.0 Localized edema; J44.9 Chronic obstructive pulmonary disease, unspecified; N18.3 Chronic kidney disease, stage 3 (moderate); F03.91 Unspecified dementia, unspecified severity, with behavioral disturbance; I13.0 Hypertensive heart and chronic kidney disease with heart failure and stage 1 through stage 4 chronic kidney disease, or unspecified chronic kidney disease; I50.9 Heart failure, unspecified; I48.91 Unspecified atrial fibrillation; I73.9 Peripheral vascular disease, unspecified; H91.93 Unspecified hearing loss, bilateral; Z79.01 Long term (current) use of anticoagulants; Z79.899 Other long term (current) drug therapy; Z66 Do not resuscitate; Z91.19 Patient's noncompliance with other medical treatment and regimen; Z79.52 Long term (current) use of systemic steroids; Z79.51 Long term (current) use of inhaled steroids
CPT/HCPCS: 99309

== ENCOUNTER 2018-07-17 15:00 | Outpatient (CLI) | payer MEDICARE, OTHER, MEDICAID ==
[2018-07-17 17:25] LABS: BASOPHILS # (AUTO) 0.2 10^3/uL (0.0-0.1); BASOPHILS % (AUTO) 1.1 %; EOSINOPHILS # (AUTO) 0.3 10^3/uL (0.0-0.7); HGB - HEMOGLOBIN 11.1 g/dL (14.0-18.0); LYMPHOCYTES # (AUTO) 0.9 10^3/uL (1.5-3.5); LYMPHOCYTES % (AUTO) 6.2 %; MEAN CORPUSCULAR HEMOGLOBIN 25.1 pg (27.0-31.0); MEAN CORPUSCULAR HGB CONC 31.9 g/dL (32.0-36.0); MEAN CORPUSCULAR VOLUME 78.5 fL (80.0-94.0); MEAN PLATELET VOLUME 8.1 fL (7.4-11.4); NEUTROPHILS # (AUTO) 11.9 10^3/uL (1.5-6.6); NEUTROPHILS % (AUTO) 83.7 %; PLT - PLATELET COUNT 402 10^3/uL (130-450); RED BLOOD COUNT 4.43 10^6/uL (4.70-6.10); RED CELL DISTRIBUTION WIDTH 18.2 % (12.0-15.0); WHITE BLOOD COUNT 14.2 x10^3/uL (4.8-10.8)
[2018-07-17 17:31] LABS: CALCIUM 8.6 mg/dL (8.5-10.3); CREATININE 1.6 mg/dL (0.6-1.2)
== END 2018-07-17 15:01 | disposition home or self-care (01) ==
LOC: LAB.R 15:00
DX: I10 Essential (primary) hypertension (principal); D64.9 Anemia, unspecified
CPT/HCPCS: 80048; 85025

== ENCOUNTER 2018-07-24 13:45 | Outpatient (CLI) | payer MEDICARE, OTHER, MEDICAID ==
[2018-07-24 18:08] LABS: BASOPHILS % (AUTO) 0.2 %; EOSINOPHILS # (AUTO) 0.2 10^3/uL (0.0-0.7); EOSINOPHILS % (AUTO) 1.2 %; HGB - HEMOGLOBIN 10.3 g/dL (14.0-18.0); LYMPHOCYTES # (AUTO) 0.5 10^3/uL (1.5-3.5); LYMPHOCYTES % (AUTO) 3.5 %; MEAN CORPUSCULAR HEMOGLOBIN 24.8 pg (27.0-31.0); MEAN CORPUSCULAR HGB CONC 31.6 g/dL (32.0-36.0); MEAN CORPUSCULAR VOLUME 78.6 fL (80.0-94.0); MEAN PLATELET VOLUME 8.3 fL (7.4-11.4); MONOCYTES # (AUTO) 0.4 10^3/uL (0.0-1.0); MONOCYTES % (AUTO) 2.9 %; NEUTROPHILS # (AUTO) 12.1 10^3/uL (1.5-6.6); NEUTROPHILS % (AUTO) 92.2 %; PLT - PLATELET COUNT 370 10^3/uL (130-450); RED BLOOD COUNT 4.16 10^6/uL (4.70-6.10); RED CELL DISTRIBUTION WIDTH 18.2 % (12.0-15.0); WHITE BLOOD COUNT 13.1 x10^3/uL (4.8-10.8)
[2018-07-24 18:16] LABS: CALCIUM 8.2 mg/dL (8.5-10.3); CREATININE 1.5 mg/dL (0.6-1.2)
== END 2018-07-24 13:46 | disposition home or self-care (01) ==
LOC: LAB.R 13:45
DX: R79.89 Other specified abnormal findings of blood chemistry (principal); R68.89 Other general symptoms and signs
CPT/HCPCS: 80048; 85025

== ENCOUNTER 2018-08-09 08:00 | Outpatient (CLI) | payer MEDICARE, OTHER, MEDICAID ==
[2018-08-09 11:17] LABS: BILIRUBIN,URINE NEGATIVE (NEGATIVE); CLARITY,URINE SL. CLOUDY (CLEAR); GLUCOSE, URINE (UA) NEGATIVE (NEGATIVE); KETONES,URINE (UA) NEGATIVE (NEGATIVE); LEUKOCYTE ESTERASE, URINE TRACE (NEGATIVE); NITRITE,URINE NEGATIVE (NEGATIVE); OCCULT BLOOD,URINE NEGATIVE (NEGATIVE); PH,URINE 6.5 PH (5.0-7.5); PROTEIN,URINE NEGATIVE (NEGATIVE); UROBILINOGEN,URINE 0.2 (NORMAL) E.U./dL (NORMAL)
[2018-08-09 11:33] LABS: BACTERIA,URINE Moderate /HPF (None Seen); RBC,URINE 0-5 /HPF (0-5); SQUAMOUS EPITHELIAL CELL,UR NONE SEEN (<= Few)
== END 2018-08-09 23:59 | disposition home or self-care (01) ==
LOC: LAB.R 08:00
PROVIDERS: ATTEND Family Medicine
DX: N39.0 Urinary tract infection, site not specified (principal)
CPT/HCPCS: 81001; 81003; 87077; 87086; 87181

== ENCOUNTER 2018-08-11 15:45 | Emergency (ER) | payer MEDICARE, OTHER, MEDICAID ==
--- NOTE | 2018-08-11 15:50 | ED Physician Documentation ---
PD HPI MALE - Stated complaint Stated Complaint: SENT BY [facility] - History of Present Illness Timing - onset: How many days ago (4-5) Timing - duration: Days Timing - details: Gradual onset, Still present (He is having some discomfort with urination. He has a history of prior UTIs and had a urine test and urine culture done on 112. The culture results were showing Proteus mirabilis with multiple resistances and resulted today. His primary care for [facility] try to get antibiotics for him there but the only medications that he is not allergic to would be IV dosing and apparently is unable to arrange that on the weekend. He was sent to the emergency room for IV antibiotic dosing. He does not seem sick and does not have fever or vomiting. Will likely be able to return him to [facility] after the IV medications.) Associated symptoms: Dysuria, Urinary frequency. No: Discharge, Back pain, Indwelling catheter Similar symptoms before: Diagnosis (utis) Review of Systems Constitutional: denies: Fever, Chills, Myalgias Cardiac: reports: Chest pain / pressure (intermittent right lower ribs/chest pain with movement the past couple of weeks. Does not remember injury.) GI: denies: Abdominal Pain, Nausea, Vomiting : reports: Dysuria, Frequency Musculoskeletal: denies: Back pain Neurologic: reports: Generalized weakness. denies: Focal weakness, Numbness, Near syncope, Altered mental status PD PAST MEDICAL HISTORY - Past Medical History Cardiovascular: Congestive heart failure, Hypertension, Coronary artery disease, Peripheral Vascular Disease, Atrial fibrillation Respiratory: COPD Neuro: Dementia Endocrine/Autoimmune: HyPOthyroidism : Benign prostate hypertrophy, Renal insuffiency HEENT: Chronic vision loss Musculoskeletal: Osteoarthritis, Chronic back pain, Other - Past Surgical History Past Surgical History: Yes General: Other Ortho: Hip replacement (R hemiarthroplasty 2014) Cardiovascular: AAA - Present Medications Home Medications: Ambulatory Orders Medication Instructions Recorded Confirmed Amlodipine Besylate 10 mg PO DAILY 04/03/18 07/12/18 Cholecalciferol (Vitamin D3) 1,000 unit PO DAILY 04/03/18 07/12/18 [Vitamin D3] Finasteride 5 mg PO QPM 04/03/18 07/12/18 Hydralazine HCl 40 mg PO BID 04/03/18 07/12/18 Multivitamin [Multiple Vitamins] 1 tab PO DAILY 04/03/18 07/12/18 Nitroglycerin [Nitrostat] 0.4 mg PO Q5MIN PRN MDD 3 TABLETS 04/03/18 07/12/18 Prednisone 5 mg PO DAILYWM 04/03/18 07/12/18 Tamsulosin HCl [Flomax] 0.4 mg PO DAILY 04/03/18 07/12/18 Warfarin [Coumadin] 1.25 mg PO DAILY 04/03/18 07/12/18 Lidocaine Patch 5% [Lidoderm Patch] 1 patch TOP DAILY #30 patch 05/30/18 07/12/18 Amiodarone [Pacerone] 200 mg PO DAILY 06/01/18 07/12/18 Melatonin 6 mg PO QPM 06/29/18 07/12/18 Potassium Chloride [K-Dur] 20 meq PO DAILYWM 06/29/18 07/12/18 Bimatoprost 0.01% Ophth Dops 1 drops EACHEYE QPM 07/03/18 07/12/18 [Lumigan 0.01% Ophth Drops] Acetaminophen [Tylenol] 650 mg PO Q4HR PRN tablet 07/04/18 07/12/18 Albuterol 2.5 mg INH .RTQ4H PRN neb 07/04/18 07/12/18 Budesonide [Pulmicort] 0.5 mg INH RTBID neb 07/04/18 07/12/18 Famotidine [Pepcid] 20 mg PO BID tablet 07/04/18 07/12/18 Ferrous Gluconate 240 mg PO TID #90 07/04/18 07/12/18 Formoterol Fumarate [Perforomist] 20 mcg INH RTBID neb 07/04/18 07/12/18 Ipratropium/Albuterol [Duoneb] 3 ml INH .RTBID neb 07/04/18 07/12/18 Methenamine Hippurate [Hiprex] 1 gm PO BID #60 tablet MDD For 30 07/04/18 07/12/18 days from 07/05/18 Polyethylene Glycol 3350 [Miralax] 17 gm PO DAILY packet 07/04/18 07/12/18 Zolpidem [Ambien] 5 mg PO QPM PRN tablet 07/04/18 07/12/18 diltiaZEM CD [Cardizem Cd] 120 mg PO DAILY capsule 07/04/18 07/12/18 House Bowel Program 1 ea PO PRN PRN 07/12/18 - Allergies Allergies/Adverse Reactions: Allergies Allergy/AdvReac Type Severity Reaction Status Date / Time azithromycin Allergy Respiratory Verified 05/22/18 14:47 bee venom protein (honey bee) Allergy Anaphylaxis Verified 05/22/18 14:47 hornet venom Allergy Anaphylaxis Verified 05/22/18 14:47 lisinopril Allergy Respiratory Verified 05/22/18 14:47 losartan Allergy Respiratory Verified 05/22/18 14:47 naproxen [From Naprosyn] Allergy Respiratory Verified 05/22/18 14:47 NSAIDS (Non-Steroidal Allergy Respiratory Verified 05/22/18 14:47 Anti-Inflamma Penicillins Allergy Respiratory Verified 05/22/18 14:47 Sulfa (Sulfonamide Allergy Respiratory Verified 05/22/18 14:47 Antibiotics) aspirin AdvReac Cramps Verified 05/22/18 14:47 hydromorphone AdvReac Hallucinati Verified 05/22/18 14:47 ons Iodinated Contrast- Oral and AdvReac Unknown Verified 05/22/18 14:47 IV Dye omeprazole AdvReac Cramps Verified 05/22/18 14:47 oxycodone AdvReac Hallucinati Verified 05/22/18 14:47 ons wasp Allergy Anaphylaxis Uncoded 05/22/18 14:47 yellow jacket venom Allergy Anaphylaxis Uncoded 05/22/18 14:47 - Social History Does the pt smoke?: No Smoking Status: Never smoker Does the pt drink ETOH?: Yes Does the pt have substance abuse?: No - Immunizations Immunizations are current?: Yes - POLST Patient has POLST: Yes POLST Status: DNR PD ED PE NORMAL - Vitals Vital signs reviewed: Yes - General General: Alert and oriented X 3, No acute distress, Well developed/nourished - HEENT HEENT: Pharynx benign - Neck Neck: Supple, no meningeal sign, No adenopathy - Cardiac Cardiac: RRR, No murmur - Respiratory Respiratory: Clear bilaterally, Other (no chestwall tenderness) - Abdomen Abdomen: Normal bowel sounds, Soft, Non tender, Non distended, No organomegaly - Back Back: No CVA TTP - Derm Derm: Normal color, No rash - Neuro Neuro: Alert and oriented X 3, No motor deficit, Normal speech Results - Vitals Vitals: Vital Signs - 24 hr 08/11/18 15:50 Temperature 36.9 C Heart Rate 74 Respiratory 18 Rate Blood Pressure 147/63 H O2 Saturation 95 Oxygen O2 Source [] Nasal cannula O2 Source Room air - Labs Labs: Laboratory Tests 08/11/18 08/11/18 16:11 16:11 WBC 12.2 H RBC 4.49 L Hgb 11.1 L Hct 35.1 L MCV 78.0 L MCH 24.6 L MCHC 31.6 L RDW 17.9 H Plt Count 375 MPV 7.4 Neut # (Auto) 11.1 H Lymph # (Auto) 0.5 L [place] # (Auto) 0.5 Eos # (Auto) 0.0 Baso # (Auto) 0.1 Absolute Nucleated RBC 0.00 Nucleated RBC % 0.0 Sodium 141 Potassium 5.3 H Chloride 103 Carbon Dioxide 29 Anion Gap 9.0 BUN 24 H Creatinine 1.6 H Estimated GFR (MDRD) 41 L Glucose 113 H Calcium 8.9 Total Bilirubin 0.4 AST 19 ALT 24 Alkaline Phosphatase 111 Total Protein 7.6 Albumin 3.6 Globulin 4.0 Albumin/Globulin Ratio 0.9 L Lipase 36 - Rads (name of study) chest xray Radiology: Prelim report reviewed, EMP read contemporaneously (no acute process; similar to prior CXRs.) PD MEDICAL DECISION MAKING - ED course Complexity details: considered differential (He will be given an IV dose of gentamicin 7 mg/kg for a possibly single dose treatment for the UTI or in a male patient with recurrent UTIs, he might need a repeat dose in 2-3 days. That potentially could be arranged at [facility] at that point. He complained of some intermittent right chest and rib pain over the last couple of weeks we can get a chest x-ray while he is here. Basic labs are drawn.), d/w patient Departure - Departure Disposition: 01 Home, Self Care Clinical Impression: Chest wall pain UTI (urinary tract infection) Qualifiers: Urinary tract infection type: acute cystitis Hematuria presence: without hematuria Qualified Code(s): N30.00 - Acute cystitis without hematuria Condition: Stable Record reviewed to determine appropriate education?: Yes Follow-Up: Nico Thorpe, [Primary Care Provider] - Comments: You were given an IV dose of antibiotics that may be adequate for treatment or will certainly suffice for 2-3 days. Follow with your primary care at [facility] to decide on any further antibiotic dosings. Tylenol if needed for pains every 4-6 hours. Continue other usual medications.
[2018-08-11] MEDS ORDERED: SODIUM CHLORIDE 0.9% 1,000 ML IV ONE (16:01)
[2018-08-11 16:28] LABS: ALBUMIN 3.6 g/dL (3.2-5.5); ALBUMIN/GLOBULIN RATIO 0.9 (1.0-2.2); BILIRUBIN,TOTAL 0.4 mg/dL (0.2-1.0); CALCIUM 8.9 mg/dL (8.5-10.3); CREATININE 1.6 mg/dL (0.6-1.2); TOTAL PROTEIN 7.6 g/dL (6.7-8.2)
[2018-08-11 16:34] LABS: BASOPHILS # (AUTO) 0.1 10^3/uL (0.0-0.1); BASOPHILS % (AUTO) 0.7 %; EOSINOPHILS % (AUTO) 0.4 %; HGB - HEMOGLOBIN 11.1 g/dL (14.0-18.0); LYMPHOCYTES # (AUTO) 0.5 10^3/uL (1.5-3.5); LYMPHOCYTES % (AUTO) 3.9 %; MEAN CORPUSCULAR HEMOGLOBIN 24.6 pg (27.0-31.0); MEAN CORPUSCULAR HGB CONC 31.6 g/dL (32.0-36.0); MEAN PLATELET VOLUME 7.4 fL (7.4-11.4); MONOCYTES # (AUTO) 0.5 10^3/uL (0.0-1.0); NEUTROPHILS # (AUTO) 11.1 10^3/uL (1.5-6.6); PLT - PLATELET COUNT 375 10^3/uL (130-450); RED BLOOD COUNT 4.49 10^6/uL (4.70-6.10); RED CELL DISTRIBUTION WIDTH 17.9 % (12.0-15.0); WHITE BLOOD COUNT 12.2 x10^3/uL (4.8-10.8)
[2018-08-11] MEDS ORDERED: SODIUM CHLORIDE 0.9% IV STA (16:35)
[2018-08-11] MEDS ORDERED: GENTAMICIN IV STA (16:35)
[2018-08-11] MEDS ORDERED: SODIUM CHLORIDE 0.9% IV ONE (17:00)
[2018-08-11] MEDS ORDERED: GENTAMICIN IV ONE (17:00)
--- NOTE | 2018-08-11 18:12 | XRAY Report ---
Reason: right chest pain with movement Procedure Date: 08/11/2018 Accession Number: [id number] / [id number] Procedure: XR - Chest 2 View X-Ray CPT Code: 57739 FULL RESULT: EXAM: CHEST RADIOGRAPHY EXAM DATE: 08/11/2018 06:03 PM. CLINICAL HISTORY: Right chest pain with movement. COMPARISON: None. TECHNIQUE: 2 views. FINDINGS: Mildly limited exam due to positioning. Lungs/Pleura: No focal consolidation. Mild diffuse interstitial prominence is likely chronic. There is reticular scarring in the medial right lower lung.. No pleural effusion. No pneumothorax. Normal volumes. Mediastinum: Heart and mediastinal contours are unremarkable. There are right mediastinal clips. Other: None. IMPRESSION: No acute cardiopulmonary abnormality. RADIA
[2018-08-11 19:14] VITALS: BP 140/60
== END 2018-08-11 19:32 | disposition home or self-care (01) ==
LOC: ED 15:45
DX: N30.00 Acute cystitis without hematuria (principal); R07.89 Other chest pain; I11.0 Hypertensive heart disease with heart failure; I50.9 Heart failure, unspecified; I25.10 Atherosclerotic heart disease of native coronary artery without angina pectoris; I73.9 Peripheral vascular disease, unspecified; J44.9 Chronic obstructive pulmonary disease, unspecified; F03.90 Unspecified dementia, unspecified severity, without behavioral disturbance, psychotic disturbance, mood disturbance, and anxiety; Z86.79 Personal history of other diseases of the circulatory system; Z79.01 Long term (current) use of anticoagulants
CPT/HCPCS: 36415; 71046; 80053; 83690; 85025; 96361; 96365; 99283

== ENCOUNTER 2018-08-14 13:15 | Outpatient (CLI) | payer MEDICARE, OTHER, MEDICAID ==
--- NOTE | 2018-08-14 18:51 | CONSULTATION NOTE ---
Palliative Care Follow Up - Referral Referring Provider: Dr Tanna Hoyt. Dr Sedrick Thorpe, Facility Assistant Elementary Teacher Time of Visit: 08/14/2018. 13:15 - 13:35 Referral setting: [facility]way Facility ([facility]) Referral Reason: UTI on IV antibiotics - Information Sources Records reviewed: RN notes reviewed, Previous records reviewed History/Review of Systems obtained from: Patient, Family, Nursing Exam limitations: Clinical condition (short-term memory deficits; dementia) - History of Present Illness Update Brief HPI Update: -83-year-old male with advancing dementia, h/o recurrent UTIs and complex medical problems now at [facility]. 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 -Patient has been at [facility] after he was hospitalized May 2018 for UTI, cellulitis of L arm and uncontrollable pain and DC'd to [facility]F for rehabilitation. -His daughter has been unsuccessfully trying to find [place] Adult [place] for [place] -She has not been successful, the patient has a history of behaviors, including inapparopriate comments and treatment of staff. -If she does move him again, she wants it to be his last move, and a permanent one. -She is also realizing, with his frequent hospitalizations for UTI, that [facility] may be a more suitable level of care. -He was sent to the ED this weekend for presumed UTI. Culture shows proteus mirabillis with multiple resitances. He was started on Genamycin IV. He was DC'd back to [facility], and switched to Ertapenem IV, 500mg daily x 10 day. A picc line was placed in L upper arm. -Spoke with daughter on phone today. She is not convinced he has a UTI. His WBC was 15,000, but she reports he has chronic leukocytosis and 15,000 is not elevated for him. She reports he get ill around WBC 17,000. -Patient is sitting up in his wheelchair, is alert and responds appropriately to questions and comments. Reports pain all the time, and when asked about it, points in general to his neck, head. He denies SOA and his chronic dry cough is at baseline. -His lower extremities look much better, skin on shins is intact, no redness nor tenderness. Skin tissue around ankle is firm and tender to palpation, but not hot or red Social History - Living Situation Living arrangement: halfway ([facility], living here since May 2018) Living Situation: With caregiver(s) Support System: Daughter Inessa Ortega is his DPOA, [place] and is very involved in his care. Visits frequently. Patient lived with her for 4 years until his care needs became too much to handle at home. Medications/Allergies - Medications Home Medications: Ambulatory Orders Medication Instructions Recorded Confirmed Amlodipine Besylate 10 mg PO DAILY 04/03/18 08/14/18 Cholecalciferol (Vitamin D3) 1,000 unit PO DAILY 04/03/18 08/14/18 [Vitamin D3] Finasteride 5 mg PO QPM 04/03/18 08/14/18 Hydralazine HCl 40 mg PO BID 04/03/18 08/14/18 Multivitamin [Multiple Vitamins] 1 tab PO DAILY 04/03/18 08/14/18 Nitroglycerin [Nitrostat] 0.4 mg PO Q5MIN PRN MDD 3 TABLETS 04/03/18 08/14/18 Prednisone 5 mg PO DAILYWM 04/03/18 08/14/18 Tamsulosin HCl [Flomax] 0.4 mg PO DAILY 04/03/18 08/14/18 Warfarin [Coumadin] 2.5 mg PO .EVERY Monday04/03/18 08/14/18 Amiodarone [Pacerone] 200 mg PO DAILY 06/01/18 08/14/18 Melatonin 6 mg PO QPM 06/29/18 08/14/18 Potassium Chloride [K-Dur] 20 meq PO DAILYWM 06/29/18 08/14/18 Bimatoprost 0.01% Ophth Dops 1 drops EACHEYE QPM 07/03/18 08/14/18 [Lumigan 0.01% Ophth Drops] Acetaminophen [Tylenol] 650 mg PO Q4HR PRN tablet 07/04/18 08/14/18 Famotidine [Pepcid] 20 mg PO BID tablet 07/04/18 08/14/18 Polyethylene Glycol 3350 [Miralax] 17 gm PO DAILY packet 07/04/18 08/14/18 diltiaZEM CD [Cardizem Cd] 120 mg PO DAILY capsule 07/04/18 08/14/18 House Bowel Program 1 ea PO PRN PRN 07/12/18 08/14/18 Albuterol 2 puffs INH BID 08/14/18 08/14/18 Budesonide/Formoterol Fumarate 2 puffs PO BID 08/14/18 08/14/18 [Symbicort 80-4.5 Mcg Inhaler] Ertapenem Sodium [Ertapenem] 500 mg IV DAILY MDD for 10 days 08/14/18 08/14/18 only Ferrous Gluconate 240 mg PO DAILY 08/14/18 08/14/18 Saccharomyces Boulardii [Florastor] 250 mg PO BID MDD Until 08/23/18 08/14/18 08/14/18 Tiotropium Schulter [Spiriva] 1 cap INH DAILY 08/14/18 08/14/18 Warfarin [Coumadin] 1.25 mg PO .T,W,TH,F,S,S 08/14/18 08/14/18 - Allergies Allergies/Adverse Reactions: Allergies Allergy/AdvReac Type Severity Reaction Status Date / Time azithromycin Allergy Respiratory Verified 05/22/18 14:47 bee venom protein (honey bee) Allergy Anaphylaxis Verified 05/22/18 14:47 hornet venom Allergy Anaphylaxis Verified 05/22/18 14:47 lisinopril Allergy Respiratory Verified 05/22/18 14:47 losartan Allergy Respiratory Verified 05/22/18 14:47 naproxen [From Naprosyn] Allergy Respiratory Verified 05/22/18 14:47 NSAIDS (Non-Steroidal Allergy Respiratory Verified 05/22/18 14:47 Anti-Inflamma Penicillins Allergy Respiratory Verified 05/22/18 14:47 Sulfa (Sulfonamide Allergy Respiratory Verified 05/22/18 14:47 Antibiotics) aspirin AdvReac Cramps Verified 05/22/18 14:47 hydromorphone AdvReac Hallucinati Verified 05/22/18 14:47 ons Iodinated Contrast- Oral and AdvReac Unknown Verified 05/22/18 14:47 IV Dye omeprazole AdvReac Cramps Verified 05/22/18 14:47 oxycodone AdvReac Hallucinati Verified 05/22/18 14:47 ons wasp Allergy Anaphylaxis Uncoded 05/22/18 14:47 yellow jacket venom Allergy Anaphylaxis Uncoded 05/22/18 14:47 Review of Systems - Constitutional Constitutional: reports: Weight stable (Stabilized back up, but at lower baseline than last year: 134.6 lbs 08/08/18. 135 lbs 05/31/18. It had dropped down to 127.2 lbs 07/06/18. Previous baseline was the mid-150s last year.) - Ears, Nose & Throat Ears, Nose & Throat: reports: Hearing loss - Cardiovascular Cardiovascular: reports: Decr. exercise tolerance - Respiratory Respiratory: reports: Cough (chronic, dry) - Gastrointestinal Gastrointestinal: denies: Constipation, Diarrhea, Nausea, Vomiting - Genitourinary Genitourinary: denies: Dysuria, Incontinence - Musculoskeletal Musculoskeletal: reports: Muscle pain, Back pain (neck pain, chronic), Stiffness, Limited range of motion, Muscle weakness, Assistive devices (wheelchair), Transfer issues (1 person extensive assist) - Neurological Neurological: reports: General weakness, Memory problems, Pre-existing deficit - Psychiatric Psychiatric: reports: Behavior disturbances (salazar, demanding/unpleasant to staff) Physical Exam - Vital Signs Temperature: 96.5 F Pulse Rate: 73 O2 Saturation: 95 (room air) Blood Pressure: 147/71 (wrist cuff) - Physical Exam General Appearance: positive: No acute distress, Alert Eyes Bilateral: positive: No lid inflammation, Conjunctivae nml, No scleral icterus ENT: positive: Dry mucous membranes Neck: positive: Trachea midline, Stiff neck Cardiovascular: positive: Regular rate & rhythm, No murmur, No gallop Respiratory: positive: No respiratory distress, Diminished throughout (worse on L lung) Skin: positive: Bruising (hematoma on R forearm) Neurologic/Psychiatric: positive: Disoriented to place, Disoriented to time, Flat affect Palliative Care - POLST Patient has POLST: Yes POLST Status: DNR, Selective Treatment Pain: Pain unchanged Anorexia: Mild (1-3) - Palliative Care Discussion: Daughter continues to search for an Adult Family Home near her, but thinks he actually needs a higher level of care, due to the frequent UTIs recently. She is very satisfied with [facility] taking care of him, finds the staff cares and she is able to call and always be able to talk to nursing staff on the phone. If she moves him again she wants it to be a permanent move. Right now she is considering keeping him at [facility] because she hasn't found any facility comparable to it near her, and because she thinks her father is better off at this facility. She knows the patient's health very well, and is doubtful that he has a current UTI because his WBC count is lower than it normally is when he gets a UTI. He usually isn't sick until the WBC reaches 17,000. It was 15,000 at the ED visit this weekend. She said she planned to speak to Dr Thorpe about it tomorrow. The patient is currently on Ertapenem IV x 10 days administered at [facility]. Impression and Recommendations - Palliative Care Impression: 83-year-old male with advancing dementia and complex medical problems, including recurrent UTIs. He is currently on an IV antibiotic regimen at [facility] and has stabilized. His daughter questions whether he actually has a UTI since his WBC is lower than it normally is with UTI which is around 17,000. His WBC is 15,000. Daughter is still considering moving him to an AFH nearer to her, but is considering keeping him at [facility] because she is very satisfied with the level of care provided here and thinks he needs a higher level of care than an [facility] provides. Recommendations/Counseling Done: Protein calorie malnutrition: Improved. Weight has stabilized in mid-130s, after dropping to 127 lbs in June. Previous baseline last year was mid 150s. UTI: Ertapenem 500mg IV daily x 10 days. Unclear if he is actually with a UTI since his WBC is less elevated than it normally is when he is sick. It's 15,000 but he gets up to 17,000. Chronic pain: At baseline. Use Tylenol as needed and prednisone 5mg for pain control. Lidocaine patch is DC'd Bilateral lower extremity edema: Skin is non-compromised. Patient is not wearing compression. COPD: Asymptomatic: continue Albuterol, Spiriva (tiotropium), Symbicort (budesonide-formoterol). Advanced care planning: POLST is DNR and selective. Patient is back at [facility] on a temporary basis while the daughter searches for an AFH or dementia unit n earer her. She lives in [place]. Patient meets medical criteria for Hospice, but daughter has previously stated her priority is finding a permanent residential situation for the patient. Palliative care will continue to provide support and oversight, with eventual transition to Hospice when appropriate. Follow up visits as needed. Time Spent: 20 minutes were spent with more than 50% of the time spent on counseling, education, and coordination of care.
== END 2018-08-14 13:16 | disposition home or self-care (01) ==
LOC: PC 13:15
PROVIDERS: ATTEND Nurse Practitioner
DX: Z51.5 Encounter for palliative care (principal); E46 Unspecified protein-calorie malnutrition; G89.29 Other chronic pain; I13.0 Hypertensive heart and chronic kidney disease with heart failure and stage 1 through stage 4 chronic kidney disease, or unspecified chronic kidney disease; I50.9 Heart failure, unspecified; N18.3 Chronic kidney disease, stage 3 (moderate); J44.9 Chronic obstructive pulmonary disease, unspecified; F03.91 Unspecified dementia, unspecified severity, with behavioral disturbance; Z66 Do not resuscitate; Z87.440 Personal history of urinary (tract) infections; Z79.899 Other long term (current) drug therapy; Z79.52 Long term (current) use of systemic steroids; Z79.51 Long term (current) use of inhaled steroids
CPT/HCPCS: 99308

== ENCOUNTER 2018-09-14 14:25 | Outpatient (CLI) | payer MEDICARE, OTHER, MEDICAID ==
[2018-09-14 15:48] LABS: PT - PROTHROMBIN TIME 70.4 secs (9.9-12.6)
[2018-09-14 15:49] LABS: BASOPHILS % (AUTO) 0.3 %; EOSINOPHILS # (AUTO) 0.1 10^3/uL (0.0-0.7); EOSINOPHILS % (AUTO) 0.4 %; HGB - HEMOGLOBIN 11.5 g/dL (14.0-18.0); LYMPHOCYTES # (AUTO) 0.4 10^3/uL (1.5-3.5); LYMPHOCYTES % (AUTO) 2.6 %; MEAN CORPUSCULAR HEMOGLOBIN 24.1 pg (27.0-31.0); MEAN CORPUSCULAR HGB CONC 30.8 g/dL (32.0-36.0); MEAN CORPUSCULAR VOLUME 78.2 fL (80.0-94.0); MEAN PLATELET VOLUME 7.9 fL (7.4-11.4); MONOCYTES # (AUTO) 0.7 10^3/uL (0.0-1.0); MONOCYTES % (AUTO) 4.5 %; NEUTROPHILS # (AUTO) 15.3 10^3/uL (1.5-6.6); NEUTROPHILS % (AUTO) 92.2 %; PLT - PLATELET COUNT 361 10^3/uL (130-450); RED BLOOD COUNT 4.77 10^6/uL (4.70-6.10); RED CELL DISTRIBUTION WIDTH 18.7 % (12.0-15.0); WHITE BLOOD COUNT 16.6 x10^3/uL (4.8-10.8)
[2018-09-14 15:50] LABS: ALBUMIN 3.4 g/dL (3.2-5.5); ALBUMIN/GLOBULIN RATIO 0.8 (1.0-2.2); BILIRUBIN,TOTAL 0.6 mg/dL (0.2-1.0); CALCIUM 8.6 mg/dL (8.5-10.3); CREATININE 1.7 mg/dL (0.6-1.2); TOTAL PROTEIN 7.9 g/dL (6.7-8.2)
[2018-09-14 15:56] LABS: INR 6.3 (0.8-1.2)
== END 2018-09-14 23:59 | disposition home or self-care (01) ==
LOC: LAB.R 14:25
DX: N18.9 Chronic kidney disease, unspecified (principal); I48.2 Chronic atrial fibrillation
CPT/HCPCS: 80053; 85025; 85610

== ENCOUNTER 2018-09-15 07:30 | Outpatient (CLI) | payer MEDICARE, OTHER, MEDICAID ==
[2018-09-15 09:29] LABS: BILIRUBIN,URINE NEGATIVE (NEGATIVE); GLUCOSE, URINE (UA) NEGATIVE (NEGATIVE); KETONES,URINE (UA) NEGATIVE (NEGATIVE); LEUKOCYTE ESTERASE, URINE NEGATIVE (NEGATIVE); NITRITE,URINE NEGATIVE (NEGATIVE); OCCULT BLOOD,URINE NEGATIVE (NEGATIVE); PH,URINE 5.5 PH (5.0-7.5); PROTEIN,URINE 30 mg/dL (NEGATIVE); UROBILINOGEN,URINE 0.2 (NORMAL) E.U./dL (NORMAL)
[2018-09-15 09:34] LABS: CLARITY,URINE HAZY (CLEAR)
[2018-09-15 09:45] LABS: BACTERIA,URINE Few /HPF (None Seen); RBC,URINE 0-5 /HPF (0-5); SQUAMOUS EPITHELIAL CELL,UR FEW Squamous (<= Few)
== END 2018-09-15 23:59 | disposition home or self-care (01) ==
LOC: LAB.R 07:30
DX: N39.0 Urinary tract infection, site not specified (principal)
CPT/HCPCS: 81001; 87086

== ENCOUNTER 2018-09-17 08:47 | Outpatient (CLI) | payer MEDICARE, OTHER, MEDICAID | END 2018-09-17 08:48 | disposition critical access hospital (66) | LOC: EMS 08:47 | PROVIDERS: ATTEND Surgery | DX: R06.82 Tachypnea, not elsewhere classified (principal) | CPT/HCPCS: A0425; A0429 ==

== ENCOUNTER 2018-09-17 08:52 | Inpatient (IN) | payer MEDICARE, MEDICAID ==
--- NOTE | 2018-09-17 09:06 | ED Physician Documentation ---
History of Present Illness - Stated complaint Stated Complaint: SOA - Additonal information Additional information: hx from EMS and report from [facility]ol[facility] at [facility] 83 male hx a fib HTN UTI/bacteremia COPD CKD and dementia uses home O2 unclear how much DNR limited - no intubation or dialysis per POLST per EMS sic for up to a week at [facility] with dec activity and sig worse now with hypoxia and AMS and ronchi on exam and fever [facility] tried to call daughter prior to transfer but got now answer so pt BIB[facility] for fever hypoxia AMS per EMS no fall has a PICC line please refer to palliative care consult 08/14/18 Review of Systems Unable to obtain: Confused, Dementia Constitutional: reports: Fever PD PAST MEDICAL HISTORY - Past Medical History Cardiovascular: Congestive heart failure, Hypertension, Coronary artery disease, Peripheral Vascular Disease, Atrial fibrillation Respiratory: COPD Neuro: Dementia Endocrine/Autoimmune: HyPOthyroidism : Benign prostate hypertrophy, Renal insuffiency HEENT: Chronic vision loss Psych: None Musculoskeletal: Osteoarthritis, Chronic back pain, Other - Past Surgical History Past Surgical History: Yes General: Other Ortho: Hip replacement (R hemiarthroplasty 2014) Cardiovascular: AAA - Present Medications Home Medications: Ambulatory Orders Medication Instructions Recorded Confirmed Amlodipine Besylate 10 mg PO DAILY 04/03/18 09/17/18 Cholecalciferol (Vitamin D3) 1,000 unit PO DAILY 04/03/18 09/17/18 [Vitamin D3] Finasteride 5 mg PO QPM 04/03/18 09/17/18 Multivitamin [Multiple Vitamins] 1 tab PO DAILY 04/03/18 09/17/18 Nitroglycerin [Nitrostat] 0.4 mg PO Q5MIN PRN MDD 3 TABLETS 04/03/18 09/17/18 Prednisone 5 mg PO DAILYWM 04/03/18 09/17/18 Tamsulosin HCl [Flomax] 0.4 mg PO DAILY 04/03/18 09/17/18 Warfarin [Coumadin] 0 mg PO DAILY 04/03/18 09/17/18 Amiodarone [Pacerone] 200 mg PO DAILY 06/01/18 09/17/18 Melatonin 6 mg PO QPM 06/29/18 09/17/18 Potassium Chloride [K-Dur] 20 meq PO DAILYWM 06/29/18 09/17/18 Bimatoprost 0.01% Ophth Dops 1 drops EACHEYE QPM 07/03/18 09/17/18 [Lumigan 0.01% Ophth Drops] Famotidine [Pepcid] 20 mg PO BID tablet 07/04/18 09/17/18 Polyethylene Glycol 3350 [Miralax] 17 gm PO DAILY packet 07/04/18 09/17/18 diltiaZEM CD [Cardizem Cd] 120 mg PO DAILY capsule 07/04/18 09/17/18 Albuterol 2 puffs INH BID 08/14/18 09/17/18 Budesonide/Formoterol Fumarate 2 puffs PO BID 08/14/18 09/17/18 [Symbicort 80-4.5 Mcg Inhaler] Ferrous Gluconate 240 mg PO DAILY 08/14/18 09/17/18 Tiotropium Ewing [Spiriva] 1 cap INH DAILY 08/14/18 09/17/18 Acetaminophen 1,000 mg PO Q6H PRN 09/17/18 09/17/18 Cyclobenzaprine HCl 5 mg PO BID 09/17/18 09/17/18 Hydralazine HCl 25 mg PO BID 09/17/18 09/17/18 - Allergies Allergies/Adverse Reactions: Allergies Allergy/AdvReac Type Severity Reaction Status Date / Time azithromycin Allergy Respiratory Verified 05/22/18 14:47 bee venom protein (honey bee) Allergy Anaphylaxis Verified 05/22/18 14:47 hornet venom Allergy Anaphylaxis Verified 05/22/18 14:47 lisinopril Allergy Respiratory Verified 05/22/18 14:47 losartan Allergy Respiratory Verified 05/22/18 14:47 naproxen [From Naprosyn] Allergy Respiratory Verified 05/22/18 14:47 NSAIDS (Non-Steroidal Allergy Respiratory Verified 05/22/18 14:47 Anti-Inflamma Penicillins Allergy Respiratory Verified 05/22/18 14:47 Sulfa (Sulfonamide Allergy Respiratory Verified 05/22/18 14:47 Antibiotics) aspirin AdvReac Cramps Verified 05/22/18 14:47 hydromorphone AdvReac Hallucinati Verified 05/22/18 14:47 ons Iodinated Contrast- Oral and AdvReac Unknown Verified 05/22/18 14:47 IV Dye omeprazole AdvReac Cramps Verified 05/22/18 14:47 oxycodone AdvReac Hallucinati Verified 05/22/18 14:47 ons wasp Allergy Anaphylaxis Uncoded 05/22/18 14:47 yellow jacket venom Allergy Anaphylaxis Uncoded 05/22/18 14:47 - Social History Does the pt smoke?: No Smoking Status: Never smoker Does the pt drink ETOH?: Yes Does the pt have substance abuse?: No - Immunizations Immunizations are current?: Yes - POLST Patient has POLST: Yes POLST Status: DNR PD ED PE NORMAL - Vitals Vital signs reviewed: Yes - General General: No: Alert and oriented X 3 (arousable but incoherent) - HEENT HEENT: PERRL. No: Moist mucous membranes (dry) - Cardiac Cardiac: No: RRR (tachy and bit irreg) - Respiratory Respiratory: Other (ronchi dhaval, labored tachypneic) - Abdomen Abdomen: Soft, Non tender - Derm Derm: Normal color, Other (LUE PICC s erythema) - Extremities Extremities: No edema - Neuro Neuro: No: Alert and oriented X 3 Results - Vitals Vitals: Vital Signs - 24 hr 09/17/18 09/17/18 09/17/18 08:59 09:00 09:30 Temperature 36.2 C L Heart Rate 107 H 107 H 114 H Respiratory 23 24 24 Rate Blood Pressure 148/76 H 118/102 H 135/73 H O2 Saturation 82 L 81 L 84 L 09/17/18 09:53 Temperature Heart Rate 97 Respiratory Rate Blood Pressure O2 Saturation Oxygen O2 Source [With Activity] Nasal cannula O2 Source Room air - EKG (time done) 0859 Rate: Rate (enter#) (105) Rhythm: Other (likely a fib - seems regular but no P waves seen) Ischemia: Q waves (anterior septal and inferior). No: ST elevation c/w ischemia - Labs Labs: Laboratory Tests 09/17/18 09/17/18 09/17/18 09:32 10:18 10:55 WBC 23.5 H RBC 4.33 L Hgb 10.6 L Hct 32.7 L MCV 75.5 L MCH 24.5 L MCHC 32.4 RDW 18.3 H Plt Count 423 MPV 7.9 Neut # (Auto) 21.6 H Lymph # (Auto) 0.5 L [place] # (Auto) 1.4 H Eos # (Auto) 0.0 Baso # (Auto) 0.1 Absolute Nucleated RBC 0.01 Nucleated RBC % 0.0 Manual Slide Review Indicated RBC Morph Micro Appear 2+ ANISOCYTOSIS PT INR Bld Gas Analysis Time 10:18 Sample Site LEFT RADIAL ABG pH 7.39 ABG pCO2 38 ABG pO2 50 L* ABG HCO3 22.1 ABG Total CO2 23.3 ABG O2 Saturation 84 L* ABG Base Excess -2.5 L David Test POSITIVE Respiration Rate 24 O2 Delivery Device BiPAP FiO2 45.00 Tidal Volume 830 EPAP 6 IPAP 11 Sodium Potassium Chloride Carbon Dioxide Anion Gap BUN Creatinine Estimated GFR (MDRD) Glucose Lactic Acid 1.9 Calcium Troponin I 09/17/18 09/17/18 09/17/18 10:55 10:55 10:55 WBC RBC Hgb Hct MCV MCH MCHC RDW Plt Count MPV Neut # (Auto) Lymph # (Auto) [place] # (Auto) Eos # (Auto) Baso # (Auto) Absolute Nucleated RBC Nucleated RBC % Manual Slide Review RBC Morph Micro Appear PT 46.7 H INR 4.2 H Bld Gas Analysis Time Sample Site ABG pH ABG pCO2 ABG pO2 ABG HCO3 ABG Total CO2 ABG O2 Saturation ABG Base Excess David Test Respiration Rate O2 Delivery Device FiO2 Tidal Volume EPAP IPAP Sodium 144 Potassium 4.3 Chloride 107 Carbon Dioxide 25 Anion Gap 12.0 BUN 66 H Creatinine 2.4 H Estimated GFR (MDRD) 26 L Glucose 144 H Lactic Acid Calcium 8.4 L Troponin I 0.04 - Rads (name of study) CTH Radiology: See rad report (no acute ICH) CXR Radiology: See rad report (rotated and limited, edema, R hilar fullness ? mass vs loebctomy vs infiltrae, per rad possible shift mediastinum but could be rotational and pt has no pneumo to cause same) PD MEDICAL DECISION MAKING - ED course ED course: spoke to daughter CARROLL and she would like pt txed (everything except CPR intubation and dialysis) and admitted pt with hypoxic resp failure placed in BiPAP which he initially struggle with but was able to tolerate after 1 of ativan he has a PICC but dressing was dated early Dec - nursing called [facility] and apparently this has not been used flushed or changed for a while so was flushed cleaned and redressed in ED and one of his two sets of cultures were drawn through that CXR does show pna given his many allergies hospitalist yvonne start him on levaquin - given he going to ICU she may want to add vanco as well but started the levaquin in ED after blood cx drawn will need to watch QT as he is on amiod and also monitor INR daughter called at 1145 and is concerned he may have a head bleed because his INR has been elevated to 7.5 and he fell a week and a half ago - so added on CTH - which showed no ICH Departure - Departure Disposition: 66 [facility] DC/Xfer Clinical Impression: Respiratory failure Qualifiers: Chronicity: chronic Respiratory failure complication: hypoxia Qualified Code(s): J96.11 - Chronic respiratory failure with hypoxia Pneumonia Qualifiers: Pneumonia type: due to unspecified organism Laterality: right Lung location: middle lobe of lung Qualified Code(s): J18.1 - Lobar pneumonia, unspecified organism Discharge Date/Time: 09/17/18 12:01
[2018-09-17] MEDS ORDERED: LORazepam 2 MG/ML VIAL IVP STA (09:45)
[2018-09-17 10:23] LABS: ABG BASE EXCESS -2.5 mmol/L (-2.0-3.0); ABG HCO3 22.1 mmol/L (22.0-26.0); ABG PCO2 38 mmHg (34-45); ABG PH 7.39 (7.35-7.45); ABG TCO2 23.3 MMOL/L (21.0-29.0); ALLEN TEST POSITIVE
[2018-09-17 10:26] LABS: ABG OXYGEN SATURATION 84 % (94-98); ABG PO2 50 mmHg (80-100)
[2018-09-17] MEDS ORDERED: levoFLOXacin 500 MG/100 ML 500 MG/100 ML BAG IV STA (10:55)
[2018-09-17] MEDS ORDERED: PROCHLORPERAZINE 10 MG/2 ML VIAL IVP PRN (10:56)
[2018-09-17] MEDS ORDERED: HYDROcod/ACETAM 5/325 MG TABLET PO PRN (10:56)
[2018-09-17] MEDS ORDERED: ONDANSETRON ODT 4 MG TABLET TL PRN (10:56)
[2018-09-17] MEDS ORDERED: ONDANSETRON 4 MG/2 ML VIAL IVP PRN (10:56)
[2018-09-17] MEDS ORDERED: ACETAMINOPHEN 325 MG TABLET PO PRN (10:56)
[2018-09-17] MEDS ORDERED: SODIUM CHLORIDE 0.9% 1,000 ML IV SCH (11:00)
--- NOTE | 2018-09-17 11:03 | XRAY Report ---
Reason: chest pain Procedure Date: 09/17/2018 Accession Number: [id number] / [id number] Procedure: XR - Chest 1 View X-Ray CPT Code: 69974 FULL RESULT: EXAM: CHEST RADIOGRAPHY EXAM DATE: 09/17/2018 10:44 AM. CLINICAL HISTORY: Chest pain. COMPARISON: CHEST 2 VIEW 08/11/2018 5:45 PM. TECHNIQUE: 1 view. FINDINGS: Radiograph is limited by single view portable technique and significant rotation. Compared to the beginning of July, there is apparent mediastinal shift to the right, possibly exacerbated by rotation with increasing soft tissue density in the right hilar region which demonstrates postsurgical changes suggestive of prior lobectomy. There is also pulmonary edema, which is new. The tortuous aorta with partially calcified arch is likely unchanged accounting for differences in technique. IMPRESSION: Markedly limited radiograph with significant rotation. New pulmonary edema. Possible increase in volume loss and soft tissue density in the right hilum. Recommendation: Formal PA and lateral radiographs to clarify whether the hilar and right lung changes are due to rotation. RADIA
[2018-09-17 11:05] LABS: BASOPHILS # (AUTO) 0.1 10^3/uL (0.0-0.1); BASOPHILS % (AUTO) 0.3 %; HGB - HEMOGLOBIN 10.6 g/dL (14.0-18.0); LYMPHOCYTES # (AUTO) 0.5 10^3/uL (1.5-3.5); LYMPHOCYTES % (AUTO) 2.1 %; MEAN CORPUSCULAR HEMOGLOBIN 24.5 pg (27.0-31.0); MEAN CORPUSCULAR HGB CONC 32.4 g/dL (32.0-36.0); MEAN CORPUSCULAR VOLUME 75.5 fL (80.0-94.0); MEAN PLATELET VOLUME 7.9 fL (7.4-11.4); MONOCYTES # (AUTO) 1.4 10^3/uL (0.0-1.0); MONOCYTES % (AUTO) 5.8 %; NEUTROPHILS # (AUTO) 21.6 10^3/uL (1.5-6.6); NEUTROPHILS % (AUTO) 91.8 %; PLT - PLATELET COUNT 423 10^3/uL (130-450); RED BLOOD COUNT 4.33 10^6/uL (4.70-6.10); RED CELL DISTRIBUTION WIDTH 18.3 % (12.0-15.0); WHITE BLOOD COUNT 23.5 x10^3/uL (4.8-10.8)
[2018-09-17 11:18] LABS: CALCIUM 8.4 mg/dL (8.5-10.3); CREATININE 2.4 mg/dL (0.6-1.2); INR 4.2 (0.8-1.2); PT - PROTHROMBIN TIME 46.7 secs (9.9-12.6)
[2018-09-17 11:21] LABS: RBC MORPHOLOGY (MULTIPLE) 2+ ANISOCYTOSIS (NORMAL)
[2018-09-17 11:44] LABS: BILIRUBIN,URINE NEGATIVE (NEGATIVE); GLUCOSE, URINE (UA) NEGATIVE (NEGATIVE); KETONES,URINE (UA) NEGATIVE (NEGATIVE); LEUKOCYTE ESTERASE, URINE NEGATIVE (NEGATIVE); NITRITE,URINE NEGATIVE (NEGATIVE); OCCULT BLOOD,URINE NEGATIVE (NEGATIVE); PROTEIN,URINE 100 mg/dL (NEGATIVE); UROBILINOGEN,URINE 0.2 (NORMAL) E.U./dL (NORMAL)
[2018-09-17 11:55] LABS: CLARITY,URINE CLEAR (CLEAR)
[2018-09-17 12:25] LABS: AMORPHOUS SEDIMENT,UR Moderate /LPF; BACTERIA,URINE None Seen /HPF (None Seen); CASTS, URINE 0-2 Hyaline Casts /LPF; RBC,URINE 0-5 /HPF (0-5); SQUAMOUS EPITHELIAL CELL,UR RARE Squamous (<= Few)
--- NOTE | 2018-09-17 13:10 | HISTORY & PHYSICAL EXAMINATION ---
Chief Complaint - Chief Complaint Chief Complaint: Decreased activity w sleepiness for 7 days and new AMS x 2 d History of Present Illness - Admitted From Admitted From:: COW/ER - History Obtained From Records Reviewed: Miguel History obtained from: Miguel and Dr. Arguelles Exam Limitations: Severe memory loss and his agitation - History of Present Illness HPI Comment/Other: -82 male with advancing dementia and complex medical problems was living at [facility] assisted living since 25 February 2018 after living in [facility] in [place], being followed by Home Health RN and Palliative Care. Moved to [facility] after hospital stay here 07/2018. Prior to living at [facility] in [place], he lived w his daughter for 4 years but she could no longer care for him due to his increased needs a behavior. She placed him in an [facility] near her but had to transfer him here bc of behavior. She is still looking for an [facility] that will care for him in [place]. She wants the next move to be his last one. 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 -Patient hospitalized here from 05/22/18 - 05/30/18 for UTI, cellulitis of L arm and uncontrollable pain, DC'd to [facility] SNF for rehabilitation. -On 06/28 he was discharged back to his [facility], [facility], but once there, his condit ion was deemed too poor to remain, so he was transferred back to [facility]. -His condition worsened and he was sent to ER and was hospitalized from 07/01/18 - 07/04/18 for UTI and what was mistakenly diagnosed as bacteremia, likely 1/2 bottles being a contaminant. -MDR staph epi, sensitivity to tetracycline, was placed on 250mg QID x 7 days. For the UTI was on IV Rocephin which was DC'd due to urine culture positive for enterobacter aerogenes. Was DC'd on doxycycline 100 mg PO BID x 6 days. -Other diagnoses during this hospitalization were protein calorie deficiency malnutrition and GERSON/CKDIII, which resolved back to baseline. -He has no longer on Physical Therapy, PT reports he was uncooperative with PT since being released from hospital. Staff at the correction facility has noted that he is less active. More a more sedated. Sleeping more more. This is for [address] Thorpe, the medical records director, obtained a chest x-ray. Chest x-ray was negative. 2 days ago he started having altered mental status on his already chronic dementia. He was sent to our ER today when he was found to be hypoxic, having rhonchi on exam. He was evaluated by Dr. Herring and has been found to have lethargy with agitation. He is afebrile at 36.2. And he is 82% on 100% nonrebreather. Respiratory rate is 23-24, pulse is 107. He is maintaining his blood pressure 148/76. On examination he had coarse diffuse rhonchi with his acute respiratory distress and hypoxia. His BUN and creatinine are acutely elevated at 26 and 2.4. Troponins are negative. White cell count is elevated at 23.5. An initial blood gas shows him to have a pH of 7.39, PCO2 30, PO2 on 50 of 50 on 45% FiO2 BiPAP. He is a DO NOT RESUSCITATE with limited intervention. His daughter would like aggressive care up to the point of intubation and resuscitation. She does want antibiotics, IV fluids, transfusions, and BiPAP if we need to. He had a chest x-ray done 2 days ago and was clear. Today, however, his chest x-ray shows new pulmonary edema, and soft tissue density in the right hilum. Mediastinal shift to the right that is possibly from rotation. A PA and lateral is being recommended to find out whether the changes in the right lung are due to rotation or true infiltrate. After being started on BiPAP for respiratory failure, given antibiotics in the form of Levaquin, the patient is transferred to the ICU. After being transferred to the ICU the daughter called Dr. Herring to let her know that the patient has had an INR of greater than 7 at the correction facility in the last few days. Dr. Herring is now working up the idea that he may have had a subdural and this is causing his altered mental status and Dr. Herring has ordered a CT of the head. Because of agitation, we are having difficulty calming him down to get the CT of the head. Kaelmatthias worked in the emergency room, and we are hoping to give him Atmatthias in the ICU. The other thing we are finding on him is a left biceps midline IV. It was initially thought to be a PICC line but there is nothing on chest x-ray indicating a PICC line. As such we think it may be a large bore midline IV that is been there, dated on the tape, for a month. History - Past Medical History Cardiovascular: reports: Congestive heart failure, Hypertension, Coronary artery disease, Peripheral Vascular Disease, Atrial flutter (severe cp and chf, was in aflutter 10/2017), Atrial fibrillation Respiratory: reports: COPD Neuro: reports: Dementia, Other (Falls: fx right hip 2014, fall w elbow fx and rhabdo after lay on floor 8 hours 07/26, rib fx somewhere in 2017, fall 2017. ) Endocrine/Autoimmune: reports: HyPOthyroidism : reports: Benign prostate hypertrophy, Renal insuffiency HEENT: reports: Chronic vision loss Psych: reports: None Musculoskeletal: reports: Osteoarthritis, Chronic back pain, Other MRSA Hx?: No - Past Surgical History General: reports: Other Ortho: reports: Hip replacement (R hemiarthroplasty 2014) Cardiovascular: reports: AAA - Family & Social History Family History: Mother: , Cancer, Father: , CVA/TIA, Diabetes, Type 2, Brother: Family History Comment/Other: Both parents are in their 70s. Father of stroke and diabetic complications. Mother had breast cancer. 2 siblings are . One in a childhood accident and the other was a brother who in his 80s of pneumonia. A 5 children, 2 are from cancer. Living arrangement: [facility] Living Situation: Alone Social History Notes: The patient was born in [place] and worked for [employer]. He has long since retired. He is part [place] decent. The patient has been 3 times, he is now . He lives with his daughterInessa for about 4 years until she could no longer provide adequate care and he moved in to [facility] in February 2018. He had 5 children, 2 are from cancer. One daughter lives in [place] and is not closely involved. 2016 in patient rehab at [facility]. February 2018 3 weeks in SNF for rehab after admit for fall and UTI. He has one son and used to live with the patient for 5 years but then son moved to [place] when the patient declined and required more care. At that time the patient moved in with his daughter Inessa and her .Lived with them for 4 years until daughter placed him in [facility]. The patient is a former smoker but no longer smokes. He does not drink alcohol and he does not use any illicit drugs. - Substance History Use: Uses substance without health or social issues: NONE Abuse: Recurrent use of substance despite neg consequences: NONE Dependence: Experiences withdrawal or developed tolerances: NONE - POLST Patient has POLST: Yes POLST Status: DNR (With limited interventions. No intubation, no CPR.) Meds/Allgy - Home Medications Home Medications: Ambulatory Orders Medication Instructions Recorded Confirmed Amlodipine Besylate 10 mg PO DAILY 04/03/18 09/17/18 Cholecalciferol (Vitamin D3) 1,000 unit PO DAILY 04/03/18 09/17/18 [Vitamin D3] Finasteride 5 mg PO QPM 04/03/18 09/17/18 Multivitamin [Multiple Vitamins] 1 tab PO DAILY 04/03/18 09/17/18 Nitroglycerin [Nitrostat] 0.4 mg PO Q5MIN PRN MDD 3 TABLETS 04/03/18 09/17/18 Prednisone 5 mg PO DAILYWM 04/03/18 09/17/18 Tamsulosin HCl [Flomax] 0.4 mg PO DAILY 04/03/18 09/17/18 Warfarin [Coumadin] 0 mg PO DAILY 04/03/18 09/17/18 Amiodarone [Pacerone] 200 mg PO DAILY 06/01/18 09/17/18 Melatonin 6 mg PO QPM 06/29/18 09/17/18 Potassium Chloride [K-Dur] 20 meq PO DAILYWM 06/29/18 09/17/18 Bimatoprost 0.01% Ophth Dops 1 drops EACHEYE QPM 07/03/18 09/17/18 [Lumigan 0.01% Ophth Drops] Famotidine [Pepcid] 20 mg PO BID tablet 07/04/18 09/17/18 Polyethylene Glycol 3350 [Miralax] 17 gm PO DAILY packet 07/04/18 09/17/18 diltiaZEM CD [Cardizem Cd] 120 mg PO DAILY capsule 07/04/18 09/17/18 Albuterol 2 puffs INH BID 08/14/18 09/17/18 Budesonide/Formoterol Fumarate 2 puffs PO BID 08/14/18 09/17/18 [Symbicort 80-4.5 Mcg Inhaler] Ferrous Gluconate 240 mg PO DAILY 08/14/18 09/17/18 Tiotropium [place] [Spiriva] 1 cap INH DAILY 08/14/18 09/17/18 Acetaminophen 1,000 mg PO Q6H PRN 09/17/18 09/17/18 Cyclobenzaprine HCl 5 mg PO BID 09/17/18 09/17/18 Hydralazine HCl 25 mg PO BID 09/17/18 09/17/18 - Allergies Allergies/Adverse Reactions: Allergies Allergy/AdvReac Type Severity Reaction Status Date / Time azithromycin Allergy Respiratory Verified 05/22/18 14:47 bee venom protein (honey bee) Allergy Anaphylaxis Verified 05/22/18 14:47 hornet venom Allergy Anaphylaxis Verified 05/22/18 14:47 lisinopril Allergy Respiratory Verified 05/22/18 14:47 losartan Allergy Respiratory Verified 05/22/18 14:47 naproxen [From Naprosyn] Allergy Respiratory Verified 05/22/18 14:47 NSAIDS (Non-Steroidal Allergy Respiratory Verified 05/22/18 14:47 Anti-Inflamma Penicillins Allergy Respiratory Verified 05/22/18 14:47 Sulfa (Sulfonamide Allergy Respiratory Verified 05/22/18 14:47 Antibiotics) aspirin AdvReac Cramps Verified 05/22/18 14:47 hydromorphone AdvReac Hallucinati Verified 05/22/18 14:47 ons Iodinated Contrast- Oral and AdvReac Unknown Verified 05/22/18 14:47 IV Dye omeprazole AdvReac Cramps Verified 05/22/18 14:47 oxycodone AdvReac Hallucinati Verified 05/22/18 14:47 ons wasp Allergy Anaphylaxis Uncoded 05/22/18 14:47 yellow jacket venom Allergy Anaphylaxis Uncoded 05/22/18 14:47 Review of Systems - Other Findings Other Findings: unable to obtain ROS in this demented elderly male. Weight in May 2018 was 72 kg. In June 2018 he was 63 kg. Today he is read as 78 kg in the ER 64 kg in ICU. Prior Level of Functionality: He self propels himself in the wheelchair all day long. He moves from a a hallway to hallway. Unfortunately, he also has a tendency to be impulsive with getting up out of the chair. He is not supposed to get out of his wheelchair but he will transfer himself from wheelchair to toilet, back to wheelchair, or wheelchair to bed, or out of bed without supervision. He does feed himself. Does need help with bathing. When he was introduced to the [facility] system in 2018, he was still walking with a walker. Spending a lot of time sitting without elevation of his legs causing redness and venous stasis of his legs and 3+ edema. Exam - Vital Signs Reviewed Vital Signs: Yes Vital Signs: Vital Signs x48h Temp Pulse Pulse Resp BP BP Pulse Ox 09/17/18 12:20 97.8 C H 98 30 H 142/75 H 96 09/17/18 11:30 89 18 142/78 H 89 L 09/17/18 09:53 97 09/17/18 09:30 114 H 24 135/73 H 84 L 09/17/18 09:00 107 H 24 118/102 H 81 L 09/17/18 08:59 36.2 C L 107 H 23 148/76 H 82 L - Physical Exam General Appearance: positive: Moderate distress (thin, elderly male w respiratory distress), Lethargic (But agitated. No direct responses or communication. He is pulling at IVs, pulling at his face mask, tubes, monet his rib cage even w his BiPAP mask) Eyes Bilateral: positive: PERRL ENT: positive: Dry mucous membranes Neck: positive: Other (JVD w distended neck veins). negative: Stiff neck, Carotid bruit Respiratory: positive: Wheezes, Rales, Rhonchi, Other (tachypnea, use of abd wall muscles) Cardiovascular: positive: Irregularly irregular, Tachycardia, Systolic murmur. negative: Gallop/S4, Friction rub Peripheral Pulses: positive: 1+ Abdomen: positive: Non-tender, No organomegaly, Nml bowel sounds, No distention Skin: positive: Warm, Pallor, Other (multiple ecchymoses of arms, forearms, lft biceps midline IV in place and dated from a month ago) Extremities: positive: Full ROM Neurologic/Psychiatric: positive: Disoriented to person, Disoriented to place, Disoriented to time, Weakness, Other (moving all extremeties spontaneously.) Reflexes: Bicep (R): 1+, Bicep (L): 1+, Knee (R): 1+, Knee (L): 1+, Ankle (R): 0, Ankle (L): 0 Babinski Reflex: Right: Down, Left: Down Conclusion/Plan - Problem List (1) Acute respiratory failure with hypoxia Conclusion/Plan: This is a gentleman who has multiple reasons to have respiratory failure. He has diastolic congestive heart failure history, atrial fibrillation history, coronary artery disease history, but no emphysema. He now presents with a 7-day history of decreased activity, 2-day history of altered mental status, and now severe hypoxia.Chest x-ray shows possible pneumonia. But also pulmonary edema. Troponins are negative for MD. He is not hypotensive. Plan: Acute inpatient admission ICU with BiPAP to continue Evaluate the patient for either cardiac or pulmonary disease or both. He will be treated empirically is pneumonia on the basis of chest x-ray but it i s a bad chest x-ray rotation He could also have congestive heart failure. Atrial fibrillation appears to be rate controlled at this time not severely uncontrolled. 60 minutes has been spent at bedside care of an acutely ill patient. Multiple reexaminations, conversations with respiratory therapy, conversations with his daughter as well as Dr. Herring.He is not improving. (2) Acute alteration in mental status Conclusion/Plan: This is in a gentleman who already has baseline dementia and confusion. Also has behavioral disturbances. I did speak to Dr. Sedrick Thorpe, medical records director who is been at the correction facility taking care of him. He initially had quite a bit of behavioral issues when he got there, but in the last few weeks he is asked to calm down, been much more cooperative. And appeared stable and accepting of where he was living. So the last week of decreasing activity, increasing confusion, and sleepiness is new for him. Plan: Treat underlying cause to return to baseline if possible Please see #1, #3, #4 I have tried to get him to the CT scanner with sedation using Ativan. But in spite of that, he is increasingly agitated. Cannot lay on his back. Would not be safe for him to go to CT scanner. I am looking for subdural hematoma. In discussing the case with his daughter, even if he had a subdural, he would not be candidate for surgery. As such I will cancel CT scanner since not a safe for us to do at this time, and will not change his treatment. (3) Pneumonia Conclusion/Plan: Conclusion based on rotated chest x-ray and a gentleman who has rotated body habitus. We have tried several times to get him flat on his back. He refuses to transfer to his back without a lot of struggling. He prefers to lay on his right side and we cannot get a repeat chest x-ray. He has almost no lung sounds on that right side. Plan: Continue BiPAP. We have ordered him 1 blankets and attempted to do a second blood gas but he will not cooperate. Levaquin IV given empirically in a patient who is in a correction facility with pneumonia and has an allergy to azithromycin Qualifiers: Pneumonia type: due to unspecified organism Laterality: right Lung location: middle lobe of lung Qualified Code(s): J18.1 - Lobar pneumonia, unspecified organism (4) Diastolic CHF, chronic Conclusion/Plan: He is hypoxic. Difficult to say if diastolic CHF as part of his presenting history. However chest x-ray indicates possible new pulmonary edema. He has acute kidney failure with an acute rise in his creatinine. We will give him IV Lasix to see if it may improve knowing full well that it may worsen his kidneys. (5) Hypertension Conclusion/Plan: His blood pressure is actually stable and controlled. He has not been hypotensive. Nevertheless, I will hold off on his usual hypertensive until I know that I stabilize his respiratory status. Qualifiers: Hypertension type: essential hypertension Qualified Code(s): I10 - Essential (primary) hypertension (6) Atrial fibrillation Conclusion/Plan: Rate is mildly elevated in the low 100s. Not severely elevated. Will continue amiodarone. Qualifiers: Atrial fibrillation type: chronic Qualified Code(s): I48.2 - Chronic atrial fibrillation (7) Acute worsening of stage 3 chronic kidney disease Conclusion/Plan: Suspect that it is from simple dehydration, lack of p.o. intake. He is not had an MD, he does not have a low outflow state according to his blood pressure. Unfortunately I am about to give him Lasix for diastolic congestive heart idaniachon pascal. We will continue to monitor and avoid nephrotoxic drugs. This is a gentleman who is already had renal artery stenosis as 1 of his diagnoses. (8) Iron deficiency anemia Conclusion/Plan: chronic, present on all admission including today. Stable CBC. Not a candidate for transfusion at this time. Will transfuse if drops below 7. Qualifiers: Iron deficiency anemia type: unspecified iron deficiency Qualified Code(s): D50.9 - Iron deficiency anemia, unspecified (9) Vascular dementia Conclusion/Plan: Has been an issue in the past and has had multiple stays at different facilities. With this current facility he is actually been improving. Stable affect. Stable environment. At this time he is agitated, requiring restraints. We will continue to give Ativan as needed. I spoken to his daughter at length. At this time she does not want me to prog ress with escalating treatment. She is okay with be canceling the CAT scan. She is on her way to see him. If we need to stop therapy after she says radha, that may be a possibility. He is not improving after intervention. Qualifiers: Dementia behavioral disturbance: with behavioral disturbance Qualified Code(s): F01.51 - Vascular dementia with behavioral disturbance - Lab Results Lab results reviewed: Yes Fish Bones: 09/17/18 10:55 09/17/18 10:55 - Diagnostic Imaging Results Diagnostic Imaging Results: positive: Final report reviewed Diagnostic Imaging Results Comments: CLINICAL HISTORY: Chest pain. COMPARISON: CHEST 2 VIEW 08/11/2018 5:45 PM. TECHNIQUE: 1 view. FINDINGS: Radiograph is limited by single view portable technique and significant rotation. Compared to the beginning of July, there is apparent mediastinal shift to the right, possibly exacerbated by rotation with increasing soft tissue density in the right hilar region which demonstrates postsurgical changes suggestive of prior lobectomy. There is also pulmonary edema, which is new. The tortuous aorta with partially calcified arch is likely unchanged accounting for differences in technique. IMPRESSION: Markedly limited radiograph with significant rotation. New pulmonary edema. Possible increase in volume loss and soft tissue density in the right hilum. Recommendation: Formal PA and lateral radiographs to clarify whether the hilar and right lung changes are due to rotation. Core Measures - Anticipated LOS I expect patient to be DC'd or transferred within 96 hours.: Yes - DVT/VTE - Prophylaxis VTE/DVT Device ordered at admit?: Yes
[2018-09-17] MEDS: LORazepam 2 MG/ML VIAL IVP PRN ×5 (13:33→22:07)
[2018-09-17] MEDS: methylPREDNISolone SUCCINATE 40 MG/ML VIAL IVP SCH ×2 (14:14→22:08)
--- NOTE | 2018-09-17 14:22 | CT Report ---
Reason: AMS and recent INR 7.5 Procedure Date: 09/17/2018 Accession Number: [id number] / [id number] Procedure: CT - Head W/O CPT Code: FULL RESULT: EXAM: CT HEAD EXAM DATE: 09/17/2018 02:11 PM. CLINICAL HISTORY: AMS and recent INR 7.5 and fall one week ago. COMPARISON: HEAD W/O 05/22/2018 4:57 PM. TECHNIQUE: Multiaxial CT images were obtained from the foramen magnum to the vertex. Reformats: Sagittal and coronal. IV contrast: None. In accordance with CT protocol optimization, one or more of the following dose reduction techniques were utilized for this exam: automated exposure control, adjustment of mA and/or KV based on patient size, or use of iterative reconstructive technique. FINDINGS: Parenchyma: No intraparenchymal hemorrhage. No evidence of mass, midline shift. Mcgrath-white differentiation is distinct. Extraaxial Spaces: Normal for age. No subdural or epidural collections identified. Ventricles: Normal in size and position. Sinuses and Orbits: Mucoid retention cysts are seen in both maxillary sinuses, decreased compared to prior. Orbits are unremarkable. Bones: No evidence of fracture or calvarial defect. Other: None. IMPRESSION: No acute intracranial hemorrhage. RADIA
[2018-09-17] MEDS: IPRATROPIUM/ALBUTEROL 3 ML NEB INH SCH ×2 (15:00→21:29)
[2018-09-17] MEDS: SODIUM CHLORIDE FLUSH 0.9% 10 ML SYRINGE IVP SCH (16:19)
[2018-09-17] MEDS: SODIUM CHLORIDE 0.9% 1,000 ML IV SCH ×2 (20:45→23:15)
[2018-09-17] MEDS: FINASTERIDE 5 MG TABLET PO SCH (21:57)
[2018-09-17] MEDS: BIMATOPROST 0.01% OPHTH DROPS 2.5 ML EACHEYE SCH (22:24)
[2018-09-18] MEDS: LORazepam 2 MG/ML VIAL IVP PRN ×9 (00:17→23:46)
[2018-09-18] MEDS: SODIUM CHLORIDE FLUSH 0.9% 10 ML SYRINGE IVP SCH ×3 (02:12→19:00)
[2018-09-18 05:31] LABS: HGB - HEMOGLOBIN 9.7 g/dL (14.0-18.0); LYMPHOCYTES % (AUTO) 1.5 %; MEAN CORPUSCULAR HEMOGLOBIN 23.9 pg (27.0-31.0); MEAN CORPUSCULAR HGB CONC 30.5 g/dL (32.0-36.0); MEAN CORPUSCULAR VOLUME 78.5 fL (80.0-94.0); MEAN PLATELET VOLUME 7.9 fL (7.4-11.4); MONOCYTES % (AUTO) 2.2 %; NEUTROPHILS % (AUTO) 96.3 %; PLT - PLATELET COUNT 391 10^3/uL (130-450); RED BLOOD COUNT 4.07 10^6/uL (4.70-6.10); RED CELL DISTRIBUTION WIDTH 18.7 % (12.0-15.0); WHITE BLOOD COUNT 21.8 x10^3/uL (4.8-10.8)
[2018-09-18 05:33] LABS: ABG BASE EXCESS -4.6 mmol/L (-2.0-3.0); ABG HCO3 22.2 mmol/L (22.0-26.0); ABG OXYGEN SATURATION 98 % (94-98); ABG PCO2 49 mmHg (34-45); ABG PH 7.27 (7.35-7.45); ABG PO2 110 mmHg (80-100); ABG TCO2 23.7 MMOL/L (21.0-29.0); ALLEN TEST POSITIVE
[2018-09-18 05:35] LABS: ABNORMAL LYMPHS % (MANUAL) 0 %
[2018-09-18 05:36] LABS: CALCIUM 8.3 mg/dL (8.5-10.3); CREATININE 2.1 mg/dL (0.6-1.2)
[2018-09-18 06:03] LABS: BAND NEUTROPHILS % (MANUAL) 4 %; LYMPHOCYTES # (MANUAL) 0.7 10^3/uL (1.5-3.5); LYMPHOCYTES % (MANUAL) 3 %; MONOCYTES # (MANUAL) 0.4 10^3/uL (0.0-1.0); NEUTROPHILS # (MANUAL) 20.7 10^3/uL (1.5-6.6); NEUTROPHILS % (MANUAL) 91 %
[2018-09-18 06:05] LABS: PLATELET ESTIMATE, MANUAL NORMAL (130-450,000) (NORMAL)
[2018-09-18 06:06] LABS: PLATELET MORPHOLOGY NORMAL APP (NORMAL)
[2018-09-18] MEDS: methylPREDNISolone SUCCINATE 40 MG/ML VIAL IVP SCH ×3 (06:16→21:49)
[2018-09-18] MEDS: SODIUM CHLORIDE 0.9% 1,000 ML IV SCH ×3 (07:05→22:46)
[2018-09-18] MEDS: IPRATROPIUM/ALBUTEROL 3 ML NEB INH SCH ×3 (07:35→14:57)
--- NOTE | 2018-09-18 07:39 | PROVIDER PROGRESS NOTE ---
Subjective - Prog Note Date Prog Note Date: 09/18/18 Prog Note Time: 07:37 - Subjective Subjective: Yesterday, it took most of the afternoon into the early evening to finally sedate him enough that he was no longer fighting the mask, and hypoxia improved. For most of the late afternoon into the evening he was hypoxic into the 80s even on 100% facemask. When he was finally able to lay flat on his back, and fall asleep because of sedation with Ativan, O2 sat crept above 90%. Daughter was at the bedside, with her brother, her daughter. She has dealt with many relatives dying. Has been present with hospice on a few occasions. She does not want to do unnecessary things to her father. Is considering transitioning him to comfort measures only. Current Medications - Current Medications Current Medications: Active Medications Acetaminophen (Tylenol) 650 mg PO Q4HR PRN PRN Reason: Pain 1 to 4 Hydrocodone Bitart/Acetaminophen ([place] 5/325) 1 tab PO Q4HR PRN PRN Reason: Pain 5 to 7 Albuterol/Ipratropium (Duoneb) 3 ml INH RTQID [facility] Last Admin: 09/18/18 07:35 Dose: 3 ml Amiodarone HCl (Pacerone) 200 mg PO DAILY [facility] Bimatoprost (Lumigan 0.01% Ophth Drops) 1 drops EACHEYE QPM [facility] Last Admin: 09/17/18 22:24 Dose: 1 drops Cholecalciferol (Vitamin D3) 1,000 unit PO DAILY [facility] Enoxaparin Sodium (Lovenox) 30 mg SUBQ DAILY [facility] Ferrous Gluconate (Fergon) 324 mg PO DAILY [facility] Finasteride (Proscar) 5 mg PO QPM [facility] Last Admin: 09/17/18 21:57 Dose: Not Given Levofloxacin (Levaquin 750 Mg/150 Ml) 750 mg in 150 mls @ 100 mls/hr IV Q48H SC H Sodium Chloride (Normal Saline 0.9%) 1,000 mls @ 125 mls/hr IV .Q8H [facility] Last Infusion: 09/18/18 08:00 Dose: 125 mls/hr Lorazepam (Ativan Inj (Vial)) 1 mg IVP Q2H PRN PRN Reason: Anxiety Last Admin: 09/18/18 04:36 Dose: 1 mg Methylprednisolone (Solu-Medrol (40mg Vial)) 40 mg IVP TID [facility] Last Admin: 09/18/18 06:16 Dose: 40 mg Ondansetron HCl (Zofran Inj) 4 mg IVP Q6HR PRN PRN Reason: Nausea / Vomiting Last Admin: 09/18/18 03:02 Dose: 4 mg Ondansetron HCl (Zofran Odt) 4 mg TL Q6HR PRN PRN Reason: Nausea / Vomiting Polyethylene Glycol (Miralax) 17 gm PO DAILY [facility] Prednisone (Deltasone) 5 mg PO DAILYWM [facility] Prochlorperazine Edisylate (Compazine Inj) 10 mg IVP Q6HR PRN PRN Reason: Nausea / Vomiting Last Admin: 09/18/18 03:33 Dose: 10 mg Sodium Chloride (Normal Saline Flush 0.9%) 10 ml IVP PRN PRN PRN Reason: NEEDED PER PROVIDER ORDERS Sodium Chloride (Normal Saline Flush 0.9%) 10 ml IVP 0100,0900,1700 [facility] Last Admin: 09/18/18 02:12 Dose: Not Given Tamsulosin HCl (Flomax) 0.4 mg PO DAILY [facility] Amlodipine Besylate 10 mg PO DAILY 04/03/18 Cholecalciferol (Vitamin D3) [Vitamin D3] 1,000 unit PO DAILY 04/03/18 Finasteride 5 mg PO QPM 04/03/18 Multivitamin [Multiple Vitamins] 1 tab PO DAILY 04/03/18 Nitroglycerin [Nitrostat] 0.4 mg PO Q5MIN PRN MDD 3 TABLETS 04/03/18 Prednisone 5 mg PO DAILYWM 04/03/18 Tamsulosin HCl [Flomax] 0.4 mg PO DAILY 04/03/18 Warfarin [Coumadin] 0 mg PO DAILY 04/03/18 Amiodarone [Pacerone] 200 mg PO DAILY 06/01/18 Melatonin 6 mg PO QPM 06/29/18 Potassium Chloride [K-Dur] 20 meq PO DAILYWM 06/29/18 Bimatoprost 0.01% Ophth Dops [Lumigan 0.01% Ophth Drops] 1 drops EACHEYE QPM 07/03/18 Albuterol 2 puffs INH BID 08/14/18 Budesonide/Formoterol Fumarate [Symbicort 80-4.5 Mcg Inhaler] 2 puffs PO BID 08/14/18 Ferrous Gluconate 240 mg PO DAILY 08/14/18 Tiotropium [place] [Spiriva] 1 cap INH DAILY 08/14/18 Acetaminophen 1,000 mg PO Q6H PRN 09/17/18 Cyclobenzaprine HCl 5 mg PO BID 09/17/18 Hydralazine HCl 25 mg PO BID 09/17/18 Objective - Vital Signs/Intake & Output Reviewed Vital Signs: Yes Vital Signs: Vital Signs Temp Pulse Pulse Resp BP Pulse Ox 09/18/18 07:17 91 09/18/18 07:00 91 16 123/62 100 09/18/18 06:00 89 17 112/60 100 09/18/18 05:35 89 100 09/18/18 05:00 36.9 C 88 17 126/59 L 99 09/18/18 04:10 95 09/18/18 04:00 88 17 127/61 100 Intake & Output: Intake & Output 09/15/18 09/16/18 09/17/18 09/18/18 23:59 23:59 23:59 23:59 Intake Total 1678.333 979.167 Output Total 0 1135 Balance 1678.333 -155.833 - Objective General Appearance: positive: No acute distress, Other (unresponsive even to st ernal rub, has restraints and he has had sedation. Yesterday laying on right side and o matter what we did couldn't get him to lay flat. laying flat now.) Eyes Bilateral: positive: PERRL. negative: EOMI (unable to cooperate for this) ENT: positive: Dry mucous membranes Neck: positive: No JVD. negative: Stiff neck, Carotid bruit Respiratory: positive: Chest non-tender, Rhonchi, Other (Bipap on. 100% sat). negative: Wheezes, Rales Cardiovascular: positive: Regular rate & rhythm, Systolic murmur. negative: Gallop/S4, Friction rub Abdomen: positive: No organomegaly, Nml bowel sounds, No distention, Other (unable to assess for pain since unresponsive) Skin: positive: Warm, Dry Extremities: positive: Pedal edema, Other (cool hands and feet) Neurologic/Psychiatric: positive: Other (unresponsive to sternal rub, pupils reactive, breathing spontaneously on BiPap) - Lab Results Fish Bones: 09/18/18 05:11 09/18/18 05:11 Other Labs: Lab Results x24hrs 09/18/18 09/18/18 09/18/18 Range/Units 05:20 05:11 05:11 WBC 21.8 H (4.8-10.8) x10^3/uL RBC 4.07 L (4.70-6.10) 10^6/uL Hgb 9.7 L (14.0-18.0) g/dL Hct 32.0 L (42.0-52.0) % MCV 78.5 L (80.0-94.0) fL MCH 23.9 L (27.0-31.0) pg MCHC 30.5 L (32.0-36.0) g/dL RDW 18.7 H (12.0-15.0) % Plt Count 391 (130-450) 10^3/uL MPV 7.9 (7.4-11.4) fL Neut # (Auto) RN NIGHT (1.5-6.6) 10^3/uL Lymph # (Auto) RN NIGHT (1.5-3.5) 10^3/uL [place] # (Auto) RN NIGHT (0.0-1.0) 10^3/uL Eos # (Auto) RN NIGHT (0.0-0.7) 10^3/uL Baso # (Auto) RN NIGHT (0.0-0.1) 10^3/uL Absolute Nucleated RBC RN NIGHT x10^3/uL Total Counted 100 Band Neuts % (Manual) 4 (0 - 10) % Abnorm Lymph % (Manual) 0 % Nucleated RBC % RN NIGHT /100WBC Neutrophils # (Manual) 20.7 H (1.5-6.6) 10^3/uL Lymphocytes # (Manual) 0.7 L (1.5-3.5) 10^3/uL Monocytes # (Manual) 0.4 (0.0-1.0) 10^3/uL Eosinophils # (Manual) 0.0 (0-0.7) 10^3/uL Basophils # (Manual) 0.0 (0-0.1) 10^3/uL Manual Slide Review Platelet Estimate NORMAL (130-450,000) (NORMAL) Platelet Morphology NORMAL ARIEL (NORMAL) RBC Morph Micro Appear 1+ MICROCYTOSIS (NORMAL) PT (9.9-12.6) secs INR (0.8-1.2) Bld Gas Analysis Time 0531 Sample Site RIGHT RADIAL ABG pH 7.27 L (7.35-7.45) ABG pCO2 49 H (34-45) mmHg ABG pO2 110 H (80-100) mmHg ABG HCO3 22.2 (22.0-26.0) mmol/L ABG Total CO2 23.7 (21.0-29.0) MMOL/L ABG O2 Saturation 98 (94-98) % ABG Base Excess -4.6 L (-2.0-3.0) mmol/L David Test POSITIVE Respiration Rate b/min O2 Delivery Device BiPAP Vent Mode SYNCHRONOUS/TIMES FiO2 65.00 Tidal Volume mL EPAP 5 cmH2O IPAP 15 cmH2O Sodium 147 H (135-145) mmol/L Potassium 4.1 (3.5-5.0) mmol/L Chloride 114 H (101-111) mmol/L Carbon Dioxide 21 (21-32) mmol/L Anion Gap 12.0 (6-13) BUN 57 H (6-20) mg/dL Creatinine 2.1 H (0.6-1.2) mg/dL Estimated GFR (MDRD) 30 L (>89) Glucose 161 H (70-100) mg/dL Lactic Acid (0.5-2.2) mmol/L Calcium 8.3 L (8.5-10.3) mg/dL Troponin I (<0.49) ng/mL Urine Color Urine Clarity (CLEAR) Urine pH (5.0-7.5) PH Ur Specific [place] (1.002-1.030) Urine Protein (NEGATIVE) mg/dL Urine Glucose (UA) (NEGATIVE) mg/dL Urine Ketones (NEGATIVE) mg/dL Urine Occult Blood (NEGATIVE) Urine Nitrite (NEGATIVE) Urine Bilirubin (NEGATIVE) Urine Urobilinogen (NORMAL) E.U./dL Ur Leukocyte Esterase (NEGATIVE) Urine RBC (0-5) /HPF Urine WBC (0-3) /HPF Ur Squamous Epith Cells (<= Few) Amorphous Sediment /LPF Urine Bacteria (None Seen) /HPF Urine Casts /LPF Ur Microscopic Review Urine Culture Comments 09/17/18 09/17/18 09/17/18 Range/Units 11:38 10:55 10:55 WBC (4.8-10.8) x10^3/uL RBC (4.70-6.10) 10^6/uL Hgb (14.0-18.0) g/dL Hct (42.0-52.0) % MCV (80.0-94.0) fL MCH (27.0-31.0) pg MCHC (32.0-36.0) g/dL RDW (12.0-15.0) % Plt Count (130-450) 10^3/uL MPV (7.4-11.4) fL Neut # (Auto) (1.5-6.6) 10^3/uL Lymph # (Auto) (1.5-3.5) 10^3/uL [place] # (Auto) (0.0-1.0) 10^3/uL Eos # (Auto) (0.0-0.7) 10^3/uL Baso # (Auto) (0.0-0.1) 10^3/uL Absolute Nucleated RBC x10^3/uL Total Counted Band Neuts % (Manual) (0 - 10) % Abnorm Lymph % (Manual) % Nucleated RBC % /100WBC Neutrophils # (Manual) (1.5-6.6) 10^3/uL Lymphocytes # (Manual) (1.5-3.5) 10^3/uL Monocytes # (Manual) (0.0-1.0) 10^3/uL Eosinophils # (Manual) (0-0.7) 10^3/uL Basophils # (Manual) (0-0.1) 10^3/uL Manual Slide Review Platelet Estimate (NORMAL) Platelet Morphology (NORMAL) RBC Morph Micro Appear (NORMAL) PT (9.9-12.6) secs INR (0.8-1.2) Bld Gas Analysis Time Sample Site ABG pH (7.35-7.45) ABG pCO2 (34-45) mmHg ABG pO2 (80-100) mmHg ABG HCO3 (22.0-26.0) mmol/L ABG Total CO2 (21.0-29.0) MMOL/L ABG O2 Saturation (94-98) % ABG Base Excess (-2.0-3.0) mmol/L David Test Respiration Rate b/min O2 Delivery Device Vent Mode FiO2 Tidal Volume mL EPAP cmH2O IPAP cmH2O Sodium 144 (135-145) mmol/L Potassium 4.3 (3.5-5.0) mmol/L Chloride 107 (101-111) mmol/L Carbon Dioxide 25 (21-32) mmol/L Anion Gap 12.0 (6-13) BUN 66 H (6-20) mg/dL Creatinine 2.4 H (0.6-1.2) mg/dL Estimated GFR (MDRD) 26 L (>89) Glucose 144 H (70-100) mg/dL Lactic Acid (0.5-2.2) mmol/L Calcium 8.4 L (8.5-10.3) mg/dL Troponin I 0.04 (<0.49) ng/mL Urine Color YELLOW Urine Clarity CLEAR (CLEAR) Urine pH 6.0 (5.0-7.5) PH Ur Specific [place] 1.025 (1.002-1.030) Urine Protein 100 H (NEGATIVE) mg/dL Urine Glucose (UA) NEGATIVE (NEGATIVE) mg/dL Urine Ketones NEGATIVE (NEGATIVE) mg/dL Urine Occult Blood NEGATIVE (NEGATIVE) Urine Nitrite NEGATIVE (NEGATIVE) Urine Bilirubin NEGATIVE (NEGATIVE) Urine Urobilinogen 0.2 (NORMAL) (NORMAL) E.U./dL Ur Leukocyte Esterase NEGATIVE (NEGATIVE) Urine RBC 0-5 (0-5) /HPF Urine WBC 0-3 (0-3) /HPF Ur Squamous Epith Cells RARE Squamous (<= Few) Amorphous Sediment Moderate /LPF Urine Bacteria None Seen (None Seen) /HPF Urine Casts 0-2 Hyaline Casts /LPF Ur Microscopic Review INDICATED Urine Culture Comments NOT INDICATED 09/17/18 09/17/18 09/17/18 Range/Units 10:55 10:55 10:18 WBC 23.5 H (4.8-10.8) x10^3/uL RBC 4.33 L (4.70-6.10) 10^6/uL Hgb 10.6 L (14.0-18.0) g/dL Hct 32.7 L (42.0-52.0) % MCV 75.5 L (80.0-94.0) fL MCH 24.5 L (27.0-31.0) pg MCHC 32.4 (32.0-36.0) g/dL RDW 18.3 H (12.0-15.0) % Plt Count 423 (130-450) 10^3/uL MPV 7.9 (7.4-11.4) fL Neut # (Auto) 21.6 H (1.5-6.6) 10^3/uL Lymph # (Auto) 0.5 L (1.5-3.5) 10^3/uL [place] # (Auto) 1.4 H (0.0-1.0) 10^3/uL Eos # (Auto) 0.0 (0.0-0.7) 10^3/uL Baso # (Auto) 0.1 (0.0-0.1) 10^3/uL Absolute Nucleated RBC 0.01 x10^3/uL Total Counted Band Neuts % (Manual) (0 - 10) % Abnorm Lymph % (Manual) % Nucleated RBC % 0.0 /100WBC Neutrophils # (Manual) (1.5-6.6) 10^3/uL Lymphocytes # (Manual) (1.5-3.5) 10^3/uL Monocytes # (Manual) (0.0-1.0) 10^3/uL Eosinophils # (Manual) (0-0.7) 10^3/uL Basophils # (Manual) (0-0.1) 10^3/uL Manual Slide Review Indicated Platelet Estimate (NORMAL) Platelet Morphology (NORMAL) RBC Morph Micro Appear 2+ ANISOCYTOSIS (NORMAL) PT 46.7 H (9.9-12.6) secs INR 4.2 H (0.8-1.2) Bld Gas Analysis Time 10:18 Sample Site LEFT RADIAL ABG pH 7.39 (7.35-7.45) ABG pCO2 38 (34-45) mmHg ABG pO2 50 L* (80-100) mmHg ABG HCO3 22.1 (22.0-26.0) mmol/L ABG Total CO2 23.3 (21.0-29.0) MMOL/L ABG O2 Saturation 84 L* (94-98) % ABG Base Excess -2.5 L (-2.0-3.0) mmol/L David Test POSITIVE Respiration Rate 24 b/min O2 Delivery Device BiPAP Vent Mode FiO2 45.00 Tidal Volume 830 mL EPAP 6 cmH2O IPAP 11 cmH2O Sodium (135-145) mmol/L Potassium (3.5-5.0) mmol/L Chloride (101-111) mmol/L Carbon Dioxide (21-32) mmol/L Anion Gap (6-13) BUN (6-20) mg/dL Creatinine (0.6-1.2) mg/dL Estimated GFR (MDRD) (>89) Glucose (70-100) mg/dL Lactic Acid (0.5-2.2) mmol/L Calcium (8.5-10.3) mg/dL Troponin I (<0.49) ng/mL Urine Color Urine Clarity (CLEAR) Urine pH (5.0-7.5) PH Ur Specific [place] (1.002-1.030) Urine Protein (NEGATIVE) mg/dL Urine Glucose (UA) (NEGATIVE) mg/dL Urine Ketones (NEGATIVE) mg/dL Urine Occult Blood (NEGATIVE) Urine Nitrite (NEGATIVE) Urine Bilirubin (NEGATIVE) Urine Urobilinogen (NORMAL) E.U./dL Ur Leukocyte Esterase (NEGATIVE) Urine RBC (0-5) /HPF Urine WBC (0-3) /HPF Ur Squamous Epith Cells (<= Few) Amorphous Sediment /LPF Urine Bacteria (None Seen) /HPF Urine Casts /LPF Ur Microscopic Review Urine Culture Comments 09/17/18 Range/Units 09:32 WBC (4.8-10.8) x10^3/uL RBC (4.70-6.10) 10^6/uL Hgb (14.0-18.0) g/dL Hct (42.0-52.0) % MCV (80.0-94.0) fL MCH (27.0-31.0) pg MCHC (32.0-36.0) g/dL RDW (12.0-15.0) % Plt Count (130-450) 10^3/uL MPV (7.4-11.4) fL Neut # (Auto) (1.5-6.6) 10^3/uL Lymph # (Auto) (1.5-3.5) 10^3/uL [place] # (Auto) (0.0-1.0) 10^3/uL Eos # (Auto) (0.0-0.7) 10^3/uL Baso # (Auto) (0.0-0.1) 10^3/uL Absolute Nucleated RBC x10^3/uL Total Counted Band Neuts % (Manual) (0 - 10) % Abnorm Lymph % (Manual) % Nucleated RBC % /100WBC Neutrophils # (Manual) (1.5-6.6) 10^3/uL Lymphocytes # (Manual) (1.5-3.5) 10^3/uL Monocytes # (Manual) (0.0-1.0) 10^3/uL Eosinophils # (Manual) (0-0.7) 10^3/uL Basophils # (Manual) (0-0.1) 10^3/uL Manual Slide Review Platelet Estimate (NORMAL) Platelet Morphology (NORMAL) RBC Morph Micro Appear (NORMAL) PT (9.9-12.6) secs INR (0.8-1.2) Bld Gas Analysis Time Sample Site ABG pH (7.35-7.45) ABG pCO2 (34-45) mmHg ABG pO2 (80-100) mmHg ABG HCO3 (22.0-26.0) mmol/L ABG Total CO2 (21.0-29.0) MMOL/L ABG O2 Saturation (94-98) % ABG Base Excess (-2.0-3.0) mmol/L David Test Respiration Rate b/min O2 Delivery Device Vent Mode FiO2 Tidal Volume mL EPAP cmH2O IPAP cmH2O Sodium (135-145) mmol/L Potassium (3.5-5.0) mmol/L Chloride (101-111) mmol/L Carbon Dioxide (21-32) mmol/L Anion Gap (6-13) BUN (6-20) mg/dL Creatinine (0.6-1.2) mg/dL Estimated GFR (MDRD) (>89) Glucose (70-100) mg/dL Lactic Acid 1.9 (0.5-2.2) mmol/L Calcium (8.5-10.3) mg/dL Troponin I (<0.49) ng/mL Urine Color Urine Clarity (CLEAR) Urine pH (5.0-7.5) PH Ur Specific [place] (1.002-1.030) Urine Protein (NEGATIVE) mg/dL Urine Glucose (UA) (NEGATIVE) mg/dL Urine Ketones (NEGATIVE) mg/dL Urine Occult Blood (NEGATIVE) Urine Nitrite (NEGATIVE) Urine Bilirubin (NEGATIVE) Urine Urobilinogen (NORMAL) E.U./dL Ur Leukocyte Esterase (NEGATIVE) Urine RBC (0-5) /HPF Urine WBC (0-3) /HPF Ur Squamous Epith Cells (<= Few) Amorphous Sediment /LPF Urine Bacteria (None Seen) /HPF Urine Casts /LPF Ur Microscopic Review Urine Culture Comments Assessment/Plan - Problem List (1) Acute respiratory failure with hypoxia Impression: This is a gentleman who has multiple reasons to have respiratory failure. He has diastolic congestive heart failure history, atrial fibrillation history, coronary artery disease history, but no emphysema. He now presents with a 7-day history of decreased activity, 2-day history of altered mental status, and now severe hypoxia.Chest x-ray shows possible pneumonia. But also pulmonary edema. Troponins are negative for MS. He is not hypotensive. Plan: Acute inpatient admission ICU with BiPAP to continue, Day #2 Evaluate the patient for either cardiac or pulmonary disease or both. He will be treated empirically is pneumonia on the basis of chest x-ray but it is a bad chest x-ray rotation He could also have congestive heart failure. Atrial fibrillation appears to be rate controlled at this time not severely uncontrolled. 60 minutes has been spent at bedside care of an acutely ill patient. Multiple reexaminations, conversations with respiratory therapy, conversations with his daughter as well as Dr. Herring. He was not improving yesterday morning and took until later in afternoon 09/17/18 to get O2 sats up. Stable since last night. I had a long conversation with his daughter, CARROLL, about her goals for his care. With his dementia, she usually speaks for him. When I left last night she was considering transitioning him to comfort measures only. But she wanted us to wait until her son, his grandson, came to say goodbye. After I left, she spoke to nursing and to the nocturnal is to say she wanted him to be on BiPAP overnight. She would reconsider the decision this morning on what to do. I have left a message for her. I called [phone]. Have her return my call and update me on what her wishes are. (2) Acute alteration in mental status Conclusion/Plan: This is in a gentleman who already has baseline dementia and confusion. Also has behavioral disturbances. I did speak to Dr. Sedrick Thorpe, medical staff credentialing coordinator who is been at the senior living facility taking care of him. He initially had quite a bit of behavioral issues when he got there, but in the last few weeks he is asked to calm down, been much more cooperative. And appeared stable and accepting of where he was living. So the last week of decreasing activity, increasing confusion, and sleepiness is new for him. Plan: Treat underlying cause to return to baseline if possible Please see #1, #3, #4 I have tried to get him to the CT scanner with sedation using Ativan. But in spite of that, he is increasingly agitated. Cannot lay on his back. Would not be safe for him to go to CT scanner. I am looking for subdural hematoma. In discussing the case with his daughter, even if he had a subdural, he would not be candidate for surgery. As such I will cancel CT scanner since not a safe for us to do at this time, and will not change his treatment. Although I was in the midst of canceling it, CT of the head was done when he was finally calm enough. CT of the head is negative for subdural. (3) Pneumonia Conclusion/Plan: Conclusion based on rotated chest x-ray and a gentleman who has rotated body habitus. We have tried several times to get him flat on his back. He refuses to transfer to his back without a lot of struggling. He prefers to lay on his right side and we cannot get a repeat chest x-ray. He has almost no lung sounds on that right side. Plan: Continue BiPAP. We have ordered him 1 blankets and attempted to do a second blood gas but he will not cooperate. Levaquin IV given empirically in a patient who is in a senior living facility with pneumonia and has an allergy to azithromycin Day #2 levaquin Now that on his back, retry to better cxr. Qualifiers: Pneumonia type: due to unspecified organism Laterality: right Lung location: middle lobe of lung Qualified Code(s): J18.1 - Lobar pneumonia, unspecified organism (4) Diastolic CHF, chronic Conclusion/Plan: He is hypoxic. Difficult to say if diastolic CHF as part of his presenting history. However chest x-ray indicates possible new pulmonary edema. He has acute kidney failure with an acute rise in his creatinine. We will give him IV Lasix to see if it may improve knowing full well that it may worsen his kidneys. (5) Hypertension Conclusion/Plan: His blood pressure is actually stable and controlled. He has not been hypotensive. Nevertheless, I will hold off on his usual hypertensive until I know that I stabilize his respiratory status. BP stable. Still no need for resuming home meds. Qualifiers: Hypertension type: essential hypertension Qualified Code(s): I10 - Essential (primary) hypertension (6) Atrial fibrillation Conclusion/Plan: Rate is mildly elevated in the low 100s. Not severely elevated. Will continue amiodarone. INR was >6 last week. Yesterday ~4. Will recheck for today. start lovenox to transition once he is <3 depending on what daughter days today. Qualifiers: Atrial fibrillation type: chronic Qualified Code(s): I48.2 - Chronic atrial fibrillation (7) Acute worsening of stage 3 chronic kidney disease Conclusion/Plan: Suspect that it is from simple dehydration, lack of p.o. intake. He is not had an MS, he does not have a low outflow state according to his blood pressure. Unfortunately I am about to give him Lasix for diastolic congestive heart failure. We will continue to monitor and avoid nephrotoxic drugs. This is a gentleman who is already had renal artery stenosis as 1 of his diagnoses. BUN/creatinine: 66/24>57/2.1 today. Improving. (8) Iron deficiency anemia Conclusion/Plan: chronic, present on all admission including today. Stable CBC. Not a candidate for transfusion at this time. Will transfuse if drops below 7. Qualifiers: Iron deficiency anemia type: unspecified iron deficiency Qualified Code(s): D50.9 - Iron deficiency anemia, unspecified (9) Vascular dementia Conclusion/Plan: Has been an issue in the past and has had multiple stays at different facilities. With this current facility he is actually been improving. Stable affect. Stable environment. At this time he is agitated, requiring restraints. We will continue to give Ativan as needed. I spoken to his daughter at length yesterday. At that time she does not want me to progress with escalating treatment. CT of head was negatie. I have left a message for her to call me this am. Still gravely ill. Unresponsive bc of ativan? vs hypoxia? vs metabolic encephalopathy bc of illness? Qualifiers: Dementia behavioral disturbance: with behavioral disturbance Qualified Code(s): F01.51 - Vascular dementia with behavioral disturbance
[2018-09-18 10:04] LABS: PT - PROTHROMBIN TIME 55.7 secs (9.9-12.6)
[2018-09-18] MEDS ORDERED: MORPHINE 10 MG/ML VIAL IVP PRN (10:11)
[2018-09-18 10:14] LABS: INR 5.1 (0.8-1.2)
--- NOTE | 2018-09-18 11:19 | XRAY Report ---
Reason: rotated cxr 09/17, needs fu Procedure Date: 09/18/2018 Accession Number: [id number] / [id number] Procedure: XR - Chest 1 View X-Ray CPT Code: 28250 FULL RESULT: EXAM: CHEST RADIOGRAPHY EXAM DATE: 09/18/2018 09:30 AM. CLINICAL HISTORY: Rotated chest x-ray 09/17, needs followup. COMPARISON: Chest 1 view 09/17/2018 9:15 AM. TECHNIQUE: 1 view. FINDINGS: Lungs/Pleura: There are new sharply demarcated opacities in the right mid and upper lung. It is unclear whether this represents fissural fluid or intrapulmonary findings. Separately, in the lower right lung there is no airspace disease. No large pleural effusion in dependent spaces is identified. No definite pneumothorax is seen. Mediastinum: The cardiomediastinal silhouette including right hilar surgical changes appears similar to yesterday but is changed compared to 08/11/2018 as described. Other: None. IMPRESSION: Continued right lung changes which are not explained by airspace disease alone. While this appearance may be due to limited technique and rotation, CT examination for further investigation is recommended. RADIA
[2018-09-18] MEDS: ENOXAPARIN 30 MG/0.3 ML SYRINGE SUBQ SCH (14:49)
[2018-09-18] MEDS: predniSONE 5 MG TABLET PO SCH (14:49)
[2018-09-18] MEDS: FERROUS GLUCONATE 324 MG TABLET PO SCH (14:49)
[2018-09-18] MEDS: AMIODARONE 200 MG TABLET PO SCH (14:49)
[2018-09-18] MEDS: CHOLECALCIFEROL 1,000 UNIT TABLET PO SCH (14:49)
[2018-09-18] MEDS: POLYETHYLENE GLYCOL 3350 17 GM PACKET PO SCH (14:50)
[2018-09-18] MEDS: TAMSULOSIN 0.4 MG CAPSULE PO SCH (14:50)
[2018-09-18] MEDS: MORPHINE 2 MG/ML CARPUJECT IVP PRN ×2 (15:42→22:04)
[2018-09-18] MEDS: FINASTERIDE 5 MG TABLET PO SCH (21:55)
[2018-09-18] MEDS: BIMATOPROST 0.01% OPHTH DROPS 2.5 ML EACHEYE SCH (21:55)
[2018-09-18] MEDS ORDERED: LEVALBUTEROL 1.25 MG/3 ML NEB INH ONE (22:27)
[2018-09-18] MEDS ORDERED: LEVALBUTEROL 1.25 MG/3 ML NEB INH STA (22:43)
[2018-09-18] MEDS ORDERED: LEVALBUTEROL 1.25 MG/3 ML NEB INH SCH (22:54)
[2018-09-19] MEDS: SODIUM CHLORIDE FLUSH 0.9% 10 ML SYRINGE IVP SCH ×4 (00:09→21:17)
[2018-09-19] MEDS: LORazepam 2 MG/ML VIAL IVP PRN ×4 (01:37→19:53)
[2018-09-19 05:04] LABS: BASOPHILS % (AUTO) 0.1 %; HGB - HEMOGLOBIN 9.6 g/dL (14.0-18.0); LYMPHOCYTES # (AUTO) 0.2 10^3/uL (1.5-3.5); LYMPHOCYTES % (AUTO) 0.9 %; MEAN CORPUSCULAR HEMOGLOBIN 23.7 pg (27.0-31.0); MEAN CORPUSCULAR HGB CONC 30.5 g/dL (32.0-36.0); MEAN CORPUSCULAR VOLUME 77.9 fL (80.0-94.0); MEAN PLATELET VOLUME 8.2 fL (7.4-11.4); MONOCYTES # (AUTO) 0.6 10^3/uL (0.0-1.0); MONOCYTES % (AUTO) 2.8 %; NEUTROPHILS # (AUTO) 20.9 10^3/uL (1.5-6.6); NEUTROPHILS % (AUTO) 96.2 %; PLT - PLATELET COUNT 412 10^3/uL (130-450); RED BLOOD COUNT 4.04 10^6/uL (4.70-6.10); RED CELL DISTRIBUTION WIDTH 18.9 % (12.0-15.0); WHITE BLOOD COUNT 21.7 x10^3/uL (4.8-10.8)
[2018-09-19 05:22] LABS: CALCIUM 8.5 mg/dL (8.5-10.3); CREATININE 1.7 mg/dL (0.6-1.2)
[2018-09-19 05:23] LABS: PT - PROTHROMBIN TIME 70.9 secs (9.9-12.6)
[2018-09-19 05:32] LABS: INR 6.4 (0.8-1.2)
[2018-09-19 05:37] LABS: PLATELET ESTIMATE, MANUAL NORMAL (130-450,000) (NORMAL)
[2018-09-19] MEDS: MORPHINE 2 MG/ML CARPUJECT IVP PRN ×5 (05:49→21:17)
[2018-09-19] MEDS: methylPREDNISolone SUCCINATE 40 MG/ML VIAL IVP SCH ×3 (05:51→21:17)
--- NOTE | 2018-09-19 08:41 | PROVIDER PROGRESS NOTE ---
Subjective - Prog Note Date Prog Note Date: 09/19/18 Prog Note Time: 17:34 - Subjective Subjective: He has become more more sedated. Less and less responsive. Every once in a while he does start to become fidgety and daughter will sit at the bedside and calm him down. Family has been at the bedside starting in the late morning into the late evening yesterday. And today. I believe another son flew in last night and saw him today. He is only on nasal cannula O2 now. No BiPAP. Does respond a little bit to voice. Blood pressure has been maintaining. Highest temperature has been 37 6. While his BUN and creatinine have been improving, he is very hypernatremic this morning. White cell continues to be high. INR is rising. Current Medications - Current Medications Current Medications: Active Medications Acetaminophen (Tylenol) 650 mg PO Q4HR PRN PRN Reason: Pain 1 to 4 Hydrocodone Bitart/Acetaminophen ([place] 5/325) 1 tab PO Q4HR PRN PRN Reason: Pain 5 to 7 Albuterol/Ipratropium (Duoneb) 3 ml INH Q4HR PRN PRN Reason: Wheezing Last Admin: 09/19/18 15:48 Dose: 3 ml Amiodarone HCl (Pacerone) 200 mg PO DAILY [facility] Last Admin: 09/19/18 08:57 Dose: Not Given Bimatoprost (Lumigan 0.01% Ophth Drops) 1 drops EACHEYE QPM [facility] Last Admin: 09/18/18 21:55 Dose: Not Given Cholecalciferol (Vitamin D3) 1,000 unit PO DAILY [facility] Last Admin: 09/19/18 08:59 Dose: Not Given Enoxaparin Sodium (Lovenox) 30 mg SUBQ DAILY [facility] Last Admin: 09/19/18 09:30 Dose: Not Given Ferrous Gluconate (Fergon) 324 mg PO DAILY [facility] Last Admin: 09/19/18 08:58 Dose: Not Given Finasteride (Proscar) 5 mg PO QPM [facility] Last Admin: 09/18/18 21:55 Dose: Not Given Levofloxacin (Levaquin 750 Mg/150 Ml) 750 mg in 150 mls @ 100 mls/hr IV Q48H [facility] Last Infusion: 09/19/18 12:45 Dose: Infused Dextrose (D5w) 1,000 mls @ 100 mls/hr IV .Q10H [facility] Last Admin: 09/19/18 09:15 Dose: 100 mls/hr Lorazepam (Ativan Inj (Vial)) 1 mg IVP Q2H PRN PRN Reason: Anxiety Last Admin: 09/19/18 15:42 Dose: 1 mg Methylprednisolone (Solu-Medrol (40mg Vial)) 40 mg IVP TID [facility] Last Admin: 09/19/18 13:59 Dose: 40 mg Morphine Sulfate (Morphine (Carpuject)) 2 mg IVP Q2H PRN PRN Reason: Restlessness Last Admin: 09/19/18 17:05 Dose: 2 mg Ondansetron HCl (Zofran Inj) 4 mg IVP Q6HR PRN PRN Reason: Nausea / Vomiting Last Admin: 09/18/18 03:02 Dose: 4 mg Ondansetron HCl (Zofran Odt) 4 mg TL Q6HR PRN PRN Reason: Nausea / Vomiting Polyethylene Glycol (Miralax) 17 gm PO DAILY [facility] Last Admin: 09/19/18 08:58 Dose: Not Given Prednisone (Deltasone) 5 mg PO DAILYWM [facility] Last Admin: 09/19/18 08:57 Dose: Not Given Prochlorperazine Edisylate (Compazine Inj) 10 mg IVP Q6HR PRN PRN Reason: Nausea / Vomiting Last Admin: 09/18/18 03:33 Dose: 10 mg Sodium Chloride (Normal Saline Flush 0.9%) 10 ml IVP PRN PRN PRN Reason: NEEDED PER PROVIDER ORDERS Sodium Chloride (Normal Saline Flush 0.9%) 10 ml IVP 0100,0900,1700 [facility] Last Admin: 09/19/18 08:58 Dose: Not Given Tamsulosin HCl (Flomax) 0.4 mg PO DAILY [facility] Last Admin: 09/19/18 08:58 Dose: Not Given Amlodipine Besylate 10 mg PO DAILY 04/03/18 Cholecalciferol (Vitamin D3) [Vitamin D3] 1,000 unit PO DAILY 04/03/18 Finasteride 5 mg PO QPM 04/03/18 Multivitamin [Multiple Vitamins] 1 tab PO DAILY 04/03/18 Nitroglycerin [Nitrostat] 0.4 mg PO Q5MIN PRN MDD 3 TABLETS 04/03/18 Prednisone 5 mg PO DAILYWM 04/03/18 Tamsulosin HCl [Flomax] 0.4 mg PO DAILY 04/03/18 Warfarin [Coumadin] 0 mg PO DAILY 04/03/18 Amiodarone [Pacerone] 200 mg PO DAILY 06/01/18 Melatonin 6 mg PO QPM 06/29/18 Potassium Chloride [K-Dur] 20 meq PO DAILYWM 06/29/18 Bimatoprost 0.01% Ophth Dops [Lumigan 0.01% Ophth Drops] 1 drops EACHEYE QPM 07/03/18 Albuterol 2 puffs INH BID 08/14/18 Budesonide/Formoterol Fumarate [Symbicort 80-4.5 Mcg Inhaler] 2 puffs PO BID 08/14/18 Ferrous Gluconate 240 mg PO DAILY 08/14/18 Tiotropium [place] [Spiriva] 1 cap INH DAILY 08/14/18 Acetaminophen 1,000 mg PO Q6H PRN 09/17/18 Cyclobenzaprine HCl 5 mg PO BID 09/17/18 Hydralazine HCl 25 mg PO BID 09/17/18 Objective - Vital Signs/Intake & Output Reviewed Vital Signs: Yes Vital Signs: Vital Signs Temp Pulse Resp BP Pulse Ox 09/19/18 08:00 37.2 C 88 18 140/64 H 93 09/19/18 07:00 91 18 139/64 H 92 09/19/18 06:00 91 18 147/96 H 92 09/19/18 05:00 94 23 145/68 H 97 Intake & Output: Intake & Output 09/16/18 09/17/18 09/18/18 09/19/18 23:59 23:59 23:59 23:59 Intake Total 4863.927 7417.417 970.833 Output Total 0 2110 670 Balance 9680.675 4234.417 300.833 - Objective General Appearance: positive: Mild distress (that comes and goes and is manifested as pulling at lines, sheets), Lethargic (face is red and flushed) Eyes Bilateral: positive: PERRL Neck: positive: No JVD. negative: Stiff neck, Carotid bruit Respiratory: positive: Chest non-tender, Rales, Rhonchi Cardiovascular: positive: Regular rate & rhythm, Systolic murmur. negative: Gallop/S4, Friction rub Abdomen: positive: No organomegaly, Nml bowel sounds, No distention Skin: positive: Warm Extremities: positive: Pedal edema Neurologic/Psychiatric: positive: Other (Responsive to voice responsive to voice especially of daughter. Nursing is been giving him Ativan and morphine. Spontaneously moving extremities. At times needs restraints. But nonverbal.) - Lab Results Fish Bones: 09/19/18 04:20 09/19/18 04:20 Other Labs: Lab Results x24hrs 09/19/18 09/19/18 09/19/18 Range/Units 04:20 04:20 04:20 WBC 21.7 H (4.8-10.8) x10^3/uL RBC 4.04 L (4.70-6.10) 10^6/uL Hgb 9.6 L (14.0-18.0) g/dL Hct 31.5 L (42.0-52.0) % MCV 77.9 L (80.0-94.0) fL MCH 23.7 L (27.0-31.0) pg MCHC 30.5 L (32.0-36.0) g/dL RDW 18.9 H (12.0-15.0) % Plt Count 412 (130-450) 10^3/uL MPV 8.2 (7.4-11.4) fL Neut # (Auto) 20.9 H (1.5-6.6) 10^3/uL Lymph # (Auto) 0.2 L (1.5-3.5) 10^3/uL [place] # (Auto) 0.6 (0.0-1.0) 10^3/uL Eos # (Auto) 0.0 (0.0-0.7) 10^3/uL Baso # (Auto) 0.0 (0.0-0.1) 10^3/uL Absolute Nucleated RBC 0.01 x10^3/uL Nucleated RBC % 0.1 /100WBC Manual Slide Review Indicated Platelet Estimate NORMAL (130-450,000) (NORMAL) RBC Morph Micro Appear 1+ HYPOCHROMASIA (NORMAL) PT 70.9 H (9.9-12.6) secs INR 6.4 H* (0.8-1.2) Sodium 156 H* (135-145) mmol/L Potassium 4.0 (3.5-5.0) mmol/L Chloride 121 H* (101-111) mmol/L Carbon Dioxide 22 (21-32) mmol/L Anion Gap 13.0 (6-13) BUN 52 H (6-20) mg/dL Creatinine 1.7 H (0.6-1.2) mg/dL Estimated GFR (MDRD) 39 L (>89) Glucose 193 H (70-100) mg/dL Calcium 8.5 (8.5-10.3) mg/dL 09/18/18 Range/Units 09:40 WBC (4.8-10.8) x10^3/uL RBC (4.70-6.10) 10^6/uL Hgb (14.0-18.0) g/dL Hct (42.0-52.0) % MCV (80.0-94.0) fL MCH (27.0-31.0) pg MCHC (32.0-36.0) g/dL RDW (12.0-15.0) % Plt Count (130-450) 10^3/uL MPV (7.4-11.4) fL Neut # (Auto) (1.5-6.6) 10^3/uL Lymph # (Auto) (1.5-3.5) 10^3/uL [place] # (Auto) (0.0-1.0) 10^3/uL Eos # (Auto) (0.0-0.7) 10^3/uL Baso # (Auto) (0.0-0.1) 10^3/uL Absolute Nucleated RBC x10^3/uL Nucleated RBC % /100WBC Manual Slide Review Platelet Estimate (NORMAL) RBC Morph Micro Appear (NORMAL) PT 55.7 H (9.9-12.6) secs INR 5.1 H* (0.8-1.2) Sodium (135-145) mmol/L Potassium (3.5-5.0) mmol/L Chloride (101-111) mmol/L Carbon Dioxide (21-32) mmol/L Anion Gap (6-13) BUN (6-20) mg/dL Creatinine (0.6-1.2) mg/dL Estimated GFR (MDRD) (>89) Glucose (70-100) mg/dL Calcium (8.5-10.3) mg/dL Assessment/Plan - Problem List (1) Acute respiratory failure with hypoxia Impression: This is a gentleman who has multiple reasons to have respiratory failure. He has diastolic congestive heart failure history, atrial fibrillation history, coronary artery disease history, but no emphysema. He now presents with a 7-day history of decreased activity, 2-day history of altered mental status, and now severe hypoxia.Chest x-ray shows possible pneumonia. But also pulmonary edema. Troponins are negative for CO. He is not hypotensive. Plan: Acute inpatient admission ICU with BiPAP. BiPAP lasted 2 days then we removed. Day #3 Treating the patient for either cardiac or pulmonary disease or both. He will be treated empirically is pneumonia on the basis of chest x-ray but it is a bad chest x-ray rotation He could also have congestive heart failure. Atrial fibrillation appears to be rate controlled at this time not severely uncontrolled. On first day, 60 minutes has been spent at bedside care of an acutely ill patient. Multiple reexaminations, conversations with respiratory therapy, conversations with his daughter as well as Dr. Herring. He was not improving and took until later in afternoon 09/17/18 to get O2 sats up. Stable since09/17 pm and since we took off the BiPAP. I continue to have conversations with his daughter, CARROLL, about her goals for his care. With his dementia, she usually speaks for him. Since 09/17 she has been considering transitioning him to comfort measures only. But she wanted us to wait until her son, his grandson, came to say goodbye.She has brought out many family members who are saying goodby. She is still wanting us to treat. (2) Acute alteration in mental status Conclusion/Plan: This is in a gentleman who already has baseline dementia and confusion. Also has behavioral disturbances. I did speak to Dr. Sedrick Thorpe, medical equipment repair technician who [facility]. He initially had quite a bit of behavioral issues when he got there, but in the last few weeks he is asked to calm down, been much more cooperative. And appeared stable and accepting of where he was living. So the last week of decreasing activity, increasing confusion, and sleepiness is new for him. Plan: Treat underlying cause to return to baseline if possible Please see #1, #3, #4 I have tried to get him to the CT scanner with sedation using Ativan. But in spite of that, he is increasingly agitated. Cannot lay on his back. Would not be safe for him to go to CT scanner. I am looking for subdural hematoma. In discussing the case with his daughter, even if he had a subdural, he would not be candidate for surgery. As such I will cancel CT scanner since not a safe for us to do at this time, and will not change his treatment. Although I was in the midst of canceling it, CT of the head was done when he was finally calm enough. CT of the head is negative for subdural. (3) Pneumonia Conclusion/Plan: Conclusion based on rotated chest x-ray and a gentleman who has rotated body habitus. We have tried several times to get him flat on his back. He refuses to transfer to his back without a lot of struggling. He prefers to lay on his r ight side and we cannot get a repeat chest x-ray. He has almost no lung sounds on that right side. The repeat chest x-ray shows a sharply demarcated abnormality in the right upper lobe. We are treating empirically as pneumonia. Plan: We have stopped BiPAP. Levaquin IV given empirically in a patient who is in a [facility] with pneumonia and has an allergy to azithromycin Day #3 levaquin Qualifiers: Pneumonia type: due to unspecified organism Laterality: right Lung location: middle lobe of lung Qualified Code(s): J18.1 - Lobar pneumonia, unspecified organism (4) Diastolic CHF, chronic Conclusion/Plan: He is hypoxic. Difficult to say if diastolic CHF as part of his presenting history. However chest x-ray indicates possible new pulmonary edema. He has acute kidney failure with an acute rise in his creatinine. We will give him IV Lasix to see if it may improve knowing full well that it may worsen his kidneys. (5) Hypertension Conclusion/Plan: His blood pressure is actually stable and controlled. He has not been hypotensive. Nevertheless, I will hold off on his usual hypertensive until I know that I stabilize his respiratory status. BP stable. Still no need for resuming home meds. Qualifiers: Hypertension type: essential hypertension Qualified Code(s): I10 - Essential (primary) hypertension (6) Atrial fibrillation Conclusion/Plan: Rate is mildly elevated in the low 100s. Not severely elevated. Will continue amiodarone. INR was >6 last week. Yesterday ~4. Will recheck for today. start lovenox to transition once he is <3 depending on what daughter days today. Qualifiers: Atrial fibrillation type: chronic Qualified Code(s): I48.2 - Chronic atrial fibrillation (7) Acute worsening of stage 3 chronic kidney disease Conclusion/Plan: Suspect that it is from simple dehydration, lack of p.o. intake. He is not had an CO, he does not have a low outflow state according to his blood pressure. Unfortunately I am about to give him Lasix for diastolic congestive heart failure. We will continue to monitor and avoid nephrotoxic drugs. This is a gentleman who is already had renal artery stenosis as 1 of his diagnoses. BUN/creatinine: 66/24>57/2.1>1.7 today. Improving. (8) Iron deficiency anemia Conclusion/Plan: chronic, present on all admission including today. Stable CBC. Not a candidate for transfusion at this time. Will transfuse if drops below 7. Qualifiers: Iron deficiency anemia type: unspecified iron deficiency Qualified Code(s): D50.9 - Iron deficiency anemia, unspecified (9) Vascular dementia Conclusion/Plan: Has been an issue in the past and has had multiple stays at different facilities. With this current facility he is actually been improving. Stable affect. Stable environment. At this time he is agitated, requiring restraints. We will continue to give Ativan as needed. I spoken to his daughter at length. At that time she does not want me to progress with escalating treatment. CT of head was negatie. Still gravely ill. Unresponsive bc of ativan? vs hypoxia? vs metabolic encephalopathy bc of illness? Qualifiers: Dementia behavioral disturbance: with behavioral disturbance Qualified Code(s): F01.51 - Vascular dementia with behavioral disturbance (10) Prolonged INR Impression: He has been off anticoagulation since she has been here. And it was stopped even before he got here because [facility]. 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 We will check liver function studies.
[2018-09-19] MEDS: AMIODARONE 200 MG TABLET PO SCH (08:57)
[2018-09-19] MEDS: predniSONE 5 MG TABLET PO SCH (08:57)
[2018-09-19] MEDS: TAMSULOSIN 0.4 MG CAPSULE PO SCH (08:58)
[2018-09-19] MEDS: POLYETHYLENE GLYCOL 3350 17 GM PACKET PO SCH (08:58)
[2018-09-19] MEDS: FERROUS GLUCONATE 324 MG TABLET PO SCH (08:58)
[2018-09-19] MEDS: CHOLECALCIFEROL 1,000 UNIT TABLET PO SCH (08:59)
[2018-09-19] MEDS: DEXTROSE 5% 1,000 ML IV SCH ×2 (09:15→20:34)
[2018-09-19 09:16] LABS: ALBUMIN 2.4 g/dL (3.2-5.5); BILIRUBIN,DIRECT 0.2 mg/dL (0.1-0.5); BILIRUBIN,TOTAL 0.7 mg/dL (0.2-1.0); TOTAL PROTEIN 6.1 g/dL (6.7-8.2)
[2018-09-19] MEDS: ENOXAPARIN 30 MG/0.3 ML SYRINGE SUBQ SCH (09:30)
[2018-09-19] MEDS ORDERED: levoFLOXacin 750 MG/150 ML 750 MG/150 ML BAG IV SCH (11:00)
[2018-09-19] MEDS: IPRATROPIUM/ALBUTEROL 3 ML NEB INH PRN (15:48)
[2018-09-19] MEDS: BIMATOPROST 0.01% OPHTH DROPS 2.5 ML EACHEYE SCH (21:13)
[2018-09-19] MEDS: FINASTERIDE 5 MG TABLET PO SCH (21:13)
[2018-09-20] MEDS: MORPHINE 2 MG/ML CARPUJECT IVP PRN ×8 (00:10→21:35)
[2018-09-20] MEDS: LORazepam 2 MG/ML VIAL IVP PRN ×4 (00:47→21:05)
[2018-09-20] MEDS: IPRATROPIUM/ALBUTEROL 3 ML NEB INH PRN (02:06)
[2018-09-20 05:29] LABS: HGB - HEMOGLOBIN 10.5 g/dL (14.0-18.0); LYMPHOCYTES # (AUTO) 0.3 10^3/uL (1.5-3.5); LYMPHOCYTES % (AUTO) 1.1 %; MEAN CORPUSCULAR HEMOGLOBIN 23.8 pg (27.0-31.0); MEAN CORPUSCULAR HGB CONC 30.6 g/dL (32.0-36.0); MEAN CORPUSCULAR VOLUME 77.7 fL (80.0-94.0); MEAN PLATELET VOLUME 7.9 fL (7.4-11.4); MONOCYTES # (AUTO) 0.6 10^3/uL (0.0-1.0); MONOCYTES % (AUTO) 2.5 %; NEUTROPHILS % (AUTO) 96.4 %; PLT - PLATELET COUNT 470 10^3/uL (130-450); RED BLOOD COUNT 4.42 10^6/uL (4.70-6.10); RED CELL DISTRIBUTION WIDTH 18.9 % (12.0-15.0); WHITE BLOOD COUNT 24.8 x10^3/uL (4.8-10.8)
[2018-09-20 05:41] LABS: CALCIUM 8.6 mg/dL (8.5-10.3); CREATININE 1.3 mg/dL (0.6-1.2)
[2018-09-20 06:09] LABS: DIFFERENTIAL COMMENT MANUAL=AUTO DIFF; PLATELET ESTIMATE, MANUAL INCREASED (>450,000) (NORMAL)
[2018-09-20] MEDS: methylPREDNISolone SUCCINATE 40 MG/ML VIAL IVP SCH (06:09)
[2018-09-20] MEDS: SODIUM CHLORIDE FLUSH 0.9% 10 ML SYRINGE IVP PRN ×2 (06:09→21:35)
[2018-09-20] MEDS: DEXTROSE 5% 1,000 ML IV SCH (07:04)
--- NOTE | 2018-09-20 07:30 | PROVIDER PROGRESS NOTE ---
Subjective - Prog Note Date Prog Note Date: 09/20/18 Prog Note Time: 12:25 - Subjective Subjective: Is he has remained stable overnight with vital signs, oxygen requirement. Remains responsive to noxious stimuli. Nonverbal. When he is agitated as manifested by restlessness in the bed, pulling at lines, his daughter is able to speak to him, rubbery shoulder, and he will calm down. We are also using Ativan and IV morphine. Current Medications - Current Medications Current Medications: Active Medications Acetaminophen (Tylenol) 650 mg PO Q4HR PRN PRN Reason: Pain 1 to 4 Acetaminophen (Tylenol) 650 mg MO Q4H PRN PRN Reason: Fever >101 Albuterol/Ipratropium (Duoneb) 3 ml INH Q4HR PRN PRN Reason: Wheezing Last Admin: 09/20/18 02:06 Dose: 3 ml Atropine Sulfate (Isopto Atropine 1% Ophth Drops) 1 - 4 drops SL Q2H PRN PRN Reason: Excessive secretions Carboxymethylcellulose (Refresh 1% Ophth Drops) 1 drops EACHEYE QID PRN PRN Reason: Dry Eye Lorazepam (Ativan) 1 mg PO Q6H PRN PRN Reason: Anxiety/Agitation Morphine Sulfate (Morphine (Carpuject)) 2 mg IVP Q2H PRN PRN Reason: Restlessness Last Admin: 09/20/18 07:44 Dose: 2 mg Ondansetron HCl (Zofran Inj) 4 mg IVP Q6HR PRN PRN Reason: Nausea / Vomiting Last Admin: 09/18/18 03:02 Dose: 4 mg Ondansetron HCl (Zofran Odt) 4 mg TL Q6HR PRN PRN Reason: Nausea / Vomiting Prochlorperazine Edisylate (Compazine Inj) 10 mg IVP Q6HR PRN PRN Reason: Nausea / Vomiting Last Admin: 09/18/18 03:33 Dose: 10 mg Sodium Chloride (Normal Saline Flush 0.9%) 10 ml IVP PRN PRN PRN Reason: NEEDED PER PROVIDER ORDERS Last Admin: 09/20/18 06:09 Dose: 10 ml Sodium Chloride (Normal Saline Flush 0.9%) 10 ml IVP 0100,0900,1700 JOSE Last Admin: 09/20/18 08:39 Dose: Not Given Amlodipine Besylate 10 mg PO DAILY 04/03/18 Cholecalciferol (Vitamin D3) [Vitamin D3] 1,000 unit PO DAILY 04/03/18 Finasteride 5 mg PO QPM 04/03/18 Multivitamin [Multiple Vitamins] 1 tab PO DAILY 04/03/18 Nitroglycerin [Nitrostat] 0.4 mg PO Q5MIN PRN MDD 3 TABLETS 04/03/18 Prednisone 5 mg PO DAILYWM 04/03/18 Tamsulosin HCl [Flomax] 0.4 mg PO DAILY 04/03/18 Warfarin [Coumadin] 0 mg PO DAILY 04/03/18 Amiodarone [Pacerone] 200 mg PO DAILY 06/01/18 Melatonin 6 mg PO QPM 06/29/18 Potassium Chloride [K-Dur] 20 meq PO DAILYWM 06/29/18 Bimatoprost 0.01% Ophth Dops [Lumigan 0.01% Ophth Drops] 1 drops EACHEYE QPM 07/03/18 Albuterol 2 puffs INH BID 08/14/18 Budesonide/Formoterol Fumarate [Symbicort 80-4.5 Mcg Inhaler] 2 puffs PO BID 08/14/18 Ferrous Gluconate 240 mg PO DAILY 08/14/18 Tiotropium Bartelso [Spiriva] 1 cap INH DAILY 08/14/18 Acetaminophen 1,000 mg PO Q6H PRN 09/17/18 Cyclobenzaprine HCl 5 mg PO BID 09/17/18 Hydralazine HCl 25 mg PO BID 09/17/18 Objective - Vital Signs/Intake & Output Reviewed Vital Signs: Yes Vital Signs: Vital Signs Pulse Resp Pulse Ox 09/20/18 07:00 79 13 98 09/20/18 06:07 90 16 95 09/20/18 05:00 87 14 09/20/18 04:00 80 12 96 Intake & Output: Intake & Output 09/17/18 09/18/18 09/19/18 09/20/18 23:59 23:59 23:59 23:59 Intake Total 5418.658 2040.417 2364.166 756.667 Output Total 0 2110 1755 715 Balance 1235.344 8427.417 609.166 41.667 - Objective General Appearance: positive: No acute distress, Other (Responsive only to noxious stimuli. Does withdraw purposefully) Eyes Bilateral: positive: PERRL ENT: positive: Dry mucous membranes Respiratory: positive: Rales, Rhonchi, Other (Shallow respirations. Not tach ypneic. Respiratory rate is 10-15) Cardiovascular: positive: Regular rate & rhythm, Systolic murmur. negative: Gallop/S4, Friction rub Abdomen: positive: Other (Hypoactive bowel sounds, no distention of his abdomen, no masses palpable) Skin: positive: Warm, Dry, Other (Flushed cheeks) Extremities: positive: Full ROM (He will move spontaneously, especially when he is restless and all extremities are moving), No pedal edema Neurologic/Psychiatric: positive: Other (Nonverbal, responsive to noxious stimuli, spontaneous respiration, spontaneous movement of all extremities) - Lab Results Fish Bones: 09/20/18 04:40 09/20/18 04:40 Other Labs: Lab Results x24hrs 09/20/18 09/20/18 09/19/18 Range/Units 04:40 04:40 08:50 WBC 24.8 H (4.8-10.8) x10^3/uL RBC 4.42 L (4.70-6.10) 10^6/uL Hgb 10.5 L (14.0-18.0) g/dL Hct 34.3 L (42.0-52.0) % MCV 77.7 L (80.0-94.0) fL MCH 23.8 L (27.0-31.0) pg MCHC 30.6 L (32.0-36.0) g/dL RDW 18.9 H (12.0-15.0) % Plt Count 470 H (130-450) 10^3/uL MPV 7.9 (7.4-11.4) fL Neut # (Auto) 24.0 H (1.5-6.6) 10^3/uL Lymph # (Auto) 0.3 L (1.5-3.5) 10^3/uL Hoke # (Auto) 0.6 (0.0-1.0) 10^3/uL Eos # (Auto) 0.0 (0.0-0.7) 10^3/uL Baso # (Auto) 0.0 (0.0-0.1) 10^3/uL Absolute Nucleated RBC 0.03 x10^3/uL Band Neuts % (Manual) Not Reportable Abnorm Lymph % (Manual) Not Reportable Nucleated RBC % 0.1 /100WBC Neutrophils # (Manual) Not Reportable Lymphocytes # (Manual) Not Reportable Monocytes # (Manual) Not Reportable Eosinophils # (Manual) Not Reportable Basophils # (Manual) Not Reportable Differential Comment MANUAL=AUTO DIFF Platelet Estimate INCREASED (>450,000) (NORMAL) RBC Morph Micro Appear 1+ HYPOCHROMASIA (NORMAL) Sodium 152 H (135-145) mmol/L Potassium 3.5 (3.5-5.0) mmol/L Chloride 118 H (101-111) mmol/L Carbon Dioxide 25 (21-32) mmol/L Anion Gap 9.0 (6-13) BUN 43 H (6-20) mg/dL Creatinine 1.3 H (0.6-1.2) mg/dL Estimated GFR (MDRD) 53 L (>89) Glucose 269 H (70-100) mg/dL Calcium 8.6 (8.5-10.3) mg/dL Total Bilirubin 0.7 (0.2-1.0) mg/dL Direct Bilirubin 0.2 (0.1-0.5) mg/dL AST 31 (10-42) IU/L ALT 45 (10-60) IU/L Alkaline Phosphatase 84 (42-121) IU/L Total Protein 6.1 L (6.7-8.2) g/dL Albumin 2.4 L (3.2-5.5) g/dL Globulin 3.7 (2.1-4.2) g/dL Assessment/Plan - Problem List (1) Acute respiratory failure with hypoxia Impression: Resolved. This is a gentleman who has multiple reasons to have respiratory failure. He has diastolic congestive heart failure history, atrial fibrillation history, coronary artery disease history, but no emphysema. He now presents with a 7-day history of decreased activity, 2-day history of altered mental status, and now severe hypoxia.Chest x-ray shows possible pneumonia. But also pulmonary edema. Troponins are negative for CA. He is not hypotensive. Plan: Acute inpatient admission ICU with BiPAP. BiPAP lasted 2 days then we removed. Day #4 Treating the patient for either cardiac or pulmonary disease or both. He is being treated empirically as pneumonia on the basis of chest x-ray but it is a bad chest x-ray rotation He could also have congestive heart failure. Atrial fibrillation appears to be rate controlled at this time not severely uncontrolled. On first day, 60 minutes has been spent at bedside care of an acutely ill patient. Multiple reexaminations, conversations with respiratory therapy, conversations with his daughter as well as Dr. Herring. He was not improving and took until later in afternoon 09/17/18 to get O2 sats up. Stable since09/17 pm and since we took off the BiPAP. I continue to have conversations with his daughter, CARROLL, about her goals for his care. With his dementia, she usually speaks for him. Since 09/17 she has been considering transitioning him to comfort measures only. But she wanted us to wait until her son, his grandson, came to say goodbye.She has brought out many family members who are saying goodby. She is still wanting us to treat.She call ed this morning and asked us to transition him to comfort measures at noon but declines Hospice. (2) Acute alteration in mental status Conclusion/Plan: Continues without improvement even though hypoxia, infection, dehydration have been treated and are improved. This is in a gentleman who already has baseline dementia and confusion. Also has behavioral disturbances. I did speak to Dr. Sedrick Thorpe, medical lead who is been at the care home facility taking care of him. He initially had quite a bit of behavioral issues when he got there, but in the last few weeks he is asked to calm down, been much more cooperative. And appeared stable and accepting of where he was living. So the last week of decreasing activity, increasing confusion, and sleepiness is new for him. Plan: Treat underlying cause to return to baseline if possible Please see #1, #3, #4 On the first day, tried to get him to the CT scanner with sedation using Ativan. But in spite of that, he was increasingly agitated. Could not lay on his back. Would not be safe for him to go to CT scanner. I was looking for subdural hematoma. In discussing the case with his daughter, even if he had a subdural, he would not be candidate for surgery. As such I was going to cancel CT scanner since not a safe for us to do at that time, and will not change his treatment. Although I was in the midst of canceling it, CT of the head was done when he was finally became calm enough. CT of the head is negative for subdural. (3) Pneumonia Conclusion/Plan: Conclusion based on rotated chest x-ray and a gentleman who has rotated body habitus. We have tried several times to get him flat on his back. He refuses to transfer to his back without a lot of struggling. He prefers to lay on his right side and we cannot get a repeat chest x-ray. He has almost no lung sounds on that right side. The repeat chest x-ray shows a sharply demarcated a bnormality in the right upper lobe. We are treating empirically as pneumonia. Plan: We have stopped BiPAP. Levaquin IV given empirically in a patient who is in a care home facility with pneumonia and has an allergy to azithromycin Day #4 levaquin will stop abx and transition to comfort Qualifiers: Pneumonia type: due to unspecified organism Laterality: right Lung location: middle lobe of lung Qualified Code(s): J18.1 - Lobar pneumonia, unspecified organism (4) Diastolic CHF, chronic Conclusion/Plan: He was severely hypoxic. Difficult to say if diastolic CHF as part of his presenting history. However chest x-ray indicates possible new pulmonary edema. He has acute kidney failure with an acute rise in his creatinine. (5) Hypertension Conclusion/Plan: His blood pressure is actually stable and controlled. He has not been hypotensive. Nevertheless, I will hold off on his usual hypertensive until I know that I stabilize his respiratory status. BP stable. Still no need for resuming home meds. Qualifiers: Hypertension type: essential hypertension Qualified Code(s): I10 - Essential (primary) hypertension (6) Atrial fibrillation Conclusion/Plan: Rate is mildly elevated in the low 100s. Not severely elevated. Will continue amiodarone. start lovenox to transition if his INR <3 depending on what daughter says. On admission his INR was 4.2. On recheck he was 5.1. On September 19 he was 6.4. This is off anticoagulation. Transition to comfort. Qualifiers: Atrial fibrillation type: chronic Qualified Code(s): I48.2 - Chronic atrial fibrillation (7) Acute worsening of stage 3 chronic kidney disease Conclusion/Plan: Suspect that it is from simple dehydration, lack of p.o. intake. He is not had an CA, he does not have a low outflow state according to his blood pressure. Unfortunately I am about to give him Lasix for diastolic congestive heart failure. We will continue to monitor and avoid nephrotoxic drugs. This is a gentleman who is already had renal artery stenosis as 1 of his diagnoses. He then slowly developed hypernatremia and I started D5 yesterday. Sodium responding today. BUN/creatinine: 66/24>57/2.1>1.7>1.3 today. Improving. Transition to comfort. (8) Iron deficiency anemia Conclusion/Plan: chronic, present on all admissions including today. Stable CBC. Not a candidate for transfusion at this time. Will transfuse if drops below 7. Qualifiers: Iron deficiency anemia type: unspecified iron deficiency Qualified Code(s): D50.9 - Iron deficiency anemia, unspecified (9) Vascular dementia Conclusion/Plan: Has been an issue in the past and has had multiple stays at different facilities. With this current facility he is actually been improving. Stable affect. Stable environment. At this time he is agitated, requiring restraints. We will continue to give Ativan as needed. I spoken to his daughter at length. At that time she does not want me to progress with escalating treatment. CT of head was negatie. Still gravely ill. Unresponsive bc of ativan? vs hypoxia? vs metabolic encep halopathy bc of illness? Qualifiers: Dementia behavioral disturbance: with behavioral disturbance Qualified Code(s): F01.51 - Vascular dementia with behavioral disturbance (10) Prolonged INR Impression: He has been off anticoagulation since she has been here. And it was stopped even before he got here because his INR was prolonged at the care home facility. 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 LFT's were normal yesterday. I hesitate to order more evaluation if daughter is transitioning to comfort measures since an US would be moot.
[2018-09-20] MEDS: POLYETHYLENE GLYCOL 3350 17 GM PACKET PO SCH (08:37)
[2018-09-20] MEDS: TAMSULOSIN 0.4 MG CAPSULE PO SCH (08:37)
[2018-09-20] MEDS: AMIODARONE 200 MG TABLET PO SCH (08:38)
[2018-09-20] MEDS: CHOLECALCIFEROL 1,000 UNIT TABLET PO SCH (08:38)
[2018-09-20] MEDS: FERROUS GLUCONATE 324 MG TABLET PO SCH (08:38)
[2018-09-20] MEDS: predniSONE 5 MG TABLET PO SCH (08:38)
[2018-09-20] MEDS: SODIUM CHLORIDE FLUSH 0.9% 10 ML SYRINGE IVP SCH ×3 (08:39→18:20)
[2018-09-20] MEDS: ENOXAPARIN 30 MG/0.3 ML SYRINGE SUBQ SCH (08:39)
[2018-09-20] MEDS ORDERED: LORazepam 0.5 MG TABLET PO PRN (12:11)
[2018-09-20] MEDS ORDERED: ATROPINE 1% OPHTH DROPS 2 ML SL PRN (12:11)
[2018-09-20] MEDS ORDERED: ACETAMINOPHEN 650 MG SUPP PR PRN (12:12)
[2018-09-20] MEDS ORDERED: CARBOXYMETHYLCELLULOSE OPHTH DROPS EACHEYE PRN (12:12)
[2018-09-20] MEDS ORDERED: CHERRY SYRUP 10 ML UDC PO ONE (17:39)
[2018-09-21] MEDS: LORazepam 2 MG/ML VIAL IVP PRN ×2 (00:12→04:05)
[2018-09-21] MEDS: SODIUM CHLORIDE FLUSH 0.9% 10 ML SYRINGE IVP SCH ×4 (00:13→12:51)
[2018-09-21] MEDS: MORPHINE 2 MG/ML CARPUJECT IVP PRN ×3 (03:28→12:50)
[2018-09-21] MEDS: SODIUM CHLORIDE FLUSH 0.9% 10 ML SYRINGE IVP PRN (03:28)
--- NOTE | 2018-09-21 11:09 | Discharge Plan ---
"Discharge Plan for SNF / [facility] - Discharge Plan And Transition Orders Disposition: 03 SNF DC/Xfer Condition: Poor Allergies and Adverse Reactions: Allergies Allergy/AdvReac Type Severity Reaction Status Date / Time venom-wasp Allergy Severe Anaphylaxis Verified 09/19/18 09:11 azithromycin Allergy Respiratory Verified 05/22/18 14:47 bee venom protein (honey bee) Allergy Anaphylaxis Verified 05/22/18 14:47 hornet venom Allergy Anaphylaxis Verified 05/22/18 14:47 lisinopril Allergy Respiratory Verified 05/22/18 14:47 losartan Allergy Respiratory Verified 05/22/18 14:47 naproxen [From Naprosyn] Allergy Respiratory Verified 05/22/18 14:47 NSAIDS (Non-Steroidal Allergy Respiratory Verified 05/22/18 14:47 Anti-Inflamma Penicillins Allergy Respiratory Verified 05/22/18 14:47 Sulfa (Sulfonamide Allergy Respiratory Verified 05/22/18 14:47 Antibiotics) aspirin AdvReac Cramps Verified 05/22/18 14:47 hydromorphone AdvReac Hallucinati Verified 05/22/18 14:47 ons Iodinated Contrast- Oral and AdvReac Unknown Verified 05/22/18 14:47 IV Dye omeprazole AdvReac Cramps Verified 05/22/18 14:47 oxycodone AdvReac Hallucinati Verified 05/22/18 14:47 ons - SNF / [facility] Transition Orders Admit to (Facility): [facility] Under the care of (Name): Dr. Thorpe Discharge Diagnosis: 1. Acute respiratory failure with hypoxia 2. Pneumonia 3. Metabolic encephalopathy 4. Acute worsening of stage III chronic kidney disease 5. Prolonged INR 6. Iron deficiency anemia 7. Vascular dementia 8. Chronic diastolic congestive heart failure 9. Chronic atrial fibrillation 10. History of coronary artery disease 11. History of peripheral vascular disease 12. Gait ataxia at risk for falls 13. Benign prostatic hypertrophy 14. Comfort measures only status Medicare Certification Statement: I do not certify that [facility] care is medically necessary on a continuing basis for any of the conditions for which she/he is receiving care during hospitalization. Notify PCP of admission and forward orders to primary provider for signature. Other Notification Orders: Call PCP immediately if patient develops dyspnea, chest pain/tightness or edema. House Bowel Program: Yes Additional Bowel Program Orders: If no BM after 2 days, nurse may give M.O.M. 30ml PO PRN and/or ducolax Supp 1 MO and/or SAMUEL 250mg P.O., and/or senna 1-2 tabs PO. On day 3 nurse may give repeat above order until residents constipation is resolved. Annual Influenza Vaccine (between May 12 and December 09): No Two-step PPD per [facility] [phone] or approved exception documents: No Medication Orders: PLEASE REFER TO THE DISCHARGE MEDICATION LIST. - Medications New Prescriptions: LORazepam [Ativan] 2 mg PO Q1H PRN #30 tablet PRN Reason: Anxiety/Agitation Morphine Sulfate [Morphine Sulf Oral (Roxanol)] 2 mg PO Q2H PRN #30 ml PRN Reason: Pain/Dyspnea - Diet Type: diet as tolerated, not eating May have monthly special meal: No - Therapies | Activity Rehabilitation Potential: Maintain present ADL Functional (goal is comfort measures) Activity: Activity as Tolerated"
[2018-09-21 12:18] VITALS: BP 127/70
--- NOTE | 2018-09-21 13:56 | DISCHARGE SUMMARY ---
Physician: Lianet Melo MD DATE OF ADMISSION: 09/17/2018 DATE OF DISCHARGE: 09/21/2018 DISCHARGE DIAGNOSES 1. Acute respiratory failure with hypoxia. 2. Pneumonia. 3. Metabolic encephalopathy. 4. Acute worsening of stage 3 chronic kidney disease. 5. Prolonged INR. 6. Iron deficiency anemia. 7. Vascular dementia. 8. Chronic diastolic congestive heart failure. 9. Chronic atrial fibrillation. 10. History of coronary artery disease. 11. History of peripheral vascular disease. 12. Gait ataxia, at risk for falls. 13. Benign prostatic hypertrophy. 14. COMFORT MEASURES ONLY status. DISCHARGE MEDICATIONS 1. Albuterol nebulizer via nebulizer twice a day as needed. 2. DuoNeb via nebulizer every 4 hours as needed. 3. Tylenol 650 mg per rectum every 4 hours as needed for headache, fever or pain. 4. Atropine ophthalmic solution sublingually q.2 hours p.r.n. excessive respiratory secretions. 5. Ativan 2 mg p.o. q. 1 hour p.r.n. agitation. 6. Roxanol drops 2 mg every 2 hours as needed for pain, respiratory distress. PRINCIPAL PROCEDURES 1. Chest x-ray, September 17 and . His September 17 chest x-ray showed him to be rotated. It was difficult to assess, but he had new pulmonary edema, soft tissue density in the right hilum, but were these postsurgical changes? Repeat chest x-ray when he lies flat had continued right lung changes, which were not explained by airspace disease alone. It was a sharply demarcated opacity in the right mid and upper lung. The cardiomediastinal silhouette including right hilar surgical changes is similar to the admitting chest x-ray. There was right lower lung airspace disease. No pneumothorax. 2. Head CT showed no intraparenchymal hemorrhage, mass, midline shift. No subdural collection. Mucoid retention cysts seen in both maxillary sinuses, decreased when compared to prior head CT in May 2018. 3. Blood culture is negative after 48 hours. Catheter tip of left midline IV in left arm negative. HOSPITAL COURSE: The patient is a complicated, 83-year-old man who has had multiple vascular events in his life. 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 He was living at [facility] starting in February 2018, after living in an assisted living facility in [place]. He was followed by Home Health and Palliative Care. He moved to [facility], [facility], after being admitted to the hospital in July 2018. In June, here, he was hospitalized for a UTI and what was mistakenly diagnosed as bacteremia, likely 1/2 bottles being contaminant. He was placed on tetracycline, and then switched to doxycycline p.o. Once at the [facility] facility, he seemed to stabilize with regard to behavioral disorder and his dementia. Although he was impulsive and liked to get up out of his chair when he should not, the nurses described him as a pleasant, cooperative gentleman, who would motor around in the hallways, using his feet to propel himself in a wheelchair, but in the last week has been more sedated. Sleeping more. A chest x-ray was done 2 days ago and chest x-ray was clear. On the day of admission, his lethargy got to the point that he was sent to the ER. In the ER, he was hypoxic, with rhonchi. Afebrile at 36.2. Eighty- two percent on 100% nonrebreather with an elevated respiratory rate of 23-24. Pulse was 107. He maintained his blood pressure at 148/76. He had coarse rhonchi. He was felt to be in acute respiratory distress with hypoxia. He had midline left upper extremity IV that was taped with a date from over a month ago. It was used in the ER by our RN. Recognized on the floor as old IV and RN pulled it and sent for catheter tip culture. BUN and creatinine were elevated at 26 and 2.4. Troponins were negative. White cell count was elevated to 23.5. Initial blood gas showed him to have a pH of 7.39, pCO2 of 30, pO2 of 50% on a 45% FiO2 BiPAP. He is a DO NOT RESUSCITATE with limited intervention. Daughter would like aggressive care up to the point of intubation and resuscitation. She did want antibiotics, IV fluids, transfusions and BiPAP as needed. While the chest x-ray done 2 days before admission was clear, the admission chest x-ray showed him to have new pulmonary edema, soft tissue density in the right hilum and a mediastinal shift, but it was felt possibly rotation. This patient would not lie on his back and was constantly rotated over, lying on his right side. Patient was placed in the ICU with acute respiratory failure with hypoxia secondary to pneumonia and possibly diastolic congestive heart failure. He was not diuresed because we feared worsening his kidney function, but we did make sure we watched our fluid resuscitation. His creatinine nicely came down from 2.4, down to 1.3 on the day of discharge. BUN came down to 43 from 66. For a short time, he did develop hypernatremia all the way up to 156 and we put him on a D5 drip, and it came down to 152. As for his pneumonia, he was continued on empiric antibiotics. Blood cultures were negative, sputum culture was not able to be obtained. Repeat chest x-ray showed the findings as above. As we transitioned this patient in a philosophical discussion with his daughter about how aggressive to be, she was very clear about her wishes. She was very actively involved in his day-to-day care. She knew him very well. He had lived with her for 4-5 years before she had him moved to the assisted living facility in [place], and then here to the [facility]. As he improved from a kidney perspective and a hypoxia perspective and no longer needed BiPAP, he still did not wake up. CT of the head showed no subdural or stroke. We now entered into discussions about how aggressive and how further to evaluate him. We started transitioning to more comfort level care. For several days, we discussed not doing any further interventions or evaluations, and seeing how he did. That included me not doing another CAT scan, this time of the chest, and we waited to see how he would do. While his hypoxia improved, and renal function improved, his INR did not go down, and his metabolic encephalopathy did not resolve. He did require Ativan and morphine to control his severe agitation. Daughter, many times, was able to soothe him by being at the bedside and stroking his shoulder and speaking to him. His atrial fibrillation remained fairly rate controlled. While he was initially tachycardic when he came in, the rate slowed down. We did not continue his anticoagulation because of the prolonged INR. 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 There is no clear reason why his INR would stay prolonged in the face of no anticoagulation. His INR had been prolonged even before he came into the hospital to 6-7 at the [facility], but they did not give him his Coumadin. His troponins were negative and his coronary artery disease is not felt to be a factor. While he has a history of peripheral vascular disease and aneurysm repair, his legs did not exhibit any ischemic changes. He had a Alanis the entire time he was here for his history of urinary retention from benign prostatic hypertrophy. After many, many thoughtful conversations with his daughter who was always his advocate, she agreed to transition him to hospice care. It had been a long, hard road for him. As such, he is now transferred to his [facility] facility, [facility]. Sign-out has happened with Dr. Sedrick Thorpe. Dr. Arita, hospice, will open the patient up to hospice on the day of discharge at 2 p.m. Greater than 30 minutes was spent coordinating discharge. He is discharged in poor condition with a poor prognosis. Temperature at discharge is 39.5, pulse 120, blood pressure 124/74, respirations 40, 100% saturated with 2 L nasal cannula. The fever is new. He had been afebrile during his stay and at discharge is when he spiked a temperature. His pulse rate had been 80s to 90s, and he was now 120. It is clear he is failing, and now having an infectious source that is clearly documented. He has coarse upper airway sounds, tachycardic, irregular rate and rhythm. Abdomen is soft, nontender. Hypoactive to almost no bowel sounds. Hands and feet are not cold yet, but they are slightly cool. He is unresponsive, except to noxious stimuli. He will move his limbs spontaneously. At times, we have needed to do restraints here to make sure he did not pull out IVs or other lines. Daughter initially had said that she did not want Roxanol given to him in the ICU. She agreed to let us give him Roxanol at [facility]. TD: 09/21/2018 12:12 [facility]
== END 2018-09-21 13:40 | DRG 189 ==
LOC: EDUNIT# → ED 08:52 → UNDOADMIN 10:56 → ICU 10:56
PROVIDERS: ADMIT Specialist; ATTEND Specialist
DX: J96.11 Chronic respiratory failure with hypoxia (principal); I48.91 Unspecified atrial fibrillation; J96.01 Acute respiratory failure with hypoxia; N18.9 Chronic kidney disease, unspecified; F03.90 Unspecified dementia, unspecified severity, without behavioral disturbance, psychotic disturbance, mood disturbance, and anxiety; Z66 Do not resuscitate; Z99.81 Dependence on supplemental oxygen; J18.1 Lobar pneumonia, unspecified organism; R41.82 Altered mental status, unspecified; G93.41 Metabolic encephalopathy; I50.32 Chronic diastolic (congestive) heart failure; E03.9 Hypothyroidism, unspecified; N40.0 Benign prostatic hyperplasia without lower urinary tract symptoms; I13.0 Hypertensive heart and chronic kidney disease with heart failure and stage 1 through stage 4 chronic kidney disease, or unspecified chronic kidney disease; E87.0 Hyperosmolality and hypernatremia; I48.92 Unspecified atrial flutter; Z51.5 Encounter for palliative care; Z78.1 Physical restraint status; N18.3 Chronic kidney disease, stage 3 (moderate); D50.9 Iron deficiency anemia, unspecified; F01.50 Vascular dementia, unspecified severity, without behavioral disturbance, psychotic disturbance, mood disturbance, and anxiety; I48.2 Chronic atrial fibrillation; I25.10 Atherosclerotic heart disease of native coronary artery without angina pectoris; I73.9 Peripheral vascular disease, unspecified; R26.0 Ataxic gait; N40.1 Benign prostatic hyperplasia with lower urinary tract symptoms; R33.8 Other retention of urine; Z79.01 Long term (current) use of anticoagulants; J44.9 Chronic obstructive pulmonary disease, unspecified; I70.1 Atherosclerosis of renal artery; K74.60 Unspecified cirrhosis of liver; T46.2X5A Adverse effect of other antidysrhythmic drugs, initial encounter; R41.3 Other amnesia; H54.7 Unspecified visual loss; M19.90 Unspecified osteoarthritis, unspecified site; G89.29 Other chronic pain; M54.9 Dorsalgia, unspecified; Z96.641 Presence of right artificial hip joint; Z87.891 Personal history of nicotine dependence; I71.4 Abdominal aortic aneurysm, without rupture
CPT/HCPCS: 36415; 36600; 70450; 71045; 80048; 80076; 81001; 81003; 82803; 83605; 84484; 85025; 85610; 87040; 87071; 87086; 87150; 93005; 94640; 94660; 96365; 96375; 99284; 99285

== ENCOUNTER 2018-09-21 13:46 | Outpatient (CLI) | payer MEDICARE, MEDICAID | END 2018-09-21 13:47 | LOC: EMS 13:46 | PROVIDERS: ATTEND Surgery | DX: Z74.01 Bed confinement status (principal) | CPT/HCPCS: A0425; A0428 ==